=== PATIENT | female | born 1955 | race American Indian/Alaskan Native ===

== ENCOUNTER 2018-04-12 04:07 | Inpatient (IN) | payer MEDICAID ==
[2018-04-12] MEDS ORDERED: Sodium Chloride 0.9% 1,000 ML IV ONE ×2 (04:51→07:09)
[2018-04-12] MEDS ORDERED: Sodium Chloride 0.9% 1,000 ML ONE (04:52)
[2018-04-12 04:56] LABS: BASO # 0.1 K/uL (0.0-0.2); EOS % 0.3 % (0.0-4.0); NEUT # 7.1 K/uL (1.8-7.0)
[2018-04-12 05:05] LABS: BASO % 0.5 % (0.0-2.0); LYMPH # 2.7 K/uL (1.0-4.3); LYMPH % 24.9 % (20.0-40.0); MEAN CELL VOLUME 82.7 fL (81.0-99.0); MEAN CORPUSCULAR HEMOGLOBIN 28.3 pg (27.0-31.0); MEAN CORPUSCULAR HGB CONC 34.2 g/dL (33.0-37.0); MONO # 0.9 K/uL (0.0-0.8); MONO % 8.3 % (0.0-10.0); NRBC % 19.6 % (0.0-2.0); RBC 1.67 Mil/uL (3.80-5.20); RED CELL DISTRIBUTION WIDTH 35.3 % (11.5-14.5); WHITE BLOOD COUNT 10.7 K/uL (4.8-10.8)
[2018-04-12 05:14] LABS: HEMOGLOBIN 4.7 g/dL (11.0-16.0)
[2018-04-12 05:17] LABS: ALB/GLOB RATIO 1.4 (1.0-2.1); ALBUMIN 4.8 g/dL (3.5-5.0); CALCIUM 9.2 mg/dl (8.6-10.4)
--- NOTE | 2018-04-12 05:22 | C.PDOC ---
History Of Present Illness <Marissa Navarrete - Last Filed: 04/12/18 05:32> <Geneva Crook - Last Filed: 04/12/18 06:49> 62 y/o female bought in by family for evaluation of generalized weakness and hypotension. As per spouse, patient reportedly passed out in the store on Tuesday and was brought home by a neighbor. Patient refused any medical treatment at that time. States that since then patient has continued to remain weak, appears pale, with low blood pressure. Spouse states patient has been eating and drinking well. Patient herself denies any complaints, states she feels fine. As per spouse, pt fell today which prompted him to call 911. Deies melena, hematochezia, hematemesis, vomiting, fever, URI sx (Marissa Navarrete) History Per: Patient History/Exam Limitations: no limitations Onset/Duration Of Symptoms: Days Current Symptoms Are (Timing): Still Present <Marissa Navarrete - Last Filed: 04/12/18 05:32> <Geneva Crook - Last Filed: 04/12/18 06:49> Time Seen by Provider: 04/12/18 04:37 Chief Complaint (Nursing): Syncope Past Medical History Reviewed: Historical Data, Nursing Documentation, Vital Signs - Medical History PMH: COPD, HTN, Hypothyroidism Family History: States: No Known Family Hx - Social History Hx Alcohol Use: No Hx Substance Use: No - Immunization History Hx Tetanus Toxoid Vaccination: No Hx Influenza Vaccination: No Hx Pneumococcal Vaccination: No <Marissa Navarrete - Last Filed: 04/12/18 05:32> Vital Signs: Last Vital Signs Temp 98 F 04/12/18 05:36 Pulse 96 H 04/12/18 06:30 Resp 20 04/12/18 06:30 BP 93/54 L 04/12/18 06:30 Pulse Ox 100 04/12/18 06:30 - [facility] OPEN BIOPSY OF BREAST (11/29/02) Review Of Systems Constitutional: Positive for: Weakness (generalized), Malaise (Appears groggy and pale), Other (Hypotension). Negative for: Fever Eyes: Negative for: Vision Change Cardiovascular: Negative for: Chest Pain, Palpitations Respiratory: Negative for: Shortness of Breath Gastrointestinal: Negative for: Vomiting, Abdominal Pain, Diarrhea Neurological: Negative for: Weakness (focal), Numbness, Incoordination, Headache <Marissa aNvarrete - Last Filed: 04/12/18 05:32> Physical Exam - Physical Exam Appears: Non-toxic, No Acute Distress, Other (Appears groggy) Skin: Warm, Dry Head: Atraumatic, Normacephalic Eye(s): bilateral: PERRL, Conjunctiva Pale, Scleral Icterus Oral Mucosa: Moist Throat: Normal, No Erythema Neck: Supple Chest: Symmetrical Cardiovascular: Rhythm Regular, No Murmur Respiratory: Normal Breath Sounds, No Rales, No Rhonchi, No Wheezing Gastrointestinal/Abdominal: Normal Exam, Soft, No Mass, No Distention Rectal: Maroon Stool, No Melena, No Blood Streaked Stool Extremity: Normal ROM, No Pedal Edema Extremity: Bilateral: Atraumatic, Normal Color And Temperature, Normal ROM Neurological/Psych: Oriented x3, Normal Speech, Normal Cognition, Normal Motor, Normal Sensation Gait: Unable To Assess <Marissa Navarrete - Last Filed: 04/12/18 05:32> ED Course And Treatment - Laboratory Results Result Diagrams: 04/12/18 04:49 04/12/18 04:49 ECG: Interpreted By Me, Viewed By Me ECG Rhythm: Sinus Rhythm ECG Interpretation: No Acute Changes Interpretation Of ECG: No ST/T changes Rate From EC O2 Sat by Pulse Oximetry: 98 (RA) Pulse Ox Interpretation: Normal Progress Note: Labs ordered, including blood type/screen. Administered IV fluids. EKG obtained. Labs reviewed: Hb 4.7, platelets 12. Occult blood test ordered. Pt is type and cross for 2 u PRBCs <Marissa Navarrete - Last Filed: 04/12/18 05:32> - Laboratory Results Result Diagrams: 04/12/18 04:49 04/12/18 04:49 Pulse Ox Interpretation: Normal <Geneva Crook - Last Filed: 04/12/18 06:49> Disposition <Marissa Navarrete - Last Filed: 04/12/18 05:32> - Disposition Disposition Time: 06:47 <Geneva Crook - Last Filed: 04/12/18 06:49> - Disposition Referrals: Raymundo Keller MD [Primary Care Provider] - Condition: GUARDED Forms: [facility] (Kyrgyz) - Clinical Impression Clinical Impression: Severe anemia, Thrombocytopenia, Syncope - PA / HEALTHCARE ECONOMICS MANAGER / Resident Statement MD/DO has reviewed & agrees with the documentation as recorded. - Scribe Statement The provider has reviewed the documentation as recorded by the Scribe (Tran Olivier) <Marissa Navarrete - Last Filed: 04/12/18 05:32> <Geneva Crook - Last Filed: 04/12/18 06:49> - Scribe Statement All medical record entries made by the Scribe were at my direction and personally dictated by me. I have reviewed the chart and agree that the record accurately reflects my personal performance of the history, physical exam, medical decision making, and the department course for this patient. I have also personally directed, reviewed, and agree with the discharge instructions and disposition. (Marissa Navarrete) Physician Patient Turnover Patient Signed Over To: Berry Sheehan Handoff Comments: pending re-eval, ct scan results and admission <Geneva Crook - Last Filed: 04/12/18 06:49>
[2018-04-12 05:36] LABS: INR 1.1; PROTHROMBIN TIME 12.3 SECONDS (9.7-12.2)
[2018-04-12] MEDS ORDERED: Potassium Chloride 10 mEq ER Tab PO STA (05:42)
[2018-04-12] MEDS ORDERED: Potassium Chloride 20 mEq ER Tab PO ONE (05:47)
[2018-04-12] MEDS ORDERED: Iodixanol 320 mg/ml 150 ml Bottle IV ONE (06:22)
--- NOTE | 2018-04-12 07:15 | CT ---
Date of service: 04/12/2018 PROCEDURE: CT HEAD WITHOUT CONTRAST. HISTORY: syncope COMPARISON: None available. TECHNIQUE: Axial computed tomography images were obtained through the head/brain without intravenous contrast. Radiation dose: Total exam DLP = 795 mGy-cm. This CT exam was performed using one or more of the following dose reduction techniques: Automated exposure control, adjustment of the mA and/or kV according to patient size, and/or use of iterative reconstruction technique. FINDINGS: HEMORRHAGE: No intracranial hemorrhage. BRAIN: Scattered focal lucencies in the subcortical and periventricular white matter suggestive for chronic microvascular ischemic change. 7 millimeter focal hypodensity seen at the level of the right internal capsule suggestive for a lacunar infarct, likely chronic. VENTRICLES: Unremarkable. No hydrocephalus. CALVARIUM: Unremarkable. PARANASAL SINUSES: Unremarkable as visualized. No significant inflammatory changes. MASTOID AIR CELLS: Unremarkable as visualized. No inflammatory changes. OTHER FINDINGS: Scattered calcifications along the falx and tentorium. IMPRESSION: Chronic microvascular ischemic changes. 7 millimeter focal hypodensity seen at the level of the right internal capsule suggestive for a lacunar infarct, likely chronic. Scattered calcifications along the falx and tentorium. If there is concern for acute ischemic change, consider correlation with MRI. These findings were preliminarily reported at 6:36 a.m. on 04/12/[address] Santy Humphrey from [employer].
[2018-04-12] MEDS ORDERED: Sodium Chloride 0.9% 250 ML IV ONE (07:16)
[2018-04-12 07:44] LABS: SQUAMOUS EPITHIAL 12 /hpf (0-5); URINE BACTERIA RARE (<OCC); URINE BILIRUBIN NEGATIVE (NEGATIVE); URINE BLOOD 2+ (NEGATIVE); URINE CLARITY Hazy (Clear); URINE COLOR Yellow (YELLOW); URINE GLUCOSE (UA) NORMAL (Normal); URINE HYALINE CAST 0-2 /lpf (0-2); URINE LEUKOCYTE ESTERASE TRACE Leu/uL (Negative); URINE PROTEIN NEGATIVE (NEGATIVE)
--- NOTE | 2018-04-12 09:22 | CP.PCM.HP ---
History of Present Illness - History of Present Illness History of Present Illness: Ryan Nicholson PGY1 - History & Physical Exam Note for Dr. Fragoso This is a 62-year-old female with PMHx HTN, hypothyroidism, asthma, migraines, and per patient, "heart murmur since " presents today to ER complaining of dizziness. Patient states that at approximately 4 AM this morning she felt dizzy as she entered the bathroom. Patient reports that she lost balance and fell, states that she was able to catch her fall with her hands. Denies loss of consciousness or hitting her head. Patient states that her came and helped her up, then proceeded to call 911 for patient to go to the hospital. Patient states that she has felt dizzy for 4 days with associated symptoms of lightheadedness, vertigo, chills, and anorexia. She has never had these symptoms before this current episode. Her last meal was yogurt and cereal 4 days ago. Patient otherwise denies nausea, vomiting, fever, weakness, fatigue, myalgias, headache, changes to vision, blurring of vision, changes to hearing, nasal congestion, sore throat, cough, shortness of breath, chest pain, heart palpitations, abdominal pain, dysuria, hematuria, melena, hematochezia, constipation, diarrhea. Of note, patient denies history of anemia. 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 Has hearing aid in right ear which works. ED Vitals: Temp 98.2, BP 93/54, HR 96, RR 22, O2 100% on room air ED Course: Patient type and crossed, receiving first PRBC PMHx: HTN, hypothyrodism, asthma, migraines, "heart murmur" PSHx: "I had a surgery years ago but I can't remember what it was" Hospitalizations: "I was hospitalized 5-6 years ago but I can't remember what it was for" Allx: SUAD [facility] Pharmacy: [facility] Home Medications: lisinopril/HCTZ 10/12.5 mg BID, ASA 81 mg daily, levothyroxine 50 mcg, Albuterol prn, Montelukast 10 mg daily, OTC multivitamin PMD: Raymundo Keller MD Social History: - smokes 2-3 cigarettes daily since age 17 (45 years duration) - denies past or present alcohol use - denies past or present drug use - lives with her in "a decent apartment" - occupation lunch aid at school Family History: - Mother - lung cancer (smoker), DM, HTN, HLD, CVA, [place] - Father - lung cancer, HTN, DM, HLD, [place] - 2 healthy [place] Present on Admission - Present on Admission Any Indicators Present on Admission: No History of DVT/PE: No History of Uncontrolled Diabetes: No Urinary Catheter: No Decubitus Ulcer Present: No Review of Systems - Review of Systems All systems: reviewed and no additional remarkable complaints except - Constitutional Constitutional: As Per HPI - EENT Eyes: As Per HPI Ears: As Per HPI Nose/Mouth/Throat: As Per HPI - Breasts Breasts: As Per HPI - Cardiovascular Cardiovascular: As Per HPI - Respiratory Respiratory: As Per HPI - Gastrointestinal Gastrointestinal: As Per HPI - Genitourinary Genitourinary: As Per HPI - Reproductive: Female Reproductive:Female: As Per HPI - Menstruation Menstruation: As Per HPI - Musculoskeletal Musculoskeletal: As Per HPI - Integumentary Integumentary: As Per HPI - Neurological Neurological: As Per HPI - Psychiatric Psychiatric: As Per HPI - Endocrine Endocrine: As Per HPI - Hematologic/Lymphatic Hematologic: As Per HPI Past Patient History - Infectious Disease Hx of Infectious Diseases: None - Past Social History Smoking Status: Heavy Smoker > 10 Cigarettes Daily - CARDIAC Hx Hypertension: Yes - PULMONARY Hx Chronic Obstructive Pulmonary Disease (COPD): Yes - HEENT Other/Comment: WEARS EYEGLASSES - ENDOCRINE/METABOLIC Hx Hypothyroidism: Yes - PSYCHIATRIC Hx Substance Use: No - SURGICAL HISTORY Hx Surgeries: No - ANESTHESIA Hx Anesthesia: No Meds Allergies/Adverse Reactions: Allergies Allergy/AdvReac Type Severity Reaction Status Date / Time No Known Allergies Allergy Unverified 04/12/18 04:28 Physical Exam - Additional Findings Additional findings: - Constitutional Appears: Non-toxic, No Acute Distress - Eye Exam Eye Exam: EOMI, PERRL Additional comments: conjunctival pallor appreciated on inspection - ENT Exam ENT Exam: Mucous Membranes Dry, Normal Oropharynx - Neck Exam Neck exam: Positive for: Normal Inspection. Negative for: Tenderness Additional comments: no JVD - Respiratory Exam Respiratory Exam: Clear to Auscultation Bilateral. absent: Rales, Rhonchi, Wheezes - Cardiovascular Exam Cardiovascular Exam: RRR, +S1, +S2. Positive for: Holosystolic murmur. absent: Gallop, Rubs - GI/Abdominal Exam GI & Abdominal Exam: Normal Bowel Sounds, Soft. absent: Distended, Tenderness - Extremities Exam Extremities exam: Negative for: calf tenderness, pedal edema - Neurological Exam Neurological exam: Alert, CN II-XII Intact, Oriented x3 - Psychiatric Exam Psychiatric exam: Normal Affect, Normal Mood - Skin Skin Exam: scattered petechiae noted in lower extremities bilaterally, Dry, Intact, Warm Results - Vital Signs Recent Vital Signs: Last Vital Signs Temp 98.2 F 04/12/18 08:07 Pulse 92 H 04/12/18 08:07 Resp 22 04/12/18 08:07 BP 103/63 04/12/18 08:07 Pulse Ox 100 04/12/18 08:07 - Labs Result Diagrams: 04/12/18 04:49 04/12/18 16:13 Labs: Laboratory Results - last 24 hr 04/12/18 04/12/18 04/12/18 04:49 04:49 05:01 WBC 10.7 RBC 1.67 L Hgb 4.7 L* Hct 13.8 L MCV 82.7 MCH 28.3 MCHC 34.2 RDW 35.3 H Plt Count 12 L* MPV 9.0 Neut % (Auto) 66.0 Lymph % (Auto) 24.9 [place] % (Auto) 8.3 Eos % (Auto) 0.3 Baso % (Auto) 0.5 Neut # (Auto) 7.1 H Lymph # (Auto) 2.7 [place] # (Auto) 0.9 H Eos # (Auto) 0.0 Baso # (Auto) 0.1 PT INR APTT Sodium 138 Potassium 2.9 L Chloride 103 Carbon Dioxide 22 Anion Gap 16 BUN 38 H Creatinine 1.4 H Est GFR ( Amer) 46 Est GFR (Non-Af Amer) 38 Random Glucose 146 H Calcium 9.2 Magnesium 1.9 Total Bilirubin 3.8 H AST 77 H ALT 29 Alkaline Phosphatase 51 Total Creatine Kinase 116 Total Protein 8.3 Albumin 4.8 Globulin 3.5 Albumin/Globulin Ratio 1.4 Lipase 360 H TSH 3rd Generation 6.24 H Urine Color Urine Clarity Urine pH Ur Specific [place] Urine Protein Urine Glucose (UA) Urine Ketones Urine Blood Urine Nitrate Urine Bilirubin Urine Urobilinogen Ur Leukocyte Esterase Urine WBC (Auto) Urine RBC (Auto) Ur Squamous Epith Cells Urine Bacteria Hyaline Casts Stool Occult Blood Blood Type Blood Type Confirm Antibody Screen 04/12/18 04/12/18 04/12/18 05:25 05:25 05:28 WBC RBC Hgb Hct MCV MCH MCHC RDW Plt Count MPV Neut % (Auto) Lymph % (Auto) [place] % (Auto) Eos % (Auto) Baso % (Auto) Neut # (Auto) Lymph # (Auto) [place] # (Auto) Eos # (Auto) Baso # (Auto) PT 12.3 H INR 1.1 APTT 27 Sodium Potassium Chloride Carbon Dioxide Anion Gap BUN Creatinine Est GFR ( Amer) Est GFR (Non-Af Amer) Random Glucose Calcium Magnesium Total Bilirubin AST ALT Alkaline Phosphatase Total Creatine Kinase Total Protein Albumin Globulin Albumin/Globulin Ratio Lipase TSH 3rd Generation Urine Color Urine Clarity Urine pH Ur Specific [place] Urine Protein Urine Glucose (UA) Urine Ketones Urine Blood Urine Nitrate Urine Bilirubin Urine Urobilinogen Ur Leukocyte Esterase Urine WBC (Auto) Urine RBC (Auto) Ur Squamous Epith Cells Urine Bacteria Hyaline Casts Stool Occult Blood Negative Blood Type B POSITIVE Blood Type Confirm B POSITIVE Antibody Screen Negative 04/12/18 07:26 WBC RBC Hgb Hct MCV MCH MCHC RDW Plt Count MPV Neut % (Auto) Lymph % (Auto) [place] % (Auto) Eos % (Auto) Baso % (Auto) Neut # (Auto) Lymph # (Auto) [place] # (Auto) Eos # (Auto) Baso # (Auto) PT INR APTT Sodium Potassium Chloride Carbon Dioxide Anion Gap BUN Creatinine Est GFR ( Amer) Est GFR (Non-Af Amer) Random Glucose Calcium Magnesium Total Bilirubin AST ALT Alkaline Phosphatase Total Creatine Kinase Total Protein Albumin Globulin Albumin/Globulin Ratio Lipase TSH 3rd Generation Urine Color Yellow Urine Clarity Hazy Urine pH 5.0 Ur Specific [place] 1.028 Urine Protein Negative Urine Glucose (UA) Normal Urine Ketones Negative Urine Blood 2+ H Urine Nitrate Negative Urine Bilirubin Negative Urine Urobilinogen 2.0 H Ur Leukocyte Esterase Trace Urine WBC (Auto) 4 Urine RBC (Auto) 2 Ur Squamous Epith Cells 12 H Urine Bacteria Rare Hyaline Casts 0-2 Stool Occult Blood Blood Type Blood Type Confirm Antibody Screen Assessment & Plan - Assessment and Plan (Free Text) Assessment: Assessment: This is a 62-year-old Female with a PMH of HTN, hypothyroidism , asthma, and migraines who presented to ED with complaints of dizziness and weakness for multiple days that became worse this morning, found to have severe anemia and thrombocytopenia with peripheral smear findings suspicious for TTP. Patient was subsequently admitted to Tele then transferred to ICU for closer monitoring and for evaluation and treatment of thrombocytopenia and anemia. Plan: 1. Dizziness and pre-syncope likely secondary to Anemia & Thombocytopenia likely secondary to TTP - Heme-Onc: Dr. De La Cruz Consulted, recommendations appreciated - Critical care: Dr. Portillo consulted on board - Patient transferred to ICU for closer monitoring - BUN elevated, Cr elevated - CBC: WBC= 10.7, platelets=12, Hgb=4.7, Hct=13.8 - 1 unit PRBC transfused while in the ED, patient tolerated well - Peripheral smear: positive for schistocytes - direct/indirect bili ordered - Lucio test (direct/indirect) ordered - BOYER 13 lab ordered - Reticulocyte: 13.3 - CAB=[id number] - Lipase: 360 - Carcinoembryonic Ag=4.9 - CA 19-9 Antigen=6.7 - CA 125 Antigen=7 - Vitamin [id number] - Folate >20.0 - Plasmapharesis - Continued management per ICU - CT head: - Abdomen / Pelvis CT: - HIV 1&2 Abs: negative - Isolation: neutropenic precaution - VTE contraindication: No injections, No administering via IM route 2. Hypokalemia - K+=2.9 - K-dur 20mEq given in ED - Replete as needed - Monitor 3. Hypothyroidism - continue home medications - TSH=6.24, T11 Patient was seen and examined and case was discussed at length with attending physician Dr. Fouzia Nicholson PGY1
--- NOTE | 2018-04-12 12:25 | CT ---
Date of service: 04/12/2018 PROCEDURE: CT Abdomen and Pelvis with contrast HISTORY: gi bleed COMPARISON: None available TECHNIQUE: Contrast dose: 100 mL Visipaque IV Radiation dose: Total exam DLP = 355.90 mGy-cm. This CT exam was performed using one or more of the following dose reduction techniques: Automated exposure control, adjustment of the mA and/or kV according to patient size, and/or use of iterative reconstruction technique. FINDINGS: Motion artifact. LOWER THORAX: Unremarkable. LIVER: Unremarkable. GALLBLADDER AND BILE DUCTS: Unremarkable. PANCREAS: Unremarkable. SPLEEN: Wedge-shaped hypodense regions involving the spleen may reflect infarctions of indeterminate age. ADRENALS: Unremarkable. KIDNEYS AND URETERS: The kidneys enhance symmetrically. No hydronephrosis or obstructing calculus identified. Nonobstructing tiny left renal calculus. VASCULATURE: No aortic aneurysm. BOWEL: Stomach is nondistended. Lack of oral contrast limits evaluation for bowel pathology. Bowel loops appear within normal limits of caliber without evidence of obstruction. APPENDIX: No secondary signs of acute appendicitis. PERITONEUM: No significant free fluid. No definite free air. LYMPH NODES: No bulky adenopathy identified. BLADDER: Unremarkable. REPRODUCTIVE: Unremarkable. BONES: No acute osseous abnormality is detected. OTHER FINDINGS: Prominent pelvic vessels suggest pelvic congestion syndrome. IMPRESSION: Wedge-shaped hypodense regions involving the spleen may reflect infarctions of indeterminate age. Additional findings as above. Preliminary impression was provided by virtual radiologic.
[2018-04-12] MEDS ORDERED: Levothyroxine 50 MCG TAB PO SCH (13:15)
--- NOTE | 2018-04-12 14:25 | CP.PCM.CON ---
<Any Alvarez - Last Filed: 04/12/18 18:16> History of Present Illness - History of Present Illness History of Present Illness: ICU consult note CC "generalized weakness" HPI: Patient is a 62 year old female who presents for generalized weakness and hypotension. Patient reportedly recently had a syncopal episode on Tuesday but refused medical treatment at that time. She has reportedly continued to remain weak, appearing pale with low blood pressure. Patient has reportedly been dizzy for the past 4 days. Patient reportedly she felt dizzy and fell earlier today which is why patient was brought in for evaluation. She denies fever, nausea, vomiting, headache, nasal congestion, sore throat, cough, shortness of breath, chest pain, palpitations, dysuria, hematuria, melena, constipation, diarrhea. 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 She states her last meal was this morning. PMH: COPD, HTN, Hypothyroidism, asthma, migraines, "heart murmur", hearing aide in right ear PSH: unknown Allergies: NKDA Meds: Lisinopril/HCTZ, ASA, Levothyroxine, Albuterol, Montelukas, OTC vitamin Social hx: Smokes, no alcohol or drug use. lives with husbands. works as lunch aide at school Past Patient History - Infectious Disease Hx of Infectious Diseases: None - Past Social History Smoking Status: Heavy Smoker > 10 Cigarettes Daily - CARDIAC Hx Hypertension: Yes - PULMONARY Hx Chronic Obstructive Pulmonary Disease (COPD): Yes - HEENT Other/Comment: WEARS EYEGLASSES - ENDOCRINE/METABOLIC Hx Hypothyroidism: Yes - PSYCHIATRIC Hx Substance Use: No - SURGICAL HISTORY Hx Surgeries: No - ANESTHESIA Hx Anesthesia: No Meds Allergies/Adverse Reactions: Allergies Allergy/AdvReac Type Severity Reaction Status Date / Time No Known Allergies Allergy Unverified 04/12/18 04:28 - Medications Medications: Current Medications Levothyroxine Sodium (Synthroid) 50 mcg PO DAILY JOSE Montelukast Sodium (Singulair) 10 mg PO DAILY JOSE Physical Exam - Constitutional Appears: Other (Appears weak) - Head Exam Head Exam: ATRAUMATIC, NORMAL INSPECTION - Eye Exam Eye Exam: EOMI Additional comments: Pale conjunctiva - ENT Exam ENT Exam: Mucous Membranes Moist - Respiratory Exam Respiratory Exam: Clear to Auscultation Bilateral. absent: Decreased Breath Sounds, Rales, Rhonchi, Wheezes, Respiratory Distress, Stridor - Cardiovascular Exam Cardiovascular Exam: REGULAR RHYTHM, +S1, +S2 - GI/Abdominal Exam GI & Abdominal Exam: Normal Bowel Sounds, Soft. absent: Tenderness - Extremities Exam Extremities exam: Positive for: pedal pulses present. Negative for: calf tenderness Additional comments: Delayed capillary refill - Back Exam Back exam: absent: rash noted - Neurological Exam Neurological exam: Alert, Oriented x3 - Psychiatric Exam Psychiatric exam: Normal Affect, Normal Mood - Skin Skin Exam: Dry, Intact, Warm Results - Vital Signs Recent Vital Signs: Last Vital Signs Temp 99 F 04/12/18 12:48 Pulse 88 04/12/18 12:48 Resp 20 04/12/18 12:48 BP 113/74 04/12/18 12:48 Pulse Ox 100 04/12/18 12:48 - Labs Result Diagrams: 04/12/18 04:49 04/12/18 16:13 Labs: Laboratory Results - last 24 hr 04/12/18 04/12/18 04/12/18 04:49 04:49 05:01 WBC 10.7 RBC 1.67 L Hgb 4.7 L* Hct 13.8 L MCV 82.7 MCH 28.3 MCHC 34.2 RDW 35.3 H Plt Count 12 L* MPV 9.0 Neut % (Auto) 66.0 Lymph % (Auto) 24.9 [place] % (Auto) 8.3 Eos % (Auto) 0.3 Baso % (Auto) 0.5 Neut # (Auto) 7.1 H Lymph # (Auto) 2.7 [place] # (Auto) 0.9 H Eos # (Auto) 0.0 Baso # (Auto) 0.1 Differential Comment PT INR APTT Sodium 138 Potassium 2.9 L Chloride 103 Carbon Dioxide 22 Anion Gap 16 BUN 38 H Creatinine 1.4 H Est GFR ( Amer) 46 Est GFR (Non-Af Amer) 38 Random Glucose 146 H Calcium 9.2 Magnesium 1.9 Total Bilirubin 3.8 H AST 77 H ALT 29 Alkaline Phosphatase 51 Total Creatine Kinase 116 Total Protein 8.3 Albumin 4.8 Globulin 3.5 Albumin/Globulin Ratio 1.4 Lipase 360 H TSH 3rd Generation 6.24 H Urine Color Urine Clarity Urine pH Ur Specific [place] Urine Protein Urine Glucose (UA) Urine Ketones Urine Blood Urine Nitrate Urine Bilirubin Urine Urobilinogen Ur Leukocyte Esterase Urine WBC (Auto) Urine RBC (Auto) Ur Squamous Epith Cells Urine Bacteria Hyaline Casts Stool Occult Blood Blood Type Blood Type Confirm Antibody Screen 04/12/18 04/12/18 04/12/18 05:25 05:25 05:28 WBC RBC Hgb Hct MCV MCH MCHC RDW Plt Count MPV Neut % (Auto) Lymph % (Auto) [place] % (Auto) Eos % (Auto) Baso % (Auto) Neut # (Auto) Lymph # (Auto) [place] # (Auto) Eos # (Auto) Baso # (Auto) Differential Comment PT 12.3 H INR 1.1 APTT 27 Sodium Potassium Chloride Carbon Dioxide Anion Gap BUN Creatinine Est GFR ( Amer) Est GFR (Non-Af Amer) Random Glucose Calcium Magnesium Total Bilirubin AST ALT Alkaline Phosphatase Total Creatine Kinase Total Protein Albumin Globulin Albumin/Globulin Ratio Lipase TSH 3rd Generation Urine Color Urine Clarity Urine pH Ur Specific [place] Urine Protein Urine Glucose (UA) Urine Ketones Urine Blood Urine Nitrate Urine Bilirubin Urine Urobilinogen Ur Leukocyte Esterase Urine WBC (Auto) Urine RBC (Auto) Ur Squamous Epith Cells Urine Bacteria Hyaline Casts Stool Occult Blood Negative Blood Type B POSITIVE Blood Type Confirm B POSITIVE Antibody Screen Negative 04/12/18 07:26 WBC RBC Hgb Hct MCV MCH MCHC RDW Plt Count MPV Neut % (Auto) Lymph % (Auto) [place] % (Auto) Eos % (Auto) Baso % (Auto) Neut # (Auto) Lymph # (Auto) [place] # (Auto) Eos # (Auto) Baso # (Auto) Differential Comment PT INR APTT Sodium Potassium Chloride Carbon Dioxide Anion Gap BUN Creatinine Est GFR ( Amer) Est GFR (Non-Af Amer) Random Glucose Calcium Magnesium Total Bilirubin AST ALT Alkaline Phosphatase Total Creatine Kinase Total Protein Albumin Globulin Albumin/Globulin Ratio Lipase TSH 3rd Generation Urine Color Yellow Urine Clarity Hazy Urine pH 5.0 Ur Specific [place] 1.028 Urine Protein Negative Urine Glucose (UA) Normal Urine Ketones Negative Urine Blood 2+ H Urine Nitrate Negative Urine Bilirubin Negative Urine Urobilinogen 2.0 H Ur Leukocyte Esterase Trace Urine WBC (Auto) 4 Urine RBC (Auto) 2 Ur Squamous Epith Cells 12 H Urine Bacteria Rare Hyaline Casts 0-2 Stool Occult Blood Blood Type Blood Type Confirm Antibody Screen Assessment & Plan - Assessment and Plan (Free Text) Assessment: 62 year old female with history of HTN, hypothyrodism, asthma, migraines, heart murmurwho presents for generalized weakness and hypotension. Patient was found to have hemoglobin of 4.7, with platelet of 12, concern for TTP. Plan: Neuro: Alert and oriented Continue to monitor CT head without contrast Chronic microvascular ischemic changes.7 millimeter focal hypodensity seen at the level of the right internal capsule suggestive for a lacunar infarct, likely chronic.Scattered calcifications along the falx and tentorium.If there is concern for acute ischemic change, consider correlation with MRI. Cardiovascular Initially hypotensive, however currently normotensive at 130/88 Hold antihypertensives Pulmonary Saturating 98% on RA Singulair 10mg PO daily GI Stool occult negative CT Abdomen Wedge-shaped hypodense regions involving the spleen may reflect infarctions of indeterminate age. Renal Dr. Aguirre consulted, help appreciated Right femoral Dialysis catheter placed for possible plasmapheresis per Dr. Aguirre I & Os ID Afebrile White count 10.7 Continue to monitor Heme Concern for TTP Dr. De La Cruz consulted, help appreciated Peripheral blood smear reveals no increase in blasts. Mild neutrophilia and mild monocytosis. Thrombocytopenia with few large platelets. RBC studies show normocytic anemia. RBC morpholoy - nucleated RBCs Hb 4.7 / Hct 13.[address] 13[address]3 Haptoglobin <20.0 f/u LDH, Indirect and Direct Lucio, [id number] f/u folate, ferritin, CA 19-9, CEA, CA125, Direct bilirubin Endo Hx of hypothyroidism Synthroid 50mcg PO daily f/u TSH, T4 PPX SCDs Case discussed with Dr. Portillo <Marcell Portillo S - Last Filed: 04/12/18 18:51> Meds - Medications Medications: Current Medications Levothyroxine Sodium (Synthroid) 50 mcg PO DAILY [facility] Last Admin: 04/12/18 16:38 Dose: 50 mcg Montelukast Sodium (Singulair) 10 mg PO DAILY [facility] Last Admin: 04/12/18 16:38 Dose: 10 mg Results - Vital Signs Recent Vital Signs: Last Vital Signs Temp 98.2 F 04/12/18 17:53 Pulse 94 H 04/12/18 17:53 Resp 17 04/12/18 17:53 BP 130/88 04/12/18 17:53 Pulse Ox 98 04/12/18 18:02 - Labs Result Diagrams: 04/12/18 04:49 04/12/18 16:13 Labs: Laboratory Results - last 24 hr 04/12/18 04/12/18 04/12/18 04:49 04:49 05:01 WBC 10.7 RBC 1.67 L Hgb 4.7 L* Hct 13.8 L MCV 82.7 MCH 28.3 MCHC 34.2 RDW 35.3 H Plt Count 12 L* MPV 9.0 Neut % (Auto) 66.0 Lymph % (Auto) 24.9 [place] % (Auto) 8.3 Eos % (Auto) 0.3 Baso % (Auto) 0.5 Neut # (Auto) 7.1 H Lymph # (Auto) 2.7 [place] # (Auto) 0.9 H Eos # (Auto) 0.0 Baso # (Auto) 0.1 Differential Comment Retic Count Haptoglobin PT INR APTT Fibrinogen Sodium 138 Potassium 2.9 L Chloride 103 Carbon Dioxide 22 Anion Gap 16 BUN 38 H Creatinine 1.4 H Est GFR ( Amer) 46 Est GFR (Non-Af Amer) 38 Random Glucose 146 H Hemoglobin A1c Calcium 9.2 Magnesium 1.9 Total Bilirubin 3.8 H Direct Bilirubin AST 77 H ALT 29 Alkaline Phosphatase 51 Lactate Dehydrogenase Total Creatine Kinase 116 Total Protein 8.3 Albumin 4.8 Globulin 3.5 Albumin/Globulin Ratio 1.4 Lipase 360 H Alpha Fetoprotein Carcinoembryonic Ag CA 19-9 Antigen CA 125 Antigen Folate Thyroxine (T4) TSH 3rd Generation 6.24 H Urine Color Urine Clarity Urine pH Ur Specific [place] Urine Protein Urine Glucose (UA) Urine Ketones Urine Blood Urine Nitrate Urine Bilirubin Urine Urobilinogen Ur Leukocyte Esterase Urine WBC (Auto) Urine RBC (Auto) Ur Squamous Epith Cells Urine Bacteria Hyaline Casts Stool Occult Blood HIV 1&2 Antibody Screen Blood Type Blood Type Confirm Antibody Screen JOSEPH, Poly Interpret 04/12/18 04/12/18 04/12/18 05:25 05:25 05:28 WBC RBC Hgb Hct MCV MCH MCHC RDW Plt Count MPV Neut % (Auto) Lymph % (Auto) [place] % (Auto) Eos % (Auto) Baso % (Auto) Neut # (Auto) Lymph # (Auto) [place] # (Auto) Eos # (Auto) Baso # (Auto) Differential Comment Retic Count Haptoglobin PT 12.3 H INR 1.1 APTT 27 Fibrinogen Sodium Potassium Chloride Carbon Dioxide Anion Gap BUN Creatinine Est GFR ( Amer) Est GFR (Non-Af Amer) Random Glucose Hemoglobin A1c Calcium Magnesium Total Bilirubin Direct Bilirubin AST ALT Alkaline Phosphatase Lactate Dehydrogenase Total Creatine Kinase Total Protein Albumin Globulin Albumin/Globulin Ratio Lipase Alpha Fetoprotein Carcinoembryonic Ag CA 19-9 Antigen CA 125 Antigen Folate Thyroxine (T4) TSH 3rd Generation Urine Color Urine Clarity Urine pH Ur Specific [place] Urine Protein Urine Glucose (UA) Urine Ketones Urine Blood Urine Nitrate Urine Bilirubin Urine Urobilinogen Ur Leukocyte Esterase Urine WBC (Auto) Urine RBC (Auto) Ur Squamous Epith Cells Urine Bacteria Hyaline Casts Stool Occult Blood Negative HIV 1&2 Antibody Screen Blood Type B POSITIVE Blood Type Confirm B POSITIVE Antibody Screen Negative JOSEPH, Poly Interpret 04/12/18 04/12/18 04/12/18 07:26 10:33 15:45 WBC RBC Hgb Hct MCV MCH MCHC RDW Plt Count MPV Neut % (Auto) Lymph % (Auto) [place] % (Auto) Eos % (Auto) Baso % (Auto) Neut # (Auto) Lymph # (Auto) [place] # (Auto) Eos # (Auto) Baso # (Auto) Differential Comment Retic Count Haptoglobin PT INR APTT Fibrinogen Sodium Potassium Chloride Carbon Dioxide Anion Gap BUN Creatinine Est GFR ( Amer) Est GFR (Non-Af Amer) Random Glucose Hemoglobin A1c Calcium Magnesium Total Bilirubin Direct Bilirubin AST ALT Alkaline Phosphatase Lactate Dehydrogenase Total Creatine Kinase Total Protein Albumin Globulin Albumin/Globulin Ratio Lipase Alpha Fetoprotein Carcinoembryonic Ag CA 19-9 Antigen CA 125 Antigen Folate Thyroxine (T4) TSH 3rd Generation Urine Color Yellow Urine Clarity Hazy Urine pH 5.0 Ur Specific [place] 1.028 Urine Protein Negative Urine Glucose (UA) Normal Urine Ketones Negative Urine Blood 2+ H Urine Nitrate Negative Urine Bilirubin Negative Urine Urobilinogen 2.0 H Ur Leukocyte Esterase Trace Urine WBC (Auto) 4 Urine RBC (Auto) 2 Ur Squamous Epith Cells 12 H Urine Bacteria Rare Hyaline Casts 0-2 Stool Occult Blood HIV 1&2 Antibody Screen Blood Type Blood Type Confirm Antibody Screen JOSEPH, Poly Interpret Negative 04/12/18 04/12/18 04/12/18 15:57 15:57 15:57 WBC RBC Hgb Hct MCV MCH MCHC RDW Plt Count MPV Neut % (Auto) Lymph % (Auto) [place] % (Auto) Eos % (Auto) Baso % (Auto) Neut # (Auto) Lymph # (Auto) [place] # (Auto) Eos # (Auto) Baso # (Auto) Differential Comment Retic Count 13.3 H Haptoglobin < 20.0 L PT INR APTT Fibrinogen 126 L Sodium Potassium Chloride Carbon Dioxide Anion Gap BUN Creatinine Est GFR ( Amer) Est GFR (Non-Af Amer) Random Glucose Hemoglobin A1c Calcium Magnesium Total Bilirubin Direct Bilirubin AST ALT Alkaline Phosphatase Lactate Dehydrogenase Total Creatine Kinase Total Protein Albumin Globulin Albumin/Globulin Ratio Lipase Alpha Fetoprotein Carcinoembryonic Ag CA 19-9 Antigen CA 125 Antigen Folate Thyroxine (T4) TSH 3rd Generation Urine Color Urine Clarity Urine pH Ur Specific [place] Urine Protein Urine Glucose (UA) Urine Ketones Urine Blood Urine Nitrate Urine Bilirubin Urine Urobilinogen Ur Leukocyte Esterase Urine WBC (Auto) Urine RBC (Auto) Ur Squamous Epith Cells Urine Bacteria Hyaline Casts Stool Occult Blood HIV 1&2 Antibody Screen Blood Type Blood Type Confirm Antibody Screen JOSEPH, Poly Interpret 04/12/18 04/12/18 04/12/18 15:57 15:57 15:57 WBC RBC Hgb Hct MCV MCH MCHC RDW Plt Count MPV Neut % (Auto) Lymph % (Auto) [place] % (Auto) Eos % (Auto) Baso % (Auto) Neut # (Auto) Lymph # (Auto) [place] # (Auto) Eos # (Auto) Baso # (Auto) Differential Comment Retic Count Haptoglobin PT INR APTT Fibrinogen Sodium Potassium Chloride Carbon Dioxide Anion Gap BUN Creatinine Est GFR ( Amer) Est GFR (Non-Af Amer) Random Glucose Hemoglobin A1c 4.6 Calcium Magnesium Total Bilirubin Direct Bilirubin 0.9 H AST ALT Alkaline Phosphatase Lactate Dehydrogenase 4232 H Total Creatine Kinase Total Protein Albumin Globulin Albumin/Globulin Ratio Lipase Alpha Fetoprotein 2.5 Carcinoembryonic Ag 4.9 H CA 19-9 Antigen 6.7 CA 125 Antigen 7.0 Folate > 20.0 Thyroxine (T4) 11.0 TSH 3rd Generation 4.91 H Urine Color Urine Clarity Urine pH Ur Specific [place] Urine Protein Urine Glucose (UA) Urine Ketones Urine Blood Urine Nitrate Urine Bilirubin Urine Urobilinogen Ur Leukocyte Esterase Urine WBC (Auto) Urine RBC (Auto) Ur Squamous Epith Cells Urine Bacteria Hyaline Casts Stool Occult Blood HIV 1&2 Antibody Screen Blood Type Blood Type Confirm Antibody Screen JOSEPH, Poly Interpret 04/12/18 04/12/18 15:57 16:13 WBC RBC Hgb Hct MCV MCH MCHC RDW Plt Count MPV Neut % (Auto) Lymph % (Auto) [place] % (Auto) Eos % (Auto) Baso % (Auto) Neut # (Auto) Lymph # (Auto) [place] # (Auto) Eos # (Auto) Baso # (Auto) Differential Comment Retic Count Haptoglobin PT INR APTT Fibrinogen Sodium 138 Potassium 3.0 L Chloride 108 H Carbon Dioxide 20 L Anion Gap 14 BUN 24 H Creatinine 1.0 Est GFR ( Amer) > 60 Est GFR (Non-Af Amer) 57 Random Glucose 148 H Hemoglobin A1c Calcium 8.3 L Magnesium Total Bilirubin 3.5 H Direct Bilirubin AST 79 H ALT 33 Alkaline Phosphatase 43 Lactate Dehydrogenase Total Creatine Kinase Total Protein 7.0 Albumin 3.8 Globulin 3.2 Albumin/Globulin Ratio 1.2 Lipase Alpha Fetoprotein Carcinoembryonic Ag CA 19-9 Antigen CA 125 Antigen Folate Thyroxine (T4) TSH 3rd Generation Urine Color Urine Clarity Urine pH Ur Specific [place] Urine Protein Urine Glucose (UA) Urine Ketones Urine Blood Urine Nitrate Urine Bilirubin Urine Urobilinogen Ur Leukocyte Esterase Urine WBC (Auto) Urine RBC (Auto) Ur Squamous Epith Cells Urine Bacteria Hyaline Casts Stool Occult Blood HIV 1&2 Antibody Screen Negative Blood Type Blood Type Confirm Antibody Screen JOSEPH, Poly Interpret Attending/Attestation - Attestation I have personally seen and examined this patient.: Yes I have fully participated in the care of the patient.: Yes I have reviewed all pertinent clinical information: Yes Notes (Text): 04/12/18 18:49 patient seen and examined 62-year-old female 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
--- NOTE | 2018-04-12 14:38 | CP.PCM.CON ---
<Josue Ovalle - Last Filed: 04/12/18 14:32> History of Present Illness - History of Present Illness History of Present Illness: Josue Ovalle D.O. PGY-3, Internal Medicine Resident, Nephrology Consultation Note 62 year old AA female with a PMH of HTN, hypothyroidism, asthma, and migraines who presented to ER with complaints of dizziness and weakness for multiple days that became worse this morning. Nephrology consultation was requested for TRU. Patient was seen and examined at bedside. Patient relates the aforementioned story of multiple days of feeling unwell, dizziness, and weakness. Patient states that she almost fell and this prompted her coming to the ER. At this time patient is in the ICU. Denies any recent illness or sick contacts. Denies any other associated symptoms. She notes no decrease in urination or any urinary symptoms. PMH: as above PSH: states had one but doesn't recall SH: smokes a few cigarettes daily, denies alcohol or drug use FH: noncontributory Meds: reviewed Allergies: NKA Review of Systems - Constitutional Constitutional: Anorexia. absent: Fever - EENT Eyes: absent: Blind Spots, Blurred Vision Ears: Dizziness. absent: Decreased Hearing Nose/Mouth/Throat: absent: Epistaxis, Nose Pain - Cardiovascular Cardiovascular: absent: Chest Pain, Diaphoresis - Respiratory Respiratory: absent: Cough, Dyspnea - Gastrointestinal Gastrointestinal: absent: Abdominal Pain, Nausea - Genitourinary Genitourinary: absent: Dysuria, Hematuria - Musculoskeletal Musculoskeletal: absent: Muscle Weakness, Myalgias - Integumentary Integumentary: absent: Pruritus, Rash - Neurological Neurological: absent: Headaches, Tremor Past Patient History - Infectious Disease Hx of Infectious Diseases: None - Past Social History Smoking Status: Heavy Smoker > 10 Cigarettes Daily - CARDIAC Hx Hypertension: Yes - PULMONARY Hx Chronic Obstructive Pulmonary Disease (COPD): Yes - HEENT Other/Comment: WEARS EYEGLASSES - ENDOCRINE/METABOLIC Hx Hypothyroidism: Yes - PSYCHIATRIC Hx Substance Use: No - SURGICAL HISTORY Hx Surgeries: No - ANESTHESIA Hx Anesthesia: No Meds Allergies/Adverse Reactions: Allergies Allergy/AdvReac Type Severity Reaction Status Date / Time house dust mite Allergy COUGH Verified 04/13/18 01:02 Seafood Allergy RASH Uncoded 04/13/18 01:02 - Medications Medications: Current Medications Levothyroxine Sodium (Synthroid) 50 mcg PO DAILY JOSE Montelukast Sodium (Singulair) 10 mg PO DAILY JOSE Physical Exam - Constitutional Appears: Non-toxic, No Acute Distress - Eye Exam Eye Exam: EOMI, PERRL Additional comments: conjunctival pallor - ENT Exam ENT Exam: Mucous Membranes Dry, Normal Oropharynx - Neck Exam Neck exam: Positive for: Normal Inspection. Negative for: Tenderness Additional comments: no JVD - Respiratory Exam Respiratory Exam: Clear to Auscultation Bilateral. absent: Rales, Rhonchi, Wheezes - Cardiovascular Exam Cardiovascular Exam: RRR, +S1, +S2. absent: Gallop, Rubs - GI/Abdominal Exam GI & Abdominal Exam: Normal Bowel Sounds, Soft. absent: Distended, Tenderness - Extremities Exam Extremities exam: Negative for: calf tenderness, pedal edema - Neurological Exam Neurological exam: Alert, CN II-XII Intact, Oriented x3 - Psychiatric Exam Psychiatric exam: Normal Affect, Normal Mood - Skin Skin Exam: Dry, Intact, Warm Results - Vital Signs Recent Vital Signs: Last Vital Signs Temp 99 F 04/12/18 12:48 Pulse 88 04/12/18 12:48 Resp 20 04/12/18 12:48 BP 113/74 04/12/18 12:48 Pulse Ox 100 04/12/18 12:48 - Labs Result Diagrams: 04/12/18 04:49 04/12/18 04:49 Labs: Laboratory Results - last 24 hr 04/12/18 04/12/18 04/12/18 04:49 04:49 05:01 WBC 10.7 RBC 1.67 L Hgb 4.7 L* Hct 13.8 L MCV 82.7 MCH 28.3 MCHC 34.2 RDW 35.3 H Plt Count 12 L* MPV 9.0 Neut % (Auto) 66.0 Lymph % (Auto) 24.9 Morrison % (Auto) 8.3 Eos % (Auto) 0.3 Baso % (Auto) 0.5 Neut # (Auto) 7.1 H Lymph # (Auto) 2.7 Morrison # (Auto) 0.9 H Eos # (Auto) 0.0 Baso # (Auto) 0.1 Differential Comment PT INR APTT Sodium 138 Potassium 2.9 L Chloride 103 Carbon Dioxide 22 Anion Gap 16 BUN 38 H Creatinine 1.4 H Est GFR ( Amer) 46 Est GFR (Non-Af Amer) 38 Random Glucose 146 H Calcium 9.2 Magnesium 1.9 Total Bilirubin 3.8 H AST 77 H ALT 29 Alkaline Phosphatase 51 Total Creatine Kinase 116 Total Protein 8.3 Albumin 4.8 Globulin 3.5 Albumin/Globulin Ratio 1.4 Lipase 360 H TSH 3rd Generation 6.24 H Urine Color Urine Clarity Urine pH Ur Specific [place] Urine Protein Urine Glucose (UA) Urine Ketones Urine Blood Urine Nitrate Urine Bilirubin Urine Urobilinogen Ur Leukocyte Esterase Urine WBC (Auto) Urine RBC (Auto) Ur Squamous Epith Cells Urine Bacteria Hyaline Casts Stool Occult Blood Blood Type Blood Type Confirm Antibody Screen 04/12/18 04/12/18 04/12/18 05:25 05:25 05:28 WBC RBC Hgb Hct MCV MCH MCHC RDW Plt Count MPV Neut % (Auto) Lymph % (Auto) Morrison % (Auto) Eos % (Auto) Baso % (Auto) Neut # (Auto) Lymph # (Auto) Morrison # (Auto) Eos # (Auto) Baso # (Auto) Differential Comment PT 12.3 H INR 1.1 APTT 27 Sodium Potassium Chloride Carbon Dioxide Anion Gap BUN Creatinine Est GFR ( Amer) Est GFR (Non-Af Amer) Random Glucose Calcium Magnesium Total Bilirubin AST ALT Alkaline Phosphatase Total Creatine Kinase Total Protein Albumin Globulin Albumin/Globulin Ratio Lipase TSH 3rd Generation Urine Color Urine Clarity Urine pH Ur Specific [place] Urine Protein Urine Glucose (UA) Urine Ketones Urine Blood Urine Nitrate Urine Bilirubin Urine Urobilinogen Ur Leukocyte Esterase Urine WBC (Auto) Urine RBC (Auto) Ur Squamous Epith Cells Urine Bacteria Hyaline Casts Stool Occult Blood Negative Blood Type B POSITIVE Blood Type Confirm B POSITIVE Antibody Screen Negative 04/12/18 07:26 WBC RBC Hgb Hct MCV MCH MCHC RDW Plt Count MPV Neut % (Auto) Lymph % (Auto) Morrison % (Auto) Eos % (Auto) Baso % (Auto) Neut # (Auto) Lymph # (Auto) Morrison # (Auto) Eos # (Auto) Baso # (Auto) Differential Comment PT INR APTT Sodium Potassium Chloride Carbon Dioxide Anion Gap BUN Creatinine Est GFR ( Amer) Est GFR (Non-Af Amer) Random Glucose Calcium Magnesium Total Bilirubin AST ALT Alkaline Phosphatase Total Creatine Kinase Total Protein Albumin Globulin Albumin/Globulin Ratio Lipase TSH 3rd Generation Urine Color Yellow Urine Clarity Hazy Urine pH 5.0 Ur Specific [place] 1.028 Urine Protein Negative Urine Glucose (UA) Normal Urine Ketones Negative Urine Blood 2+ H Urine Nitrate Negative Urine Bilirubin Negative Urine Urobilinogen 2.0 H Ur Leukocyte Esterase Trace Urine WBC (Auto) 4 Urine RBC (Auto) 2 Ur Squamous Epith Cells 12 H Urine Bacteria Rare Hyaline Casts 0-2 Stool Occult Blood Blood Type Blood Type Confirm Antibody Screen Assessment & Plan - Assessment and Plan (Free Text) Assessment: 62 year old AA female with a PMH of HTN, hypothyroidism, asthma, and migraines who presented to ER with complaints of dizziness and weakness for multiple days that became worse this morning, found to have severe anemia and thrombocytopenia with peripheral smear findings suspicious for TTP. Nephrology consultation was requested for TRU. Plan: Dizziness and pre-syncope Anemia and thrombocytopenia suspicious for TTP Hypotension TRU Hypokalemia Hypothyroidism Agree with evaluation by hematology/oncology and possible plasma exchange if indicated If indeed TTP, elevated BUN and Cr likely renal manifestations of this multisystem disease Agree with obtaining [id number] levels Close follow up with repeat CMP recommended Maintain hydration/euvolemia Potassium supplementation noted of 20mEq, will give another 40mEq KCl PO x1 Avoid nephrotoxic agents Monitors IxOs closely Patient was seen and examined and case was discussed at length with attending physician Dr. Aguirre Thank you for the pleasure of participating in the care of this interesting patient - Date & Time Date: 04/12/18 Time: 14:40 <Jason Aguirre - Last Filed: 04/13/18 06:44> Meds - Medications Medications: Current Medications Levothyroxine Sodium (Synthroid) 50 mcg PO DAILY@0600 [facility] Last Admin: 04/13/18 06:05 Dose: 50 mcg Montelukast Sodium (Singulair) 10 mg PO DAILY [facility] Last Admin: 04/12/18 16:38 Dose: 10 mg Morphine Sulfate (Morphine) 2 mg IVP Q6 PRN PRN Reason: Pain, severe (8-10) Morphine Sulfate (Morphine) 1 mg IVP Q4 PRN PRN Reason: Pain, moderate (4-7) Last Admin: 04/12/18 21:40 Dose: 1 mg Nicotine (Nicoderm Cq) 1 patch TD DAILY [facility] Last Admin: 04/12/18 21:55 Dose: 1 patch Pantoprazole Sodium (Protonix Ec Tab) 40 mg PO DAILY [facility] Results - Vital Signs Recent Vital Signs: Last Vital Signs Temp 98.1 F 04/13/18 04:00 Pulse 76 04/13/18 06:00 Resp 11 L 04/13/18 06:00 BP 118/71 04/13/18 06:00 Pulse Ox 96 04/13/18 06:00 - Labs Result Diagrams: 04/12/18 22:36 04/12/18 22:36 Labs: Laboratory Results - last 24 hr 04/12/18 04/12/18 04/12/18 04:49 05:25 07:26 WBC 10.7 RBC 1.67 L Hgb 4.7 L* Hct 13.8 L MCV 82.7 MCH 28.3 MCHC 34.2 RDW 35.3 H Plt Count 12 L* MPV 9.0 Neut % (Auto) 66.0 Lymph % (Auto) 24.9 Morrison % (Auto) 8.3 Eos % (Auto) 0.3 Baso % (Auto) 0.5 Neut # (Auto) 7.1 H Lymph # (Auto) 2.7 Morrison # (Auto) 0.9 H Eos # (Auto) 0.0 Baso # (Auto) 0.1 Differential Comment Retic Count Haptoglobin Fibrinogen Sodium Potassium Chloride Carbon Dioxide Anion Gap BUN Creatinine Est GFR ( Amer) Est GFR (Non-Af Amer) Random Glucose Hemoglobin A1c Calcium Ferritin Total Bilirubin Direct Bilirubin AST ALT Alkaline Phosphatase Lactate Dehydrogenase Total Protein Albumin Globulin Albumin/Globulin Ratio Alpha Fetoprotein Carcinoembryonic Ag CA 19-9 Antigen CA 125 Antigen Vitamin B12 Folate Thyroxine (T4) TSH 3rd Generation Urine Color Yellow Urine Clarity Hazy Urine pH 5.0 Ur Specific [place] 1.028 Urine Protein Negative Urine Glucose (UA) Normal Urine Ketones Negative Urine Blood 2+ H Urine Nitrate Negative Urine Bilirubin Negative Urine Urobilinogen 2.0 H Ur Leukocyte Esterase Trace Urine WBC (Auto) 4 Urine RBC (Auto) 2 Ur Squamous Epith Cells 12 H Urine Bacteria Rare Hyaline Casts 0-2 HIV 1&2 Antibody Screen Blood Type B POSITIVE Blood Type Confirm B POSITIVE Antibody Screen Negative JOSEPH, Poly Interpret 04/12/18 04/12/18 04/12/18 10:33 15:45 15:57 WBC RBC Hgb Hct MCV MCH MCHC RDW Plt Count MPV Neut % (Auto) Lymph % (Auto) Morrison % (Auto) Eos % (Auto) Baso % (Auto) Neut # (Auto) Lymph # (Auto) [place] # (Auto) Eos # (Auto) Baso # (Auto) Differential Comment Retic Count 13.3 H Haptoglobin Fibrinogen Sodium Potassium Chloride Carbon Dioxide Anion Gap BUN Creatinine Est GFR ( Amer) Est GFR (Non-Af Amer) Random Glucose Hemoglobin A1c Calcium Ferritin Total Bilirubin Direct Bilirubin AST ALT Alkaline Phosphatase Lactate Dehydrogenase Total Protein Albumin Globulin Albumin/Globulin Ratio Alpha Fetoprotein Carcinoembryonic Ag CA 19-9 Antigen CA 125 Antigen Vitamin B12 Folate Thyroxine (T4) TSH 3rd Generation Urine Color Urine Clarity Urine pH Ur Specific [place] Urine Protein Urine Glucose (UA) Urine Ketones Urine Blood Urine Nitrate Urine Bilirubin Urine Urobilinogen Ur Leukocyte Esterase Urine WBC (Auto) Urine RBC (Auto) Ur Squamous Epith Cells Urine Bacteria Hyaline Casts HIV 1&2 Antibody Screen Blood Type Blood Type Confirm Antibody Screen JOSEPH, Poly Interpret Negative 04/12/18 04/12/18 04/12/18 15:57 15:57 15:57 WBC RBC Hgb Hct MCV MCH MCHC RDW Plt Count MPV Neut % (Auto) Lymph % (Auto) [place] % (Auto) Eos % (Auto) Baso % (Auto) Neut # (Auto) Lymph # (Auto) Morrison # (Auto) Eos # (Auto) Baso # (Auto) Differential Comment Retic Count Haptoglobin < 20.0 L Fibrinogen 126 L Sodium Potassium Chloride Carbon Dioxide Anion Gap BUN Creatinine Est GFR ( Amer) Est GFR (Non-Af Amer) Random Glucose Hemoglobin A1c Calcium Ferritin 1370.0 Total Bilirubin Direct Bilirubin 0.9 H AST ALT Alkaline Phosphatase Lactate Dehydrogenase 4232 H Total Protein Albumin Globulin Albumin/Globulin Ratio Alpha Fetoprotein Carcinoembryonic Ag 4.9 H CA 19-9 Antigen 6.7 CA 125 Antigen 7.0 Vitamin B12 685 Folate > 20.0 Thyroxine (T4) 11.0 TSH 3rd Generation 4.91 H Urine Color Urine Clarity Urine pH Ur Specific [place] Urine Protein Urine Glucose (UA) Urine Ketones Urine Blood Urine Nitrate Urine Bilirubin Urine Urobilinogen Ur Leukocyte Esterase Urine WBC (Auto) Urine RBC (Auto) Ur Squamous Epith Cells Urine Bacteria Hyaline Casts HIV 1&2 Antibody Screen Blood Type Blood Type Confirm Antibody Screen JOSEPH, Poly Interpret 04/12/18 04/12/18 04/12/18 15:57 15:57 15:57 WBC RBC Hgb Hct MCV MCH MCHC RDW Plt Count MPV Neut % (Auto) Lymph % (Auto) [place] % (Auto) Eos % (Auto) Baso % (Auto) Neut # (Auto) Lymph # (Auto) [place] # (Auto) Eos # (Auto) Baso # (Auto) Differential Comment Retic Count Haptoglobin Fibrinogen Sodium Potassium Chloride Carbon Dioxide Anion Gap BUN Creatinine Est GFR ( Amer) Est GFR (Non-Af Amer) Random Glucose Hemoglobin A1c 4.6 Calcium Ferritin Total Bilirubin Direct Bilirubin AST ALT Alkaline Phosphatase Lactate Dehydrogenase Total Protein Albumin Globulin Albumin/Globulin Ratio Alpha Fetoprotein 2.5 Carcinoembryonic Ag CA 19-9 Antigen CA 125 Antigen Vitamin B12 Folate Thyroxine (T4) TSH 3rd Generation Urine Color Urine Clarity Urine pH Ur Specific [place] Urine Protein Urine Glucose (UA) Urine Ketones Urine Blood Urine Nitrate Urine Bilirubin Urine Urobilinogen Ur Leukocyte Esterase Urine WBC (Auto) Urine RBC (Auto) Ur Squamous Epith Cells Urine Bacteria Hyaline Casts HIV 1&2 Antibody Screen Negative Blood Type Blood Type Confirm Antibody Screen JOSEPH, Poly Interpret 04/12/18 04/12/18 04/12/18 16:13 22:36 22:36 WBC 7.5 RBC 3.20 L Hgb 9.8 L D Hct 27.1 L MCV 84.6 MCH 30.6 MCHC 36.2 RDW 15.6 H Plt Count 11 L* MPV 9.0 Neut % (Auto) Lymph % (Auto) Morrison % (Auto) Eos % (Auto) Baso % (Auto) Neut # (Auto) Lymph # (Auto) Morrison # (Auto) Eos # (Auto) Baso # (Auto) Differential Comment Retic Count Haptoglobin Fibrinogen Sodium 138 136 Potassium 3.0 L 4.2 Chloride 108 H 107 Carbon Dioxide 20 L 18 L Anion Gap 14 16 BUN 24 H 20 H Creatinine 1.0 0.9 Est GFR ( Amer) > 60 > 60 Est GFR (Non-Af Amer) 57 > 60 Random Glucose 148 H 170 H Hemoglobin A1c Calcium 8.3 L 8.5 L Ferritin Total Bilirubin 3.5 H Direct Bilirubin AST 79 H ALT 33 Alkaline Phosphatase 43 Lactate Dehydrogenase Total Protein 7.0 Albumin 3.8 Globulin 3.2 Albumin/Globulin Ratio 1.2 Alpha Fetoprotein Carcinoembryonic Ag CA 19-9 Antigen CA 125 Antigen Vitamin B12 Folate Thyroxine (T4) TSH 3rd Generation Urine Color Urine Clarity Urine pH Ur Specific [place] Urine Protein Urine Glucose (UA) Urine Ketones Urine Blood Urine Nitrate Urine Bilirubin Urine Urobilinogen Ur Leukocyte Esterase Urine WBC (Auto) Urine RBC (Auto) Ur Squamous Epith Cells Urine Bacteria Hyaline Casts HIV 1&2 Antibody Screen Blood Type Blood Type Confirm Antibody Screen JOSEPH, Poly Interpret Attending/Attestation - Attestation I have personally seen and examined this patient.: Yes I have fully participated in the care of the patient.: Yes I have reviewed all pertinent clinical information: Yes Notes (Text): Patient seen and examined; I agree with the resident's note as above with the following additions/edits: 62 year old AA female with a PMH of HTN, hypothyroidism, asthma, and migraines who presented to ER with complaints of dizziness and weakness; found to be severely anemic and thrombocytopenic; hematology consulted and noted significant number of schistocytes on peripheral blood smear; working diagnosis of TTP and nephrology being consulted for initiation of plasma exchange; Patient with no overt symptoms/organ system involvement consistent with TTP; mild TRU in the setting of intravascular volume depletion but improving with prbc transfusion, BP also much improved; -Femoral HD catheter placed by CCM team; plasma exchange to be done urgently this evening once Hct > 20; exchanging complete plasma volume with FFP (2L); -Calcium gluconate 1 g q1h during exchange; -Solumderol 50 mg IV daily; -Continuing plasma exchange daily until significant improvement in platelet count; f/u with hematology for further recs (need for rituxan?); Critical care time spent > 1 hr;
[2018-04-12] MEDS ORDERED: Potassium Chloride 20 mEq/15 ml LIQ UD PO ONE (14:55)
[2018-04-12] MEDS ORDERED: MethylPREDNISolone 40 mg Vial IVP STA (16:34)
[2018-04-12 16:39] LABS: ALB/GLOB RATIO 1.2 (1.0-2.1); ALBUMIN 3.8 g/dL (3.5-5.0); ALT/SGPT 33 U/L (9-52); AST/SGOT 79 U/L (14-36); BLOOD UREA NITROGEN 24 mg/dL (7-17); CALCIUM 8.3 mg/dl (8.6-10.4); GFR NON-AFRICAN AMERICAN 57
[2018-04-12 18:19] LABS: BILIRUBIN,DIRECT 0.9 mg/dL (0.0-0.4)
[2018-04-12 18:29] LABS: FOLATE > 20.0 ng/mL
--- NOTE | 2018-04-12 18:52 | PCM.PROC ---
Procedures Attestation:: I certify that I have explained the specified Operation(s) or Procedure(s), risks, benefits and reasonable alternatives to the Patient and/or other person responsible. The opportunity was given to ask questions and all questions answered - Central Line Placement Right Femoral Hemodialysis Access Aseptic technique was employed throughout the procedure: Hand Hygiene done prior to procedure, Chloraprep Antiseptic: 2 minute prep for Femoral CVP Time Out Performed: Yes Pt. Placed on Pulse Ox Monitor: Yes Central Line Prep: Chlorhexidine-Alcohol Combination Local Anesthesia Used: Lidocaine 1% Amount of Anesthesia Used (mls): 6 Ultrasound Used for Placement: No Central Line Lumen Inserted: double Central Line Length: 16 cm Post Procedure: Sutured in Place, Good Blood Return, All Ports Aspirated, Flushed, Capped, Sterile Dressing Applied Secured by: Suture Post procedure dressing: Gauze Patient Tolerated Procedure: Well
[2018-04-12] MEDS ORDERED: DiphenhydrAMINE 12.5 mg/5 ml LIQ UD (5 ml) PO STA (21:08)
[2018-04-12 22:43] LABS: HEMOGLOBIN 9.8 g/dL (11.0-16.0); MEAN CELL VOLUME 84.6 fL (81.0-99.0); MEAN CORPUSCULAR HEMOGLOBIN 30.6 pg (27.0-31.0); MEAN CORPUSCULAR HGB CONC 36.2 g/dL (33.0-37.0); RBC 3.2 Mil/uL (3.80-5.20); RED CELL DISTRIBUTION WIDTH 15.6 % (11.5-14.5); WHITE BLOOD COUNT 7.5 K/uL (4.8-10.8)
[2018-04-12 22:57] LABS: BLOOD UREA NITROGEN 20 mg/dL (7-17); CALCIUM 8.5 mg/dl (8.6-10.4); GFR NON-AFRICAN AMERICAN > 60
--- NOTE | 2018-04-13 03:12 | CON ---
Copied To: Ashley De La Cruz MD Attending MD: Ashley De La Cruz MD DATE: 04/12/2018 REASON FOR CONSULTATION: Called in consult for evaluation of severe anemia and severe thrombocytopenia. HISTORY OF PRESENT ILLNESS: This is 62-year-old female with past medical history significant for hypertension, hypothyroidism, asthma, migraine. Brought to the emergency room because of feeling weakness, tiredness, dizziness, shortness of breath on exertion. On admission, the patient's platelet count was 12,000. Hemoglobin was 4.7. I am called on consult for further evaluation and suggestions. PAST MEDICAL HISTORY: Hypertension, hypothyroidism, asthma, migraine, heart murmur. MEDICATIONS: Reviewed. ALLERGY: DENIES ANY DRUG ALLERGIES. SOCIAL HISTORY: Two to three cigarettes everyday for 45 years. No alcohol abuse. No drug abuse. REVIEW OF SYSTEMS: Denies any headaches, dizziness, or blackout. No chest pain or palpitations. No fever or chills. No cough or sputum. Good appetite. No weight loss. Denies abdominal pain. No nausea, vomiting, melena, hemoptysis, or hematemesis. No dysuria or hematuria. PHYSICAL EXAMINATION: GENERAL: The patient is awake, alert, and oriented. Quiet, pleasant, and not in acute distress. VITAL SIGNS: Pulse 90, respirations 20, blood pressure 93/54, and temperature 98.2 degree Fahrenheit. HEENT: Head is normocephalic and atraumatic. Eyes, conjunctivae pale. Sclerae icteric. Pupils reacting to light. Ear, nose, and throat within normal limits. LUNGS: Bilaterally good air entry. Clear to auscultation and percussion. HEART: S1 and S2, regular. No gallop. No murmur. ABDOMEN: Soft, nondistended, nontender. No hepatosplenomegaly. [employer]ER: No gross motor or sensory deficits. LYMPH NODES: No cervical, axillary, or inguinal lymph nodes palpable. LABORATORY DATA: WBC 10,700, hemoglobin 4.7, and platelet count 12,000. BUN 38, creatinine 1.4, and total bilirubin 3.8. IMPRESSION: Thrombotic thrombocytopenic purpura. PLAN: Discussed with the resident. We will order LDH, bilirubin direct and indirect, Lucio test direct and indirect. 15. Haptoglobin. The patient already had a triple lumen placed in. We will start the patient on plasmapheresis. This was discussed at length with the patient. The patient understood that. Overall, prognosis is guarded. Discussed with Dr. Fragoso. Thank you for letting me participate in the care of this patient, and I will follow up the patient with you. Ashley De La Cruz MD
[2018-04-13] MEDS: Levothyroxine 50 MCG TAB PO SCH (06:05)
[2018-04-13 06:32] LABS: BASO % 0.1 % (0.0-2.0); EOS % 0.1 % (0.0-4.0); LYMPH # 0.9 K/uL (1.0-4.3); LYMPH % 11.5 % (20.0-40.0); MEAN CELL VOLUME 84.1 fL (81.0-99.0); MEAN CORPUSCULAR HEMOGLOBIN 30.6 pg (27.0-31.0); MEAN CORPUSCULAR HGB CONC 36.4 g/dL (33.0-37.0); MEAN PLATELET VOLUME 9.1 fL (7.2-11.7); MONO # 0.5 K/uL (0.0-0.8); MONO % 6.1 % (0.0-10.0); NEUT # 6.4 K/uL (1.8-7.0); NEUT % 82.2 % (50.0-75.0); NRBC % 17.9 % (0.0-2.0); RBC 2.95 Mil/uL (3.80-5.20); WHITE BLOOD COUNT 7.8 K/uL (4.8-10.8)
[2018-04-13 06:37] LABS: ALB/GLOB RATIO 1.4 (1.0-2.1); ALBUMIN 3.9 g/dL (3.5-5.0); ALT/SGPT 44 U/L (9-52); AST/SGOT 57 U/L (14-36); BILIRUBIN,DIRECT 0.6 mg/dL (0.0-0.4); BLOOD UREA NITROGEN 17 mg/dL (7-17); GFR NON-AFRICAN AMERICAN > 60
[2018-04-13] MEDS: Pantoprazole 40 mg EC Tab PO SCH (09:33)
--- NOTE | 2018-04-13 13:50 | CP.CCUPN ---
<Any Alvarez - Last Filed: 04/13/18 14:01> CCU Subjective - Physician Review Subjective (Free Text): 04/13/18 13:45 ICU progress note Patient seen and examined at bedside. He states she has no complaints currently. Appears weak but is eating breakfast. She states she has never been hospitalized before, unable to get prior labs. CCU Objective - Vital Signs / Intake & Output Vital Signs (Last 4 hours): Vital Signs Temp Pulse Resp BP Pulse Ox 04/13/18 12:01 95 H 16 103/68 99 04/13/18 12:00 98.2 F 04/13/18 11:00 86 18 119/76 98 04/13/18 10:00 81 22 110/63 99 Intake and Output (Last 8hrs): Intake & Output 04/12/18 04/13/18 04/13/18 22:59 06:59 14:59 Intake Total 2154 720 720 Output Total 5458 321 3835 Balance 554 -80 -280 Weight 108 lb Intake: Oral 1200 720 720 Blood Product 904 Apheresis Rbc Cp2d As3 Lr 279 2nd Unit [id number] Red Blood Cells Cpd As1 325 Lr Unit [id number] Other 50 Apheresis Rbc Cp2d As3 Lr 50 2nd Unit [id number] Output: Urine 4675 180 4617 Urine, Voided 6854 496 5473 Other: # Voids Urine, Voided 1 1 1 # Bowel Movements 1 - Physical Exam Head: Positive for: Atraumatic, Normocephalic Extroacular Muscles: Positive for: EOMI Conjunctiva: Positive for: Other (Pale conjunctiva ) Mouth: Positive for: Moist Mucous Membranes Respiratory/Chest: Positive for: Clear to Auscultation, Good Air Exchange. Negative for: Respiratory Distress, Accessory Muscle Use, Decreased Breath Sounds, Rales, Retracting, Rhonchi Cardiovascular: Positive for: Regular Rate and Rhythm, Normal S1, S2 Abdomen: Positive for: Normal Bowel Sounds. Negative for: Tenderness, Distention, Peritoneal Signs Upper Extremity: Positive for: NORMAL PULSES Lower Extremity: Positive for: NORMAL PULSES Neurological: Positive for: GCS=15 Skin: Positive for: Warm, Dry Psychiatric: Positive for: Alert, Oriented x 3 - Medications Active Medications: Active Medications Generic Name Dose Route Start Last Admin Trade Name Freq PRN Reason Stop Dose Admin Acetaminophen 975 mg 04/13/18 13:23 Tylenol 325mg Tab PO DAILY PRN BEFORE PLASMA EXCHANGE Diphenhydramine HCl 50 mg 04/13/18 13:23 Benadryl IVP DAILY PRN BEFORE PLASMA EXCHANGE Levothyroxine Sodium 50 mcg 04/13/18 06:00 04/13/18 06:05 Synthroid PO 50 mcg DAILY@0600 JOSE Administration Methylprednisolone 50 mg 04/13/18 13:45 Solu-Medrol IVP DAILY JOSE Montelukast Sodium 10 mg 04/12/18 13:15 04/13/18 09:33 Singulair PO 10 mg DAILY JOSE Administration Morphine Sulfate 2 mg 04/12/18 20:39 Morphine IVP Q6 PRN Pain, severe (8-10) Morphine Sulfate 1 mg 04/12/18 20:41 04/12/18 21:40 Morphine IVP 1 mg Q4 PRN Administration Pain, moderate (4-7) Nicotine 1 patch 04/12/18 21:30 04/13/18 09:33 Nicoderm Cq TD 1 patch DAILY JOSE Administration Pantoprazole Sodium 40 mg 04/13/18 10:00 04/13/18 09:33 Protonix Ec Tab PO 40 mg DAILY JOSE Administration - Patient Studies Lab Studies: Lab Studies 04/13/18 04/13/18 04/12/18 Range/Units 06:17 06:17 22:36 WBC 7.8 (4.8-10.8) K/uL RBC 2.95 L (3.80-5.20) Mil/uL Hgb 9.0 L (11.0-16.0) g/dL Hct 24.8 L (34.0-47.0) % MCV 84.1 (81.0-99.0) fL MCH 30.6 (27.0-31.0) pg MCHC 36.4 (33.0-37.0) g/dL RDW 16.0 H (11.5-14.5) % Plt Count 10 L* (130-400) K/uL MPV 9.1 (7.2-11.7) fL Neut % (Auto) 82.2 H (50.0-75.0) % Lymph % (Auto) 11.5 L (20.0-40.0) % Mcpherson % (Auto) 6.1 (0.0-10.0) % Eos % (Auto) 0.1 (0.0-4.0) % Baso % (Auto) 0.1 (0.0-2.0) % Neut # (Auto) 6.4 (1.8-7.0) K/uL Lymph # (Auto) 0.9 L (1.0-4.3) K/uL Mcpherson # (Auto) 0.5 (0.0-0.8) K/uL Eos # (Auto) 0.0 (0.0-0.7) K/uL Baso # (Auto) 0.0 (0.0-0.2) K/uL Differential Comment Retic Count 7.9 H D (0.5-1.5) % Haptoglobin (30.0-200.0) mg/dL Fibrinogen (200-400) mg/dL Sodium 138 136 (132-148) mmol/L Potassium 3.6 4.2 (3.6-5.2) mmol/L Chloride 105 107 (98-107) mmol/L Carbon Dioxide 24 18 L (22-30) mmol/L Anion Gap 13 16 (10-20) BUN 17 20 H (7-17) mg/dL Creatinine 0.8 0.9 (0.7-1.2) mg/dL Est GFR ( Amer) > 60 > 60 Est GFR (Non-Af Amer) > 60 > 60 Random Glucose 180 H 170 H (65-105) mg/dL Hemoglobin A1c (4.2-6.5) % Calcium 10.0 8.5 L (8.6-10.4) mg/dl Phosphorus 3.1 (2.5-4.5) mg/dL Magnesium 1.6 (1.6-2.3) mg/dL Ferritin ng/mL Total Bilirubin 3.2 H (0.2-1.3) mg/dL Direct Bilirubin 0.6 H (0.0-0.4) mg/dL AST 57 H D (14-36) U/L ALT 44 (9-52) U/L Alkaline Phosphatase 43 (38-126) U/L Lactate Dehydrogenase 2110 H (313-618) U/L Total Protein 6.6 (6.3-8.3) g/dL Albumin 3.9 (3.5-5.0) g/dL Globulin 2.7 (2.2-3.9) gm/dL Albumin/Globulin Ratio 1.4 (1.0-2.1) Alpha Fetoprotein (0.0-7.5) ng/mL Carcinoembryonic Ag (0-3.0) ng/mL CA 19-9 Antigen (0-37) U/mL CA 125 Antigen (0-35) U/mL Vitamin B12 (239-931) pg/mL Folate ng/mL Thyroxine (T4) (5.5-11.0) ug/dL TSH 3rd Generation (0.46-4.68) mIU/L HIV 1&2 Antibody Screen (NEGATIVE) Blood Type Blood Type Confirm Antibody Screen JOSEPH, Poly Interpret (NEGATIVE) 04/12/18 04/12/18 04/12/18 Range/Units 22:36 16:13 15:57 WBC 7.5 (4.8-10.8) K/uL RBC 3.20 L (3.80-5.20) Mil/uL Hgb 9.8 L D (11.0-16.0) g/dL Hct 27.1 L (34.0-47.0) % MCV 84.6 (81.0-99.0) fL MCH 30.6 (27.0-31.0) pg MCHC 36.2 (33.0-37.0) g/dL RDW 15.6 H (11.5-14.5) % Plt Count 11 L* (130-400) K/uL MPV 9.0 (7.2-11.7) fL Neut % (Auto) (50.0-75.0) % Lymph % (Auto) (20.0-40.0) % Mcpherson % (Auto) (0.0-10.0) % Eos % (Auto) (0.0-4.0) % Baso % (Auto) (0.0-2.0) % Neut # (Auto) (1.8-7.0) K/uL Lymph # (Auto) (1.0-4.3) K/uL Mcpherson # (Auto) (0.0-0.8) K/uL Eos # (Auto) (0.0-0.7) K/uL Baso # (Auto) (0.0-0.2) K/uL Differential Comment Retic Count (0.5-1.5) % Haptoglobin (30.0-200.0) mg/dL Fibrinogen (200-400) mg/dL Sodium 138 (132-148) mmol/L Potassium 3.0 L (3.6-5.2) mmol/L Chloride 108 H (98-107) mmol/L Carbon Dioxide 20 L (22-30) mmol/L Anion Gap 14 (10-20) BUN 24 H (7-17) mg/dL Creatinine 1.0 (0.7-1.2) mg/dL Est GFR ( Amer) > 60 Est GFR (Non-Af Amer) 57 Random Glucose 148 H (65-105) mg/dL Hemoglobin A1c (4.2-6.5) % Calcium 8.3 L (8.6-10.4) mg/dl Phosphorus (2.5-4.5) mg/dL Magnesium (1.6-2.3) mg/dL Ferritin ng/mL Total Bilirubin 3.5 H (0.2-1.3) mg/dL Direct Bilirubin (0.0-0.4) mg/dL AST 79 H (14-36) U/L ALT 33 (9-52) U/L Alkaline Phosphatase 43 (38-126) U/L Lactate Dehydrogenase (313-618) U/L Total Protein 7.0 (6.3-8.3) g/dL Albumin 3.8 (3.5-5.0) g/dL Globulin 3.2 (2.2-3.9) gm/dL Albumin/Globulin Ratio 1.2 (1.0-2.1) Alpha Fetoprotein (0.0-7.5) ng/mL Carcinoembryonic Ag (0-3.0) ng/mL CA 19-9 Antigen (0-37) U/mL CA 125 Antigen (0-35) U/mL Vitamin B12 (239-931) pg/mL Folate ng/mL Thyroxine (T4) (5.5-11.0) ug/dL TSH 3rd Generation (0.46-4.68) mIU/L HIV 1&2 Antibody Screen Negative (NEGATIVE) Blood Type Blood Type Confirm Antibody Screen JOSEPH, Poly Interpret (NEGATIVE) 04/12/18 04/12/18 04/12/18 Range/Units 15:57 15:57 15:57 WBC (4.8-10.8) K/uL RBC (3.80-5.20) Mil/uL Hgb (11.0-16.0) g/dL Hct (34.0-47.0) % MCV (81.0-99.0) fL MCH (27.0-31.0) pg MCHC (33.0-37.0) g/dL RDW (11.5-14.5) % Plt Count (130-400) K/uL MPV (7.2-11.7) fL Neut % (Auto) (50.0-75.0) % Lymph % (Auto) (20.0-40.0) % Mcpherson % (Auto) (0.0-10.0) % Eos % (Auto) (0.0-4.0) % Baso % (Auto) (0.0-2.0) % Neut # (Auto) (1.8-7.0) K/uL Lymph # (Auto) (1.0-4.3) K/uL Mcpherson # (Auto) (0.0-0.8) K/uL Eos # (Auto) (0.0-0.7) K/uL Baso # (Auto) (0.0-0.2) K/uL Differential Comment Retic Count (0.5-1.5) % Haptoglobin (30.0-200.0) mg/dL Fibrinogen (200-400) mg/dL Sodium (132-148) mmol/L Potassium (3.6-5.2) mmol/L Chloride (98-107) mmol/L Carbon Dioxide (22-30) mmol/L Anion Gap (10-20) BUN (7-17) mg/dL Creatinine (0.7-1.2) mg/dL Est GFR ( Amer) Est GFR (Non-Af Amer) Random Glucose (65-105) mg/dL Hemoglobin A1c 4.6 (4.2-6.5) % Calcium (8.6-10.4) mg/dl Phosphorus (2.5-4.5) mg/dL Magnesium (1.6-2.3) mg/dL Ferritin 1370.0 ng/mL Total Bilirubin (0.2-1.3) mg/dL Direct Bilirubin 0.9 H (0.0-0.4) mg/dL AST (14-36) U/L ALT (9-52) U/L Alkaline Phosphatase (38-126) U/L Lactate Dehydrogenase 4232 H (313-618) U/L Total Protein (6.3-8.3) g/dL Albumin (3.5-5.0) g/dL Globulin (2.2-3.9) gm/dL Albumin/Globulin Ratio (1.0-2.1) Alpha Fetoprotein 2.5 (0.0-7.5) ng/mL Carcinoembryonic Ag 4.9 H (0-3.0) ng/mL CA 19-9 Antigen 6.7 (0-37) U/mL CA 125 Antigen 7.0 (0-35) U/mL Vitamin B12 685 (239-931) pg/mL Folate > 20.0 ng/mL Thyroxine (T4) 11.0 (5.5-11.0) ug/dL TSH 3rd Generation 4.91 H (0.46-4.68) mIU/L HIV 1&2 Antibody Screen (NEGATIVE) Blood Type Blood Type Confirm Antibody Screen JOSEPH, Poly Interpret (NEGATIVE) 04/12/18 04/12/18 04/12/18 Range/Units 15:57 15:57 15:57 WBC (4.8-10.8) K/uL RBC (3.80-5.20) Mil/uL Hgb (11.0-16.0) g/dL Hct (34.0-47.0) % MCV (81.0-99.0) fL MCH (27.0-31.0) pg MCHC (33.0-37.0) g/dL RDW (11.5-14.5) % Plt Count (130-400) K/uL MPV (7.2-11.7) fL Neut % (Auto) (50.0-75.0) % Lymph % (Auto) (20.0-40.0) % Mcpherson % (Auto) (0.0-10.0) % Eos % (Auto) (0.0-4.0) % Baso % (Auto) (0.0-2.0) % Neut # (Auto) (1.8-7.0) K/uL Lymph # (Auto) (1.0-4.3) K/uL Mcpherson # (Auto) (0.0-0.8) K/uL Eos # (Auto) (0.0-0.7) K/uL Baso # (Auto) (0.0-0.2) K/uL Differential Comment Retic Count 13.3 H (0.5-1.5) % Haptoglobin < 20.0 L (30.0-200.0) mg/dL Fibrinogen 126 L (200-400) mg/dL Sodium (132-148) mmol/L Potassium (3.6-5.2) mmol/L Chloride (98-107) mmol/L Carbon Dioxide (22-30) mmol/L Anion Gap (10-20) BUN (7-17) mg/dL Creatinine (0.7-1.2) mg/dL Est GFR ( Amer) Est GFR (Non-Af Amer) Random Glucose (65-105) mg/dL Hemoglobin A1c (4.2-6.5) % Calcium (8.6-10.4) mg/dl Phosphorus (2.5-4.5) mg/dL Magnesium (1.6-2.3) mg/dL Ferritin ng/mL Total Bilirubin (0.2-1.3) mg/dL Direct Bilirubin (0.0-0.4) mg/dL AST (14-36) U/L ALT (9-52) U/L Alkaline Phosphatase (38-126) U/L Lactate Dehydrogenase (313-618) U/L Total Protein (6.3-8.3) g/dL Albumin (3.5-5.0) g/dL Globulin (2.2-3.9) gm/dL Albumin/Globulin Ratio (1.0-2.1) Alpha Fetoprotein (0.0-7.5) ng/mL Carcinoembryonic Ag (0-3.0) ng/mL CA 19-9 Antigen (0-37) U/mL CA 125 Antigen (0-35) U/mL Vitamin B12 (239-931) pg/mL Folate ng/mL Thyroxine (T4) (5.5-11.0) ug/dL TSH 3rd Generation (0.46-4.68) mIU/L HIV 1&2 Antibody Screen (NEGATIVE) Blood Type Blood Type Confirm Antibody Screen JOSEPH, Poly Interpret (NEGATIVE) 04/12/18 04/12/18 04/12/18 Range/Units 15:45 10:33 05:25 WBC (4.8-10.8) K/uL RBC (3.80-5.20) Mil/uL Hgb (11.0-16.0) g/dL Hct (34.0-47.0) % MCV (81.0-99.0) fL MCH (27.0-31.0) pg MCHC (33.0-37.0) g/dL RDW (11.5-14.5) % Plt Count (130-400) K/uL MPV (7.2-11.7) fL Neut % (Auto) (50.0-75.0) % Lymph % (Auto) (20.0-40.0) % Mcpherson % (Auto) (0.0-10.0) % Eos % (Auto) (0.0-4.0) % Baso % (Auto) (0.0-2.0) % Neut # (Auto) (1.8-7.0) K/uL Lymph # (Auto) (1.0-4.3) K/uL Mcpherson # (Auto) (0.0-0.8) K/uL Eos # (Auto) (0.0-0.7) K/uL Baso # (Auto) (0.0-0.2) K/uL Differential Comment Retic Count (0.5-1.5) % Haptoglobin (30.0-200.0) mg/dL Fibrinogen (200-400) mg/dL Sodium (132-148) mmol/L Potassium (3.6-5.2) mmol/L Chloride (98-107) mmol/L Carbon Dioxide (22-30) mmol/L Anion Gap (10-20) BUN (7-17) mg/dL Creatinine (0.7-1.2) mg/dL Est GFR ( Amer) Est GFR (Non-Af Amer) Random Glucose (65-105) mg/dL Hemoglobin A1c (4.2-6.5) % Calcium (8.6-10.4) mg/dl Phosphorus (2.5-4.5) mg/dL Magnesium (1.6-2.3) mg/dL Ferritin ng/mL Total Bilirubin (0.2-1.3) mg/dL Direct Bilirubin (0.0-0.4) mg/dL AST (14-36) U/L ALT (9-52) U/L Alkaline Phosphatase (38-126) U/L Lactate Dehydrogenase (313-618) U/L Total Protein (6.3-8.3) g/dL Albumin (3.5-5.0) g/dL Globulin (2.2-3.9) gm/dL Albumin/Globulin Ratio (1.0-2.1) Alpha Fetoprotein (0.0-7.5) ng/mL Carcinoembryonic Ag (0-3.0) ng/mL CA 19-9 Antigen (0-37) U/mL CA 125 Antigen (0-35) U/mL Vitamin B12 (239-931) pg/mL Folate ng/mL Thyroxine (T4) (5.5-11.0) ug/dL TSH 3rd Generation (0.46-4.68) mIU/L HIV 1&2 Antibody Screen (NEGATIVE) Blood Type B POSITIVE Blood Type Confirm B POSITIVE Antibody Screen Negative JOSEPH, Poly Interpret Negative (NEGATIVE) Laboratory Results - last 24 hr 04/12/18 04/12/18 04/12/18 05:25 10:33 15:45 WBC RBC Hgb Hct MCV MCH MCHC RDW Plt Count MPV Neut % (Auto) Lymph % (Auto) Mcpherson % (Auto) Eos % (Auto) Baso % (Auto) Neut # (Auto) Lymph # (Auto) Mcpherson # (Auto) Eos # (Auto) Baso # (Auto) Differential Comment Retic Count Haptoglobin Fibrinogen Sodium Potassium Chloride Carbon Dioxide Anion Gap BUN Creatinine Est GFR ( Amer) Est GFR (Non-Af Amer) Random Glucose Hemoglobin A1c Calcium Phosphorus Magnesium Ferritin Total Bilirubin Direct Bilirubin AST ALT Alkaline Phosphatase Lactate Dehydrogenase Total Protein Albumin Globulin Albumin/Globulin Ratio Alpha Fetoprotein Carcinoembryonic Ag CA 19-9 Antigen CA 125 Antigen Vitamin B12 Folate Thyroxine (T4) TSH 3rd Generation HIV 1&2 Antibody Screen Blood Type B POSITIVE Blood Type Confirm B POSITIVE Antibody Screen Negative JOSEPH, Poly Interpret Negative 04/12/18 04/12/18 04/12/18 15:57 15:57 15:57 WBC RBC Hgb Hct MCV MCH MCHC RDW Plt Count MPV Neut % (Auto) Lymph % (Auto) Mcpherson % (Auto) Eos % (Auto) Baso % (Auto) Neut # (Auto) Lymph # (Auto) Mcpherson # (Auto) Eos # (Auto) Baso # (Auto) Differential Comment Retic Count 13.3 H Haptoglobin < 20.0 L Fibrinogen 126 L Sodium Potassium Chloride Carbon Dioxide Anion Gap BUN Creatinine Est GFR ( Amer) Est GFR (Non-Af Amer) Random Glucose Hemoglobin A1c Calcium Phosphorus Magnesium Ferritin Total Bilirubin Direct Bilirubin AST ALT Alkaline Phosphatase Lactate Dehydrogenase Total Protein Albumin Globulin Albumin/Globulin Ratio Alpha Fetoprotein Carcinoembryonic Ag CA 19-9 Antigen CA 125 Antigen Vitamin B12 Folate Thyroxine (T4) TSH 3rd Generation HIV 1&2 Antibody Screen Blood Type Blood Type Confirm Antibody Screen JOSEPH, Poly Interpret 04/12/18 04/12/18 04/12/18 15:57 15:57 15:57 WBC RBC Hgb Hct MCV MCH MCHC RDW Plt Count MPV Neut % (Auto) Lymph % (Auto) Mcpherson % (Auto) Eos % (Auto) Baso % (Auto) Neut # (Auto) Lymph # (Auto) Mcpherson # (Auto) Eos # (Auto) Baso # (Auto) Differential Comment Retic Count Haptoglobin Fibrinogen Sodium Potassium Chloride Carbon Dioxide Anion Gap BUN Creatinine Est GFR ( Amer) Est GFR (Non-Af Amer) Random Glucose Hemoglobin A1c 4.6 Calcium Phosphorus Magnesium Ferritin 1370.0 Total Bilirubin Direct Bilirubin 0.9 H AST ALT Alkaline Phosphatase Lactate Dehydrogenase 4232 H Total Protein Albumin Globulin Albumin/Globulin Ratio Alpha Fetoprotein 2.5 Carcinoembryonic Ag 4.9 H CA 19-9 Antigen 6.7 CA 125 Antigen 7.0 Vitamin B12 685 Folate > 20.0 Thyroxine (T4) 11.0 TSH 3rd Generation 4.91 H HIV 1&2 Antibody Screen Blood Type Blood Type Confirm Antibody Screen JOSEPH, Poly Interpret 04/12/18 04/12/18 04/12/18 15:57 16:13 22:36 WBC 7.5 RBC 3.20 L Hgb 9.8 L D Hct 27.1 L MCV 84.6 MCH 30.6 MCHC 36.2 RDW 15.6 H Plt Count 11 L* MPV 9.0 Neut % (Auto) Lymph % (Auto) Mcpherson % (Auto) Eos % (Auto) Baso % (Auto) Neut # (Auto) Lymph # (Auto) Mcpherson # (Auto) Eos # (Auto) Baso # (Auto) Differential Comment Retic Count Haptoglobin Fibrinogen Sodium 138 Potassium 3.0 L Chloride 108 H Carbon Dioxide 20 L Anion Gap 14 BUN 24 H Creatinine 1.0 Est GFR ( Amer) > 60 Est GFR (Non-Af Amer) 57 Random Glucose 148 H Hemoglobin A1c Calcium 8.3 L Phosphorus Magnesium Ferritin Total Bilirubin 3.5 H Direct Bilirubin AST 79 H ALT 33 Alkaline Phosphatase 43 Lactate Dehydrogenase Total Protein 7.0 Albumin 3.8 Globulin 3.2 Albumin/Globulin Ratio 1.2 Alpha Fetoprotein Carcinoembryonic Ag CA 19-9 Antigen CA 125 Antigen Vitamin B12 Folate Thyroxine (T4) TSH 3rd Generation HIV 1&2 Antibody Screen Negative Blood Type Blood Type Confirm Antibody Screen JOSEPH, Poly Interpret 04/12/18 04/13/18 04/13/18 22:36 06:17 06:17 WBC 7.8 RBC 2.95 L Hgb 9.0 L Hct 24.8 L MCV 84.1 MCH 30.6 MCHC 36.4 RDW 16.0 H Plt Count 10 L* MPV 9.1 Neut % (Auto) 82.2 H Lymph % (Auto) 11.5 L Mcpherson % (Auto) 6.1 Eos % (Auto) 0.1 Baso % (Auto) 0.1 Neut # (Auto) 6.4 Lymph # (Auto) 0.9 L Mcpherson # (Auto) 0.5 Eos # (Auto) 0.0 Baso # (Auto) 0.0 Differential Comment Retic Count 7.9 H D Haptoglobin Fibrinogen Sodium 136 138 Potassium 4.2 3.6 Chloride 107 105 Carbon Dioxide 18 L 24 Anion Gap 16 13 BUN 20 H 17 Creatinine 0.9 0.8 Est GFR ( Amer) > 60 > 60 Est GFR (Non-Af Amer) > 60 > 60 Random Glucose 170 H 180 H Hemoglobin A1c Calcium 8.5 L 10.0 Phosphorus 3.1 Magnesium 1.6 Ferritin Total Bilirubin 3.2 H Direct Bilirubin 0.6 H AST 57 H D ALT 44 Alkaline Phosphatase 43 Lactate Dehydrogenase 2110 H Total Protein 6.6 Albumin 3.9 Globulin 2.7 Albumin/Globulin Ratio 1.4 Alpha Fetoprotein Carcinoembryonic Ag CA 19-9 Antigen CA 125 Antigen Vitamin B12 Folate Thyroxine (T4) TSH 3rd Generation HIV 1&2 Antibody Screen Blood Type Blood Type Confirm Antibody Screen JOSEPH, Poly Interpret Review of Systems - Constitutional Constitutional: absent: Fever, Chills - EENT Eyes: absent: Blurred Vision - Cardiovascular Cardiovascular: absent: Chest Pain, Dyspnea - Respiratory Respiratory: absent: Cough, Chest Congestion - Gastrointestinal Gastrointestinal: absent: Abdominal Pain, Diarrhea, Nausea, Vomiting - Genitourinary Genitourinary: absent: Difficulty Urinating, Dysuria - Neurological Neurological: absent: Numbness Critical Care Progress Note - Nutrition Nutrition: Nutrition Category Date Time Status Heart Healthy Diet [DIET] Diets 04/12/18 Lunch Active Assessment/Plan - Assessment and Plan (Free Text) Assessment: 62 year old female with history of HTN, hypothyrodism, asthma, migraines, heart murmurwho presents for generalized weakness and hypotension. Patient was found to have hemoglobin of 4.7, with platelet of 12, concern for TTP. Scheduled to have plasmapheresis with Dr. Aguirre today. Plan: Neuro: Alert and oriented Continue to monitor CT head without contrast Chronic microvascular ischemic changes.7 millimeter focal hypodensity seen at the level of the right internal capsule suggestive for a lacunar infarct, likely chronic.Scattered calcifications along the falx and tentorium.If there is concern for acute ischemic change, consider correlation with MRI. Cardiovascular Currently normotensive at 103/68 Hold antihypertensives Pulmonary Saturating 99% on RA Singulair 10mg PO daily GI Stool occult negative CT Abdomen Wedge-shaped hypodense regions involving the spleen may reflect infarctions of indeterminate age. Renal Dr. Aguirre consulted, help appreciated Right femoral Dialysis catheter placed for plasmapheresis per Dr. Aguirre I & Os Patient had plasmapheresis with Dr. Aguirre today As per Nephro note, patient to continue Solumedrol 50mg IV daily and recommends plasma exchange until improvement in platelets. ID Afebrile White count 7.8 Continue to monitor Heme Concern for TTP Dr. De La Cruz consulted, help appreciated Peripheral blood smear reveals no increase in blasts. Mild neutrophilia and mild monocytosis. Thrombocytopenia with few large platelets. RBC studies show normocytic anemia. RBC morpholoy - nucleated RBCs Hb 4.7 / Hct 13.8 initially, Hb/Hct 9.0/24.8 Platelets 12 --> [address] 13.3 --> 7.9 Haptoglobin <20.0 LDH 4232 --> 2110 f/u Indirect and Direct Lucio, [id number] T.bili 3.8 --> 3.5 -->3.2 D.bili 0.9 -->0.6 Ferritin 1370 CEA 4.9 CA19-9 6.7 CA125 7.0 B12 685 Folate >20.0 Endo Hx of hypothyroidism Synthroid 50mcg PO daily TSH 4.91 , T4 11.0 PPX SCDs Case discussed with Dr. Davis <Jim Davis - Last Filed: 04/13/18 17:59> CCU Objective - Vital Signs / Intake & Output Vital Signs (Last 4 hours): Vital Signs Temp Pulse Resp BP Pulse Ox 04/13/18 16:00 98 F 82 31 H 109/67 98 04/13/18 15:00 85 14 105/62 98 04/13/18 14:00 93 H 24 115/69 99 Intake and Output (Last 8hrs): Intake & Output 04/13/18 04/13/18 04/13/18 06:59 14:59 22:59 Intake Total 720 960 Output Total 800 1500 Balance -80 -540 Weight 108 lb Intake: Oral 720 960 Output: Urine 800 1500 Urine, Voided 800 1500 Other: # Voids Urine, Voided 1 1 - Medications Active Medications: Active Medications Generic Name Dose Route Start Last Admin Trade Name Freq PRN Reason Stop Dose Admin Acetaminophen 975 mg 04/13/18 13:23 04/13/18 16:57 Tylenol 325mg Tab PO 975 mg DAILY PRN Administration BEFORE PLASMA EXCHANGE Diphenhydramine HCl 50 mg 04/13/18 13:23 04/13/18 16:56 Benadryl IVP 50 mg DAILY PRN Administration BEFORE PLASMA EXCHANGE Calcium Gluconate 4.65 meq/ 110 mls @ 100 mls/hr 04/13/18 13:58 04/13/18 16: 58 Dextrose IV 100 mls/hr DAILY PRN Administration BEFORE PLASMA EXCHANGE Levothyroxine Sodium 50 mcg 04/13/18 06:00 04/13/18 06:05 Synthroid PO 50 mcg DAILY@0600 JOSE Administration Methylprednisolone 50 mg 04/13/18 13:45 04/13/18 16:57 Solu-Medrol IVP 50 mg DAILY JOSE Administration Montelukast Sodium 10 mg 04/12/18 13:15 04/13/18 09:33 Singulair PO 10 mg DAILY JOSE Administration Morphine Sulfate 2 mg 04/12/18 20:39 Morphine IVP Q6 PRN Pain, severe (8-10) Morphine Sulfate 1 mg 04/12/18 20:41 04/12/18 21:40 Morphine IVP 1 mg Q4 PRN Administration Pain, moderate (4-7) Nicotine 1 patch 04/12/18 21:30 04/13/18 09:33 Nicoderm Cq TD 1 patch DAILY JOSE Administration Pantoprazole Sodium 40 mg 04/13/18 10:00 04/13/18 09:33 Protonix Ec Tab PO 40 mg DAILY JOSE Administration - Patient Studies Lab Studies: Lab Studies 04/13/18 04/13/18 04/12/18 Range/Units 06:17 06:17 22:36 WBC 7.8 (4.8-10.8) K/uL RBC 2.95 L (3.80-5.20) Mil/uL Hgb 9.0 L (11.0-16.0) g/dL Hct 24.8 L (34.0-47.0) % MCV 84.1 (81.0-99.0) fL MCH 30.6 (27.0-31.0) pg MCHC 36.4 (33.0-37.0) g/dL RDW 16.0 H (11.5-14.5) % Plt Count 10 L* (130-400) K/uL MPV 9.1 (7.2-11.7) fL Neut % (Auto) 82.2 H (50.0-75.0) % Lymph % (Auto) 11.5 L (20.0-40.0) % Mcpherson % (Auto) 6.1 (0.0-10.0) % Eos % (Auto) 0.1 (0.0-4.0) % Baso % (Auto) 0.1 (0.0-2.0) % Neut # (Auto) 6.4 (1.8-7.0) K/uL Lymph # (Auto) 0.9 L (1.0-4.3) K/uL Mcpherson # (Auto) 0.5 (0.0-0.8) K/uL Eos # (Auto) 0.0 (0.0-0.7) K/uL Baso # (Auto) 0.0 (0.0-0.2) K/uL Retic Count 7.9 H D (0.5-1.5) % Sodium 138 136 (132-148) mmol/L Potassium 3.6 4.2 (3.6-5.2) mmol/L Chloride 105 107 (98-107) mmol/L Carbon Dioxide 24 18 L (22-30) mmol/L Anion Gap 13 16 (10-20) BUN 17 20 H (7-17) mg/dL Creatinine 0.8 0.9 (0.7-1.2) mg/dL Est GFR ( Amer) > 60 > 60 Est GFR (Non-Af Amer) > 60 > 60 Random Glucose 180 H 170 H (65-105) mg/dL Calcium 10.0 8.5 L (8.6-10.4) mg/dl Phosphorus 3.1 (2.5-4.5) mg/dL Magnesium 1.6 (1.6-2.3) mg/dL Ferritin ng/mL Total Bilirubin 3.2 H (0.2-1.3) mg/dL Direct Bilirubin 0.6 H (0.0-0.4) mg/dL AST 57 H D (14-36) U/L ALT 44 (9-52) U/L Alkaline Phosphatase 43 (38-126) U/L Lactate Dehydrogenase 2110 H (313-618) U/L Total Protein 6.6 (6.3-8.3) g/dL Albumin 3.9 (3.5-5.0) g/dL Globulin 2.7 (2.2-3.9) gm/dL Albumin/Globulin Ratio 1.4 (1.0-2.1) CA 19-9 Antigen (0-37) U/mL Vitamin B12 (239-931) pg/mL Folate ng/mL Blood Type Blood Type Confirm Antibody Screen 04/12/18 04/12/18 04/12/18 Range/Units 22:36 15:57 05:25 WBC 7.5 (4.8-10.8) K/uL RBC 3.20 L (3.80-5.20) Mil/uL Hgb 9.8 L D (11.0-16.0) g/dL Hct 27.1 L (34.0-47.0) % MCV 84.6 (81.0-99.0) fL MCH 30.6 (27.0-31.0) pg MCHC 36.2 (33.0-37.0) g/dL RDW 15.6 H (11.5-14.5) % Plt Count 11 L* (130-400) K/uL MPV 9.0 (7.2-11.7) fL Neut % (Auto) (50.0-75.0) % Lymph % (Auto) (20.0-40.0) % Mcpherson % (Auto) (0.0-10.0) % Eos % (Auto) (0.0-4.0) % Baso % (Auto) (0.0-2.0) % Neut # (Auto) (1.8-7.0) K/uL Lymph # (Auto) (1.0-4.3) K/uL Mcpherson # (Auto) (0.0-0.8) K/uL Eos # (Auto) (0.0-0.7) K/uL Baso # (Auto) (0.0-0.2) K/uL Retic Count (0.5-1.5) % Sodium (132-148) mmol/L Potassium (3.6-5.2) mmol/L Chloride (98-107) mmol/L Carbon Dioxide (22-30) mmol/L Anion Gap (10-20) BUN (7-17) mg/dL Creatinine (0.7-1.2) mg/dL Est GFR ( Amer) Est GFR (Non-Af Amer) Random Glucose (65-105) mg/dL Calcium (8.6-10.4) mg/dl Phosphorus (2.5-4.5) mg/dL Magnesium (1.6-2.3) mg/dL Ferritin 1370.0 ng/mL Total Bilirubin (0.2-1.3) mg/dL Direct Bilirubin 0.9 H (0.0-0.4) mg/dL AST (14-36) U/L ALT (9-52) U/L Alkaline Phosphatase (38-126) U/L Lactate Dehydrogenase 4232 H (313-618) U/L Total Protein (6.3-8.3) g/dL Albumin (3.5-5.0) g/dL Globulin (2.2-3.9) gm/dL Albumin/Globulin Ratio (1.0-2.1) CA 19-9 Antigen 6.7 (0-37) U/mL Vitamin B12 685 (239-931) pg/mL Folate > 20.0 ng/mL Blood Type B POSITIVE Blood Type Confirm B POSITIVE Antibody Screen Negative Laboratory Results - last 24 hr 04/12/18 04/12/18 04/12/18 05:25 15:57 22:36 WBC 7.5 RBC 3.20 L Hgb 9.8 L D Hct 27.1 L MCV 84.6 MCH 30.6 MCHC 36.2 RDW 15.6 H Plt Count 11 L* MPV 9.0 Neut % (Auto) Lymph % (Auto) Mcpherson % (Auto) Eos % (Auto) Baso % (Auto) Neut # (Auto) Lymph # (Auto) Mcpherson # (Auto) Eos # (Auto) Baso # (Auto) Retic Count Sodium Potassium Chloride Carbon Dioxide Anion Gap BUN Creatinine Est GFR ( Amer) Est GFR (Non-Af Amer) Random Glucose Calcium Phosphorus Magnesium Ferritin 1370.0 Total Bilirubin Direct Bilirubin 0.9 H AST ALT Alkaline Phosphatase Lactate Dehydrogenase 4232 H Total Protein Albumin Globulin Albumin/Globulin Ratio CA 19-9 Antigen 6.7 Vitamin B12 685 Folate > 20.0 Blood Type B POSITIVE Blood Type Confirm B POSITIVE Antibody Screen Negative 04/12/18 04/13/18 04/13/18 22:36 06:17 06:17 WBC 7.8 RBC 2.95 L Hgb 9.0 L Hct 24.8 L MCV 84.1 MCH 30.6 MCHC 36.4 RDW 16.0 H Plt Count 10 L* MPV 9.1 Neut % (Auto) 82.2 H Lymph % (Auto) 11.5 L Mcpherson % (Auto) 6.1 Eos % (Auto) 0.1 Baso % (Auto) 0.1 Neut # (Auto) 6.4 Lymph # (Auto) 0.9 L Mcpherson # (Auto) 0.5 Eos # (Auto) 0.0 Baso # (Auto) 0.0 Retic Count 7.9 H D Sodium 136 138 Potassium 4.2 3.6 Chloride 107 105 Carbon Dioxide 18 L 24 Anion Gap 16 13 BUN 20 H 17 Creatinine 0.9 0.8 Est GFR ( Amer) > 60 > 60 Est GFR (Non-Af Amer) > 60 > 60 Random Glucose 170 H 180 H Calcium 8.5 L 10.0 Phosphorus 3.1 Magnesium 1.6 Ferritin Total Bilirubin 3.2 H Direct Bilirubin 0.6 H AST 57 H D ALT 44 Alkaline Phosphatase 43 Lactate Dehydrogenase 2110 H Total Protein 6.6 Albumin 3.9 Globulin 2.7 Albumin/Globulin Ratio 1.4 CA 19-9 Antigen Vitamin B12 Folate Blood Type Blood Type Confirm Antibody Screen Critical Care Progress Note - Nutrition Nutrition: Nutrition Category Date Time Status Heart Healthy Diet [DIET] Diets 04/12/18 Lunch Active Attending/Attestation - Attestation I have personally seen and examined this patient.: Yes I have fully participated in the care of the patient.: Yes I have reviewed all pertinent clinical information: Yes Notes (Text): 04/13/18 17:58 Today: April The Patient was seen and examined at the bedside, Medical records reviewed, and management issues were discussed and formulated with the house staff. I have reviewed all the relevant clinical, laboratory, hemodynamic, radiographic data and medications Events reviewed Pain issues, skin care, head of the bed elevation, glycemic control were addressed. Agree with above resident's assessment and treatment plans of care as transcribed in Dr. Alvarez's note.
--- NOTE | 2018-04-13 13:54 | CP.PCM.PN ---
Subjective - Date & Time of Evaluation Date of Evaluation: 04/13/18 Time of Evaluation: 13:51 - Subjective Subjective: Josue Ovalle D.O. PGY-3, Internal Medicine Resident, Nephrology Progress Note 62 year old AA female with a PMH of HTN, hypothyroidism, asthma, and migraines who presented to ER with complaints of dizziness and weakness for multiple days that became worse this morning. Nephrology consultation was requested for plasma exchange for concern for TTP. Patient was seen and examined at bedside. Doing marginally better. Only acute complaints is that she has to be here. Got first plasma exchange early this AM. Objective - Vital Signs/Intake and Output Vital Signs (last 24 hours): Temp Pulse Resp BP Pulse Ox 98.2 F 95 H 16 103/68 99 04/13/18 12:00 04/13/18 12:01 04/13/18 12:01 04/13/18 12:01 04/13/18 12:01 Intake and Output: 04/13/18 04/13/18 06:59 18:59 Intake Total 1829 720 Output Total 1800 1000 Balance 29 -280 - Medications Medications: Current Medications Acetaminophen (Tylenol 325mg Tab) 975 mg PO DAILY PRN PRN Reason: BEFORE PLASMA EXCHANGE Diphenhydramine HCl (Benadryl) 50 mg IVP DAILY PRN PRN Reason: BEFORE PLASMA EXCHANGE Levothyroxine Sodium (Synthroid) 50 mcg PO DAILY@0600 [facility] Last Admin: 04/13/18 06:05 Dose: 50 mcg Methylprednisolone (Solu-Medrol) 50 mg IVP DAILY [facility] Montelukast Sodium (Singulair) 10 mg PO DAILY [facility] Last Admin: 04/13/18 09:33 Dose: 10 mg Morphine Sulfate (Morphine) 2 mg IVP Q6 PRN PRN Reason: Pain, severe (8-10) Morphine Sulfate (Morphine) 1 mg IVP Q4 PRN PRN Reason: Pain, moderate (4-7) Last Admin: 04/12/18 21:40 Dose: 1 mg Nicotine (Nicoderm Cq) 1 patch TD DAILY [facility] Last Admin: 04/13/18 09:33 Dose: 1 patch Pantoprazole Sodium (Protonix Ec Tab) 40 mg PO DAILY [facility] Last Admin: 04/13/18 09:33 Dose: 40 mg - Labs Labs: 04/13/18 06:17 04/13/18 06:17 PT 12.3 SECONDS (9.7-12.2) H 04/12/18 05:25 INR 1.1 04/12/18 05:25 APTT 27 SECONDS (21-34) 04/12/18 05:25 - Constitutional Appears: Non-toxic, No Acute Distress - Eye Exam Eye Exam: EOMI, PERRL Additional comments: conjunctival pallor improved - ENT Exam ENT Exam: Mucous Membranes Moist, Normal Oropharynx, noted some petechia on palate - Neck Exam Neck exam: Positive for: Normal Inspection. Negative for: Tenderness Additional comments: no JVD - Respiratory Exam Respiratory Exam: Clear to Auscultation Bilateral. absent: Rales, Rhonchi, Wheezes - Cardiovascular Exam Cardiovascular Exam: RRR, +S1, +S2. absent: Gallop, Rubs - GI/Abdominal Exam GI & Abdominal Exam: Normal Bowel Sounds, Soft. absent: Distended, Tenderness - Extremities Exam Extremities exam: Negative for: calf tenderness, pedal edema - Neurological Exam Neurological exam: Alert, CN II-XII Intact, Oriented x3 - Psychiatric Exam Psychiatric exam: Normal Affect, Normal Mood - Skin Skin Exam: Dry, Intact, Warm Assessment and Plan - Assessment and Plan (Free Text) Assessment: 62 year old AA female with a PMH of HTN, hypothyroidism, asthma, and migraines who presented to ER with complaints of dizziness and weakness for multiple days that became worse this morning, found to have severe anemia and thrombocytopenia with peripheral smear findings suspicious for TTP. Nephrology consultation was requested for plasma exchange. Plan: Anemia and thrombocytopenia suspicious for TTP Hypotension - resolved TRU - resolved Hypokalemia - resolved Hypothyroidism S/p plasma exchange once had PRBCs, platelets still low Hematology evaluation pending, possible role for rituxan in this type of patient Clinically does not have expected picture of TTP yet does have suspicion Continue plasma exchange daily until there is a marked improvement in platelets Mild TRU from intravascular volume depletion resolved Benadryl, calcium gluconate, and acetaminophen PRN before plasma exchange ordered Continue solumedrol 50mg IVP qd Pending [id number] level and ab Patient was seen and examined and case was discussed at length with attending physician Dr. Aguirre Thank you for the pleasure of participating in the care of this interesting patient
--- NOTE | 2018-04-13 14:30 | CARD ---
APPROVED REPORT Date of service: 04/12/2018 EKG Measurement Heart [id number] <Conclusion> Normal sinus rhythm Nonspecific T wave abnormality Abnormal ECG
[2018-04-13] MEDS: DiphenhydrAMINE 50 mg/ml Inj IVP PRN (16:56)
[2018-04-13] MEDS: MethylPREDNISolone 40 mg Vial IVP SCH (16:57)
[2018-04-13] MEDS: Calcium Gluconate 4.65 MEQ in Dextrose 5% In Water 100 ML IV PRN (16:58)
--- NOTE | 2018-04-14 05:53 | CP.PCM.PN ---
Subjective - Date & Time of Evaluation Date of Evaluation: 04/14/18 Time of Evaluation: 05:16 - Subjective Subjective: Mark Cesar D.O. PGY-1, Internal Medicine Resident, Nephrology Progress Note for Dr Aguirre Patient seen and examined at bedside. No acute events overnight. She had a good night sleep. Patient denies CP, SOB, palpitations, bleeding, DEXTER, dizziness or otherwise. Objective - Vital Signs/Intake and Output Vital Signs (last 24 hours): Temp Pulse Resp BP Pulse Ox 97.4 F L 70 24 141/65 100 04/14/18 04:00 04/14/18 05:00 04/14/18 05:00 04/14/18 04:25 04/14/18 05:00 Intake and Output: 04/13/18 04/14/18 18:59 06:59 Intake Total 1440 120 Output Total 1700 350 Balance -260 -230 - Medications Medications: Current Medications Acetaminophen (Tylenol 325mg Tab) 975 mg PO DAILY PRN PRN Reason: BEFORE PLASMA EXCHANGE Last Admin: 04/13/18 16:57 Dose: 975 mg Diphenhydramine HCl (Benadryl) 50 mg IVP DAILY PRN PRN Reason: BEFORE PLASMA EXCHANGE Last Admin: 04/13/18 16:56 Dose: 50 mg Calcium Gluconate 4.65 meq/ (Dextrose) 110 mls @ 100 mls/hr IV DAILY PRN PRN Reason: BEFORE PLASMA EXCHANGE Last Admin: 04/13/18 16:58 Dose: 100 mls/hr Levothyroxine Sodium (Synthroid) 50 mcg PO DAILY@0600 [facility] Last Admin: 04/13/18 06:05 Dose: 50 mcg Methylprednisolone (Solu-Medrol) 50 mg IVP DAILY [facility] Last Admin: 04/13/18 16:57 Dose: 50 mg Montelukast Sodium (Singulair) 10 mg PO DAILY [facility] Last Admin: 04/13/18 09:33 Dose: 10 mg Morphine Sulfate (Morphine) 2 mg IVP Q6 PRN PRN Reason: Pain, severe (8-10) Morphine Sulfate (Morphine) 1 mg IVP Q4 PRN PRN Reason: Pain, moderate (4-7) Last Admin: 04/12/18 21:40 Dose: 1 mg Nicotine (Nicoderm Cq) 1 patch TD DAILY [facility] Last Admin: 04/13/18 09:33 Dose: 1 patch Pantoprazole Sodium (Protonix Ec Tab) 40 mg PO DAILY [facility] Last Admin: 04/13/18 09:33 Dose: 40 mg - Labs Labs: 04/13/18 06:17 04/13/18 06:17 PT 12.3 SECONDS (9.7-12.2) H 04/12/18 05:25 INR 1.1 04/12/18 05:25 APTT 27 SECONDS (21-34) 04/12/18 05:25 - Constitutional Appears: Well, No Acute Distress - Head Exam Head Exam: ATRAUMATIC, NORMOCEPHALIC - Eye Exam Eye Exam: EOMI, PERRL Pupil Exam: NORMAL ACCOMODATION - ENT Exam ENT Exam: Mucous Membranes Dry Additional comments: petechiae in hard palate. blue discoloration in buccal mucous membrane - Neck Exam Neck Exam: Full ROM. absent: Lymphadenopathy - Respiratory Exam Respiratory Exam: Clear to Ausculation Bilateral. absent: Rhonchi - Cardiovascular Exam Cardiovascular Exam: +S1, +S2, Murmur. absent: Gallop, Rubs - GI/Abdominal Exam GI & Abdominal Exam: Soft, Normal Bowel Sounds. absent: Tenderness - Extremities Exam Extremities Exam: Full ROM, Normal Capillary Refill, Normal Inspection. absent : Joint Swelling, Pedal Edema - Back Exam Back Exam: NORMAL INSPECTION - Neurological Exam Neurological Exam: Alert, Awake, CN II-XII Intact, Normal Gait, Oriented x3 - Psychiatric Exam Psychiatric exam: Normal Affect, Normal Mood - Skin Skin Exam: Dry, Intact, Normal Color, Warm Assessment and Plan - Assessment and Plan (Free Text) Assessment: 62 y/o female with a PMH of HTN, hypothyroidism, asthma, and migraines who presented to ER with complaints of dizziness and worsening weakness, found to have severe anemia and thrombocytopenia with peripheral smear findings suspicious for TTP. Nephrology consultation was requested for plasma exchange. Plan: Anemia and thrombocytopenia suspicious for TTP Hypotension - resolved TRU - resolved Hypokalemia - resolved Hypothyroidism TRU in the setting of hypovolemia Clinically stable. No bleeding Peripheral blood smear showed thrombocytopenia with few large platelets, normocytic anemia, nucleated RBC, no blasts Continue daily plasma exchange Continue Benadryl, calcium gluconate, and acetaminophen PRN before plasma exchange Continue solumedrol 50mg IVP qd Heme following Platelet count improving Pending [id number] level and ab Patient was seen and examined and case was discussed with attending physician Dr. Aguirre
[2018-04-14 06:35] LABS: BASO % 0.3 % (0.0-2.0); HEMOGLOBIN 9.2 g/dL (11.0-16.0); LYMPH # 2.1 K/uL (1.0-4.3); LYMPH % 20.7 % (20.0-40.0); MEAN CELL VOLUME 87.2 fL (81.0-99.0); MEAN CORPUSCULAR HEMOGLOBIN 30.8 pg (27.0-31.0); MEAN CORPUSCULAR HGB CONC 35.3 g/dL (33.0-37.0); MEAN PLATELET VOLUME 11.2 fL (7.2-11.7); MONO # 0.5 K/uL (0.0-0.8); MONO % 4.8 % (0.0-10.0); NEUT # 7.4 K/uL (1.8-7.0); NEUT % 74.2 % (50.0-75.0); RBC 2.98 Mil/uL (3.80-5.20); RED CELL DISTRIBUTION WIDTH 16.1 % (11.5-14.5); WHITE BLOOD COUNT 9.9 K/uL (4.8-10.8)
[2018-04-14] MEDS: Levothyroxine 50 MCG TAB PO SCH (06:42)
[2018-04-14 07:11] LABS: ALB/GLOB RATIO 1.4 (1.0-2.1); ALBUMIN 3.8 g/dL (3.5-5.0); ALT/SGPT 59 U/L (9-52); AST/SGOT 59 U/L (14-36); BILIRUBIN,DIRECT 0.3 mg/dL (0.0-0.4); BLOOD UREA NITROGEN 19 mg/dL (7-17); GFR NON-AFRICAN AMERICAN > 60
[2018-04-14] MEDS: MethylPREDNISolone 40 mg Vial IVP SCH (10:20)
[2018-04-14] MEDS: Pantoprazole 40 mg EC Tab PO SCH (10:20)
--- NOTE | 2018-04-14 13:01 | CP.CCUPN ---
<Any Alvarez - Last Filed: 04/14/18 14:10> CCU Subjective - Physician Review Subjective (Free Text): ICU progress note Patient seen and examined at bedside. He states she has no complaints currently. She is eating breakfast. She states she has never been hospitalized before, unable to get prior labs. She has no complaints currently. She denies fevers, chills, headaches, dizziness, chest pain, shortness of breath, abdominal pain, vomiting, diarhea, leg pain. CCU Objective - Vital Signs / Intake & Output Vital Signs (Last 4 hours): Vital Signs Temp Pulse Resp BP Pulse Ox 04/14/18 12:00 98.1 F 79 29 H 100 04/14/18 10:24 81 19 127/77 98 04/14/18 10:00 77 12 100 04/14/18 09:24 142/78 Intake and Output (Last 8hrs): Intake & Output 04/13/18 04/14/18 04/14/18 22:59 06:59 14:59 Intake Total 600 0 480 Output Total 550 0 250 Balance 50 0 230 Weight 108 lb 14.4 oz Intake: Intake, IV Amount 0 0 0 Right Antecubital 0 0 Right Hand 0 0 0 Oral 600 480 Output: Urine 550 0 250 Urine, Voided 550 0 250 Other: # Voids Urine, Voided 1 - Physical Exam Head: Positive for: Atraumatic, Normocephalic Extroacular Muscles: Positive for: EOMI Conjunctiva: Positive for: Other (Pale conjunctiva ) Mouth: Positive for: Moist Mucous Membranes Respiratory/Chest: Positive for: Clear to Auscultation, Good Air Exchange. Negative for: Respiratory Distress, Accessory Muscle Use, Decreased Breath Sounds, Rales, Retracting, Rhonchi Cardiovascular: Positive for: Regular Rate and Rhythm, Normal S1, S2 Abdomen: Positive for: Normal Bowel Sounds. Negative for: Tenderness, Distention, Peritoneal Signs Upper Extremity: Positive for: NORMAL PULSES, Capillary Refill < 2s Lower Extremity: Positive for: NORMAL PULSES Neurological: Positive for: GCS=15 Skin: Positive for: Warm, Dry Psychiatric: Positive for: Alert, Oriented x 3 - Medications Active Medications: Active Medications Generic Name Dose Route Start Last Admin Trade Name Freq PRN Reason Stop Dose Admin Acetaminophen 975 mg 04/13/18 13:23 04/13/18 16:57 Tylenol 325mg Tab PO 975 mg DAILY PRN Administration BEFORE PLASMA EXCHANGE Diphenhydramine HCl 50 mg 04/13/18 13:23 04/13/18 16:56 Benadryl IVP 50 mg DAILY PRN Administration BEFORE PLASMA EXCHANGE Calcium Gluconate 4.65 meq/ 110 mls @ 100 mls/hr 04/13/18 13:58 04/13/18 16: 58 Dextrose IV 100 mls/hr DAILY PRN Administration BEFORE PLASMA EXCHANGE Levothyroxine Sodium 50 mcg 04/13/18 06:00 04/14/18 06:42 Synthroid PO 50 mcg DAILY@0600 JOSE Administration Methylprednisolone 50 mg 04/13/18 13:45 04/14/18 10:20 Solu-Medrol IVP 50 mg DAILY JOSE Administration Montelukast Sodium 10 mg 04/12/18 13:15 04/14/18 10:20 Singulair PO 10 mg DAILY JOSE Administration Morphine Sulfate 2 mg 04/12/18 20:39 Morphine IVP Q6 PRN Pain, severe (8-10) Morphine Sulfate 1 mg 04/12/18 20:41 04/12/18 21:40 Morphine IVP 1 mg Q4 PRN Administration Pain, moderate (4-7) Nicotine 1 patch 04/12/18 21:30 04/14/18 10:19 Nicoderm Cq TD 1 patch DAILY JOSE Administration Pantoprazole Sodium 40 mg 04/13/18 10:00 04/14/18 10:20 Protonix Ec Tab PO 40 mg DAILY JOSE Administration - Patient Studies Lab Studies: Microbiology Studies 04/12/18 15:13 MRSA Culture - Final Nose MRSA NOT DETECTED Lab Studies 04/14/18 04/14/18 Range/Units 06:23 06:23 WBC 9.9 (4.8-10.8) K/uL RBC 2.98 L (3.80-5.20) Mil/uL Hgb 9.2 L (11.0-16.0) g/dL Hct 26.0 L (34.0-47.0) % MCV 87.2 D (81.0-99.0) fL MCH 30.8 (27.0-31.0) pg MCHC 35.3 (33.0-37.0) g/dL RDW 16.1 H (11.5-14.5) % Plt Count 29 L* D (130-400) K/uL MPV 11.2 (7.2-11.7) fL Neut % (Auto) 74.2 (50.0-75.0) % Lymph % (Auto) 20.7 (20.0-40.0) % Trinity % (Auto) 4.8 (0.0-10.0) % Eos % (Auto) 0.0 (0.0-4.0) % Baso % (Auto) 0.3 (0.0-2.0) % Neut # (Auto) 7.4 H (1.8-7.0) K/uL Lymph # (Auto) 2.1 (1.0-4.3) K/uL Trinity # (Auto) 0.5 (0.0-0.8) K/uL Eos # (Auto) 0.0 (0.0-0.7) K/uL Baso # (Auto) 0.0 (0.0-0.2) K/uL Retic Count 11.6 H (0.5-1.5) % Sodium 140 (132-148) mmol/L Potassium 3.8 (3.6-5.2) mmol/L Chloride 101 (98-107) mmol/L Carbon Dioxide 30 (22-30) mmol/L Anion Gap 13 (10-20) BUN 19 H (7-17) mg/dL Creatinine 0.8 (0.7-1.2) mg/dL Est GFR ( Amer) > 60 Est GFR (Non-Af Amer) > 60 Random Glucose 122 H (65-105) mg/dL Calcium 9.0 (8.6-10.4) mg/dl Phosphorus 4.0 (2.5-4.5) mg/dL Magnesium 1.5 L (1.6-2.3) mg/dL Total Bilirubin 1.3 (0.2-1.3) mg/dL Direct Bilirubin 0.3 (0.0-0.4) mg/dL AST 59 H (14-36) U/L ALT 59 H D (9-52) U/L Alkaline Phosphatase 51 (38-126) U/L Lactate Dehydrogenase 1358 H (313-618) U/L Total Protein 6.4 (6.3-8.3) g/dL Albumin 3.8 (3.5-5.0) g/dL Globulin 2.6 (2.2-3.9) gm/dL Albumin/Globulin Ratio 1.4 (1.0-2.1) Laboratory Results - last 24 hr 04/14/18 04/14/18 06:23 06:23 WBC 9.9 RBC 2.98 L Hgb 9.2 L Hct 26.0 L MCV 87.2 D MCH 30.8 MCHC 35.3 RDW 16.1 H Plt Count 29 L* D MPV 11.2 Neut % (Auto) 74.2 Lymph % (Auto) 20.7 Trinity % (Auto) 4.8 Eos % (Auto) 0.0 Baso % (Auto) 0.3 Neut # (Auto) 7.4 H Lymph # (Auto) 2.1 Trinity # (Auto) 0.5 Eos # (Auto) 0.0 Baso # (Auto) 0.0 Retic Count 11.6 H Sodium 140 Potassium 3.8 Chloride 101 Carbon Dioxide 30 Anion Gap 13 BUN 19 H Creatinine 0.8 Est GFR ( Amer) > 60 Est GFR (Non-Af Amer) > 60 Random Glucose 122 H Calcium 9.0 Phosphorus 4.0 Magnesium 1.5 L Total Bilirubin 1.3 Direct Bilirubin 0.3 AST 59 H ALT 59 H D Alkaline Phosphatase 51 Lactate Dehydrogenase 1358 H Total Protein 6.4 Albumin 3.8 Globulin 2.6 Albumin/Globulin Ratio 1.4 Review of Systems - Constitutional Constitutional: absent: Fever - EENT Eyes: absent: Change in Vision Nose/Mouth/Throat: absent: Nasal Congestion - Cardiovascular Cardiovascular: absent: Chest Pain, Dyspnea - Respiratory Respiratory: absent: Cough, Dyspnea - Gastrointestinal Gastrointestinal: absent: Abdominal Pain, Nausea, Vomiting - Genitourinary Genitourinary: absent: Difficulty Urinating, Dysuria - Neurological Neurological: absent: Dizziness, Headaches - Psychiatric Psychiatric: absent: Anxiety, Confusion, Depression Critical Care Progress Note - Nutrition Nutrition: Nutrition Category Date Time Status Heart Healthy Diet [DIET] Diets 04/12/18 Lunch Active Assessment/Plan - Assessment and Plan (Free Text) Assessment: 62 year old female with history of HTN, hypothyrodism, asthma, migraines who presents for generalized weakness and hypotension. Patient was found to have hemoglobin of 4.7, with platelet of 12, concern for TTP. Scheduled to have plasmapheresis with Dr. Aguirre Plan: Neuro: Alert and oriented Continue to monitor CT head without contrast Chronic microvascular ischemic changes.7 millimeter focal hypodensity seen at the level of the right internal capsule suggestive for a lacunar infarct, likely chronic.Scattered calcifications along the falx and tentorium.If there is concern for acute ischemic change, consider correlation with MRI. Cardiovascular Currently normotensive Hold antihypertensives Pulmonary Saturating 99% on RA Singulair 10mg PO daily GI Stool occult negative CT Abdomen Wedge-shaped hypodense regions involving the spleen may reflect infarctions of indeterminate age. Renal Dr. Aguirre consulted, help appreciated Right femoral Dialysis catheter placed for plasmapheresis per Dr. Aguirre I & Os Plasmapheresis with Dr. Aguirre As per Nephro note, patient to continue Solumedrol 50mg IV daily and recommends plasma exchange until improvement in platelets. Patient receiving Calcium gluconate and Benadryl PRN before plasmapheresis ID Afebrile White count 9.9 Continue to monitor Heme Concern for TTP Dr. De La Cruz consulted, help appreciated Peripheral blood smear reveals no increase in blasts. Mild neutrophilia and mild monocytosis. Thrombocytopenia with few large platelets. RBC studies show normocytic anemia. RBC morpholoy - nucleated RBCs Hb 4.7 / Hct 13.8 initially, Hb/Hct 9.2/26.[address] 11[address]6 Haptoglobin <20.0 LDH 1358 f/u Indirect and Direct Lucio, [id number] T.bili 1.3 D.bili 0.3 Ferritin 1370 CEA 4.9 CA19-9 6.7 CA125 7.0 B12 685 Folate >20.0 Endo Hx of hypothyroidism Synthroid 50mcg PO daily TSH 4.91 , T4 11.0 PPX SCDs Dispo: Transferred to Telemetry. Continue plasmapheresis as per Dr. Aguirre. <Mike Cartagena - Last Filed: 04/14/18 18:12> CCU Objective - Vital Signs / Intake & Output Vital Signs (Last 4 hours): Vital Signs Temp Pulse Resp BP Pulse Ox 04/14/18 16:01 88 15 93 L 04/14/18 16:00 98 F 86 18 140/78 100 04/14/18 15:26 140/96 H 04/14/18 14:25 85 14 140/78 Intake and Output (Last 8hrs): Intake & Output 04/14/18 04/14/18 04/14/18 06:59 14:59 22:59 Intake Total 0 1210 0 Output Total 0 250 Balance 0 960 0 Weight 108 lb 14.4 oz Intake: Intake, IV Amount 0 0 0 Right Antecubital 0 Right Hand 0 0 0 Oral 1210 Output: Urine 0 250 Urine, Voided 0 250 - Medications Active Medications: Active Medications Generic Name Dose Route Start Last Admin Trade Name Freq PRN Reason Stop Dose Admin Acetaminophen 975 mg 04/13/18 13:23 04/14/18 17:05 Tylenol 325mg Tab PO 975 mg DAILY PRN Administration BEFORE PLASMA EXCHANGE Diphenhydramine HCl 50 mg 04/13/18 13:23 04/14/18 17:05 Benadryl IVP 50 mg DAILY PRN Administration BEFORE PLASMA EXCHANGE Calcium Gluconate 4.65 meq/ 110 mls @ 100 mls/hr 04/13/18 13:58 04/14/18 17: 06 Dextrose IV 100 mls/hr DAILY PRN Administration BEFORE PLASMA EXCHANGE Levothyroxine Sodium 50 mcg 04/13/18 06:00 04/14/18 06:42 Synthroid PO 50 mcg DAILY@0600 JOSE Administration Methylprednisolone 50 mg 04/13/18 13:45 04/14/18 10:20 Solu-Medrol IVP 50 mg DAILY JOSE Administration Montelukast Sodium 10 mg 04/12/18 13:15 04/14/18 10:20 Singulair PO 10 mg DAILY JOSE Administration Morphine Sulfate 2 mg 04/12/18 20:39 Morphine IVP Q6 PRN Pain, severe (8-10) Morphine Sulfate 1 mg 04/12/18 20:41 04/12/18 21:40 Morphine IVP 1 mg Q4 PRN Administration Pain, moderate (4-7) Nicotine 1 patch 04/12/18 21:30 04/14/18 10:19 Nicoderm Cq TD 1 patch DAILY JOSE Administration Pantoprazole Sodium 40 mg 04/13/18 10:00 04/14/18 10:20 Protonix Ec Tab PO 40 mg DAILY JOSE Administration - Patient Studies Lab Studies: Microbiology Studies 04/12/18 15:13 MRSA Culture - Final Nose MRSA NOT DETECTED Lab Studies 04/14/18 04/14/18 Range/Units 06:23 06:23 WBC 9.9 (4.8-10.8) K/uL RBC 2.98 L (3.80-5.20) Mil/uL Hgb 9.2 L (11.0-16.0) g/dL Hct 26.0 L (34.0-47.0) % MCV 87.2 D (81.0-99.0) fL MCH 30.8 (27.0-31.0) pg MCHC 35.3 (33.0-37.0) g/dL RDW 16.1 H (11.5-14.5) % Plt Count 29 L* D (130-400) K/uL MPV 11.2 (7.2-11.7) fL Neut % (Auto) 74.2 (50.0-75.0) % Lymph % (Auto) 20.7 (20.0-40.0) % Trinity % (Auto) 4.8 (0.0-10.0) % Eos % (Auto) 0.0 (0.0-4.0) % Baso % (Auto) 0.3 (0.0-2.0) % Neut # (Auto) 7.4 H (1.8-7.0) K/uL Lymph # (Auto) 2.1 (1.0-4.3) K/uL Trinity # (Auto) 0.5 (0.0-0.8) K/uL Eos # (Auto) 0.0 (0.0-0.7) K/uL Baso # (Auto) 0.0 (0.0-0.2) K/uL Retic Count 11.6 H (0.5-1.5) % Sodium 140 (132-148) mmol/L Potassium 3.8 (3.6-5.2) mmol/L Chloride 101 (98-107) mmol/L Carbon Dioxide 30 (22-30) mmol/L Anion Gap 13 (10-20) BUN 19 H (7-17) mg/dL Creatinine 0.8 (0.7-1.2) mg/dL Est GFR ( Amer) > 60 Est GFR (Non-Af Amer) > 60 Random Glucose 122 H (65-105) mg/dL Calcium 9.0 (8.6-10.4) mg/dl Phosphorus 4.0 (2.5-4.5) mg/dL Magnesium 1.5 L (1.6-2.3) mg/dL Total Bilirubin 1.3 (0.2-1.3) mg/dL Direct Bilirubin 0.3 (0.0-0.4) mg/dL AST 59 H (14-36) U/L ALT 59 H D (9-52) U/L Alkaline Phosphatase 51 (38-126) U/L Lactate Dehydrogenase 1358 H (313-618) U/L Total Protein 6.4 (6.3-8.3) g/dL Albumin 3.8 (3.5-5.0) g/dL Globulin 2.6 (2.2-3.9) gm/dL Albumin/Globulin Ratio 1.4 (1.0-2.1) Laboratory Results - last 24 hr 04/14/18 04/14/18 06:23 06:23 WBC 9.9 RBC 2.98 L Hgb 9.2 L Hct 26.0 L MCV 87.2 D MCH 30.8 MCHC 35.3 RDW 16.1 H Plt Count 29 L* D MPV 11.2 Neut % (Auto) 74.2 Lymph % (Auto) 20.7 Trinity % (Auto) 4.8 Eos % (Auto) 0.0 Baso % (Auto) 0.3 Neut # (Auto) 7.4 H Lymph # (Auto) 2.1 Trinity # (Auto) 0.5 Eos # (Auto) 0.0 Baso # (Auto) 0.0 Retic Count 11.6 H Sodium 140 Potassium 3.8 Chloride 101 Carbon Dioxide 30 Anion Gap 13 BUN 19 H Creatinine 0.8 Est GFR ( Amer) > 60 Est GFR (Non-Af Amer) > 60 Random Glucose 122 H Calcium 9.0 Phosphorus 4.0 Magnesium 1.5 L Total Bilirubin 1.3 Direct Bilirubin 0.3 AST 59 H ALT 59 H D Alkaline Phosphatase 51 Lactate Dehydrogenase 1358 H Total Protein 6.4 Albumin 3.8 Globulin 2.6 Albumin/Globulin Ratio 1.4 Critical Care Progress Note - Nutrition Nutrition: Nutrition Category Date Time Status Heart Healthy Diet [DIET] Diets 04/12/18 Lunch Active Assessment/Plan - Assessment and Plan (Free Text) Plan: Patient has TTP and remains hemdynamically stable. -Above resident note documents my clinical management and evalaution -mointor for PLT -Patient was inforemd to remove eht femroal HD line and possible place in IJ. Patient refused. Risks, benefits and alertnatives expalined. Patient verbalized understanding - Date & Time Date: 04/14/18 Time: 18:11
[2018-04-14] MEDS: DiphenhydrAMINE 50 mg/ml Inj IVP PRN (17:05)
[2018-04-14] MEDS: Calcium Gluconate 4.65 MEQ in Dextrose 5% In Water 100 ML IV PRN (17:06)
--- NOTE | 2018-04-15 01:24 | PN ---
DATE: 04/14/2018 REASON FOR CONSULTATION: The patient has a thrombotic thrombocytopenic purpura. SUBJECTIVE: This is a 62-year-old female, diagnosed to have thrombotic thrombocytopenic purpura and treated with plasmapheresis on 04/12/2018 and 04/13/2018. The patient is scheduled to have plasmapheresis done today. Clinically, she has improved. Platelet count has improved. Reticulocyte counts are still high to 11.6%, but LDH decreased from 2110 to 1358. The LDH was 4232 on the day of admission. Bilirubin has become normal to 1.3. REVIEW OF SYSTEMS: Denies any headaches, dizziness, or blackouts. No chest pain or palpitations. No fever or chills. No cough or sputum. Good appetite. No weight loss. Denies any abdominal pain. No nausea, vomiting, melena, hemoptysis, or hematemesis. No dysuria or hematuria. No change in the bowel habit. No change in the color of the stool. No tingling or numbness. No localized weakness. No bone pain. PHYSICAL EXAMINATION: GENERAL: Awake, alert, oriented, quiet, pleasant, not in acute distress. VITAL SIGNS: Pulse 81, blood pressure 127/77, respirations 19, and temperature 98.1 degrees Fahrenheit. HEENT: Head normocephalic and atraumatic. Eyes, conjunctivae are pink. Sclerae are white. Pupils reacting to light. Ears, nose, and throat within normal limits. LUNGS: Bilaterally good air entry. Clear to auscultation and percussion. HEART: S1 and S2 regular. No gallop. No murmur. ABDOMEN: Soft, nondistended, nontender. No hepatosplenomegaly. CENTRAL NERVOUS SYSTEM: No gross motor or sensory deficits. LYMPH NODES: No cervical, axillary, or inguinal lymph nodes palpable. EXTREMITIES: No edema, no cyanosis, no clubbing, and no varicose vein. LABORATORY DATA: WBC 9900, hemoglobin 9.2, and platelet counts are 29,000. Reticulocyte count 11.6%. Bilirubin is 1.3, indirect bilirubin is 1, LDH is 1358. IMPRESSION: Thrombotic thrombocytopenic purpura. PLAN: Continue plasmapheresis daily. We will taper off the plasmapheresis once the CBC is normal and the LDH is normal also. The patient has understood and agreed with it. Discussed with the nurse also. Thank you for letting me participate in the care of this patient and I will follow up the patient with you. Ashley De La Cruz MD
[2018-04-15] MEDS: Levothyroxine 50 MCG TAB PO SCH (05:59)
--- NOTE | 2018-04-15 09:30 | CP.PCM.PN ---
Subjective - Date & Time of Evaluation Date of Evaluation: 04/15/18 Time of Evaluation: 07:15 - Subjective Subjective: Medicine Progress Note for Dr. Fragoso Patient seen and examined at bedside. No acute distress. Patient is scheduled to have her 4th round of plasmapheresis today. She has tolerated plasmapheresis with moderate feeling of agitation during procedure. She reports constipation x2 days. Denies fevers, chills, headaches, dizziness, chest pain, shortness of breath, abdominal pain, vomiting, diarhea, or any additional acute complaints. Objective - Vital Signs/Intake and Output Vital Signs (last 24 hours): Temp Pulse Resp BP Pulse Ox 97.5 F L 66 16 168/90 H 98 04/15/18 04:00 04/15/18 06:00 04/15/18 06:00 04/15/18 04:48 04/15/18 04:00 - Medications Medications: Current Medications Acetaminophen (Tylenol 325mg Tab) 650 mg PO DAILY PRN PRN Reason: pre-med before plasmapheresis Diphenhydramine HCl (Benadryl) 50 mg IVP DAILY PRN PRN Reason: BEFORE PLASMA EXCHANGE Last Admin: 04/14/18 17:05 Dose: 50 mg Calcium Gluconate 4.65 meq/ (Sodium Chloride) 260 mls @ 260 mls/hr IV DAILY PRN PRN Reason: BEFORE PLASMA EXCHANGE Levothyroxine Sodium (Synthroid) 50 mcg PO DAILY@0600 [facility] Last Admin: 04/15/18 05:59 Dose: 50 mcg Methylprednisolone (Solu-Medrol) 50 mg IVP DAILY [facility] Last Admin: 04/14/18 10:20 Dose: 50 mg Montelukast Sodium (Singulair) 10 mg PO DAILY [facility] Last Admin: 04/14/18 10:20 Dose: 10 mg Morphine Sulfate (Morphine) 2 mg IVP Q6 PRN PRN Reason: Pain, severe (8-10) Morphine Sulfate (Morphine) 1 mg IVP Q4 PRN PRN Reason: Pain, moderate (4-7) Last Admin: 04/12/18 21:40 Dose: 1 mg Nicotine (Nicoderm Cq) 1 patch TD DAILY [facility] Last Admin: 04/14/18 10:19 Dose: 1 patch Pantoprazole Sodium (Protonix Ec Tab) 40 mg PO DAILY [facility] Last Admin: 09/07/18 10:20 Dose: 40 mg - Labs Labs: 04/14/18 06:23 04/14/18 06:23 PT 12.3 SECONDS (9.7-12.2) H 04/12/18 05:25 INR 1.1 04/12/18 05:25 APTT 27 SECONDS (21-34) 04/12/18 05:25 - Additional Findings Additional findings: - Constitutional Appears: Non-toxic, No Acute Distress - Head Exam Head Exam: ATRAUMATIC, NORMAL INSPECTION - Eye Exam Eye Exam: EOMI, Normal appearance (Pale conjunctiva ) - Respiratory Exam Respiratory Exam: NORMAL BREATHING PATTERN. absent: Rales, Wheezes - Cardiovascular Exam Cardiovascular Exam: Regular Rate, +S1, +S2 - GI/Abdominal Exam GI & Abdominal Exam: Soft, Normal Bowel Sounds. absent: Tenderness - Extremities Exam Extremities Exam: Full ROM, Normal Inspection. absent: Pedal Edema, Tenderness - Back Exam Back Exam: NORMAL INSPECTION. absent: CVA tenderness (L), CVA tenderness (R) - Neurological Exam Neurological Exam: Alert, Awake, Oriented x3 - Psychiatric Exam Psychiatric exam: Normal Affect, Normal Mood - Skin Skin Exam: Dry, Intact, Normal Color, Warm Assessment and Plan - Assessment and Plan (Free Text) Assessment: 62 year old female with history of HTN, hypothyrodism, asthma, migraines who presents for generalized weakness and hypotension. Patient was found to have hemoglobin of 4.7, with platelet of 12, concern for TTP. Scheduled to have plasmapheresis with Dr. Aguirre TTP 04/15: 4th round of Plasmapheresis with Dr. Aguirre today. She is tolerating the procedure with mild-moderate agitation. Dr. Aguirre consulted, help appreciated Right femoral Dialysis catheter placed for plasmapheresis per Dr. Aguirre I & Os As per Nephro note, patient to continue Solumedrol 50mg IV daily and recommends plasma exchange until improvement in platelets. Patient receiving Calcium gluconate and Benadryl PRN before plasmapheresis Dr. De La Cruz consulted, help appreciated Peripheral blood smear reveals no increase in blasts. Mild neutrophilia and mild monocytosis. Thrombocytopenia with few large platelets. RBC studies show normocytic anemia. RBC morpholoy - nucleated RBCs Hb 4.7 / Hct 13.8 initially, Hb/Hct 9.2/26.[address] 11[address]6 Haptoglobin <20.0 LDH 1358 f/u Indirect and Direct Lucio, [id number] T.bili 1.3 D.bili 0.3 Ferritin 1370 CEA 4.9 CA19-9 6.7 CA125 7.0 B12 685 Folate >20.0 Lacunar Infarct (chronic) Alert and oriented Continue to monitor CT head without contrast Chronic microvascular ischemic changes.7 millimeter focal hypodensity seen at the level of the right internal capsule suggestive for a lacunar infarct, likely chronic.Scattered calcifications along the falx and tentorium.If there is concern for acute ischemic change, consider correlation with MRI. Hypotension Currently normotensive Hold antihypertensives Asthma Saturating 99% on RA Singulair 10mg PO daily Spleen Infarct (chronic) Stool occult negative CT Abdomen Wedge-shaped hypodense regions involving the spleen may reflect infarctions of indeterminate age. Hypothyroidism Synthroid 50mcg PO daily TSH 4.91 , T4 11.0 PPX SCDs Heparin 5000u SC Q12H
[2018-04-15 09:38] LABS: BASO % 0.3 % (0.0-2.0); EOS % 0.4 % (0.0-4.0); HEMOGLOBIN 10.1 g/dL (11.0-16.0); LYMPH # 2.9 K/uL (1.0-4.3); LYMPH % 27.4 % (20.0-40.0); MEAN CORPUSCULAR HEMOGLOBIN 31.1 pg (27.0-31.0); MEAN CORPUSCULAR HGB CONC 34.8 g/dL (33.0-37.0); MEAN PLATELET VOLUME 9.3 fL (7.2-11.7); MONO # 0.4 K/uL (0.0-0.8); MONO % 3.5 % (0.0-10.0); NEUT # 7.3 K/uL (1.8-7.0); NEUT % 68.4 % (50.0-75.0); NRBC % 0.4 % (0.0-2.0); RBC 3.26 Mil/uL (3.80-5.20); RED CELL DISTRIBUTION WIDTH 16.8 % (11.5-14.5); WHITE BLOOD COUNT 10.6 K/uL (4.8-10.8)
[2018-04-15 09:40] LABS: MEAN CELL VOLUME 89.3 fL (81.0-99.0)
[2018-04-15 10:08] LABS: ALB/GLOB RATIO 1.4 (1.0-2.1); ALBUMIN 3.6 g/dL (3.5-5.0); ALT/SGPT 35 U/L (9-52); AST/SGOT 35 U/L (14-36); BILIRUBIN,DIRECT 0.3 mg/dL (0.0-0.4); BLOOD UREA NITROGEN 18 mg/dL (7-17); CALCIUM 8.5 mg/dl (8.6-10.4); GFR NON-AFRICAN AMERICAN > 60
[2018-04-15] MEDS: Pantoprazole 40 mg EC Tab PO SCH (11:58)
[2018-04-15] MEDS: MethylPREDNISolone 40 mg Vial IVP SCH (11:58)
[2018-04-15] MEDS ORDERED: Potassium Chloride 20 mEq ER Tab PO ONE (12:30)
[2018-04-15] MEDS: Magnesium Sulfate 1 gm in D5W 1 GM/100 ML BAG IVPB SCH ×2 (13:56→16:51)
--- NOTE | 2018-04-15 23:21 | CP.PCM.PN ---
Subjective - Date & Time of Evaluation Date of Evaluation: 04/15/18 Time of Evaluation: 12:30 - Subjective Subjective: Reports feeling well; tolerating diet; nursing staff having difficulty establishing peripheral IV line; Objective - Vital Signs/Intake and Output Vital Signs (last 24 hours): Temp Pulse Resp BP Pulse Ox 98.4 F 82 20 160/92 H 100 04/15/18 20:00 04/15/18 21:00 04/15/18 19:00 04/15/18 17:35 04/15/18 21:00 Intake and Output: 04/15/18 04/16/18 18:59 06:59 Intake Total 1510 730 Output Total 550 100 Balance 960 630 - Medications Medications: Current Medications Acetaminophen (Tylenol 325mg Tab) 650 mg PO DAILY PRN PRN Reason: pre-med before plasmapheresis Diphenhydramine HCl (Benadryl) 50 mg IVP DAILY PRN PRN Reason: BEFORE PLASMA EXCHANGE Last Admin: 04/14/18 17:05 Dose: 50 mg Docusate Sodium (Colace) 100 mg PO BID [facility] Last Admin: 04/15/18 19:38 Dose: 100 mg Hydrochlorothiazide (Microzide) 25 mg PO DAILY [facility] Calcium Gluconate 4.65 meq/ (Sodium Chloride) 260 mls @ 260 mls/hr IV DAILY PRN PRN Reason: BEFORE PLASMA EXCHANGE Levothyroxine Sodium (Synthroid) 50 mcg PO DAILY@0600 [facility] Last Admin: 04/15/18 05:59 Dose: 50 mcg Losartan Potassium (Cozaar) 50 mg PO DAILY [facility] Methylprednisolone (Solu-Medrol) 50 mg IVP DAILY [facility] Last Admin: 04/15/18 11:58 Dose: 50 mg Montelukast Sodium (Singulair) 10 mg PO DAILY [facility] Last Admin: 04/15/18 11:58 Dose: 10 mg Morphine Sulfate (Morphine) 2 mg IVP Q6 PRN PRN Reason: Pain, severe (8-10) Morphine Sulfate (Morphine) 1 mg IVP Q4 PRN PRN Reason: Pain, moderate (4-7) Last Admin: 04/12/18 21:40 Dose: 1 mg Nicotine (Nicoderm Cq) 1 patch TD DAILY [facility] Last Admin: 04/15/18 11:57 Dose: 1 patch Pantoprazole Sodium (Protonix Ec Tab) 40 mg PO DAILY [facility] Last Admin: 04/15/18 11:58 Dose: 40 mg - Labs Labs: 04/15/18 09:33 04/15/18 09:33 PT 12.3 SECONDS (9.7-12.2) H 04/12/18 05:25 INR 1.1 04/12/18 05:25 APTT 27 SECONDS (21-34) 04/12/18 05:25 - Constitutional Appears: Non-toxic, No Acute Distress - Eye Exam Eye Exam: Normal appearance - Respiratory Exam Respiratory Exam: Clear to Ausculation Bilateral. absent: Respiratory Distress - Cardiovascular Exam Cardiovascular Exam: RRR, +S1, +S2 - GI/Abdominal Exam GI & Abdominal Exam: Soft. absent: Distended, Tenderness - Extremities Exam Additional comments: no leg edema; - Neurological Exam Neurological Exam: Alert, Awake - Psychiatric Exam Psychiatric exam: Normal Mood. absent: Agitated - Skin Skin Exam: Warm. absent: Cyanosis Assessment and Plan (1) Thrombocytopenia Assessment & Plan: Working diagnosis of TTP based on evidence of hemolytic anemia and severe thrombocytopenia; responding well to plasma exchange with platelet count progressively increasing, received 4th session today; -will continue with plasma exchange until platelet count > 150,000, LDH normalizes; f/u with hematology; -continue solumedrol 50 mg daily; Status: Acute (2) HTN (hypertension) Assessment & Plan: BP uncontrolled, likely worsened by being on steroids; restarted home meds of lisinopril 10 mg and hctz 12.5 mg today; will change lisinopril to losartan due to reports of anaphylaxis associated with being on CHRISTINE inhibitor and plasmapheresis concomitantly; Status: Acute (3) Electrolyte imbalance Assessment & Plan: Hypokalemia and hypomagnesemia; supplementing via IV and PO routes; monitor; Status: Acute (4) Severe anemia Assessment & Plan: Hgb much improved and stable; monitor; Status: Acute (5) Acute kidney injury Assessment & Plan: Resolved; likely pre-renal etiology rather than related to TTP; monitor; Status: Resolved
[2018-04-16] MEDS: Levothyroxine 50 MCG TAB PO SCH (06:21)
[2018-04-16 07:02] LABS: BASO % 0.7 % (0.0-2.0); MEAN CORPUSCULAR HGB CONC 34.5 g/dL (33.0-37.0); NEUT # 6.1 K/uL (1.8-7.0); RBC 3.33 Mil/uL (3.80-5.20)
[2018-04-16 07:03] LABS: BASO # 0.1 K/uL (0.0-0.2); MONO # 0.5 K/uL (0.0-0.8)
[2018-04-16 07:05] LABS: EOS % 0.3 % (0.0-4.0); HEMOGLOBIN 10.4 g/dL (11.0-16.0); LYMPH # 2.3 K/uL (1.0-4.3); MEAN CELL VOLUME 90.6 fL (81.0-99.0); MEAN CORPUSCULAR HEMOGLOBIN 31.3 pg (27.0-31.0); MONO % 5.2 % (0.0-10.0); NEUT % 67.8 % (50.0-75.0); NRBC % 0.5 % (0.0-2.0); RED CELL DISTRIBUTION WIDTH 24.2 % (11.5-14.5)
[2018-04-16 07:40] LABS: ALB/GLOB RATIO 1.2 (1.0-2.1); ALBUMIN 3.4 g/dL (3.5-5.0); ALT/SGPT 38 U/L (9-52); AST/SGOT 60 U/L (14-36); BILIRUBIN,DIRECT 0.6 mg/dL (0.0-0.4); BLOOD UREA NITROGEN 15 mg/dL (7-17); CALCIUM 8.1 mg/dl (8.6-10.4); GFR NON-AFRICAN AMERICAN > 60
[2018-04-16] MEDS: Pantoprazole 40 mg EC Tab PO SCH (09:46)
[2018-04-16] MEDS: MethylPREDNISolone 40 mg Vial IVP SCH (09:47)
--- NOTE | 2018-04-16 11:17 | CP.PCM.PN ---
Subjective - Date & Time of Evaluation Date of Evaluation: 04/16/18 Time of Evaluation: 11:11 - Subjective Subjective: PGY-1 Medicine Progress Note for Dr. Fragoso Patient was seen and examined at bedside this AM, resting comfortably and in no acute distress. No acute events reported overnight. Patient is scheduled for 5th plasma exchange session today, continues to improve and feel better with each treatment. Tolerating her diet well. Denies fevers/chills, headaches, dizziness, chest pain, shortness of breath, abdominal pain, nausea/vomiting/ diarrhea, or any other acute complaints. Objective - Vital Signs/Intake and Output Vital Signs (last 24 hours): Temp Pulse Resp BP Pulse Ox 97.7 F 83 21 158/86 H 100 04/16/18 08:00 04/16/18 10:00 04/16/18 10:00 04/16/18 09:55 04/16/18 08:00 Intake and Output: 04/16/18 04/16/18 06:59 18:59 Intake Total 930 240 Output Total 700 0 Balance 230 240 - Medications Medications: Current Medications Acetaminophen (Tylenol 325mg Tab) 650 mg PO DAILY PRN PRN Reason: pre-med before plasmapheresis Diphenhydramine HCl (Benadryl) 50 mg IVP DAILY PRN PRN Reason: BEFORE PLASMA EXCHANGE Last Admin: 04/14/18 17:05 Dose: 50 mg Docusate Sodium (Colace) 100 mg PO BID [facility] Last Admin: 04/16/18 09:51 Dose: Not Given Hydrochlorothiazide (Hydrodiuril) 25 mg PO DAILY [facility] Last Admin: 04/16/18 09:45 Dose: 25 mg Calcium Gluconate 4.65 meq/ (Sodium Chloride) 260 mls @ 260 mls/hr IV DAILY PRN PRN Reason: BEFORE PLASMA EXCHANGE Levothyroxine Sodium (Synthroid) 50 mcg PO DAILY@0600 [facility] Last Admin: 04/16/18 06:21 Dose: 50 mcg Losartan Potassium (Cozaar) 50 mg PO DAILY [facility] Last Admin: 04/16/18 09:46 Dose: 50 mg Methylprednisolone (Solu-Medrol) 50 mg IVP DAILY [facility] Last Admin: 04/16/18 09:47 Dose: 50 mg Montelukast Sodium (Singulair) 10 mg PO DAILY [facility] Last Admin: 04/16/18 09:46 Dose: 10 mg Morphine Sulfate (Morphine) 2 mg IVP Q6 PRN PRN Reason: Pain, severe (8-10) Morphine Sulfate (Morphine) 1 mg IVP Q4 PRN PRN Reason: Pain, moderate (4-7) Last Admin: 04/12/18 21:40 Dose: 1 mg Nicotine (Nicoderm Cq) 1 patch TD DAILY [facility] Last Admin: 04/16/18 09:47 Dose: 1 patch Pantoprazole Sodium (Protonix Ec Tab) 40 mg PO DAILY [facility] Last Admin: 04/16/18 09:46 Dose: 40 mg - Labs Labs: 04/16/18 06:53 04/16/18 06:53 PT 12.3 SECONDS (9.7-12.2) H 04/12/18 05:25 INR 1.1 04/12/18 05:25 APTT 27 SECONDS (21-34) 04/12/18 05:25 - Constitutional Appears: Non-toxic, No Acute Distress - Head Exam Head Exam: ATRAUMATIC, NORMAL INSPECTION, NORMOCEPHALIC - Eye Exam Eye Exam: EOMI, Normal appearance Pupil Exam: NORMAL ACCOMODATION - ENT Exam ENT Exam: Mucous Membranes Moist, Normal Exam - Neck Exam Neck Exam: Normal Inspection - Respiratory Exam Respiratory Exam: Clear to Ausculation Bilateral, NORMAL BREATHING PATTERN. absent: Rales, Rhonchi, Wheezes - Cardiovascular Exam Cardiovascular Exam: REGULAR RHYTHM, +S1, +S2 - GI/Abdominal Exam GI & Abdominal Exam: Soft, Normal Bowel Sounds. absent: Distended, Firm, Guarding, Rigid, Tenderness, Rebound - Extremities Exam Extremities Exam: Normal Capillary Refill, Normal Inspection. absent: Pedal Edema, Tenderness - Back Exam Back Exam: NORMAL INSPECTION - Neurological Exam Neurological Exam: Alert, Awake, Oriented x3 - Psychiatric Exam Psychiatric exam: Normal Affect, Normal Mood - Skin Skin Exam: Dry, Intact, Normal Color, Warm Assessment and Plan - Assessment and Plan (Free Text) Assessment: 62 yo F with PMHx of HTN, hypothyroidism, asthma, and migraines who presents with generalized weakness and hypotension. Patient was found to have hemoglobin of 4.7 and PLT count of 12 on admission, with concerns for TTP. She is scheduled to have plasmapheresis with Dr. Aguirre. Plan: 1. Thrombocytopenia--concerns for TTP - Nephrology recs (Dr. Jacob) appreciated -working dx of TTP, given evidence of hemolytic anemia and severe thrombocytopenia -pt responding well to plasmapheresis sessions -will continue plasma exchange until PLT> 150K, LDH normalizes - f/u Heme/onc recs (Dr. De La Cruz) - Hb/Hct: 4.7/13.8 on admission--> 10.4/30.1 (04/16) - PLT: 12 on admission--> 121 (04/16) - Reticulocyte count: 13.3 on admission-->17.1 (04/16) - Haptoglobin < 20.0 - LDH: 4232 on admission-->1226 (04/16) - T. bilirubin: 3.2 on admission-->1.0 (04/16) - CEA: 4.9 - CA19-9: 6.7 - CA125: 7.0 - Peripheral blood smear (04/12): -no increase in blasts -mild neutrophilia and mild monocytosis -thrombocytopenia with few large PLTs -RBC study shows normocytic anemia; RBC morphology--nucleated RBCs - f/u indirect and direct Lucio test - f/u [id number] - strict I/Os Medications -continue with solumedrol 50 mg IV daily, per Nephrology -Calcium gluconate 4.65 mEq in 0.9 NS before plasma exchange -Benadryl 50 mg IVP daily PRN before plasma exchange 2. HTN -BP uncontrolled, likely worsened by being on steroids per Nephrology - Nephrology recs (Dr. Jacob) recs appreciated - HCTZ 12.5 mg started yesterdat - home med lisinopril 10 mg PO daily changed to losartan 50 mg PO daily due to reports of anaphylaxis associated with being on CHRISTINE inhibitor and plasmapheresis concomitantly 3. Electrolyte imbalance - hypokalemia, hypomagnesemia being supplemented via IV and PO routes - continue to monitor 4. Severe anemia - Hb/Hct: 4.7/13.8 on admission--> 10.4/30.1 (04/16) - continue to monitor 5. Lacunar Infarct (chronic) Alert and oriented Continue to monitor CT head without contrast Chronic microvascular ischemic changes.7 millimeter focal hypodensity seen at the level of the right internal capsule suggestive for a lacunar infarct, likely chronic.Scattered calcifications along the falx and tentorium.If there is concern for acute ischemic change, consider correlation with MRI. 6. Spleen Infarct (chronic) -Stool occult: negative -CT abdomen/pelvis: wedge-shaped hypodense regions involving the spleen may reflect infarctions of indeterminate age. 7. Hx of Asthma -Saturating 99% on RA -continue with Singulair 10mg PO daily 8. Hx of Hypothyroidism - TSH: 6.24--> 4.91 (04/12) - T4: 11.0 - continue with synthroid 50mcg PO daily 9. Ppx, Diet, Disposition -DVT ppx: Heparin 5000u SC Q12H, SCDs -GI ppx: protonix 40 mg PO daily -heart healthy diet -5th and final plasma exchange session today; likely d/c tomorrow (04/17), if pt remains stable Case discussed with Dr. Fouzia Barahona PGY-1
[2018-04-16] MEDS ORDERED: DiphenhydrAMINE 50 mg/ml Inj IVP ONE (12:00)
[2018-04-16] MEDS ORDERED: CALCIUM GLUCONATE IV ONE (12:00)
[2018-04-16] MEDS ORDERED: SODIUM CHLORIDE 0.9% IV ONE (12:00)
--- NOTE | 2018-04-16 21:39 | CP.PCM.PCO ---
Physician Communication Note - Physician Communication Note Physician Communication Note: NPO for dialysis catheter insertion tomorrow w/ Dr Rodriguez
--- NOTE | 2018-04-16 22:42 | CP.PCM.PN ---
Subjective - Date & Time of Evaluation Date of Evaluation: 04/16/18 Time of Evaluation: 22:35 - Subjective Subjective: 5th plasma exchange attempted today but had to be aborted due to femoral catheter malfunction; patient otherwise with no complaints; Objective - Vital Signs/Intake and Output Vital Signs (last 24 hours): Temp Pulse Resp BP Pulse Ox 97.6 F 93 H 20 145/89 100 04/16/18 20:00 04/16/18 20:00 04/16/18 20:00 04/16/18 17:16 04/16/18 16:00 Intake and Output: 04/16/18 04/17/18 18:59 06:59 Intake Total 510 Output Total 500 Balance 10 - Medications Medications: Current Medications Acetaminophen (Tylenol 325mg Tab) 650 mg PO DAILY PRN PRN Reason: pre-med before plasmapheresis Diphenhydramine HCl (Benadryl) 50 mg IVP DAILY PRN PRN Reason: BEFORE PLASMA EXCHANGE Last Admin: 04/14/18 17:05 Dose: 50 mg Docusate Sodium (Colace) 100 mg PO BID [facility] Last Admin: 04/16/18 17:55 Dose: Not Given Hydrochlorothiazide (Hydrodiuril) 25 mg PO DAILY [facility] Last Admin: 04/16/18 09:45 Dose: 25 mg Calcium Gluconate 4.65 meq/ (Sodium Chloride) 260 mls @ 260 mls/hr IV DAILY PRN PRN Reason: BEFORE PLASMA EXCHANGE Levothyroxine Sodium (Synthroid) 50 mcg PO DAILY@0600 [facility] Last Admin: 04/16/18 06:21 Dose: 50 mcg Losartan Potassium (Cozaar) 50 mg PO DAILY [facility] Last Admin: 04/16/18 09:46 Dose: 50 mg Methylprednisolone (Solu-Medrol) 50 mg IVP DAILY [facility] Last Admin: 04/16/18 09:47 Dose: 50 mg Montelukast Sodium (Singulair) 10 mg PO DAILY [facility] Last Admin: 04/16/18 09:46 Dose: 10 mg Nicotine (Nicoderm Cq) 1 patch TD DAILY [facility] Last Admin: 04/16/18 09:47 Dose: 1 patch Pantoprazole Sodium (Protonix Ec Tab) 40 mg PO DAILY [facility] Last Admin: 04/16/18 09:46 Dose: 40 mg - Labs Labs: 04/16/18 06:53 04/16/18 06:53 PT 12.3 SECONDS (9.7-12.2) H 04/12/18 05:25 INR 1.1 04/12/18 05:25 APTT 27 SECONDS (21-34) 04/12/18 05:25 - Constitutional Appears: Non-toxic, No Acute Distress - Eye Exam Eye Exam: Normal appearance - Respiratory Exam Respiratory Exam: Clear to Ausculation Bilateral. absent: Respiratory Distress - Cardiovascular Exam Cardiovascular Exam: RRR, +S1, +S2 - GI/Abdominal Exam GI & Abdominal Exam: Soft. absent: Distended, Tenderness - Extremities Exam Additional comments: no leg edema; - Neurological Exam Neurological Exam: Alert, Awake - Psychiatric Exam Psychiatric exam: Normal Affect, Normal Mood. absent: Agitated - Skin Skin Exam: Warm. absent: Cyanosis Assessment and Plan (1) Thrombocytopenia Assessment & Plan: Clinical diagnosis of TTP, responding well to plasma exchange treatment with plt count up to 121,000 though LDH did rise today; 5th treatment was today but had to be aborted due to catheter malfunction; -f/u labs in am; will subsequently discuss with hematology tomorrow regarding continuing further plasma exchange sessions; should hold off on placing new catheter until confirmed that further treatments needed; -continue solumedrol 50 mg daily; Status: Acute (2) HTN (hypertension) Assessment & Plan: BP elevated, on losartan 50 mg and hctz 25 mg daily; may need to further increase losartan dose; Status: Acute (3) Electrolyte imbalance Assessment & Plan: Resolved; monitor; Status: Acute (4) Severe anemia Assessment & Plan: Hgb much improved, monitor; Status: Acute (5) Acute kidney injury Status: Resolved
[2018-04-17] MEDS: Levothyroxine 50 MCG TAB PO SCH (05:14)
[2018-04-17 06:34] LABS: BASO # 0.1 K/uL (0.0-0.2); BASO % 0.9 % (0.0-2.0); EOS # 0.1 K/uL (0.0-0.7); EOS % 0.6 % (0.0-4.0); HEMOGLOBIN 9.8 g/dL (11.0-16.0); LYMPH # 3.2 K/uL (1.0-4.3); LYMPH % 30.6 % (20.0-40.0); MEAN CORPUSCULAR HEMOGLOBIN 31.5 pg (27.0-31.0); MEAN CORPUSCULAR HGB CONC 34.5 g/dL (33.0-37.0); MEAN PLATELET VOLUME 8.1 fL (7.2-11.7); MONO # 0.6 K/uL (0.0-0.8); NEUT # 6.5 K/uL (1.8-7.0); NEUT % 61.9 % (50.0-75.0); NRBC % 0.2 % (0.0-2.0); RBC 3.1 Mil/uL (3.80-5.20); RED CELL DISTRIBUTION WIDTH 24.3 % (11.5-14.5); WHITE BLOOD COUNT 10.5 K/uL (4.8-10.8)
[2018-04-17 06:35] LABS: PROTHROMBIN TIME 10.4 SECONDS (9.7-12.2)
[2018-04-17 06:52] LABS: ALB/GLOB RATIO 1.2 (1.0-2.1); ALBUMIN 3.4 g/dL (3.5-5.0); ALT/SGPT 70 U/L (9-52); AST/SGOT 51 U/L (14-36); BILIRUBIN,DIRECT 0.4 mg/dL (0.0-0.4); BLOOD UREA NITROGEN 18 mg/dL (7-17); CALCIUM 8.8 mg/dl (8.6-10.4); GFR NON-AFRICAN AMERICAN 57
--- NOTE | 2018-04-17 07:14 | CP.PCM.PN ---
Subjective - Date & Time of Evaluation Date of Evaluation: 04/17/18 Time of Evaluation: 07:50 - Subjective Subjective: PGY-1 Medicine Progress Note for Dr. Fragoso Patient seen and examined at bedside. No overnight events reported. Patient lying in bed comfortable, in no acute distress. Patient denies chest pain, shortness of breath, abdominal pain, nausea, vomiting, diarrhea. Patient scheduled for catheter due to current femoral catheter failure for 5th plasma exchange yesterday 04/16/18. Objective - Vital Signs/Intake and Output Vital Signs (last 24 hours): Temp Pulse Resp BP Pulse Ox 98 F 79 24 152/92 H 100 04/17/18 04:00 04/17/18 04:00 04/17/18 04:00 04/17/18 03:46 04/17/18 04:00 Intake and Output: 04/17/18 04/17/18 06:59 18:59 Intake Total 240 Output Total 1500 Balance -1260 - Medications Medications: Current Medications Acetaminophen (Tylenol 325mg Tab) 650 mg PO DAILY PRN PRN Reason: pre-med before plasmapheresis Diphenhydramine HCl (Benadryl) 50 mg IVP DAILY PRN PRN Reason: BEFORE PLASMA EXCHANGE Last Admin: 04/14/18 17:05 Dose: 50 mg Docusate Sodium (Colace) 100 mg PO BID [facility] Last Admin: 04/16/18 17:55 Dose: Not Given Hydrochlorothiazide (Hydrodiuril) 25 mg PO DAILY [facility] Last Admin: 04/16/18 09:45 Dose: 25 mg Calcium Gluconate 4.65 meq/ (Sodium Chloride) 260 mls @ 260 mls/hr IV DAILY PRN PRN Reason: BEFORE PLASMA EXCHANGE Levothyroxine Sodium (Synthroid) 50 mcg PO DAILY@0600 [facility] Last Admin: 04/17/18 05:14 Dose: 50 mcg Losartan Potassium (Cozaar) 50 mg PO DAILY [facility] Last Admin: 04/16/18 09:46 Dose: 50 mg Methylprednisolone (Solu-Medrol) 50 mg IVP DAILY [facility] Last Admin: 04/16/18 09:47 Dose: 50 mg Montelukast Sodium (Singulair) 10 mg PO DAILY [facility] Last Admin: 04/16/18 09:46 Dose: 10 mg Nicotine (Nicoderm Cq) 1 patch TD DAILY [facility] Last Admin: 04/16/18 09:47 Dose: 1 patch Pantoprazole Sodium (Protonix Ec Tab) 40 mg PO DAILY [facility] Last Admin: 04/16/18 09:46 Dose: 40 mg - Labs Labs: 04/17/18 06:19 04/17/18 06:16 PT 10.4 SECONDS (9.7-12.2) 04/17/18 06:19 INR 1.0 04/17/18 06:19 APTT 25 SECONDS (21-34) 04/17/18 06:19 - Constitutional Appears: Well, Non-toxic, No Acute Distress - Head Exam Head Exam: ATRAUMATIC, NORMAL INSPECTION, NORMOCEPHALIC - Eye Exam Eye Exam: EOMI, Normal appearance Pupil Exam: NORMAL ACCOMODATION - Respiratory Exam Respiratory Exam: Clear to Ausculation Bilateral, NORMAL BREATHING PATTERN. absent: Rales, Rhonchi, Wheezes - GI/Abdominal Exam GI & Abdominal Exam: Soft, Normal Bowel Sounds. absent: Firm, Guarding, Rigid - Extremities Exam Extremities Exam: Full ROM, Normal Inspection. absent: Calf Tenderness, Pedal Edema Additional comments: femoral cath in right leg, slightly ecchymotic around insertion site, no erythema, slight tenderness on palpation - Neurological Exam Neurological Exam: Alert, Awake, Oriented x3. absent: Normal Gait - Psychiatric Exam Psychiatric exam: Normal Affect, Normal Mood - Skin Skin Exam: Dry, Intact, Normal Color, Warm Assessment and Plan - Assessment and Plan (Free Text) Assessment: 62 yo F with PMHx of HTN, hypothyroidism, asthma, and migraines who presents with generalized weakness and hypotension. Patient was found to have hemoglobin of 4.7 and PLT count of 12 on admission, with concerns for TTP. She is scheduled to have plasmapheresis with Dr. Aguirre. Plan: 1. Thrombocytopenia--concerns for TTP - Nephrology recs (Dr. Jacob) appreciated -working dx of TTP, given evidence of hemolytic anemia and severe thrombocytopenia -pt responding well to plasmapheresis sessions - Heme/onc recs (Dr. De La Cruz) -would like 1 additional week of plasmapheresis, will follow up if procedure can be done outpatient infusion vs inpatient Labs: - Hb/Hct: 4.7/13.8 on admission--> 9.8/28.1 (04/17) - PLT: 12 on admission--> 198 (04/17) - Reticulocyte count: 13.3 on admission--> 19.9 (04/17) - Haptoglobin < 20.0 - LDH: 4232 on admission-->930 (04/17) - T. bilirubin: 3.2 on admission-->0.5 (04/17) - CEA: 4.9 - CA19-9: 6.7 - CA125: 7.0 - Peripheral blood smear (04/12): -no increase in blasts -mild neutrophilia and mild monocytosis -thrombocytopenia with few large PLTs -RBC study shows normocytic anemia; RBC morphology--nucleated RBCs - f/u indirect and direct Lucio test - f/u [id number] - strict I/Os Medications -continue with solumedrol 50 mg IV daily, per Nephrology -Calcium gluconate 4.65 mEq in 0.9 NS before plasma exchange -Benadryl 50 mg IVP daily PRN before plasma exchange 2. HTN -BP uncontrolled, likely worsened by being on steroids per Nephrology - Nephrology recs (Dr. Jacob) recs appreciated - HCTZ 12.5 mg started 04/15, Increased to 25 mg for optimal HTN control on 04/16 - home med lisinopril 10 mg PO daily changed to losartan 50 mg PO daily due to reports of anaphylaxis associated with being on CHRISTINE inhibitor and plasmapheresis concomitantly 3. Electrolyte imbalance - Resolved - hypokalemia, hypomagnesemia being supplemented via IV and PO routes - continue to monitor 4. Severe anemia - Hb/Hct: 4.7/13.8 on admission--> 10.4/30.1 (04/16) - continue to monitor 5. Lacunar Infarct (chronic) Alert and oriented Continue to monitor CT head without contrast Chronic microvascular ischemic changes.7 millimeter focal hypodensity seen at the level of the right internal capsule suggestive for a lacunar infarct, likely chronic.Scattered calcifications along the falx and tentorium.If there is concern for acute ischemic change, consider correlation with MRI. 6. Spleen Infarct (chronic) -Stool occult: negative -CT abdomen/pelvis: wedge-shaped hypodense regions involving the spleen may reflect infarctions of indeterminate age. 7. Hx of Asthma -Saturating 99% on RA -continue with Singulair 10mg PO daily 8. Hx of Hypothyroidism - TSH: 6.24--> 4.91 (04/12) - T4: 11.0 - continue with synthroid 50mcg PO daily 9. Ppx, Diet, Disposition -DVT ppx: Heparin 5000u SC Q12H - held 2/2 procedure, SCDs -GI ppx: protonix 40 mg PO daily -heart healthy diet -Unable for 5th plasma exchanged yesterday 04/16 2/2 femoral catheter failure. Pt had breakfast, will be NPO for catheter placement later today (approximately 3pm ). Hematology would like additional week of plasmapheresis. Will find out if plasmapheresis can be done via outpatient infusion center vs inpatient. Case discussed with Dr. Fouzia Lilly PGY 1
--- NOTE | 2018-04-17 08:20 | CP.PCM.PN ---
<Josue Ovalle - Last Filed: 04/17/18 13:08> Subjective - Date & Time of Evaluation Date of Evaluation: 04/17/18 Time of Evaluation: 08:00 - Subjective Subjective: Josue Ovalle D.O. PGY-3, Internal Medicine Resident, Nephrology Progress Note 62 year old AA female with a PMH of HTN, hypothyroidism, asthma, and migraines who presented to ER with complaints of dizziness and weakness for multiple days that became worse this morning. Nephrology consultation was requested for plasma exchange for concern for TTP. Patient was seen and examined while ambulating around her room. Patient understands that she will need this permacath insertion today for continued plasma exchange. No acute complaints, only wants to get better. Objective - Vital Signs/Intake and Output Vital Signs (last 24 hours): Temp Pulse Resp BP Pulse Ox 98 F 79 24 152/92 H 100 04/17/18 04:00 04/17/18 04:00 04/17/18 04:00 04/17/18 03:46 04/17/18 04:00 Intake and Output: 04/17/18 04/17/18 06:59 18:59 Intake Total 240 Output Total 1500 Balance -1260 - Medications Medications: Current Medications Acetaminophen (Tylenol 325mg Tab) 650 mg PO DAILY PRN PRN Reason: pre-med before plasmapheresis Diphenhydramine HCl (Benadryl) 50 mg IVP DAILY PRN PRN Reason: BEFORE PLASMA EXCHANGE Last Admin: 04/14/18 17:05 Dose: 50 mg Docusate Sodium (Colace) 100 mg PO BID [facility] Last Admin: 04/16/18 17:55 Dose: Not Given Hydrochlorothiazide (Hydrodiuril) 25 mg PO DAILY [facility] Last Admin: 04/16/18 09:45 Dose: 25 mg Calcium Gluconate 4.65 meq/ (Sodium Chloride) 260 mls @ 260 mls/hr IV DAILY PRN PRN Reason: BEFORE PLASMA EXCHANGE Levothyroxine Sodium (Synthroid) 50 mcg PO DAILY@0600 [facility] Last Admin: 04/17/18 05:14 Dose: 50 mcg Losartan Potassium (Cozaar) 50 mg PO DAILY [facility] Last Admin: 04/16/18 09:46 Dose: 50 mg Methylprednisolone (Solu-Medrol) 50 mg IVP DAILY [facility] Last Admin: 04/16/18 09:47 Dose: 50 mg Montelukast Sodium (Singulair) 10 mg PO DAILY [facility] Last Admin: 04/16/18 09:46 Dose: 10 mg Nicotine (Nicoderm Cq) 1 patch TD DAILY [facility] Last Admin: 04/16/18 09:47 Dose: 1 patch Pantoprazole Sodium (Protonix Ec Tab) 40 mg PO DAILY [facility] Last Admin: 04/16/18 09:46 Dose: 40 mg - Labs Labs: 04/17/18 06:19 04/17/18 06:16 PT 10.4 SECONDS (9.7-12.2) 04/17/18 06:19 INR 1.0 04/17/18 06:19 APTT 25 SECONDS (21-34) 04/17/18 06:19 - Constitutional Appears: Well developed, Non-toxic, No Acute Distress - Eye Exam Eye Exam: EOMI, PERRL Additional comments: conjunctival pallor improving - ENT Exam ENT Exam: Mucous Membranes Moist, Normal Oropharynx, noted some petechia on palate - Neck Exam Neck exam: Positive for: Normal Inspection. Negative for: Tenderness Additional comments: no JVD - Respiratory Exam Respiratory Exam: Clear to Auscultation Bilateral. absent: Rales, Rhonchi, Wheezes - Cardiovascular Exam Cardiovascular Exam: RRR, +S1, +S2. absent: Gallop, Rubs - GI/Abdominal Exam GI & Abdominal Exam: Normal Bowel Sounds, Soft. absent: Distended, Tenderness - Extremities Exam Extremities exam: Negative for: calf tenderness, pedal edema - Neurological Exam Neurological exam: Alert, CN II-XII Intact, Oriented x3 - Psychiatric Exam Psychiatric exam: Normal Affect, Normal Mood - Skin Skin Exam: Dry, Intact, Warm Assessment and Plan (1) Thrombocytopenia Status: Acute (2) Electrolyte imbalance Status: Acute (3) HTN (hypertension) Status: Acute (4) Severe anemia Status: Acute (5) Acute kidney injury Status: Resolved - Assessment and Plan (Free Text) Assessment: 62 year old AA female with a PMH of HTN, hypothyroidism, asthma, and migraines who presented to ER with complaints of dizziness and weakness for multiple days that became worse this morning, found to have severe anemia and thrombocytopenia with peripheral smear findings suspicious for TTP. Nephrology consultation was requested for plasma exchange. Plan: Clinically appears to have TTP, [id number] ab and levels pending Platelets significantly improved since starting plasma exchange Did have issue with treatment yesterday with catheter, plan today to insert permacath by surgery We discussed with Dr. De La Cruz hematology who does want to continue more treatments, particularly given the potential for recurrence Discussed with primary team and surgery as well Once has catheter will plasma exchange again Continue to encourage ambulation Patient was seen and examined and case was discussed at length with attending physician Dr. Aguirre Thank you for the pleasure of participating in the care of this interesting patient <Jason Aguirre - Last Filed: 04/18/18 06:32> Objective - Vital Signs/Intake and Output Vital Signs (last 24 hours): Temp Pulse Resp BP Pulse Ox 97.5 F L 73 13 167/94 H 100 04/18/18 04:00 04/18/18 04:00 04/18/18 04:00 04/18/18 04:00 04/18/18 04:00 Intake and Output: 04/17/18 04/18/18 18:59 06:59 Intake Total 50 Balance 50 - Medications Medications: Current Medications Acetaminophen (Tylenol 325mg Tab) 650 mg PO DAILY PRN PRN Reason: pre-med before plasmapheresis Last Admin: 04/17/18 17:30 Dose: 650 mg Diphenhydramine HCl (Benadryl) 50 mg IVP DAILY PRN PRN Reason: BEFORE PLASMA EXCHANGE Last Admin: 04/17/18 17:30 Dose: 50 mg Docusate Sodium (Colace) 100 mg PO BID [facility] Last Admin: 04/17/18 17:20 Dose: 100 mg Hydrochlorothiazide (Hydrodiuril) 25 mg PO DAILY [facility] Last Admin: 04/17/18 10:02 Dose: 25 mg Calcium Gluconate 4.65 meq/ (Sodium Chloride) 260 mls @ 260 mls/hr IV DAILY PRN PRN Reason: BEFORE PLASMA EXCHANGE Last Admin: 04/17/18 21:15 Dose: 260 mls/hr Levothyroxine Sodium (Synthroid) 50 mcg PO DAILY@0600 [facility] Last Admin: 04/18/18 05:41 Dose: 50 mcg Losartan Potassium (Cozaar) 100 mg PO DAILY [facility] Methylprednisolone (Solu-Medrol) 50 mg IVP DAILY [facility] Last Admin: 04/17/18 10:02 Dose: 50 mg Montelukast Sodium (Singulair) 10 mg PO DAILY [facility] Last Admin: 04/17/18 10:02 Dose: 10 mg Nicotine (Nicoderm Cq) 1 patch TD DAILY [facility] Last Admin: 04/17/18 10:02 Dose: 1 patch Oxycodone/Acetaminophen (Percocet 5/325 Mg Tab) 1 tab PO Q6H PRN PRN Reason: Pain, moderate (4-7) Stop: 04/20/18 14:55 Last Admin: 04/17/18 21:13 Dose: 1 tab Pantoprazole Sodium (Protonix Ec Tab) 40 mg PO DAILY [facility] Last Admin: 04/17/18 10:02 Dose: 40 mg - Labs Labs: 04/17/18 06:19 04/17/18 06:16 PT 10.4 SECONDS (9.7-12.2) 04/17/18 06:19 INR 1.0 04/17/18 06:19 APTT 25 SECONDS (21-34) 04/17/18 06:19 Assessment and Plan (1) Thrombocytopenia Status: Acute (2) HTN (hypertension) Status: Acute (3) Electrolyte imbalance Status: Acute (4) Severe anemia Status: Acute (5) Acute kidney injury Status: Resolved Attending/Attestation - Attestation I have personally seen and examined this patient.: Yes I have fully participated in the care of the patient.: Yes I have reviewed all pertinent clinical information, including history, physical exam and plan: Yes Notes (Text): I agree with the resident's note as above with the following additions/edits: Patient admitted with TTP in the setting of severe anemia and thrombocytopenia; responding well to plasma exchange sessions with platelet count rising progressively; case discussed with needle loom setter; there remains concern for rebound of patient's condition on ceasing plasma exchange (also, LDH remains elevated and increased yesterday), so we will continue daily treatments for next few days before decreasing to every other day; -continue daily TPE -IV solumedrol 50 mg daily -Increasing losartan to 100 mg daily as BP remains high; continue hctz 25 mg daily
[2018-04-17] MEDS: MethylPREDNISolone 40 mg Vial IVP SCH (10:02)
[2018-04-17] MEDS: Pantoprazole 40 mg EC Tab PO SCH (10:02)
[2018-04-17] MEDS ORDERED: HEPARIN-NS 5,000 UNITS/500 ML 5,000 UNIT/500 ML BAG IV ONE (12:03)
[2018-04-17] MEDS ORDERED: ceFAZolin 1 gm in NS 1 GM/100 ML BAG IVPB ONE (12:04)
[2018-04-17] MEDS ORDERED: Iohexol 240 (50 ml) ONE (12:05)
[2018-04-17] MEDS ORDERED: Lidocaine 2% MPF (5 ml) Inj ONE (13:03)
[2018-04-17] MEDS ORDERED: Midazolam 2 MG/2 ML VIAL ONE ×2 (14:06→14:12)
[2018-04-17] MEDS ORDERED: Propofol 10 mg/ml Inj (20 ML) ONE (14:09)
[2018-04-17] MEDS: Oxycodone/Acetaminophen 5/325 mg Tab PO PRN ×2 (15:19→21:13)
[2018-04-17] MEDS ORDERED: Labetalol 25mg/5ml Syringe IVP STA (16:25)
--- NOTE | 2018-04-17 16:33 | RAD ---
Date of service: 04/17/2018 HISTORY: s/p permacath insertion COMPARISON: No prior. FINDINGS: The right-sided dialysis catheter terminates in the right atrium. LUNGS: The lungs are well inflated there is mild pulmonary venous congestion. PLEURA: No significant pleural effusion identified, no pneumothorax apparent. CARDIOVASCULAR: There is moderate cardiomegaly. OSSEOUS STRUCTURES: Within normal limits for the patient's age. There are lobular periarticular calcifications at the right glenohumeral joint and likely calcification in the coracoclavicular ligament. VISUALIZED UPPER ABDOMEN: Normal. OTHER FINDINGS: None. IMPRESSION: Right-sided PermCath terminates in the right atrium. No acute findings.
[2018-04-17] MEDS: DiphenhydrAMINE 50 mg/ml Inj IVP PRN (17:30)
[2018-04-17] MEDS: CALCIUM GLUCONATE IV PRN (21:15)
[2018-04-17] MEDS: SODIUM CHLORIDE 0.9% IV PRN (21:15)
[2018-04-18] MEDS: Levothyroxine 50 MCG TAB PO SCH (05:41)
--- NOTE | 2018-04-18 06:24 | CP.PCM.PN ---
Subjective - Date & Time of Evaluation Date of Evaluation: 04/18/18 Time of Evaluation: 07:20 - Subjective Subjective: PGY-1 Medicine Progress Note for Dr. Fragoso Patient seen and examined at bedside. Yesterday evening. patient had 1 episode of vomiting s/p new catheter placement. Additionally patient BP was elevated. Symptoms were controlled w/ percocet, 1X labetalol 5mg, 1X zofran 4mg. Additionally, patient received plasmapheresis w/ no catheter w/ no issues. Patient felt comfortable through the night. This morning patient states she feels slightly sore at the surgical sight. Patient denies chest pain, SOB, nausea, vomiting, constipation, diarrhea. Objective - Vital Signs/Intake and Output Vital Signs (last 24 hours): Temp Pulse Resp BP Pulse Ox 97.5 F L 73 13 167/94 H 100 04/18/18 04:00 04/18/18 04:00 04/18/18 04:00 04/18/18 04:00 04/18/18 04:00 Intake and Output: 04/17/18 04/18/18 18:59 06:59 Intake Total 50 Balance 50 - Medications Medications: Current Medications Acetaminophen (Tylenol 325mg Tab) 650 mg PO DAILY PRN PRN Reason: pre-med before plasmapheresis Last Admin: 04/17/18 17:30 Dose: 650 mg Diphenhydramine HCl (Benadryl) 50 mg IVP DAILY PRN PRN Reason: BEFORE PLASMA EXCHANGE Last Admin: 04/17/18 17:30 Dose: 50 mg Docusate Sodium (Colace) 100 mg PO BID [facility] Last Admin: 04/17/18 17:20 Dose: 100 mg Hydrochlorothiazide (Hydrodiuril) 25 mg PO DAILY [facility] Last Admin: 04/17/18 10:02 Dose: 25 mg Calcium Gluconate 4.65 meq/ (Sodium Chloride) 260 mls @ 260 mls/hr IV DAILY PRN PRN Reason: BEFORE PLASMA EXCHANGE Last Admin: 04/17/18 21:15 Dose: 260 mls/hr Levothyroxine Sodium (Synthroid) 50 mcg PO DAILY@0600 [facility] Last Admin: 04/18/18 05:41 Dose: 50 mcg Losartan Potassium (Cozaar) 50 mg PO DAILY [facility] Last Admin: 04/17/18 10:02 Dose: 50 mg Methylprednisolone (Solu-Medrol) 50 mg IVP DAILY [facility] Last Admin: 04/17/18 10:02 Dose: 50 mg Montelukast Sodium (Singulair) 10 mg PO DAILY [facility] Last Admin: 04/17/18 10:02 Dose: 10 mg Nicotine (Nicoderm Cq) 1 patch TD DAILY [facility] Last Admin: 04/17/18 10:02 Dose: 1 patch Oxycodone/Acetaminophen (Percocet 5/325 Mg Tab) 1 tab PO Q6H PRN PRN Reason: Pain, moderate (4-7) Stop: 04/20/18 14:55 Last Admin: 04/17/18 21:13 Dose: 1 tab Pantoprazole Sodium (Protonix Ec Tab) 40 mg PO DAILY [facility] Last Admin: 04/17/18 10:02 Dose: 40 mg - Labs Labs: 04/17/18 06:19 04/17/18 06:16 PT 10.4 SECONDS (9.7-12.2) 04/17/18 06:19 INR 1.0 04/17/18 06:19 APTT 25 SECONDS (21-34) 04/17/18 06:19 - Constitutional Appears: Well, Non-toxic, No Acute Distress - Head Exam Head Exam: ATRAUMATIC, NORMAL INSPECTION, NORMOCEPHALIC - Eye Exam Eye Exam: EOMI, Normal appearance Pupil Exam: NORMAL ACCOMODATION - ENT Exam ENT Exam: Mucous Membranes Moist - Neck Exam Additional comments: RIJ Permacath in place, dressing clean, dry, intact - Respiratory Exam Respiratory Exam: Clear to Ausculation Bilateral, NORMAL BREATHING PATTERN. absent: Rales, Rhonchi, Wheezes - Cardiovascular Exam Cardiovascular Exam: +S1, +S2. absent: Irregular Rhythm - GI/Abdominal Exam GI & Abdominal Exam: Soft, Normal Bowel Sounds. absent: Firm, Guarding, Rigid - Extremities Exam Extremities Exam: Full ROM, Normal Inspection - Neurological Exam Neurological Exam: Alert, Awake, Oriented x3 - Psychiatric Exam Psychiatric exam: Normal Affect, Normal Mood - Skin Skin Exam: Dry, Intact, Normal Color, Warm Assessment and Plan - Assessment and Plan (Free Text) Assessment: 62 yo F with PMHx of HTN, hypothyroidism, asthma, and migraines who presents with generalized weakness and hypotension. Patient was found to have hemoglobin of 4.7 and PLT count of 12 on admission, with concerns for TTP. She is scheduled to have plasmapheresis with Dr. Aguirre. Plan: 1. Thrombocytopenia--concerns for TTP - Nephrology recs (Dr. Jacob) appreciated -working dx of TTP, given evidence of hemolytic anemia and severe thrombocytopenia -pt responding well to plasmapheresis sessions - Heme/onc recs (Dr. De La Cruz) -would like 1 additional week of plasmapheresis, will follow up if procedure can be done outpatient infusion vs inpatient Labs: - Hb/Hct: 4.7/13.8 on admission--> 11.5/31.1 (04/18) - PLT: 12 on admission--> 161 (04/18) - Reticulocyte count: 13.3 on admission--> 19.9 (04/17) - Haptoglobin < 20.0 - LDH: 4232 on admission-->927 (04/18) - T. bilirubin: 3.2 on admission-->0.7 (04/18) - CEA: 4.9 - CA19-9: 6.7 - CA125: 7.0 - Peripheral blood smear (04/12): -no increase in blasts -mild neutrophilia and mild monocytosis -thrombocytopenia with few large PLTs -RBC study shows normocytic anemia; RBC morphology--nucleated RBCs - f/u indirect and direct Lucio test - f/u [id number] - strict I/Os Medications -continue with solumedrol 50 mg IV daily, per Nephrology -Calcium gluconate 4.65 mEq in 0.9 NS before plasma exchange -Benadryl 50 mg IVP daily PRN before plasma exchange 2. HTN -BP uncontrolled, likely worsened by being on steroids per Nephrology - Nephrology recs (Dr. Jacob) recs appreciated - HCTZ 12.5 mg started 04/15, Increased to 25 mg for optimal HTN control on 04/16 - home med lisinopril 10 mg PO daily changed to losartan 50 mg PO daily due to reports of anaphylaxis associated with being on CHRISTINE inhibitor and plasmapheresis concomitantly; currently losartan 100mg PO for HTN coverage - BP running in 180s likely due to pain. Pain control optimized & also given 1 X labetalol 5mg 3. Electrolyte imbalance - Resolved - hypokalemia, hypomagnesemia being supplemented via IV and PO routes - continue to monitor 4. Severe anemia - Hb/Hct: 4.7/13.8 on admission--> 11.5/31.1 (04/18) - continue to monitor 5. Lacunar Infarct (chronic) Alert and oriented Continue to monitor CT head without contrast Chronic microvascular ischemic changes.7 millimeter focal hypodensity seen at the level of the right internal capsule suggestive for a lacunar infarct, likely chronic.Scattered calcifications along the falx and tentorium.If there is concern for acute ischemic change, consider correlation with MRI. 6. Spleen Infarct (chronic) -Stool occult: negative -CT abdomen/pelvis: wedge-shaped hypodense regions involving the spleen may reflect infarctions of indeterminate age. 7. Hx of Asthma -Saturating 99% on RA -continue with Singulair 10mg PO daily 8. Hx of Hypothyroidism - TSH: 6.24--> 4.91 (04/12) - T4: 11.0 - continue with synthroid 50mcg PO daily 9. Ppx, Diet, Disposition -DVT ppx: Contraindicated at this point 2/2 to possibly TTP -GI ppx: protonix 40 mg PO daily -heart healthy diet -Unable for 5th plasma exchanged yesterday 04/16 2/2 femoral catheter failure. Pt had breakfast, will be NPO for catheter placement later today (approximately 3pm ). Hematology would like additional week of plasmapheresis. Will find out if plasmapheresis can be done via outpatient infusion center vs inpatient. Case discussed with Dr. Fouzia Lilly PGY 1
--- NOTE | 2018-04-18 07:56 | CP.PCM.PN ---
Subjective - Date & Time of Evaluation Date of Evaluation: 04/18/18 Time of Evaluation: 07:54 - Subjective Subjective: [facility] for Dr Rodriguez Patient is seen and examined at bedside. Patient reports no acute events overnight. Patient states the area where permacath was inserted feels stiff, but reports no pain, redness or drainage. Patient denies fevers or chills. Objective - Vital Signs/Intake and Output Vital Signs (last 24 hours): Temp Pulse Resp BP Pulse Ox 97.5 F L 73 13 167/94 H 100 04/18/18 04:00 04/18/18 04:00 04/18/18 04:00 04/18/18 04:00 04/18/18 04:00 Intake and Output: 04/18/18 04/18/18 06:59 18:59 Intake Total 400 Output Total 1500 Balance -1100 - Medications Medications: Current Medications Acetaminophen (Tylenol 325mg Tab) 650 mg PO DAILY PRN PRN Reason: pre-med before plasmapheresis Last Admin: 04/17/18 17:30 Dose: 650 mg Diphenhydramine HCl (Benadryl) 50 mg IVP DAILY PRN PRN Reason: BEFORE PLASMA EXCHANGE Last Admin: 04/17/18 17:30 Dose: 50 mg Docusate Sodium (Colace) 100 mg PO BID [facility] Last Admin: 04/17/18 17:20 Dose: 100 mg Hydrochlorothiazide (Hydrodiuril) 25 mg PO DAILY [facility] Last Admin: 04/17/18 10:02 Dose: 25 mg Calcium Gluconate 4.65 meq/ (Sodium Chloride) 260 mls @ 260 mls/hr IV DAILY PRN PRN Reason: BEFORE PLASMA EXCHANGE Last Admin: 04/17/18 21:15 Dose: 260 mls/hr Levothyroxine Sodium (Synthroid) 50 mcg PO DAILY@0600 [facility] Last Admin: 04/18/18 05:41 Dose: 50 mcg Losartan Potassium (Cozaar) 100 mg PO DAILY [facility] Methylprednisolone (Solu-Medrol) 50 mg IVP DAILY [facility] Last Admin: 04/17/18 10:02 Dose: 50 mg Montelukast Sodium (Singulair) 10 mg PO DAILY [facility] Last Admin: 04/17/18 10:02 Dose: 10 mg Nicotine (Nicoderm Cq) 1 patch TD DAILY [facility] Last Admin: 04/17/18 10:02 Dose: 1 patch Oxycodone/Acetaminophen (Percocet 5/325 Mg Tab) 1 tab PO Q6H PRN PRN Reason: Pain, moderate (4-7) Stop: 04/20/18 14:55 Last Admin: 04/17/18 21:13 Dose: 1 tab Pantoprazole Sodium (Protonix Ec Tab) 40 mg PO DAILY [facility] Last Admin: 04/17/18 10:02 Dose: 40 mg - Labs Labs: 04/17/18 06:19 04/17/18 06:16 PT 10.4 SECONDS (9.7-12.2) 04/17/18 06:19 INR 1.0 04/17/18 06:19 APTT 25 SECONDS (21-34) 04/17/18 06:19 - Constitutional Appears: Well, No Acute Distress - Head Exam Head Exam: ATRAUMATIC, NORMAL INSPECTION, NORMOCEPHALIC - Eye Exam Eye Exam: EOMI, Normal appearance - ENT Exam ENT Exam: Mucous Membranes Moist, Normal Exam - Neck Exam Additional comments: right upper side chest permacath clean, dry and intact, no redness, tenderness upon palpation - Respiratory Exam Respiratory Exam: NORMAL BREATHING PATTERN. absent: Accessory Muscle Use, Respiratory Distress - GI/Abdominal Exam GI & Abdominal Exam: Soft - Extremities Exam Extremities Exam: Full ROM - Back Exam Back Exam: NORMAL INSPECTION - Neurological Exam Neurological Exam: Alert, Awake, Oriented x3 - Psychiatric Exam Psychiatric exam: Normal Affect, Normal Mood - Skin Skin Exam: Normal Color, Warm Assessment and Plan - Assessment and Plan (Free Text) Assessment: 62 yo F with TTP s/p permacath placement pod #1 Plan: - permacath is clean, dry and intact - no plan for surgical intervention at this time - reconsult if needed Plan discussed with Dr Jennifer Farr, PGY-1
[2018-04-18 08:55] LABS: BASO # 0.1 K/uL (0.0-0.2); BASO % 0.5 % (0.0-2.0); EOS # 0.1 K/uL (0.0-0.7); EOS % 0.6 % (0.0-4.0); HEMOGLOBIN 11.5 g/dL (11.0-16.0); LYMPH % 19.6 % (20.0-40.0); MEAN CELL VOLUME 92.1 fL (81.0-99.0); MEAN CORPUSCULAR HEMOGLOBIN 31.1 pg (27.0-31.0); MEAN CORPUSCULAR HGB CONC 33.7 g/dL (33.0-37.0); MEAN PLATELET VOLUME 8.5 fL (7.2-11.7); MONO # 0.6 K/uL (0.0-0.8); MONO % 5.9 % (0.0-10.0); NEUT # 7.6 K/uL (1.8-7.0); NEUT % 73.4 % (50.0-75.0); NRBC % 1.4 % (0.0-2.0); RBC 3.72 Mil/uL (3.80-5.20); RED CELL DISTRIBUTION WIDTH 22.9 % (11.5-14.5); WHITE BLOOD COUNT 10.4 K/uL (4.8-10.8)
[2018-04-18 09:07] LABS: ALB/GLOB RATIO 1.5 (1.0-2.1); ALBUMIN 4.2 g/dL (3.5-5.0); ALT/SGPT 75 U/L (9-52); AST/SGOT 58 U/L (14-36); BLOOD UREA NITROGEN 13 mg/dL (7-17); GFR NON-AFRICAN AMERICAN > 60
[2018-04-18] MEDS: MethylPREDNISolone 40 mg Vial IVP SCH (09:13)
[2018-04-18] MEDS: Pantoprazole 40 mg EC Tab PO SCH (09:13)
[2018-04-18] MEDS ORDERED: Etomidate 20 mg/10ml Inj IV ONE (09:17)
--- NOTE | 2018-04-18 10:02 | CP.PCM.PN ---
Subjective - Date & Time of Evaluation Date of Evaluation: 04/18/18 Time of Evaluation: 08:30 - Subjective Subjective: Rogelio Delong PGY 2 - Nephrology Progress Note for Dr. Aguirre Patient seen and examined this AM. No acute events reported overnight. Tolerating diet, ambulating about room. No complaints at this time. Continues with plasma exchange with improvement in platelet count. Objective - Vital Signs/Intake and Output Vital Signs (last 24 hours): Temp Pulse Resp BP Pulse Ox 97.5 F L 73 13 167/94 H 100 04/18/18 04:00 04/18/18 04:00 04/18/18 04:00 04/18/18 04:00 04/18/18 04:00 Intake and Output: 04/18/18 04/18/18 06:59 18:59 Intake Total 400 Output Total 1500 Balance -1100 - Medications Medications: Current Medications Acetaminophen (Tylenol 325mg Tab) 650 mg PO DAILY PRN PRN Reason: pre-med before plasmapheresis Last Admin: 04/17/18 17:30 Dose: 650 mg Diphenhydramine HCl (Benadryl) 50 mg IVP DAILY PRN PRN Reason: BEFORE PLASMA EXCHANGE Last Admin: 04/17/18 17:30 Dose: 50 mg Docusate Sodium (Colace) 100 mg PO BID [facility] Last Admin: 04/18/18 09:13 Dose: 100 mg Hydrochlorothiazide (Hydrodiuril) 25 mg PO DAILY [facility] Last Admin: 04/18/18 09:14 Dose: 25 mg Calcium Gluconate 4.65 meq/ (Sodium Chloride) 260 mls @ 260 mls/hr IV DAILY PRN PRN Reason: BEFORE PLASMA EXCHANGE Last Admin: 04/17/18 21:15 Dose: 260 mls/hr Levothyroxine Sodium (Synthroid) 50 mcg PO DAILY@0600 [facility] Last Admin: 04/18/18 05:41 Dose: 50 mcg Losartan Potassium (Cozaar) 100 mg PO DAILY [facility] Last Admin: 04/18/18 09:14 Dose: 100 mg Methylprednisolone (Solu-Medrol) 50 mg IVP DAILY [facility] Last Admin: 04/18/18 09:13 Dose: 50 mg Montelukast Sodium (Singulair) 10 mg PO DAILY [facility] Last Admin: 04/18/18 09:14 Dose: 10 mg Nicotine (Nicoderm Cq) 1 patch TD DAILY [facility] Last Admin: 04/18/18 09:28 Dose: 1 patch Oxycodone/Acetaminophen (Percocet 5/325 Mg Tab) 1 tab PO Q6H PRN PRN Reason: Pain, moderate (4-7) Stop: 04/20/18 14:55 Last Admin: 04/17/18 21:13 Dose: 1 tab Pantoprazole Sodium (Protonix Ec Tab) 40 mg PO DAILY [facility] Last Admin: 04/18/18 09:13 Dose: 40 mg - Labs Labs: 04/18/18 08:45 04/18/18 08:45 PT 10.4 SECONDS (9.7-12.2) 04/17/18 06:19 INR 1.0 04/17/18 06:19 APTT 25 SECONDS (21-34) 04/17/18 06:19 - Constitutional Appears: No Acute Distress - Head Exam Head Exam: ATRAUMATIC, NORMAL INSPECTION, NORMOCEPHALIC - Eye Exam Eye Exam: EOMI, PERRL - ENT Exam ENT Exam: Mucous Membranes Moist - Respiratory Exam Respiratory Exam: Clear to Ausculation Bilateral, NORMAL BREATHING PATTERN - Cardiovascular Exam Cardiovascular Exam: REGULAR RHYTHM, +S1, +S2 - GI/Abdominal Exam GI & Abdominal Exam: Soft - Extremities Exam Extremities Exam: absent: Calf Tenderness, Pedal Edema, Tenderness - Neurological Exam Neurological Exam: Alert, Awake, Normal Gait, Oriented x3 Neuro motor strength exam: Left Upper Extremity: 5, Right Upper Extremity: 5, Left Lower Extremity: 5, Right Lower Extremity: 5 - Psychiatric Exam Psychiatric exam: Normal Affect, Normal Mood - Skin Skin Exam: Dry, Intact Assessment and Plan - Assessment and Plan (Free Text) Assessment: 62 year old AA female with a PMH of HTN, hypothyroidism, asthma, and migraines who presented to ER with complaints of dizziness and weakness for multiple days that became worse this morning, found to have severe anemia and thrombocytopenia with peripheral smear findings suspicious for TTP. Nephrology consultation was requested for plasma exchange. Plan: Hemolytic anemia and Severe thrombocytopenia Concern for TTP with [id number] level pending Continue with plasma exchange, platelets improving IV Solumedrol 50mg daily Hematology on board, continue plasma exchange Primary team working on outpatient potential Femoral cath in right leg removed, bandage c/d/i Patient with elevated BP, losartan 100mg, HCTZ 25mg Renal continues to be stable
[2018-04-18] MEDS ORDERED: Potassium Chloride 20 mEq ER Tab PO SCH (11:15)
[2018-04-18] MEDS ORDERED: Potassium Chloride 20 mEq ER Tab PO ONE (11:45)
[2018-04-18] MEDS: DiphenhydrAMINE 50 mg/ml Inj IVP PRN (15:19)
[2018-04-18] MEDS: SODIUM CHLORIDE 0.9% IV PRN (16:10)
[2018-04-18] MEDS: CALCIUM GLUCONATE IV PRN (16:10)
[2018-04-19] MEDS: Levothyroxine 50 MCG TAB PO SCH (05:34)
[2018-04-19 06:23] LABS: BASO % 0.3 % (0.0-2.0); EOS # 0.1 K/uL (0.0-0.7); HEMOGLOBIN 9.5 g/dL (11.0-16.0); LYMPH # 2.5 K/uL (1.0-4.3); LYMPH % 31.1 % (20.0-40.0); MEAN CELL VOLUME 92.5 fL (81.0-99.0); MEAN CORPUSCULAR HEMOGLOBIN 30.9 pg (27.0-31.0); MEAN CORPUSCULAR HGB CONC 33.4 g/dL (33.0-37.0); MEAN PLATELET VOLUME 7.7 fL (7.2-11.7); MONO # 0.6 K/uL (0.0-0.8); MONO % 7.3 % (0.0-10.0); NEUT # 4.8 K/uL (1.8-7.0); NEUT % 60.3 % (50.0-75.0); NRBC % 0.2 % (0.0-2.0); RBC 3.08 Mil/uL (3.80-5.20); WHITE BLOOD COUNT 7.9 K/uL (4.8-10.8)
[2018-04-19 06:45] LABS: ALB/GLOB RATIO 1.5 (1.0-2.1); ALBUMIN 3.5 g/dL (3.5-5.0); ALT/SGPT 83 U/L (9-52); AST/SGOT 57 U/L (14-36); BLOOD UREA NITROGEN 17 mg/dL (7-17); CALCIUM 8.9 mg/dl (8.6-10.4); GFR NON-AFRICAN AMERICAN > 60
[2018-04-19] MEDS: DiphenhydrAMINE 50 mg/ml Inj IVP PRN (08:22)
--- NOTE | 2018-04-19 09:58 | RAD ---
Date of service: 04/17/2018 PROCEDURE: Intraoperative Fluoroscopy. HISTORY: PERMACATH INSERTION FINDINGS: Fluoroscopic assistance was provided. Fluoroscopy time = 13.8 seconds. Radiation dose = 1.15 mGy Please refer to the operative report from MANISH Irby.
[2018-04-19] MEDS: Pantoprazole 40 mg EC Tab PO SCH (11:22)
--- NOTE | 2018-04-19 16:07 | CP.PCM.PN ---
Subjective - Date & Time of Evaluation Date of Evaluation: 04/19/18 Time of Evaluation: 15:00 - Subjective Subjective: PGY-1 Medicine Progress Note for Dr. Fragoso Patient was seen and examined before and after her transfusion today in no acute distress. Nurse reports no overnight events. Patient has no new complaints. Voices that she wants to go home, but understands she must stay for the additional two weeks as per guidelines recommended by Dr. De La Cruz and Dr. Dumont covering. Denies chest pain, SOB, nausea, vomiting, constipation, diarrhea. Has still not been able to have a BM since last week, but is voiding without issue on her own. Objective - Vital Signs/Intake and Output Vital Signs (last 24 hours): Temp Pulse Resp BP Pulse Ox 98.0 F 81 16 138/73 99 04/19/18 12:00 04/19/18 12:00 04/19/18 12:00 04/19/18 12:00 04/19/18 12:00 Intake and Output: 04/19/18 04/19/18 06:59 18:59 Output Total 1200 Balance -1200 - Medications Medications: Current Medications Acetaminophen (Tylenol 325mg Tab) 650 mg PO DAILY PRN PRN Reason: pre-med before plasmapheresis Last Admin: 04/19/18 08:20 Dose: 650 mg Diphenhydramine HCl (Benadryl) 50 mg IVP DAILY PRN PRN Reason: BEFORE PLASMA EXCHANGE Last Admin: 04/19/18 08:22 Dose: 50 mg Docusate Sodium (Colace) 100 mg PO BID [facility] Last Admin: 04/19/18 11:19 Dose: 100 mg Hydrochlorothiazide (Hydrodiuril) 25 mg PO DAILY [facility] Last Admin: 04/19/18 11:20 Dose: 25 mg Calcium Chloride 1,000 mg/ (Sodium Chloride) 260 mls @ 125 mls/hr IV .Q2H5M PRN PRN Reason: DURING PLASMA EXCHANGE Last Admin: 04/19/18 09:05 Dose: 125 mls/hr Levothyroxine Sodium (Synthroid) 50 mcg PO DAILY@0600 [facility] Last Admin: 04/19/18 05:34 Dose: 50 mcg Losartan Potassium (Cozaar) 100 mg PO DAILY [facility] Last Admin: 04/19/18 11:21 Dose: 100 mg Methylprednisolone (Solu-Medrol) 50 mg IVP DAILY PRN PRN Reason: Other Last Admin: 04/19/18 08:39 Dose: 50 mg Montelukast Sodium (Singulair) 10 mg PO DAILY [facility] Last Admin: 04/19/18 11:20 Dose: 10 mg Nicotine (Nicoderm Cq) 1 patch TD DAILY [facility] Last Admin: 04/19/18 11:23 Dose: 1 patch Oxycodone/Acetaminophen (Percocet 5/325 Mg Tab) 1 tab PO Q6H PRN PRN Reason: Pain, moderate (4-7) Stop: 04/20/18 14:55 Last Admin: 04/17/18 21:13 Dose: 1 tab Pantoprazole Sodium (Protonix Ec Tab) 40 mg PO DAILY [facility] Last Admin: 04/19/18 11:22 Dose: 40 mg - Labs Labs: 04/19/18 06:18 04/19/18 06:16 PT 10.4 SECONDS (9.7-12.2) 04/17/18 06:19 INR 1.0 04/17/18 06:19 APTT 25 SECONDS (21-34) 04/17/18 06:19 - Constitutional Appears: Non-toxic, No Acute Distress - Head Exam Head Exam: ATRAUMATIC, NORMOCEPHALIC - Eye Exam Eye Exam: EOMI, Normal appearance Additional comments: glasses - ENT Exam ENT Exam: Mucous Membranes Moist - Neck Exam Additional comments: R IJ Permacath in place, dressings c/d/i - Respiratory Exam Respiratory Exam: Clear to Ausculation Bilateral, NORMAL BREATHING PATTERN. absent: Rales, Rhonchi, Wheezes - Cardiovascular Exam Cardiovascular Exam: REGULAR RHYTHM, +S1, +S2. absent: Gallop, Rubs, Murmur - GI/Abdominal Exam GI & Abdominal Exam: Soft, Normal Bowel Sounds. absent: Firm, Guarding, Tenderness - Extremities Exam Extremities Exam: Full ROM, Normal Capillary Refill, Normal Inspection. absent : Tenderness Additional comments: femoral catheter removed, wound healing well - Neurological Exam Neurological Exam: Alert, Awake, Normal Gait, Oriented x3 - Psychiatric Exam Psychiatric exam: Normal Affect, Normal Mood - Skin Skin Exam: Dry, Intact, Normal Color Assessment and Plan - Assessment and Plan (Free Text) Assessment: 62 yo F with PMHx of HTN, hypothyroidism, asthma, and migraines who presents with generalized weakness and hypotension. Patient was found to have hemoglobin of 4.7 and PLT count of 12 on admission, with concerns for TTP. Plan: 1. Thrombocytopenia--confirmed TTP - Nephrology recs (Dr. Jacob) appreciated -pt responding well to plasmapheresis sessions - Heme/onc recs (Dr. De La Cruz) -would like 2 additional weeks of plasmapheresis, will follow up if procedure can be done outpatient infusion vs inpatient, however heavily prefer inpatient treatment Labs: - Hb/Hct: 4.7/13.8 on admission--> 9.5/28.5 (04/19) - PLT: 12 on admission--> 227 (04/19) - Reticulocyte count: 13.3 on admission--> 19.6 (04/17) - Haptoglobin < 20.0 - LDH: 4232 on admission--> 674 (04/19) - T. bilirubin: 3.2 on admission--> 0.4 (04/19) - CEA: 4.9 - CA19-9: 6.7 - CA125: 7.0 - Peripheral blood smear (04/12): -no increase in blasts -mild neutrophilia and mild monocytosis -thrombocytopenia with few large PLTs -RBC study shows normocytic anemia; RBC morphology--nucleated RBCs - f/u indirect and direct Lucio test - [id number] (04/12) <3, pending reflex titer - strict I/Os Medications -continue with solumedrol 50 mg IV daily prn before plasmsa exchange, per Nephrology -Calcium gluconate 4.65 mEq in 0.9 NS before plasma exchange -Benadryl 50 mg IVP daily PRN before plasma exchange 2. HTN -BP uncontrolled, likely worsened by being on steroids per Nephrology - Nephrology recs (Dr. Jacob) recs appreciated - HCTZ 12.5 mg started 04/15, Increased to 25 mg for optimal HTN control on 04/16 - home med lisinopril 10 mg PO daily changed to losartan 50 mg PO daily due to reports of anaphylaxis associated with being on CHRISTINE inhibitor and plasmapheresis concomitantly; currently losartan 100mg PO for HTN coverage - BP running in 180s likely due to pain. Pain control optimized & also given 1 X labetalol 5mg 3. Electrolyte imbalance - Resolved - hypokalemia, hypomagnesemia being supplemented via IV and PO routes - continue to monitor 4. Severe anemia - Hb/Hct: 4.7/13.8 on admission--> 9.5/28.5 (04/19) - continue to monitor 5. Lacunar Infarct (chronic) Alert and oriented Continue to monitor CT head without contrast Chronic microvascular ischemic changes.7 millimeter focal hypodensity seen at the level of the right internal capsule suggestive for a lacunar infarct, likely chronic.Scattered calcifications along the falx and tentorium.If there is concern for acute ischemic change, consider correlation with MRI. 6. Spleen Infarct (chronic) -Stool occult: negative -CT abdomen/pelvis: wedge-shaped hypodense regions involving the spleen may reflect infarctions of indeterminate age. 7. Hx of Asthma -Saturating 99% on RA -continue with Singulair 10mg PO daily 8. Hx of Hypothyroidism - TSH: 6.24--> 4.91 (04/12) - T4: 11.0 - continue with synthroid 50mcg PO daily 9. Ppx, Diet, Disposition -DVT ppx: Contraindicated at this point 2/2 to possibly TTP -GI ppx: protonix 40 mg PO daily -heart healthy diet -R IJ Permacath usuable for plasma exchange; no issues today. Hematology would like additional 2 weeks of plasmapheresis. Will find out if plasmapheresis can be done via outpatient infusion center vs inpatient. d/w Dr. Fragoso. Further recs per Dr. Fouzia Henson PGY-1
--- NOTE | 2018-04-19 17:37 | PN ---
DATE: 04/19/2018 CHIEF COMPLAINT: The patient is feeling much better since the admission. HISTORY OF PRESENT ILLNESS: A 62-year-old female with a history of thrombotic thrombocytopenic purpura, getting plasmapheresis, responded well. Platelet has improved. Hemoglobin has improved. Unfortunately, because of the the patient did not get plasmapheresis and LDH increased significantly suggesting that the patient needs plasmapheresis every day. ADAMTS 13 was last done on admission. The patient has clinically improved, ambulatory, not in acute symptoms. REVIEW OF SYSTEMS: Denies any headache, dizziness, or blackout. No chest pain or palpitation. No fever or chills. No cough or sputum. Good appetite. No dysuria or hematuria. No change in the mental status. PHYSICAL EXAMINATION: GENERAL: The patient is awake, alert, oriented, quiet, pleasant, not in acute distress. VITAL SIGNS: Pulse 80, respiration 16, blood pressure 110/70, afebrile. HEENT: Head normocephalic, atraumatic. Eyes, conjunctivae pink, sclerae white, pupils reacting to light. Ear, nose, and throat within normal limits. LUNGS: Bilaterally good air entry. Clear to auscultation and percussion. HEART: S1 and S2 regular. No gallop. No murmur. ABDOMEN: Soft, not distended, not tender. No hepatosplenomegaly. COLOR ADVISER: No gross motor or sensory deficit. LYMPH NODES: No cervical, axillary, or inguinal lymph nodes palpable. EXTREMITIES: No edema, no cyanosis, no clubbing, no varicose vein. LABORATORY DATA: WBC 7900, hemoglobin 9.5, platelet count 227,000. Reticulocyte count was not done. LDH is increased to 674. Bilirubin is normal. IMPRESSION: Thrombotic thrombocytopenic purpura. PLAN: Clinical status discussed with the patient. Lab results discussed with the patient. Advised the patient to have regular plasmapheresis under close supervision. The patient understood and agreed with the treatment plan. Dr. Dumont will be covering me while I am gone. Discussed with Dr. Fragoso. Thank you for letting me participate in the care of this patient and I will follow up the patient with you. Ashley De La Cruz MD cc: Shalom Fragoso MD [facility] # [id number]
--- NOTE | 2018-04-19 21:06 | CP.PCM.PN ---
Subjective - Date & Time of Evaluation Date of Evaluation: 04/19/18 Time of Evaluation: 20:00 - Subjective Subjective: Patient reports feeling well; no sob; tolerating diet; ambulating well; anxious to go back to work; Objective - Vital Signs/Intake and Output Vital Signs (last 24 hours): Temp Pulse Resp BP Pulse Ox 98.3 F 88 18 112/69 100 04/19/18 17:38 04/19/18 18:50 04/19/18 17:38 04/19/18 17:38 04/19/18 17:38 - Medications Medications: Current Medications Acetaminophen (Tylenol 325mg Tab) 650 mg PO DAILY PRN PRN Reason: pre-med before plasmapheresis Last Admin: 04/19/18 08:20 Dose: 650 mg Diphenhydramine HCl (Benadryl) 50 mg IVP DAILY PRN PRN Reason: BEFORE PLASMA EXCHANGE Last Admin: 04/19/18 08:22 Dose: 50 mg Docusate Sodium (Colace) 100 mg PO BID [facility] Last Admin: 04/19/18 19:00 Dose: 100 mg Hydrochlorothiazide (Hydrodiuril) 25 mg PO DAILY [facility] Last Admin: 04/19/18 11:20 Dose: 25 mg Calcium Chloride 1,000 mg/ (Sodium Chloride) 260 mls @ 125 mls/hr IV .Q2H5M PRN PRN Reason: DURING PLASMA EXCHANGE Last Admin: 04/19/18 09:05 Dose: 125 mls/hr Levothyroxine Sodium (Synthroid) 50 mcg PO DAILY@0600 [facility] Last Admin: 04/19/18 05:34 Dose: 50 mcg Losartan Potassium (Cozaar) 100 mg PO DAILY [facility] Last Admin: 04/19/18 11:21 Dose: 100 mg Methylprednisolone (Solu-Medrol) 50 mg IVP DAILY PRN PRN Reason: Other Last Admin: 04/19/18 08:39 Dose: 50 mg Montelukast Sodium (Singulair) 10 mg PO DAILY [facility] Last Admin: 04/19/18 11:20 Dose: 10 mg Nicotine (Nicoderm Cq) 1 patch TD DAILY [facility] Last Admin: 04/19/18 11:23 Dose: 1 patch Oxycodone/Acetaminophen (Percocet 5/325 Mg Tab) 1 tab PO Q6H PRN PRN Reason: Pain, moderate (4-7) Stop: 04/20/18 14:55 Last Admin: 04/17/18 21:13 Dose: 1 tab Pantoprazole Sodium (Protonix Ec Tab) 40 mg PO DAILY [facility] Last Admin: 04/19/18 11:22 Dose: 40 mg - Labs Labs: 04/19/18 06:18 04/19/18 06:16 PT 10.4 SECONDS (9.7-12.2) 04/17/18 06:19 INR 1.0 04/17/18 06:19 APTT 25 SECONDS (21-34) 04/17/18 06:19 - Constitutional Appears: Non-toxic, No Acute Distress - Eye Exam Eye Exam: Normal appearance - ENT Exam ENT Exam: Mucous Membranes Moist - Respiratory Exam Respiratory Exam: Clear to Ausculation Bilateral. absent: Respiratory Distress - Cardiovascular Exam Cardiovascular Exam: RRR, +S1, +S2. absent: Gallop - GI/Abdominal Exam GI & Abdominal Exam: Soft. absent: Distended, Tenderness - Extremities Exam Additional comments: no leg edema; - Neurological Exam Neurological Exam: Alert, Awake - Psychiatric Exam Psychiatric exam: Normal Mood. absent: Agitated - Skin Skin Exam: Warm. absent: Cyanosis Assessment and Plan (1) Thrombocytopenia Assessment & Plan: TTP, on daily plasma exchange; tolerating well with stable electrolytes; platelet count normalized and LDH improving; -continuing plasma exchange daily (dosing 2L, 100% plasma volume, FFP replacement) for next few days per heme, will continue to f/u with them (as per timeline to change to every other day treatments); -continue IV solumedrol 50 mg daily; -continue to monitor lytes and replenish prn; Status: Acute (2) HTN (hypertension) Assessment & Plan: BP controlled on current regiment of losartan 100 mg daily and hctz 25 mg daily ; continue same; Status: Acute (3) Electrolyte imbalance Status: Acute (4) Severe anemia Status: Acute (5) Acute kidney injury Status: Resolved
[2018-04-20] MEDS: Levothyroxine 50 MCG TAB PO SCH (05:19)
--- NOTE | 2018-04-20 06:23 | CP.PCM.PN ---
Subjective - Date & Time of Evaluation Date of Evaluation: 04/20/18 Time of Evaluation: 07:25 - Subjective Subjective: PGY-1 Medicine Progress Note for Dr. Fragoso Patient was seen and examined before and after her transfusion today in no acute distress. Nurse reports no overnight events. Patient has no new complaints. Voices that she wants to go home, but understands she must stay for the additional two weeks as per guidelines recommended by Dr. De La Cruz and Dr. Dumont covering. Denies chest pain, SOB, nausea, vomiting, constipation, diarrhea. Has still not been able to have a BM since last week, but is voiding without issue on her own. Objective - Vital Signs/Intake and Output Vital Signs (last 24 hours): Temp Pulse Resp BP Pulse Ox 97.9 F 90 20 128/81 100 04/19/18 23:20 04/19/18 23:20 04/19/18 23:20 04/19/18 23:20 04/19/18 23:20 Intake and Output: 04/19/18 04/20/18 18:59 06:59 Intake Total 150 Balance 150 - Medications Medications: Current Medications Acetaminophen (Tylenol 325mg Tab) 650 mg PO DAILY PRN PRN Reason: pre-med before plasmapheresis Last Admin: 04/19/18 08:20 Dose: 650 mg Diphenhydramine HCl (Benadryl) 50 mg IVP DAILY PRN PRN Reason: BEFORE PLASMA EXCHANGE Last Admin: 04/19/18 08:22 Dose: 50 mg Docusate Sodium (Colace) 100 mg PO BID [facility] Last Admin: 04/19/18 19:00 Dose: 100 mg Hydrochlorothiazide (Hydrodiuril) 25 mg PO DAILY [facility] Last Admin: 04/19/18 11:20 Dose: 25 mg Calcium Chloride 1,000 mg/ (Sodium Chloride) 260 mls @ 125 mls/hr IV .Q2H5M PRN PRN Reason: DURING PLASMA EXCHANGE Last Admin: 04/19/18 09:05 Dose: 125 mls/hr Levothyroxine Sodium (Synthroid) 50 mcg PO DAILY@0600 [facility] Last Admin: 04/20/18 05:19 Dose: 50 mcg Losartan Potassium (Cozaar) 100 mg PO DAILY [facility] Last Admin: 04/19/18 11:21 Dose: 100 mg Methylprednisolone (Solu-Medrol) 50 mg IVP DAILY PRN PRN Reason: Other Last Admin: 04/19/18 08:39 Dose: 50 mg Montelukast Sodium (Singulair) 10 mg PO DAILY [facility] Last Admin: 04/19/18 11:20 Dose: 10 mg Nicotine (Nicoderm Cq) 1 patch TD DAILY [facility] Last Admin: 04/19/18 11:23 Dose: 1 patch Oxycodone/Acetaminophen (Percocet 5/325 Mg Tab) 1 tab PO Q6H PRN PRN Reason: Pain, moderate (4-7) Stop: 04/20/18 14:55 Last Admin: 04/17/18 21:13 Dose: 1 tab Pantoprazole Sodium (Protonix Ec Tab) 40 mg PO DAILY [facility] Last Admin: 04/19/18 11:22 Dose: 40 mg - Labs Labs: 04/19/18 06:18 04/19/18 06:16 PT 10.4 SECONDS (9.7-12.2) 04/17/18 06:19 INR 1.0 04/17/18 06:19 APTT 25 SECONDS (21-34) 04/17/18 06:19 - Constitutional Appears: Non-toxic, No Acute Distress - Head Exam Head Exam: ATRAUMATIC, NORMAL INSPECTION, NORMOCEPHALIC - Eye Exam Eye Exam: EOMI, Normal appearance - ENT Exam ENT Exam: Mucous Membranes Moist - Respiratory Exam Respiratory Exam: NORMAL BREATHING PATTERN. absent: Rales, Rhonchi, Wheezes - Cardiovascular Exam Cardiovascular Exam: +S1, +S2 - GI/Abdominal Exam GI & Abdominal Exam: Soft, Normal Bowel Sounds. absent: Rigid, Tenderness - Extremities Exam Extremities Exam: absent: Pedal Edema, Tenderness - Back Exam Back Exam: absent: CVA tenderness (L), CVA tenderness (R) - Neurological Exam Neurological Exam: Alert, Awake, Oriented x3 - Psychiatric Exam Psychiatric exam: Normal Affect, Normal Mood - Skin Skin Exam: Dry, Intact, Normal Color, Warm Additional comments: R IJ permacath in place, no erythema Assessment and Plan - Assessment and Plan (Free Text) Assessment: 62 yo F with PMHx of HTN, hypothyroidism, asthma, and migraines who presents with generalized weakness and hypotension. Patient was found to have hemoglobin of 4.7 and PLT count of 12 on admission, with concerns for TTP. Plan: 1. Thrombocytopenia--confirmed TTP - Nephrology recs (Dr. Jacob) appreciated -pt responding well to plasmapheresis sessions - Heme/onc recs (Dr. De La Cruz) -would like 2 additional weeks of plasmapheresis, will follow up if procedure can be done outpatient infusion vs inpatient, however heavily prefer inpatient treatment - s/p 7th plasmapheresis Labs: - Hb/Hct: 4.7/13.8 on admission--> 10.0/30.4 (04/20) - PLT: 12 on admission--> 229 (04/20) - Reticulocyte count: 13.3 on admission--> 19.6 (04/17) - Haptoglobin < 20.0 - LDH: 4232 on admission--> 674 (04/19) -> 797 (04/20) - T. bilirubin: 3.2 on admission--> 0.4 (04/20) - CEA: 4.9 - CA19-9: 6.7 - CA125: 7.0 - Peripheral blood smear (04/12): -no increase in blasts -mild neutrophilia and mild monocytosis -thrombocytopenia with few large PLTs -RBC study shows normocytic anemia; RBC morphology--nucleated RBCs - f/u indirect and direct Lucio test - [id number] (04/12) <3, pending reflex titer - Parovirus B19 IgG Ab elevated at 5.0, IgM normal at 0.2 - strict I/Os Medications -continue with solumedrol 50 mg IV daily prn before plasmsa exchange, per Nephrology -Calcium gluconate 4.65 mEq in 0.9 NS before plasma exchange -Benadryl 50 mg IVP daily PRN before plasma exchange 2. HTN -BP uncontrolled, likely worsened by being on steroids per Nephrology - Nephrology recs (Dr. Jacob) recs appreciated - HCTZ 12.5 mg started 04/15, Increased to 25 mg for optimal HTN control on 04/16 - home med lisinopril 10 mg PO daily changed to losartan 50 mg PO daily due to reports of anaphylaxis associated with being on CHRISTINE inhibitor and plasmapheresis concomitantly; currently losartan 100mg PO for HTN coverage - SBP 100s - 130s 3. Electrolyte imbalance - Resolved - hypokalemia, hypomagnesemia being supplemented via IV and PO routes - continue to monitor 4. Severe anemia - Hb/Hct: 4.7/13.8 on admission--> 10.0/30.4 (04/20) - continue to monitor 5. Lacunar Infarct (chronic) Alert and oriented Continue to monitor CT head without contrast Chronic microvascular ischemic changes.7 millimeter focal hypodensity seen at the level of the right internal capsule suggestive for a lacunar infarct, likely chronic.Scattered calcifications along the falx and tentorium.If there is concern for acute ischemic change, consider correlation with MRI. 6. Spleen Infarct (chronic) -Stool occult: negative -CT abdomen/pelvis: wedge-shaped hypodense regions involving the spleen may reflect infarctions of indeterminate age. 7. Hx of Asthma -Saturating 99% on RA -continue with Singulair 10mg PO daily 8. Hx of Hypothyroidism - TSH: 6.24--> 4.91 (04/12) - T4: 11.0 - continue with synthroid 50mcg PO daily 9. Ppx, Diet, Disposition -DVT ppx: Contraindicated at this point 2/2 to possibly TTP -GI ppx: protonix 40 mg PO daily -heart healthy diet -R IJ Permacath usuable for plasma exchange; no issues today. Hematology would like additional 2 weeks of plasmapheresis. Will find out if plasmapheresis can be done via outpatient infusion center vs inpatient. will d/w Dr. Fragoso. Further recs per Dr. Fouzia Lilly PGY1
[2018-04-20] MEDS: Pantoprazole 40 mg EC Tab PO SCH (09:47)
--- NOTE | 2018-04-20 09:47 | CP.PCM.PN ---
<Josue Ovalle - Last Filed: 04/20/18 13:52> Subjective - Date & Time of Evaluation Date of Evaluation: 04/20/18 Time of Evaluation: 09:25 - Subjective Subjective: Josue Ovalle D.O. PGY-3, Internal Medicine Resident, Nephrology Progress Note 62 year old AA female with a PMH of HTN, hypothyroidism, asthma, and migraines who presented to ER with complaints of dizziness and weakness for multiple days that became worse this morning. Nephrology consultation was requested for plasma exchange for concern for TTP. Patient was seen and examined at bedside. Patient states that she wants to leave as soon as possible to get back to work. Overall no other complaints. Feeling better. Objective - Vital Signs/Intake and Output Vital Signs (last 24 hours): Temp Pulse Resp BP Pulse Ox 98.5 F 98 H 20 122/78 100 04/20/18 07:50 04/20/18 08:00 04/20/18 07:50 04/20/18 07:50 04/20/18 07:50 Intake and Output: 04/20/18 04/20/18 06:59 18:59 Intake Total 150 Balance 150 - Medications Medications: Current Medications Acetaminophen (Tylenol 325mg Tab) 650 mg PO DAILY PRN PRN Reason: pre-med before plasmapheresis Last Admin: 04/19/18 08:20 Dose: 650 mg Diphenhydramine HCl (Benadryl) 50 mg IVP DAILY PRN PRN Reason: BEFORE PLASMA EXCHANGE Last Admin: 04/19/18 08:22 Dose: 50 mg Docusate Sodium (Colace) 100 mg PO BID [facility] Last Admin: 04/19/18 19:00 Dose: 100 mg Hydrochlorothiazide (Hydrodiuril) 25 mg PO DAILY [facility] Last Admin: 04/19/18 11:20 Dose: 25 mg Calcium Chloride 1,000 mg/ (Sodium Chloride) 260 mls @ 125 mls/hr IV .Q2H5M PRN PRN Reason: DURING PLASMA EXCHANGE Last Admin: 04/19/18 09:05 Dose: 125 mls/hr Levothyroxine Sodium (Synthroid) 50 mcg PO DAILY@0600 [facility] Last Admin: 04/20/18 05:19 Dose: 50 mcg Losartan Potassium (Cozaar) 100 mg PO DAILY [facility] Last Admin: 04/19/18 11:21 Dose: 100 mg Methylprednisolone (Solu-Medrol) 50 mg IVP DAILY PRN PRN Reason: Other Last Admin: 04/19/18 08:39 Dose: 50 mg Montelukast Sodium (Singulair) 10 mg PO DAILY [facility] Last Admin: 04/19/18 11:20 Dose: 10 mg Nicotine (Nicoderm Cq) 1 patch TD DAILY [facility] Last Admin: 04/19/18 11:23 Dose: 1 patch Oxycodone/Acetaminophen (Percocet 5/325 Mg Tab) 1 tab PO Q6H PRN PRN Reason: Pain, moderate (4-7) Stop: 04/20/18 14:55 Last Admin: 04/17/18 21:13 Dose: 1 tab Pantoprazole Sodium (Protonix Ec Tab) 40 mg PO DAILY [facility] Last Admin: 04/19/18 11:22 Dose: 40 mg - Labs Labs: 04/19/18 06:18 04/19/18 06:16 PT 10.4 SECONDS (9.7-12.2) 04/17/18 06:19 INR 1.0 04/17/18 06:19 APTT 25 SECONDS (21-34) 04/17/18 06:19 - Constitutional Appears: Well Developed, Well Nourished, Non-toxic, No Acute Distress - Eye Exam Eye Exam: EOMI, PERRL - ENT Exam ENT Exam: Mucous Membranes Moist, Normal Oropharynx, noted some petechia on palate - Neck Exam Neck exam: Positive for: Normal Inspection. Negative for: Tenderness, JVD - Respiratory Exam Respiratory Exam: Clear to Auscultation Bilateral. absent: Rales, Rhonchi, Wheezes - Cardiovascular Exam Cardiovascular Exam: RRR, +S1, +S2. absent: Gallop, Rubs - GI/Abdominal Exam GI & Abdominal Exam: Normal Bowel Sounds, Soft. 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 Nephrology consultation was requested for plasma exchange. Plan: [id number] levels critically low consistent with diagnosis of TTP Continue with plasma exchange, now treatment #7 Will discuss with hematology to determine how many more treatments she will require Continue Benadryl, calcium gluconate, and acetaminophen PRN before plasma exchange Continue solumedrol 50mg IVP qd Continue BP control w/ losartan and HCTZ Patient was seen and examined and case was discussed at length with attending physician Dr. Aguirre Thank you for the pleasure of participating in the care of this interesting patient <Jason Aguirre - Last Filed: 04/21/18 06:11> Objective - Vital Signs/Intake and Output Vital Signs (last 24 hours): Temp Pulse Resp BP Pulse Ox 98.0 F 88 20 122/82 99 04/20/18 23:00 04/21/18 01:00 04/20/18 23:00 04/20/18 23:00 04/20/18 23:00 - Medications Medications: Current Medications Acetaminophen (Tylenol 325mg Tab) 650 mg PO DAILY PRN PRN Reason: pre-med before plasmapheresis Last Admin: 04/20/18 17:27 Dose: 650 mg Diphenhydramine HCl (Benadryl) 50 mg IVP DAILY PRN PRN Reason: BEFORE PLASMA EXCHANGE Last Admin: 04/20/18 17:34 Dose: 50 mg Docusate Sodium (Colace) 100 mg PO BID [facility] Last Admin: 04/20/18 17:26 Dose: 100 mg Hydrochlorothiazide (Hydrodiuril) 25 mg PO DAILY [facility] Last Admin: 04/20/18 09:47 Dose: 25 mg Calcium Chloride 1,000 mg/ (Sodium Chloride) 260 mls @ 125 mls/hr IV .Q2H5M PRN PRN Reason: DURING PLASMA EXCHANGE Last Admin: 04/20/18 17:26 Dose: 125 mls/hr Levothyroxine Sodium (Synthroid) 50 mcg PO DAILY@0600 [facility] Last Admin: 04/21/18 05:11 Dose: 50 mcg Losartan Potassium (Cozaar) 100 mg PO DAILY [facility] Last Admin: 04/20/18 09:47 Dose: 100 mg Methylprednisolone (Solu-Medrol) 50 mg IVP DAILY [facility] Montelukast Sodium (Singulair) 10 mg PO DAILY [facility] Last Admin: 04/20/18 09:47 Dose: 10 mg Nicotine (Nicoderm Cq) 1 patch TD DAILY [facility] Last Admin: 04/20/18 09:47 Dose: 1 patch Pantoprazole Sodium (Protonix Ec Tab) 40 mg PO DAILY [facility] Last Admin: 04/20/18 09:47 Dose: 40 mg - Labs Labs: 04/20/18 11:33 04/20/18 11:33 PT 10.4 SECONDS (9.7-12.2) 04/17/18 06:19 INR 1.0 04/17/18 06:19 APTT 25 SECONDS (21-34) 04/17/18 06:19 Assessment and Plan (1) Thrombocytopenia Status: Acute (2) HTN (hypertension) Status: Acute (3) Electrolyte imbalance Status: Acute (4) Severe anemia Status: Acute (5) Acute kidney injury Status: Resolved Attending/Attestation - Attestation I have personally seen and examined this patient.: Yes I have fully participated in the care of the patient.: Yes I have reviewed all pertinent clinical information, including history, physical exam and plan: Yes Notes (Text): Patient seen and examined; I agree with the resident's note as above with the following additions/edits: Patient with pmh of htn, hypothyroidism, admitted with severe hemolytic anemia and thrombocytopenia, started on plasma exchange (TPE) for TTP; [id number] activity severely low, which is consistent with TTP; awaiting results to see if she has an inhibitor; Today receiving her 7th plasma exchange treatment in 8 days; thrombocytopenia has resolved; LDH improved though not yet normalized; Patient is very anxious to be discharged, though we are not yet able to setup TPE as outpatient; Per discussion with primary pail tester earlier this week and covering pail tester today, we will switch to every other day TPE sessions and assess for any worsening of monitoring parameters; next session set for day after tomorrow; Otherwise, stable volume and electrolyte status; continue to monitor; continue current anti-htn meds, BP controlled.
[2018-04-20 11:47] LABS: BASO % 0.2 % (0.0-2.0); EOS # 0.1 K/uL (0.0-0.7); EOS % 0.9 % (0.0-4.0); LYMPH # 2.2 K/uL (1.0-4.3); LYMPH % 22.6 % (20.0-40.0); MEAN PLATELET VOLUME 7.5 fL (7.2-11.7); MONO # 0.7 K/uL (0.0-0.8); MONO % 7.5 % (0.0-10.0); NEUT # 6.6 K/uL (1.8-7.0); NEUT % 68.8 % (50.0-75.0); NRBC % 0.1 % (0.0-2.0); RBC 3.24 Mil/uL (3.80-5.20); RED CELL DISTRIBUTION WIDTH 21.8 % (11.5-14.5); WHITE BLOOD COUNT 9.5 K/uL (4.8-10.8)
[2018-04-20 12:22] LABS: ALB/GLOB RATIO 1.6 (1.0-2.1); ALBUMIN 4.1 g/dL (3.5-5.0); ALT/SGPT 107 U/L (9-52); AST/SGOT 82 U/L (14-36); BLOOD UREA NITROGEN 19 mg/dL (7-17); CALCIUM 9.5 mg/dl (8.6-10.4); GFR NON-AFRICAN AMERICAN > 60
[2018-04-20 12:57] LABS: PARVOVIRUS B19 AB (IGM) 0.2 (<0.9)
[2018-04-20] MEDS: DiphenhydrAMINE 50 mg/ml Inj IVP PRN (17:34)
--- NOTE | 2018-04-20 20:47 | CP.PCM.PN ---
Subjective - Date & Time of Evaluation Date of Evaluation: 04/20/18 Time of Evaluation: 18:00 - Subjective Subjective: Covering Dr. De La Cruz No complaints, receiving plasma exchange For every other day exchange after todays treatment as recommended by Dr. De La Cruz Objective - Vital Signs/Intake and Output Vital Signs (last 24 hours): Temp Pulse Resp BP Pulse Ox 97.7 F 95 H 20 108/71 100 04/20/18 15:00 04/20/18 20:00 04/20/18 15:00 04/20/18 15:00 04/20/18 15:00 - Medications Medications: Current Medications Acetaminophen (Tylenol 325mg Tab) 650 mg PO DAILY PRN PRN Reason: pre-med before plasmapheresis Last Admin: 04/20/18 17:27 Dose: 650 mg Diphenhydramine HCl (Benadryl) 50 mg IVP DAILY PRN PRN Reason: BEFORE PLASMA EXCHANGE Last Admin: 04/20/18 17:34 Dose: 50 mg Docusate Sodium (Colace) 100 mg PO BID [facility] Last Admin: 04/20/18 17:26 Dose: 100 mg Hydrochlorothiazide (Hydrodiuril) 25 mg PO DAILY [facility] Last Admin: 04/20/18 09:47 Dose: 25 mg Calcium Chloride 1,000 mg/ (Sodium Chloride) 260 mls @ 125 mls/hr IV .Q2H5M PRN PRN Reason: DURING PLASMA EXCHANGE Last Admin: 04/20/18 17:26 Dose: 125 mls/hr Levothyroxine Sodium (Synthroid) 50 mcg PO DAILY@0600 [facility] Last Admin: 04/20/18 05:19 Dose: 50 mcg Losartan Potassium (Cozaar) 100 mg PO DAILY [facility] Last Admin: 04/20/18 09:47 Dose: 100 mg Methylprednisolone (Solu-Medrol) 50 mg IVP DAILY [facility] Montelukast Sodium (Singulair) 10 mg PO DAILY [facility] Last Admin: 04/20/18 09:47 Dose: 10 mg Nicotine (Nicoderm Cq) 1 patch TD DAILY [facility] Last Admin: 04/20/18 09:47 Dose: 1 patch Pantoprazole Sodium (Protonix Ec Tab) 40 mg PO DAILY [facility] Last Admin: 04/20/18 09:47 Dose: 40 mg - Labs Labs: 04/20/18 11:33 04/20/18 11:33 PT 10.4 SECONDS (9.7-12.2) 04/17/18 06:19 INR 1.0 04/17/18 06:19 APTT 25 SECONDS (21-34) 04/17/18 06:19 - Head Exam Head Exam: ATRAUMATIC - Eye Exam Eye Exam: Normal appearance - ENT Exam ENT Exam: Mucous Membranes Dry - Respiratory Exam Respiratory Exam: NORMAL BREATHING PATTERN - Cardiovascular Exam Cardiovascular Exam: +S1, +S2 - GI/Abdominal Exam GI & Abdominal Exam: Normal Bowel Sounds Assessment and Plan (1) TTP (thrombotic thrombocytopenic purpura) Assessment & Plan: responding to plasma exchange for every other day treatment f/u [id number] inhibitor titer Status: Acute
[2018-04-21] MEDS: Levothyroxine 50 MCG TAB PO SCH (05:11)
--- NOTE | 2018-04-21 06:27 | CP.PCM.PN ---
Subjective - Date & Time of Evaluation Date of Evaluation: 04/21/18 Time of Evaluation: 07:00 - Subjective Subjective: PGY 1 Medicine Progress Note for Dr. Fragoso. Patient seen and examined at bedside. Patient sitting in bed in no acute distress. No overnight events reports. Patient received her 7th plasmapheresis treatment w/ no issues yesterday 04/20. Patient denies chest pain, SOB, nausea, vomiting, diarrhea, and constipation. Objective - Vital Signs/Intake and Output Vital Signs (last 24 hours): Temp Pulse Resp BP Pulse Ox 98.0 F 88 20 122/82 99 04/20/18 23:00 04/21/18 01:00 04/20/18 23:00 04/20/18 23:00 04/20/18 23:00 - Medications Medications: Current Medications Acetaminophen (Tylenol 325mg Tab) 650 mg PO DAILY PRN PRN Reason: pre-med before plasmapheresis Last Admin: 04/20/18 17:27 Dose: 650 mg Diphenhydramine HCl (Benadryl) 50 mg IVP DAILY PRN PRN Reason: BEFORE PLASMA EXCHANGE Last Admin: 04/20/18 17:34 Dose: 50 mg Docusate Sodium (Colace) 100 mg PO BID [facility] Last Admin: 04/20/18 17:26 Dose: 100 mg Hydrochlorothiazide (Hydrodiuril) 25 mg PO DAILY [facility] Last Admin: 04/20/18 09:47 Dose: 25 mg Calcium Chloride 1,000 mg/ (Sodium Chloride) 260 mls @ 125 mls/hr IV .Q2H5M PRN PRN Reason: DURING PLASMA EXCHANGE Last Admin: 04/20/18 17:26 Dose: 125 mls/hr Levothyroxine Sodium (Synthroid) 50 mcg PO DAILY@0600 [facility] Last Admin: 04/21/18 05:11 Dose: 50 mcg Losartan Potassium (Cozaar) 100 mg PO DAILY [facility] Last Admin: 04/20/18 09:47 Dose: 100 mg Methylprednisolone (Solu-Medrol) 50 mg IVP DAILY [facility] Montelukast Sodium (Singulair) 10 mg PO DAILY [facility] Last Admin: 04/20/18 09:47 Dose: 10 mg Nicotine (Nicoderm Cq) 1 patch TD DAILY [facility] Last Admin: 04/20/18 09:47 Dose: 1 patch Pantoprazole Sodium (Protonix Ec Tab) 40 mg PO DAILY [facility] Last Admin: 04/20/18 09:47 Dose: 40 mg - Labs Labs: 04/20/18 11:33 04/20/18 11:33 PT 10.4 SECONDS (9.7-12.2) 04/17/18 06:19 INR 1.0 04/17/18 06:19 APTT 25 SECONDS (21-34) 04/17/18 06:19 - Constitutional Appears: Well, Non-toxic, No Acute Distress - Head Exam Head Exam: ATRAUMATIC, NORMAL INSPECTION, NORMOCEPHALIC - Eye Exam Eye Exam: EOMI, Normal appearance - ENT Exam ENT Exam: Mucous Membranes Moist - Respiratory Exam Respiratory Exam: Clear to Ausculation Bilateral, NORMAL BREATHING PATTERN. absent: Rales, Rhonchi, Wheezes - Cardiovascular Exam Cardiovascular Exam: +S1, +S2. absent: Irregular Rhythm, Murmur - GI/Abdominal Exam GI & Abdominal Exam: Soft, Normal Bowel Sounds - Back Exam Back Exam: NORMAL INSPECTION - Neurological Exam Neurological Exam: Alert, Awake, Oriented x3 - Psychiatric Exam Psychiatric exam: Normal Affect, Normal Mood - Skin Skin Exam: Dry, Intact, Normal Color, Warm Additional comments: RIJ in place, clean, dry, intact Assessment and Plan - Assessment and Plan (Free Text) Assessment: 62 yo F with PMHx of HTN, hypothyroidism, asthma, and migraines who presents with generalized weakness and hypotension. Patient was found to have hemoglobin of 4.7 and PLT count of 12 on admission, with concerns for TTP. Plan: 1. Thrombocytopenia--confirmed TTP - Current Management: - Every other day plasmapheresis sessions. Last one, 04/20. Next scheduled one 04/21. Trend hemoglobin & platlets, monitor for rebound drop in values - F/u [id number] reflex titer - s/p 7th plasmapheresis on 04/20 - Nephrology recs (Dr. Jacob) appreciated -pt responding well to plasmapheresis sessions - Heme/onc recs (Dr. De La Cruz) - would like 2 additional weeks of plasmapheresis, Dr. De La Cruz prefers inpatient treatment over outpatient - s/p 7th plasmapheresis on 04/20 - per hematology, session every other day, likely will need until next week, 04/26/18 Labs: - Hb/Hct: 4.7/13.8 on admission--> 10.3/29.7 (04/21) - PLT: 12 on admission--> 248 (04/21) - Reticulocyte count: 13.3 on admission--> 19.6 (04/17) - Haptoglobin < 20.0 - LDH: 4232 on admission--> 674 (04/19) -> 797 (04/20) -> 936 (04/21) - T. bilirubin: 3.2 on admission--> 0.6 (04/21) - CEA: 4.9 - CA19-9: 6.7 - CA125: 7.0 - Peripheral blood smear (04/12): -no increase in blasts -mild neutrophilia and mild monocytosis -thrombocytopenia with few large PLTs -RBC study shows normocytic anemia; RBC morphology--nucleated RBCs - f/u indirect and direct Lucio test - [id number] (04/12) <3, pending reflex titer - Parovirus B19 IgG Ab elevated at 5.0, IgM normal at 0.2 - strict I/Os Medications -continue with solumedrol 50 mg IV daily prn before plasmsa exchange, per Nephrology -Calcium gluconate 4.65 mEq in 0.9 NS before plasma exchange -Benadryl 50 mg IVP daily PRN before plasma exchange 2. HTN - BP now controlled, on admission uncontrolled, likely worsened by being on steroids per Nephrology - Nephrology recs (Dr. Jacob) recs appreciated - HCTZ 12.5 mg started 04/15, Increased to 25 mg for optimal HTN control on 04/16 - home med lisinopril 10 mg PO daily changed to losartan 50 mg PO daily due to reports of anaphylaxis associated with being on CHRISTINE inhibitor and plasmapheresis concomitantly; currently losartan 100mg PO for HTN coverage - SBP 100s - 130s 3. Electrolyte imbalance - Resolved - hypokalemia, hypomagnesemia being supplemented via IV and PO routes - continue to monitor 4. Severe anemia - Hb/Hct: 4.7/13.8 on admission--> 10.3/29.7 (04/21) - continue to monitor for rebound drop 5. Lacunar Infarct (chronic) - Alert and oriented - Continue to monitor - CT head without contrast Chronic microvascular ischemic changes.7 millimeter focal hypodensity seen at the level of the right internal capsule suggestive for a lacunar infarct, likely chronic.Scattered calcifications along the falx and tentorium.If there is concern for acute ischemic change, consider correlation with MRI. 6. Spleen Infarct (chronic) -Stool occult: negative -CT abdomen/pelvis: wedge-shaped hypodense regions involving the spleen may reflect infarctions of indeterminate age. 7. Hx of Asthma -Saturating 99% on RA -continue with Singulair 10mg PO daily 8. Hx of Hypothyroidism - TSH: 6.24--> 4.91 (04/12) - T4: 11.0 - continue with synthroid 50mcg PO daily 9. Ppx, Diet, Disposition -DVT ppx: Contraindicated at this point 2/2 to possibly TTP -GI ppx: protonix 40 mg PO daily -heart healthy diet -R IJ Permacath usuable for plasma exchange; no issues today. Hematology would like additional possible 1 week of plasmapheresis. Will find out if plasmapheresis can be done via outpatient infusion center vs inpatient. Patient is s/p 7 session. Now will be every other day. Will f/u w/ Dr. De La Cruz to confirm duration of treatment, aaron through 04/26/18. will d/w Dr. Fragoso. Further recs per Dr. Fouzia Lilly PGY1
[2018-04-21 08:10] LABS: BASO % 0.4 % (0.0-2.0); EOS % 0.4 % (0.0-4.0); HEMOGLOBIN 10.3 g/dL (11.0-16.0); LYMPH # 2.1 K/uL (1.0-4.3); LYMPH % 22.7 % (20.0-40.0); MEAN CELL VOLUME 92.4 fL (81.0-99.0); MEAN CORPUSCULAR HGB CONC 34.6 g/dL (33.0-37.0); MEAN PLATELET VOLUME 7.5 fL (7.2-11.7); MONO # 0.7 K/uL (0.0-0.8); MONO % 7.4 % (0.0-10.0); NEUT # 6.4 K/uL (1.8-7.0); NEUT % 69.1 % (50.0-75.0); RBC 3.22 Mil/uL (3.80-5.20); RED CELL DISTRIBUTION WIDTH 20.7 % (11.5-14.5); WHITE BLOOD COUNT 9.2 K/uL (4.8-10.8)
[2018-04-21 08:43] LABS: ALB/GLOB RATIO 1.4 (1.0-2.1); ALBUMIN 4.1 g/dL (3.5-5.0); ALT/SGPT 136 U/L (9-52); AST/SGOT 107 U/L (14-36); BLOOD UREA NITROGEN 18 mg/dL (7-17); CALCIUM 9.7 mg/dl (8.6-10.4); GFR NON-AFRICAN AMERICAN > 60
--- NOTE | 2018-04-21 09:51 | CP.PCM.PN ---
<Juan A Delong - Last Filed: 04/21/18 12:37> Subjective - Date & Time of Evaluation Date of Evaluation: 04/21/18 Time of Evaluation: 07:45 - Subjective Subjective: Rogelio Delong D.O. PGY2 - Nephrology Progress Note Dr. Aguirre Patient seen and examined this AM. No acute events reported overnight. Patient able to tolerate diet and ambulates around room without difficulty. 12 point ROS benign Objective - Vital Signs/Intake and Output Vital Signs (last 24 hours): Temp Pulse Resp BP Pulse Ox 97.9 F 83 20 129/86 100 04/21/18 07:00 04/21/18 07:00 04/21/18 07:00 04/21/18 07:00 04/21/18 07:00 - Medications Medications: Current Medications Acetaminophen (Tylenol 325mg Tab) 650 mg PO DAILY PRN PRN Reason: pre-med before plasmapheresis Last Admin: 04/20/18 17:27 Dose: 650 mg Diphenhydramine HCl (Benadryl) 50 mg IVP DAILY PRN PRN Reason: BEFORE PLASMA EXCHANGE Last Admin: 04/20/18 17:34 Dose: 50 mg Docusate Sodium (Colace) 100 mg PO BID [facility] Last Admin: 04/20/18 17:26 Dose: 100 mg Hydrochlorothiazide (Hydrodiuril) 25 mg PO DAILY [facility] Last Admin: 04/20/18 09:47 Dose: 25 mg Calcium Chloride 1,000 mg/ (Sodium Chloride) 260 mls @ 125 mls/hr IV .Q2H5M PRN PRN Reason: DURING PLASMA EXCHANGE Last Admin: 04/20/18 17:26 Dose: 125 mls/hr Levothyroxine Sodium (Synthroid) 50 mcg PO DAILY@0600 [facility] Last Admin: 04/21/18 05:11 Dose: 50 mcg Losartan Potassium (Cozaar) 100 mg PO DAILY [facility] Last Admin: 04/20/18 09:47 Dose: 100 mg Methylprednisolone (Solu-Medrol) 50 mg IVP DAILY [facility] Montelukast Sodium (Singulair) 10 mg PO DAILY [facility] Last Admin: 04/20/18 09:47 Dose: 10 mg Nicotine (Nicoderm Cq) 1 patch TD DAILY [facility] Last Admin: 04/20/18 09:47 Dose: 1 patch Pantoprazole Sodium (Protonix Ec Tab) 40 mg PO DAILY [facility] Last Admin: 04/20/18 09:47 Dose: 40 mg - Labs Labs: 04/21/18 07:40 04/21/18 07:40 PT 10.4 SECONDS (9.7-12.2) 04/17/18 06:19 INR 1.0 04/17/18 06:19 APTT 25 SECONDS (21-34) 04/17/18 06:19 - Constitutional Appears: Non-toxic, No Acute Distress - Head Exam Head Exam: ATRAUMATIC, NORMOCEPHALIC - Eye Exam Eye Exam: EOMI, PERRL - ENT Exam ENT Exam: Mucous Membranes Moist - Neck Exam Neck Exam: Full ROM - Respiratory Exam Respiratory Exam: Clear to Ausculation Bilateral, NORMAL BREATHING PATTERN - Cardiovascular Exam Cardiovascular Exam: REGULAR RHYTHM, +S1, +S2 - GI/Abdominal Exam GI & Abdominal Exam: Soft, Normal Bowel Sounds. absent: Tenderness - Extremities Exam Extremities Exam: Calf Tenderness, Full ROM - Neurological Exam Neurological Exam: Alert, Awake, Normal Gait, Oriented x3 Neuro motor strength exam: Left Upper Extremity: 5, Right Upper Extremity: 5, Left Lower Extremity: 5, Right Lower Extremity: 5 - Psychiatric Exam Psychiatric exam: Normal Affect, Normal Mood - Skin Skin Exam: Dry, Intact Assessment and Plan - Assessment and Plan (Free Text) Assessment: 62 year old AA female with past medical history of HTN, Hypothyroid, Asthma, Migraines who was was admitted to [facility] for severe anemia. Patient was started on plasma exchange therapy for suspicion of TTP vs. Hemolytic anemia. Nephrology was consulted for plasma exchange. In conjunction with hematology patient has received 7 treatments with improvement in her anemia. Plan: [id number] severely low consistent with TTP Hypertension Severe Hemolytic anemia Patient received 7 treatments of plasma exchange since admission Per Heme patient to have treatments start every other day, holding todays tx, will monitor CBC in AM Patient volume and electrolytes table, continue to monitor Continue with solumedrol Continue current ant-hypertensives, losartan and HCTZ <Jason Aguirre - Last Filed: 04/22/18 07:22> Objective - Vital Signs/Intake and Output Vital Signs (last 24 hours): Temp Pulse Resp BP Pulse Ox 98 F 100 H 20 124/74 95 04/21/18 23:20 04/22/18 01:00 04/21/18 23:20 04/21/18 23:20 04/21/18 23:20 - Medications Medications: Current Medications Acetaminophen (Tylenol 325mg Tab) 650 mg PO DAILY PRN PRN Reason: pre-med before plasmapheresis Last Admin: 04/20/18 17:27 Dose: 650 mg Diphenhydramine HCl (Benadryl) 50 mg IVP DAILY PRN PRN Reason: BEFORE PLASMA EXCHANGE Last Admin: 04/20/18 17:34 Dose: 50 mg Docusate Sodium (Colace) 100 mg PO BID [facility] Last Admin: 04/21/18 17:29 Dose: Not Given Hydrochlorothiazide (Hydrodiuril) 25 mg PO DAILY [facility] Last Admin: 04/21/18 10:24 Dose: 25 mg Calcium Chloride 1,000 mg/ (Sodium Chloride) 260 mls @ 125 mls/hr IV .Q2H5M PRN PRN Reason: DURING PLASMA EXCHANGE Last Admin: 04/20/18 17:26 Dose: 125 mls/hr Levothyroxine Sodium (Synthroid) 50 mcg PO DAILY@0600 [facility] Last Admin: 04/22/18 05:47 Dose: 50 mcg Losartan Potassium (Cozaar) 50 mg PO DAILY [facility] Methylprednisolone (Solu-Medrol) 50 mg IVP DAILY [facility] Last Admin: 04/21/18 12:12 Dose: 50 mg Montelukast Sodium (Singulair) 10 mg PO DAILY [facility] Last Admin: 04/21/18 10:24 Dose: 10 mg Nicotine (Nicoderm Cq) 1 patch TD DAILY [facility] Last Admin: 04/21/18 10:24 Dose: 1 patch Pantoprazole Sodium (Protonix Ec Tab) 40 mg PO DAILY [facility] Last Admin: 04/21/18 10:24 Dose: 40 mg - Labs Labs: 04/21/18 07:40 04/21/18 07:40 PT 10.4 SECONDS (9.7-12.2) 04/17/18 06:19 INR 1.0 04/17/18 06:19 APTT 25 SECONDS (21-34) 04/17/18 06:19 Assessment and Plan (1) Thrombocytopenia Status: Acute (2) HTN (hypertension) Status: Acute (3) Electrolyte imbalance Status: Acute (4) Severe anemia Status: Acute (5) Acute kidney injury Status: Resolved Attending/Attestation - Attestation I have personally seen and examined this patient.: Yes I have fully participated in the care of the patient.: Yes I have reviewed all pertinent clinical information, including history, physical exam and plan: Yes Notes (Text): Patient seen and examined; I agree with the resident's note above with the following additions/edits: Patient admitted with severe hemolytic anemia, thrombocytopenia, consistent with TTP, with low [id number] activity (still awaiting inhibitor study); s/p 7 sessions of therapeutic plasma exchange (TPE) with normalization of platelet count and stable hgb; LDH improved but still elevated; TPE held today and switching to every other day sessions from tomorrow to assess response; case management still trying to find out whether TPE can be done as outpatient; will continue with daily IV solumedrol 50 mg (will switch to PO prednisone on d/c); Otherwise stable electrolyte status; increasing transaminase levels of unclear etiology, will monitor; HTN with BP now too tightly controlled after increasing meds; will hold hctz for one day and decrease losartan to 50 mg daily;
[2018-04-21] MEDS: Pantoprazole 40 mg EC Tab PO SCH (10:24)
--- NOTE | 2018-04-22 01:45 | CP.PCM.PN ---
Subjective - Date & Time of Evaluation Date of Evaluation: 04/22/18 Time of Evaluation: 01:43 - Subjective Subjective: PGY-[address] Lazcano Patient seen and examined at bedside. Patient in no distress, has no complaints. Reports she has been tolerating meals and has been comfortable. Patient denies any nausea vomiting, headache, chest pains, shortness of breath, constipation, diarrhea. Objective - Vital Signs/Intake and Output Vital Signs (last 24 hours): Temp Pulse Resp BP Pulse Ox 98.2 F 94 H 20 98/63 L 98 04/21/18 15:10 04/21/18 15:10 04/21/18 15:10 04/21/18 15:10 04/21/18 15:10 - Medications Medications: Current Medications Acetaminophen (Tylenol 325mg Tab) 650 mg PO DAILY PRN PRN Reason: pre-med before plasmapheresis Last Admin: 04/20/18 17:27 Dose: 650 mg Diphenhydramine HCl (Benadryl) 50 mg IVP DAILY PRN PRN Reason: BEFORE PLASMA EXCHANGE Last Admin: 04/20/18 17:34 Dose: 50 mg Docusate Sodium (Colace) 100 mg PO BID [facility] Last Admin: 04/21/18 17:29 Dose: Not Given Hydrochlorothiazide (Hydrodiuril) 25 mg PO DAILY [facility] Last Admin: 04/21/18 10:24 Dose: 25 mg Calcium Chloride 1,000 mg/ (Sodium Chloride) 260 mls @ 125 mls/hr IV .Q2H5M PRN PRN Reason: DURING PLASMA EXCHANGE Last Admin: 04/20/18 17:26 Dose: 125 mls/hr Levothyroxine Sodium (Synthroid) 50 mcg PO DAILY@0600 [facility] Last Admin: 04/21/18 05:11 Dose: 50 mcg Losartan Potassium (Cozaar) 50 mg PO DAILY [facility] Methylprednisolone (Solu-Medrol) 50 mg IVP DAILY [facility] Last Admin: 04/21/18 12:12 Dose: 50 mg Montelukast Sodium (Singulair) 10 mg PO DAILY [facility] Last Admin: 04/21/18 10:24 Dose: 10 mg Nicotine (Nicoderm Cq) 1 patch TD DAILY [facility] Last Admin: 04/21/18 10:24 Dose: 1 patch Pantoprazole Sodium (Protonix Ec Tab) 40 mg PO DAILY [facility] Last Admin: 04/21/18 10:24 Dose: 40 mg - Labs Labs: 04/21/18 07:40 04/21/18 07:40 PT 10.4 SECONDS (9.7-12.2) 04/17/18 06:19 INR 1.0 04/17/18 06:19 APTT 25 SECONDS (21-34) 04/17/18 06:19 - Head Exam Head Exam: ATRAUMATIC, NORMAL INSPECTION - Eye Exam Eye Exam: EOMI, Normal appearance - Respiratory Exam Respiratory Exam: Clear to Ausculation Bilateral, NORMAL BREATHING PATTERN. absent: Rales, Rhonchi, Wheezes - Cardiovascular Exam Cardiovascular Exam: REGULAR RHYTHM, +S1, +S2. absent: Murmur - GI/Abdominal Exam GI & Abdominal Exam: Soft, Normal Bowel Sounds. absent: Tenderness - Extremities Exam Extremities Exam: Normal Inspection. absent: Normal Capillary Refill, Pedal Edema - Back Exam Back Exam: NORMAL INSPECTION - Neurological Exam Neurological Exam: Alert, Awake, CN II-XII Intact, Normal Gait, Oriented x3 - Psychiatric Exam Psychiatric exam: Normal Affect, Normal Mood - Skin Skin Exam: Dry, Intact, Normal Color, Warm Assessment and Plan - Assessment and Plan (Free Text) Assessment: 62 yo F with PMHx of HTN, hypothyroidism, asthma, and migraines who presents with generalized weakness and hypotension. Patient was found to have hemoglobin of 4.7 and PLT count of 12 on admission, with concerns for TTP. Plan: 1. Thrombocytopenia--confirmed TTP - Current Management: - Every other day plasmapheresis sessions. Last one, 04/20. Next scheduled one 04/21. Trend hemoglobin & platlets, monitor for rebound drop in values - F/u [id number] reflex titer - s/p 7th plasmapheresis on 04/20 - Nephrology recs (Dr. Jacob) appreciated -pt responding well to plasmapheresis sessions - Heme/onc recs (Dr. De La Cruz) - would like 2 additional weeks of plasmapheresis, Dr. De La Cruz prefers inpatient treatment over outpatient - s/p 7th plasmapheresis on 04/20 - per hematology, session every other day, likely will need until next week, 04/26/18 Labs: - Hb/Hct: 4.7/13.8 on admission--> 10.3/29.7 (04/21) - PLT: 12 on admission--> 248 (04/21) - Reticulocyte count: 13.3 on admission--> 19.6 (04/17) - Haptoglobin < 20.0 - LDH: 4232 on admission--> 674 (04/19) -> 797 (04/20) -> 936 (04/21) - T. bilirubin: 3.2 on admission--> 0.6 (04/21) - CEA: 4.9 - CA19-9: 6.7 - CA125: 7.0 - Peripheral blood smear (04/12): -no increase in blasts -mild neutrophilia and mild monocytosis -thrombocytopenia with few large PLTs -RBC study shows normocytic anemia; RBC morphology--nucleated RBCs - f/u indirect and direct Lucio test - [id number] (04/12) <3, pending reflex titer - Parovirus B19 IgG Ab elevated at 5.0, IgM normal at 0.2 - strict I/Os Medications -continue with solumedrol 50 mg IV daily prn before plasmsa exchange, per Nephrology -Calcium gluconate 4.65 mEq in 0.9 NS before plasma exchange -Benadryl 50 mg IVP daily PRN before plasma exchange 2. HTN - BP now controlled, on admission uncontrolled, likely worsened by being on steroids per Nephrology - Nephrology recs (Dr. Jacob) recs appreciated - HCTZ 12.5 mg started 04/15, Increased to 25 mg for optimal HTN control on 04/16 - home med lisinopril 10 mg PO daily changed to losartan 50 mg PO daily due to reports of anaphylaxis associated with being on CHRISTINE inhibitor and plasmapheresis concomitantly; currently losartan 100mg PO for HTN coverage - SBP 100s - 130s 3. Electrolyte imbalance - Resolved - hypokalemia, hypomagnesemia being supplemented via IV and PO routes - continue to monitor 4. Severe anemia - Hb/Hct: 4.7/13.8 on admission--> 10.3/29.7 (04/21) - continue to monitor for rebound drop 5. Lacunar Infarct (chronic) - Alert and oriented - Continue to monitor - CT head without contrast Chronic microvascular ischemic changes.7 millimeter focal hypodensity seen at the level of the right internal capsule suggestive for a lacunar infarct, likely chronic.Scattered calcifications along the falx and tentorium.If there is concern for acute ischemic change, consider correlation with MRI. 6. Spleen Infarct (chronic) -Stool occult: negative -CT abdomen/pelvis: wedge-shaped hypodense regions involving the spleen may reflect infarctions of indeterminate age. 7. Hx of Asthma -Saturating 99% on RA -continue with Singulair 10mg PO daily 8. Hx of Hypothyroidism - TSH: 6.24--> 4.91 (04/12) - T4: 11.0 - continue with synthroid 50mcg PO daily 9. Ppx, Diet, Disposition -DVT ppx: Contraindicated at this point 2/2 to possibly TTP -GI ppx: protonix 40 mg PO daily -heart healthy diet -R IJ Permacath usuable for plasma exchange; no issues today. Hematology would like additional possible 1 week of plasmapheresis. Will find out if plasmapheresis can be done via outpatient infusion center vs inpatient. Patient is s/p 7 session. Now will be every other day. Will f/u w/ Dr. De La Cruz to confirm duration of treatment, aaron through 04/26/18. will d/w Dr. Fragoso. Further recs per Dr. Fouzia Bingham, PGY-1
[2018-04-22] MEDS: Levothyroxine 50 MCG TAB PO SCH (05:47)
[2018-04-22 07:38] LABS: BASO % 0.3 % (0.0-2.0); EOS # 0.1 K/uL (0.0-0.7); EOS % 0.7 % (0.0-4.0); HEMOGLOBIN 10.4 g/dL (11.0-16.0); LYMPH # 2.8 K/uL (1.0-4.3); LYMPH % 26.8 % (20.0-40.0); MEAN CELL VOLUME 92.9 fL (81.0-99.0); MEAN CORPUSCULAR HEMOGLOBIN 31.3 pg (27.0-31.0); MEAN CORPUSCULAR HGB CONC 33.7 g/dL (33.0-37.0); MEAN PLATELET VOLUME 7.3 fL (7.2-11.7); MONO # 0.8 K/uL (0.0-0.8); MONO % 7.2 % (0.0-10.0); NEUT # 6.8 K/uL (1.8-7.0); NRBC % 0.1 % (0.0-2.0); RBC 3.33 Mil/uL (3.80-5.20); RED CELL DISTRIBUTION WIDTH 19.9 % (11.5-14.5); WHITE BLOOD COUNT 10.5 K/uL (4.8-10.8)
[2018-04-22 08:14] LABS: ALB/GLOB RATIO 1.4 (1.0-2.1); ALBUMIN 4.3 g/dL (3.5-5.0); ALT/SGPT 179 U/L (9-52); AST/SGOT 98 U/L (14-36); BLOOD UREA NITROGEN 21 mg/dL (7-17); CALCIUM 9.7 mg/dl (8.6-10.4); GFR NON-AFRICAN AMERICAN > 60
[2018-04-22] MEDS ORDERED: CALCIUM GLUCONATE IV PRN (08:30)
[2018-04-22] MEDS ORDERED: SODIUM CHLORIDE 0.9% IV PRN (08:30)
[2018-04-22] MEDS: DiphenhydrAMINE 50 mg/ml Inj IVP PRN (08:35)
[2018-04-22] MEDS: SODIUM CHLORIDE 0.9% IV PRN (08:53)
[2018-04-22] MEDS: CALCIUM GLUCONATE IV PRN (08:53)
[2018-04-22] MEDS: Pantoprazole 40 mg EC Tab PO SCH (09:10)
[2018-04-22 12:37] LABS: BASO % 0.3 % (0.0-2.0); EOS % 0.2 % (0.0-4.0); HEMOGLOBIN 9.6 g/dL (11.0-16.0); LYMPH # 0.9 K/uL (1.0-4.3); LYMPH % 6.7 % (20.0-40.0); MEAN CELL VOLUME 92.5 fL (81.0-99.0); MEAN CORPUSCULAR HEMOGLOBIN 31.6 pg (27.0-31.0); MEAN CORPUSCULAR HGB CONC 34.1 g/dL (33.0-37.0); MEAN PLATELET VOLUME 7.2 fL (7.2-11.7); MONO # 0.4 K/uL (0.0-0.8); MONO % 3.2 % (0.0-10.0); NEUT # 12.4 K/uL (1.8-7.0); NEUT % 89.6 % (50.0-75.0); PLATELET COUNT 228 K/uL (130-400); RBC 3.05 Mil/uL (3.80-5.20); RED CELL DISTRIBUTION WIDTH 19.6 % (11.5-14.5); WHITE BLOOD COUNT 13.9 K/uL (4.8-10.8)
[2018-04-22 12:58] LABS: ALB/GLOB RATIO 1.3 (1.0-2.1); ALBUMIN 3.6 g/dL (3.5-5.0); ALT/SGPT 87 U/L (9-52); AST/SGOT 59 U/L (14-36); BLOOD UREA NITROGEN 19 mg/dL (7-17); CALCIUM 9.5 mg/dl (8.6-10.4); GFR NON-AFRICAN AMERICAN > 60
[2018-04-22] MEDS ORDERED: Potassium Chloride 20 mEq ER Tab PO ONE (13:06)
[2018-04-22 13:19] LABS: ANISOCYTOSIS MODERATE; LYMPHOCYTE 6 % (20-40); MICROCYTOSIS SLIGHT; MONOCYTE 2 % (0-10); NEUTROPHIL 92 % (50-75); PLATELET ESTIMATE NORMAL (NORMAL); POIKILOCYTOSIS SLIGHT; TOTAL CELLS COUNTED 100
[2018-04-22 13:20] LABS: HYPOCHROMIC SLIGHT; OVALOCYTES SLIGHT; POLYCHROMIC SLIGHT; SCHISTOCYTES MODERATE; TEARDROP CELLS SLIGHT
--- NOTE | 2018-04-22 23:43 | CP.PCM.PN ---
Subjective - Date & Time of Evaluation Date of Evaluation: 04/22/18 Time of Evaluation: 15:00 - Subjective Subjective: Patient reports feeling well; no sob; s/p plasma exchange earlier today; Objective - Vital Signs/Intake and Output Vital Signs (last 24 hours): Temp Pulse Resp BP Pulse Ox 98 F 107 H 20 108/69 99 04/22/18 15:49 04/22/18 17:00 04/22/18 15:49 04/22/18 15:49 04/22/18 15:49 - Medications Medications: Current Medications Acetaminophen (Tylenol 325mg Tab) 650 mg PO DAILY PRN PRN Reason: pre-med before plasmapheresis Last Admin: 04/22/18 08:35 Dose: 650 mg Diphenhydramine HCl (Benadryl) 50 mg IVP DAILY PRN PRN Reason: BEFORE PLASMA EXCHANGE Last Admin: 04/22/18 08:35 Dose: 50 mg Docusate Sodium (Colace) 100 mg PO BID [facility] Last Admin: 04/22/18 18:46 Dose: Not Given Hydrochlorothiazide (Hydrodiuril) 25 mg PO DAILY [facility] Last Admin: 04/21/18 10:24 Dose: 25 mg Calcium Gluconate 4.65 meq/ (Sodium Chloride) 260 mls @ 130 mls/hr IV .Q2H PRN PRN Reason: DURING PLASMA EXCHANGE Last Admin: 04/22/18 08:53 Dose: 130 mls/hr Levothyroxine Sodium (Synthroid) 50 mcg PO DAILY@0600 [facility] Last Admin: 04/22/18 05:47 Dose: 50 mcg Losartan Potassium (Cozaar) 50 mg PO DAILY [facility] Last Admin: 04/22/18 13:03 Dose: Not Given Methylprednisolone (Solu-Medrol) 50 mg IVP DAILY [facility] Last Admin: 04/22/18 09:05 Dose: 50 mg Montelukast Sodium (Singulair) 10 mg PO DAILY [facility] Last Admin: 04/22/18 09:10 Dose: 10 mg Nicotine (Nicoderm Cq) 1 patch TD DAILY [facility] Last Admin: 04/22/18 09:11 Dose: 1 patch Pantoprazole Sodium (Protonix Ec Tab) 40 mg PO DAILY [facility] Last Admin: 04/22/18 09:10 Dose: 40 mg - Labs Labs: 04/22/18 12:20 04/22/18 12:20 PT 10.4 SECONDS (9.7-12.2) 04/17/18 06:19 INR 1.0 04/17/18 06:19 APTT 25 SECONDS (21-34) 04/17/18 06:19 - Constitutional Appears: Non-toxic, No Acute Distress - Eye Exam Eye Exam: Normal appearance - ENT Exam ENT Exam: Mucous Membranes Moist - Respiratory Exam Respiratory Exam: Clear to Ausculation Bilateral. absent: Respiratory Distress - Cardiovascular Exam Cardiovascular Exam: RRR, +S1, +S2 - GI/Abdominal Exam GI & Abdominal Exam: Soft. absent: Distended, Tenderness - Extremities Exam Additional comments: no leg edema - Neurological Exam Neurological Exam: Alert, Awake - Psychiatric Exam Psychiatric exam: Normal Mood. absent: Agitated Assessment and Plan (1) Thrombocytopenia Assessment & Plan: TTP, switched to every other day plasma exchange from today; no rebound in thrombocytopenia/LDH after holding TPE (therapeutic plasma exchange) yesterday; -next TPE for Tuesday; trying to arrange for outpatient TPE; -continue IV solumedrol 50 mg daily; -awaiting [id number] inhibitor study result; -monitor electrolytes; giving KCl 40 meq for mild hypokalemia today; Status: Acute (2) HTN (hypertension) Assessment & Plan: BP well controlled; continue current meds; Status: Chronic (3) Electrolyte imbalance Status: Acute (4) Severe anemia Status: Acute (5) Acute kidney injury Status: Resolved
--- NOTE | 2018-04-23 00:52 | CP.PCM.PN ---
Subjective - Date & Time of Evaluation Date of Evaluation: 04/23/18 Time of Evaluation: 00:51 - Subjective Subjective: PGY-[address] Fragoso Patient seen and examined at bedside. Patient in no distress, has no complaints. Reports she has been tolerating meals and has been comfortable. Patient denies any nausea vomiting, headache, chest pains, shortness of breath, constipation, diarrhea. Objective - Vital Signs/Intake and Output Vital Signs (last 24 hours): Temp Pulse Resp BP Pulse Ox 98.2 F 88 20 110/65 99 04/22/18 23:15 04/22/18 23:15 04/22/18 23:15 04/22/18 23:15 04/22/18 23:15 - Medications Medications: Current Medications Acetaminophen (Tylenol 325mg Tab) 650 mg PO DAILY PRN PRN Reason: pre-med before plasmapheresis Last Admin: 04/22/18 08:35 Dose: 650 mg Diphenhydramine HCl (Benadryl) 50 mg IVP DAILY PRN PRN Reason: BEFORE PLASMA EXCHANGE Last Admin: 04/22/18 08:35 Dose: 50 mg Docusate Sodium (Colace) 100 mg PO BID [facility] Last Admin: 04/22/18 18:46 Dose: Not Given Hydrochlorothiazide (Hydrodiuril) 25 mg PO DAILY [facility] Last Admin: 04/21/18 10:24 Dose: 25 mg Calcium Gluconate 4.65 meq/ (Sodium Chloride) 260 mls @ 130 mls/hr IV .Q2H PRN PRN Reason: DURING PLASMA EXCHANGE Last Admin: 04/22/18 08:53 Dose: 130 mls/hr Levothyroxine Sodium (Synthroid) 50 mcg PO DAILY@0600 [facility] Last Admin: 04/22/18 05:47 Dose: 50 mcg Losartan Potassium (Cozaar) 50 mg PO DAILY [facility] Last Admin: 04/22/18 13:03 Dose: Not Given Methylprednisolone (Solu-Medrol) 50 mg IVP DAILY [facility] Last Admin: 04/22/18 09:05 Dose: 50 mg Montelukast Sodium (Singulair) 10 mg PO DAILY [facility] Last Admin: 04/22/18 09:10 Dose: 10 mg Nicotine (Nicoderm Cq) 1 patch TD DAILY [facility] Last Admin: 04/22/18 09:11 Dose: 1 patch Pantoprazole Sodium (Protonix Ec Tab) 40 mg PO DAILY [facility] Last Admin: 04/22/18 09:10 Dose: 40 mg - Labs Labs: 04/22/18 12:20 04/22/18 12:20 PT 10.4 SECONDS (9.7-12.2) 04/17/18 06:19 INR 1.0 04/17/18 06:19 APTT 25 SECONDS (21-34) 04/17/18 06:19 - Head Exam Head Exam: ATRAUMATIC, NORMAL INSPECTION - Eye Exam Eye Exam: EOMI, Normal appearance - ENT Exam ENT Exam: Mucous Membranes Moist - Respiratory Exam Respiratory Exam: Clear to Ausculation Bilateral, NORMAL BREATHING PATTERN - GI/Abdominal Exam GI & Abdominal Exam: Soft, Normal Bowel Sounds. absent: Tenderness - Extremities Exam Extremities Exam: Full ROM, Normal Inspection - Neurological Exam Neurological Exam: Alert, Awake, CN II-XII Intact - Psychiatric Exam Psychiatric exam: Normal Affect, Normal Mood - Skin Skin Exam: Dry, Intact, Normal Color, Warm Assessment and Plan - Assessment and Plan (Free Text) Assessment: 62 yo F with PMHx of HTN, hypothyroidism, asthma, and migraines who presents with generalized weakness and hypotension. Patient was found to have hemoglobin of 4.7 and PLT count of 12 on admission, with concerns for TTP. Plan: 1. Thrombocytopenia--confirmed TTP - Current Management: - Every other day plasmapheresis sessions. Last one, 04/20. Next scheduled one 04/21. Trend hemoglobin & platlets, monitor for rebound drop in values - F/u [id number] reflex titer - s/p 7th plasmapheresis on 04/20 - Nephrology recs (Dr. Jacob) appreciated -pt responding well to plasmapheresis sessions - Heme/onc recs (Dr. De La Cruz) - would like 2 additional weeks of plasmapheresis, Dr. De La Cruz prefers inpatient treatment over outpatient - s/p 7th plasmapheresis on 04/20 - per hematology, session every other day, likely will need until next week, 04/26/18 Labs: - Hb/Hct: 4.7/13.8 on admission--> 10.3/29.7 (04/21) - PLT: 12 on admission--> 248 (04/21) - Reticulocyte count: 13.3 on admission--> 19.6 (04/17) - Haptoglobin < 20.0 - LDH: 4232 on admission--> 674 (04/19) -> 797 (04/20) -> 936 (04/21) - T. bilirubin: 3.2 on admission--> 0.6 (04/21) - CEA: 4.9 - CA19-9: 6.7 - CA125: 7.0 - Peripheral blood smear (04/12): -no increase in blasts -mild neutrophilia and mild monocytosis -thrombocytopenia with few large PLTs -RBC study shows normocytic anemia; RBC morphology--nucleated RBCs - f/u indirect and direct Lucio test - [id number] (04/12) <3, pending reflex titer - Parovirus B19 IgG Ab elevated at 5.0, IgM normal at 0.2 - strict I/Os Medications -continue with solumedrol 50 mg IV daily prn before plasmsa exchange, per Nephrology -Calcium gluconate 4.65 mEq in 0.9 NS before plasma exchange -Benadryl 50 mg IVP daily PRN before plasma exchange 2. HTN - BP now controlled, on admission uncontrolled, likely worsened by being on steroids per Nephrology - Nephrology recs (Dr. Jacob) recs appreciated - HCTZ 12.5 mg started 04/15, Increased to 25 mg for optimal HTN control on 04/16 - home med lisinopril 10 mg PO daily changed to losartan 50 mg PO daily due to reports of anaphylaxis associated with being on CHRISTINE inhibitor and plasmapheresis concomitantly; currently losartan 100mg PO for HTN coverage - SBP 100s - 130s 3. Electrolyte imbalance - Resolved - hypokalemia, hypomagnesemia being supplemented via IV and PO routes - continue to monitor 4. Severe anemia - Hb/Hct: 4.7/13.8 on admission--> 10.3/29.7 (04/21) - continue to monitor for rebound drop 5. Lacunar Infarct (chronic) - Alert and oriented - Continue to monitor - CT head without contrast Chronic microvascular ischemic changes.7 millimeter focal hypodensity seen at the level of the right internal capsule suggestive for a lacunar infarct, likely chronic.Scattered calcifications along the falx and tentorium.If there is concern for acute ischemic change, consider correlation with MRI. 6. Spleen Infarct (chronic) -Stool occult: negative -CT abdomen/pelvis: wedge-shaped hypodense regions involving the spleen may reflect infarctions of indeterminate age. 7. Hx of Asthma -Saturating 99% on RA -continue with Singulair 10mg PO daily 8. Hx of Hypothyroidism - TSH: 6.24--> 4.91 (04/12) - T4: 11.0 - continue with synthroid 50mcg PO daily 9. Ppx, Diet, Disposition -DVT ppx: Contraindicated at this point 2/2 to possibly TTP -GI ppx: protonix 40 mg PO daily -heart healthy diet -R IJ Permacath usuable for plasma exchange; no issues today. Hematology would like additional possible 1 week of plasmapheresis. Will find out if plasmapheresis can be done via outpatient infusion center vs inpatient. Patient is s/p 7 session. Now will be every other day. Will f/u w/ Dr. De La Cruz to confirm duration of treatment, aaron through 04/26/18. will d/w Dr. Fragoso. Further recs per Dr. Fouzia Bingham, PGY-1
[2018-04-23] MEDS: Levothyroxine 50 MCG TAB PO SCH (05:47)
[2018-04-23 08:39] LABS: BASO % 0.4 % (0.0-2.0); EOS % 0.3 % (0.0-4.0); HEMOGLOBIN 9.4 g/dL (11.0-16.0); LYMPH # 2.5 K/uL (1.0-4.3); LYMPH % 20.4 % (20.0-40.0); MEAN CORPUSCULAR HEMOGLOBIN 31.6 pg (27.0-31.0); MEAN CORPUSCULAR HGB CONC 33.4 g/dL (33.0-37.0); MEAN PLATELET VOLUME 7.1 fL (7.2-11.7); MONO # 0.8 K/uL (0.0-0.8); MONO % 6.4 % (0.0-10.0); NEUT # 8.9 K/uL (1.8-7.0); NEUT % 72.5 % (50.0-75.0); RBC 2.98 Mil/uL (3.80-5.20); RED CELL DISTRIBUTION WIDTH 20.2 % (11.5-14.5); WHITE BLOOD COUNT 12.3 K/uL (4.8-10.8)
[2018-04-23 08:41] LABS: MEAN CELL VOLUME 94.5 fL (81.0-99.0)
[2018-04-23 09:01] LABS: ALB/GLOB RATIO 1.3 (1.0-2.1); ALBUMIN 3.7 g/dL (3.5-5.0); ALT/SGPT 160 U/L (9-52); AST/SGOT 77 U/L (14-36); BLOOD UREA NITROGEN 17 mg/dL (7-17); CALCIUM 8.8 mg/dl (8.6-10.4); GFR NON-AFRICAN AMERICAN > 60
[2018-04-23] MEDS: Pantoprazole 40 mg EC Tab PO SCH (10:27)
--- NOTE | 2018-04-23 18:30 | CP.PCM.PN ---
Subjective - Date & Time of Evaluation Date of Evaluation: 04/22/18 Time of Evaluation: 16:00 - Subjective Subjective: No complaints. Objective - Vital Signs/Intake and Output Vital Signs (last 24 hours): Temp Pulse Resp BP Pulse Ox 98.6 F 97 H 20 121/76 98 04/23/18 07:00 04/23/18 08:36 04/23/18 07:00 04/23/18 07:00 04/23/18 07:00 - Medications Medications: Current Medications Acetaminophen (Tylenol 325mg Tab) 650 mg PO DAILY PRN PRN Reason: pre-med before plasmapheresis Last Admin: 04/22/18 08:35 Dose: 650 mg Diphenhydramine HCl (Benadryl) 50 mg IVP DAILY PRN PRN Reason: BEFORE PLASMA EXCHANGE Last Admin: 04/22/18 08:35 Dose: 50 mg Docusate Sodium (Colace) 100 mg PO BID [facility] Last Admin: 04/23/18 10:26 Dose: 100 mg Hydrochlorothiazide (Microzide) 12.5 mg PO DAILY [facility] Last Admin: 04/23/18 10:26 Dose: 12.5 mg Calcium Gluconate 4.65 meq/ (Sodium Chloride) 260 mls @ 130 mls/hr IV .Q2H PRN PRN Reason: DURING PLASMA EXCHANGE Last Admin: 04/22/18 08:53 Dose: 130 mls/hr Levothyroxine Sodium (Synthroid) 50 mcg PO DAILY@0600 [facility] Last Admin: 04/23/18 05:47 Dose: 50 mcg Losartan Potassium (Cozaar) 50 mg PO DAILY [facility] Last Admin: 04/23/18 10:26 Dose: 50 mg Methylprednisolone (Solu-Medrol) 50 mg IVP DAILY [facility] Last Admin: 04/23/18 10:29 Dose: Not Given Montelukast Sodium (Singulair) 10 mg PO DAILY [facility] Last Admin: 04/23/18 10:26 Dose: 10 mg Nicotine (Nicoderm Cq) 1 patch TD DAILY [facility] Last Admin: 04/23/18 10:27 Dose: 1 patch Pantoprazole Sodium (Protonix Ec Tab) 40 mg PO DAILY [facility] Last Admin: 04/23/18 10:27 Dose: 40 mg - Labs Labs: 04/23/18 08:27 04/23/18 08:27 PT 10.4 SECONDS (9.7-12.2) 04/17/18 06:19 INR 1.0 04/17/18 06:19 APTT 25 SECONDS (21-34) 04/17/18 06:19 - Head Exam Head Exam: ATRAUMATIC - Eye Exam Eye Exam: Normal appearance - ENT Exam ENT Exam: Mucous Membranes Dry - Respiratory Exam Respiratory Exam: NORMAL BREATHING PATTERN - Cardiovascular Exam Cardiovascular Exam: +S1, +S2 Assessment and Plan (1) TTP (thrombotic thrombocytopenic purpura) Assessment & Plan: on plasma exchange every other day; treated today next treatment Tuesday arrangement for outpatient plasma exchange being looked into f/u [id number] inhibitor titer Status: Acute
--- NOTE | 2018-04-23 19:58 | CP.PCM.PN ---
Objective - Vital Signs/Intake and Output Vital Signs (last 24 hours): Temp Pulse Resp BP Pulse Ox 98.4 F 92 H 20 117/79 96 04/23/18 15:00 04/23/18 15:00 04/23/18 15:00 04/23/18 15:00 04/23/18 15:00 - Medications Medications: Current Medications Acetaminophen (Tylenol 325mg Tab) 650 mg PO DAILY PRN PRN Reason: pre-med before plasmapheresis Last Admin: 04/22/18 08:35 Dose: 650 mg Diphenhydramine HCl (Benadryl) 50 mg IVP DAILY PRN PRN Reason: BEFORE PLASMA EXCHANGE Last Admin: 04/22/18 08:35 Dose: 50 mg Docusate Sodium (Colace) 100 mg PO BID [facility] Last Admin: 04/23/18 18:58 Dose: 100 mg Hydrochlorothiazide (Microzide) 12.5 mg PO DAILY [facility] Last Admin: 04/23/18 10:26 Dose: 12.5 mg Calcium Gluconate 4.65 meq/ (Sodium Chloride) 260 mls @ 130 mls/hr IV .Q2H PRN PRN Reason: DURING PLASMA EXCHANGE Last Admin: 04/22/18 08:53 Dose: 130 mls/hr Levothyroxine Sodium (Synthroid) 50 mcg PO DAILY@0600 [facility] Last Admin: 04/23/18 05:47 Dose: 50 mcg Losartan Potassium (Cozaar) 50 mg PO DAILY [facility] Last Admin: 04/23/18 10:26 Dose: 50 mg Methylprednisolone (Solu-Medrol) 50 mg IVP DAILY [facility] Last Admin: 04/23/18 10:29 Dose: Not Given Montelukast Sodium (Singulair) 10 mg PO DAILY [facility] Last Admin: 04/23/18 10:26 Dose: 10 mg Nicotine (Nicoderm Cq) 1 patch TD DAILY [facility] Last Admin: 04/23/18 10:27 Dose: 1 patch Pantoprazole Sodium (Protonix Ec Tab) 40 mg PO DAILY [facility] Last Admin: 04/23/18 10:27 Dose: 40 mg - Labs Labs: 04/23/18 08:27 04/23/18 08:27 PT 10.4 SECONDS (9.7-12.2) 04/17/18 06:19 INR 1.0 04/17/18 06:19 APTT 25 SECONDS (21-34) 04/17/18 06:19 Assessment and Plan (1) Thrombocytopenia Status: Acute (2) HTN (hypertension) Status: Chronic (3) Electrolyte imbalance Status: Acute (4) Severe anemia Status: Acute (5) Acute kidney injury Status: Resolved
[2018-04-23] MEDS ORDERED: MethylPREDNISolone 40 mg Vial IVP ONE (23:50)
[2018-04-24] MEDS: Levothyroxine 50 MCG TAB PO SCH (06:19)
[2018-04-24 07:45] LABS: BASO % 0.2 % (0.0-2.0); HEMOGLOBIN 10.5 g/dL (11.0-16.0); LYMPH # 0.8 K/uL (1.0-4.3); LYMPH % 6.9 % (20.0-40.0); MEAN CELL VOLUME 93.4 fL (81.0-99.0); MEAN CORPUSCULAR HEMOGLOBIN 31.5 pg (27.0-31.0); MEAN CORPUSCULAR HGB CONC 33.7 g/dL (33.0-37.0); MEAN PLATELET VOLUME 7.1 fL (7.2-11.7); MONO # 0.1 K/uL (0.0-0.8); MONO % 0.9 % (0.0-10.0); NEUT # 10.7 K/uL (1.8-7.0); PLATELET COUNT 236 K/uL (130-400); RBC 3.33 Mil/uL (3.80-5.20); RED CELL DISTRIBUTION WIDTH 19.1 % (11.5-14.5); WHITE BLOOD COUNT 11.7 K/uL (4.8-10.8)
[2018-04-24 08:03] LABS: ALB/GLOB RATIO 1.5 (1.0-2.1); ALBUMIN 4.4 g/dL (3.5-5.0); ALT/SGPT 171 U/L (9-52); AST/SGOT 74 U/L (14-36); BLOOD UREA NITROGEN 18 mg/dL (7-17); CALCIUM 9.7 mg/dl (8.6-10.4); GFR NON-AFRICAN AMERICAN > 60
--- NOTE | 2018-04-24 08:38 | CP.PCM.PN ---
<Juan A Delong - Last Filed: 04/24/18 13:28> Subjective - Date & Time of Evaluation Date of Evaluation: 04/24/18 Time of Evaluation: 08:05 - Subjective Subjective: Rogelio Delong PGY2 - Nephrology Progress Note Dr. Aguirre Patient seen and examined. No acute events overnight. No complaints offered. 12 point ROS benign. Tolerating diet. Objective - Vital Signs/Intake and Output Vital Signs (last 24 hours): Temp Pulse Resp BP Pulse Ox 97.8 F 107 H 20 113/76 99 04/24/18 07:47 04/24/18 07:47 04/24/18 07:47 04/24/18 07:47 04/24/18 07:47 Intake and Output: 04/24/18 04/24/18 06:59 18:59 Intake Total 400 Balance 400 - Medications Medications: Current Medications Acetaminophen (Tylenol 325mg Tab) 650 mg PO DAILY PRN PRN Reason: pre-med before plasmapheresis Last Admin: 04/22/18 08:35 Dose: 650 mg Diphenhydramine HCl (Benadryl) 50 mg IVP DAILY PRN PRN Reason: BEFORE PLASMA EXCHANGE Last Admin: 04/22/18 08:35 Dose: 50 mg Docusate Sodium (Colace) 100 mg PO BID [facility] Last Admin: 04/23/18 18:58 Dose: 100 mg Hydrochlorothiazide (Microzide) 12.5 mg PO DAILY [facility] Last Admin: 04/23/18 10:26 Dose: 12.5 mg Calcium Gluconate 4.65 meq/ (Sodium Chloride) 260 mls @ 130 mls/hr IV .Q2H PRN PRN Reason: DURING PLASMA EXCHANGE Last Admin: 04/22/18 08:53 Dose: 130 mls/hr Levothyroxine Sodium (Synthroid) 50 mcg PO DAILY@0600 [facility] Last Admin: 04/24/18 06:19 Dose: 50 mcg Losartan Potassium (Cozaar) 50 mg PO DAILY [facility] Last Admin: 04/23/18 10:26 Dose: 50 mg Methylprednisolone (Solu-Medrol) 50 mg IVP DAILY [facility] Last Admin: 04/23/18 10:29 Dose: Not Given Montelukast Sodium (Singulair) 10 mg PO DAILY [facility] Last Admin: 04/23/18 10:26 Dose: 10 mg Nicotine (Nicoderm Cq) 1 patch TD DAILY [facility] Last Admin: 04/23/18 10:27 Dose: 1 patch Pantoprazole Sodium (Protonix Ec Tab) 40 mg PO DAILY [facility] Last Admin: 04/23/18 10:27 Dose: 40 mg - Labs Labs: 04/24/18 07:37 04/24/18 07:37 PT 10.4 SECONDS (9.7-12.2) 04/17/18 06:19 INR 1.0 04/17/18 06:19 APTT 25 SECONDS (21-34) 04/17/18 06:19 - Constitutional Appears: Non-toxic, No Acute Distress - Head Exam Head Exam: ATRAUMATIC, NORMAL INSPECTION, NORMOCEPHALIC - Eye Exam Eye Exam: EOMI, PERRL - ENT Exam ENT Exam: Mucous Membranes Moist - Respiratory Exam Respiratory Exam: Clear to Ausculation Bilateral, NORMAL BREATHING PATTERN - Cardiovascular Exam Cardiovascular Exam: REGULAR RHYTHM, +S1, +S2 - GI/Abdominal Exam GI & Abdominal Exam: Soft, Normal Bowel Sounds - Extremities Exam Extremities Exam: Full ROM. absent: Pedal Edema - Neurological Exam Neurological Exam: Alert, Awake, Normal Gait, Oriented x3 Neuro motor strength exam: Left Upper Extremity: 5, Right Upper Extremity: 5, Left Lower Extremity: 5, Right Lower Extremity: 5 - Psychiatric Exam Psychiatric exam: Normal Affect, Normal Mood - Skin Skin Exam: Dry, Intact Assessment and Plan - Assessment and Plan (Free Text) Assessment: 62 year old AA female with past medical history of HTN, Hypothyroid, Asthma, Migraines who was was admitted to [facility] for severe anemia. Patient was started on plasma exchange therapy for suspicion of TTP vs. Hemolytic anemia. Nephrology was consulted for plasma exchange. Heme consulted and following along with TPE. Plan: [id number] level severely low consistent with TTP - [id number] (04/12) <3, pending reflex titer - Continue TPE, now on every other day tx - Platelets appear to be stable with treatments - Outpatient TPE being coordinated, will discuss with heme/onc as to when patient is stable for dc with outpatient TPE - Continue with solumedrol 50mg daily, switch to Prednisone upon d/c HTN - Patient BP stable - Goal MAP >65 - Continue current management HCTZ 25mg Daily Losartan 50mg PO daily Transaminitis - Etiology unclear, drugs vs. metabolic origin vs. chronic dz - Stable with some fluctuation during hospital stay - continue to monitor Patient seen, case and plan discussed with attending Dr. Aguirre <Jason Aguirre - Last Filed: 04/25/18 08:20> Objective - Vital Signs/Intake and Output Vital Signs (last 24 hours): Temp Pulse Resp BP Pulse Ox 97.6 F 81 20 104/69 98 04/24/18 23:35 04/25/18 01:00 04/24/18 23:35 04/24/18 23:35 04/24/18 23:35 - Medications Medications: Current Medications Acetaminophen (Tylenol 325mg Tab) 650 mg PO DAILY PRN PRN Reason: pre-med before plasmapheresis Last Admin: 04/22/18 08:35 Dose: 650 mg Diphenhydramine HCl (Benadryl) 50 mg IVP DAILY PRN PRN Reason: BEFORE PLASMA EXCHANGE Last Admin: 04/24/18 09:05 Dose: 50 mg Docusate Sodium (Colace) 100 mg PO BID [facility] Last Admin: 04/24/18 17:39 Dose: 100 mg Hydrochlorothiazide (Microzide) 12.5 mg PO DAILY [facility] Last Admin: 04/24/18 11:46 Dose: 12.5 mg Calcium Gluconate 4.65 meq/ (Sodium Chloride) 260 mls @ 130 mls/hr IV .Q2H PRN PRN Reason: DURING PLASMA EXCHANGE Last Admin: 04/24/18 09:05 Dose: 130 mls/hr Levothyroxine Sodium (Synthroid) 50 mcg PO DAILY@0600 [facility] Last Admin: 04/25/18 05:17 Dose: 50 mcg Losartan Potassium (Cozaar) 50 mg PO DAILY [facility] Last Admin: 04/24/18 11:46 Dose: 50 mg Montelukast Sodium (Singulair) 10 mg PO DAILY [facility] Last Admin: 04/24/18 11:46 Dose: 10 mg Nicotine (Nicoderm Cq) 1 patch TD DAILY [facility] Last Admin: 04/24/18 11:46 Dose: 1 patch Pantoprazole Sodium (Protonix Ec Tab) 40 mg PO DAILY [facility] Last Admin: 04/24/18 11:46 Dose: 40 mg Prednisone (Prednisone Tab) 50 mg PO DAILY [facility] - Labs Labs: 04/25/18 07:46 09/18/18 07:46 PT 10.4 SECONDS (9.7-12.2) 04/17/18 06:19 INR 1.0 04/17/18 06:19 APTT 25 SECONDS (21-34) 04/17/18 06:19 Assessment and Plan (1) Thrombocytopenia Status: Acute (2) HTN (hypertension) Status: Chronic (3) Electrolyte imbalance Status: Acute (4) Severe anemia Status: Acute (5) Acute kidney injury Status: Resolved Attending/Attestation - Attestation I have personally seen and examined this patient.: Yes I have fully participated in the care of the patient.: Yes I have reviewed all pertinent clinical information, including history, physical exam and plan: Yes Notes (Text): Patient seen and examined; I agree with the resident's note as above with the following additions/edits: Patient admitted with TTP after presentation with severe hemolytic anemia and thrombocytopenia; responded well to plasma exchange (TPE); underwent daily TPE sessions for 7 days before being switched to every other day sessions 2 days ago ; received TPE earlier today; Outpatient TPE in process of being setup as 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
[2018-04-24] MEDS: SODIUM CHLORIDE 0.9% IV PRN (09:05)
[2018-04-24] MEDS: CALCIUM GLUCONATE IV PRN (09:05)
[2018-04-24] MEDS: DiphenhydrAMINE 50 mg/ml Inj IVP PRN (09:05)
[2018-04-24 10:02] LABS: BANDS 1 % (0-2); LYMPHOCYTE 7 % (20-40); NEUTROPHIL 92 % (50-75); TOTAL CELLS COUNTED 100
[2018-04-24 10:03] LABS: ANISOCYTOSIS MODERATE; PLATELET ESTIMATE NORMAL (NORMAL); POIKILOCYTOSIS SLIGHT; SCHISTOCYTES MODERATE
--- NOTE | 2018-04-24 10:41 | CP.PCM.PN ---
Subjective - Date & Time of Evaluation Date of Evaluation: 04/24/18 Time of Evaluation: 07:20 - Subjective Subjective: PGY 1 Medicine Progress Note for Dr. Fragoso Patient seen and examined at bedside. Patient lying in bed comfortably, in no acute distress. No overnight events reported. Patient denies chest pain, SOB, nausea, vomiting, diarrhea, constipation. Patient had plasmapheresis session on 04/22, scheduled to have next today, 04/24. Objective - Vital Signs/Intake and Output Vital Signs (last 24 hours): Temp Pulse Resp BP Pulse Ox 97.8 F 107 H 20 113/76 99 04/24/18 07:47 04/24/18 07:47 04/24/18 07:47 04/24/18 07:47 04/24/18 07:47 Intake and Output: 04/24/18 04/24/18 06:59 18:59 Intake Total 400 Balance 400 - Medications Medications: Current Medications Acetaminophen (Tylenol 325mg Tab) 650 mg PO DAILY PRN PRN Reason: pre-med before plasmapheresis Last Admin: 04/22/18 08:35 Dose: 650 mg Diphenhydramine HCl (Benadryl) 50 mg IVP DAILY PRN PRN Reason: BEFORE PLASMA EXCHANGE Last Admin: 04/24/18 09:05 Dose: 50 mg Docusate Sodium (Colace) 100 mg PO BID [facility] Last Admin: 04/23/18 18:58 Dose: 100 mg Hydrochlorothiazide (Microzide) 12.5 mg PO DAILY [facility] Last Admin: 04/23/18 10:26 Dose: 12.5 mg Calcium Gluconate 4.65 meq/ (Sodium Chloride) 260 mls @ 130 mls/hr IV .Q2H PRN PRN Reason: DURING PLASMA EXCHANGE Last Admin: 04/24/18 09:05 Dose: 130 mls/hr Levothyroxine Sodium (Synthroid) 50 mcg PO DAILY@0600 [facility] Last Admin: 04/24/18 06:19 Dose: 50 mcg Losartan Potassium (Cozaar) 50 mg PO DAILY [facility] Last Admin: 04/23/18 10:26 Dose: 50 mg Methylprednisolone (Solu-Medrol) 50 mg IVP DAILY [facility] Last Admin: 04/24/18 09:04 Dose: 50 mg Montelukast Sodium (Singulair) 10 mg PO DAILY [facility] Last Admin: 04/23/18 10:26 Dose: 10 mg Nicotine (Nicoderm Cq) 1 patch TD DAILY [facility] Last Admin: 04/23/18 10:27 Dose: 1 patch Pantoprazole Sodium (Protonix Ec Tab) 40 mg PO DAILY [facility] Last Admin: 04/23/18 10:27 Dose: 40 mg - Labs Labs: 04/24/18 07:37 04/24/18 07:37 PT 10.4 SECONDS (9.7-12.2) 04/17/18 06:19 INR 1.0 04/17/18 06:19 APTT 25 SECONDS (21-34) 04/17/18 06:19 - Constitutional Appears: Non-toxic, No Acute Distress - Head Exam Head Exam: ATRAUMATIC, NORMAL INSPECTION, NORMOCEPHALIC - Eye Exam Eye Exam: EOMI, Normal appearance - ENT Exam ENT Exam: Mucous Membranes Moist - Neck Exam Neck Exam: Normal Inspection - Respiratory Exam Respiratory Exam: Clear to Ausculation Bilateral, NORMAL BREATHING PATTERN. absent: Rales, Rhonchi, Wheezes - Cardiovascular Exam Cardiovascular Exam: +S1, +S2. absent: Irregular Rhythm, Murmur - GI/Abdominal Exam GI & Abdominal Exam: Soft, Normal Bowel Sounds. absent: Firm, Guarding, Rigid - Extremities Exam Extremities Exam: Full ROM, Normal Inspection. absent: Calf Tenderness, Pedal Edema - Back Exam Back Exam: absent: CVA tenderness (L), CVA tenderness (R) - Neurological Exam Neurological Exam: Alert, Awake, Oriented x3 - Psychiatric Exam Psychiatric exam: Normal Affect, Normal Mood - Skin Skin Exam: Dry, Intact, Normal Color, Warm Assessment and Plan - Assessment and Plan (Free Text) Assessment: 62 yo F with PMHx of HTN, hypothyroidism, asthma, and migraines who presents with generalized weakness and hypotension. Patient was found to have hemoglobin of 4.7 and PLT count of 12 on admission, with concerns for TTP. Plan: 1. Thrombocytopenia--confirmed TTP - Current Management: - Every other day plasmapheresis sessions. Last one, 04/20. Next scheduled one 04/21. Trend hemoglobin & platlets, monitor for rebound drop in values - F/u [id number] reflex titer - s/p 8th plasmapheresis on 04/22 - scheduled for 04/24 - Pending outpatient sessions, will need final session on 05/03 - Nephrology recs (Dr. Jacob) appreciated -pt responding well to plasmapheresis sessions - Heme/onc recs (Dr. De La Cruz) - would like 2 additional weeks of plasmapheresis, Dr. De La Cruz prefers inpatient treatment over outpatient - s/p 8th plasmapheresis on 04/22 - per hematology, session every other day, likely will need until next week, 04/26/18 - Will need Labs: - Hb/Hct: 4.7/13.8 on admission--> stable in 10s/30s - PLT: 12 on admission--> stable 200s+ - Reticulocyte count: 13.3 on admission--> 19.6 (04/17) - Haptoglobin < 20.0 - LDH: 4232 on admission--> 674 (04/19) -> 797 (04/20) -> 936 (04/21) -> 598 (04/22 ) -> 677 (04/23) - T. bilirubin: 3.2 on admission--> 0.6 (04/21) (normalized) - CEA: 4.9 - CA19-9: 6.7 - CA125: 7.0 - Peripheral blood smear (04/12): -no increase in blasts -mild neutrophilia and mild monocytosis -thrombocytopenia with few large PLTs -RBC study shows normocytic anemia; RBC morphology--nucleated RBCs - f/u indirect and direct Lucio test - [id number] (04/12) <3, pending reflex titer - Parovirus B19 IgG Ab elevated at 5.0, IgM normal at 0.2 - strict I/Os Medications -continue with solumedrol 50 mg IV daily prn before plasma exchange, per Nephrology -Calcium gluconate 4.65 mEq in 0.9 NS before plasma exchange -Benadryl 50 mg IVP daily PRN before plasma exchange 2. HTN - BP now controlled, on admission uncontrolled, likely worsened by being on steroids per Nephrology - Nephrology recs (Dr. Jacob) recs appreciated - HCTZ 12.5 mg started 04/15, Increased to 25 mg for optimal HTN control on 04/16 - home med lisinopril 10 mg PO daily changed to losartan 50 mg PO daily due to reports of anaphylaxis associated with being on CHRISTINE inhibitor and plasmapheresis concomitantly; currently losartan 100mg PO for HTN coverage - SBP 100s - 130s 3. Electrolyte imbalance - Resolved - hypokalemia, hypomagnesemia being supplemented via IV and PO routes - continue to monitor 4. Severe anemia - Hb/Hct: 4.7/13.8 on admission--> stable in 10s/30s - continue to monitor for rebound drop 5. Lacunar Infarct (chronic) - Alert and oriented - Continue to monitor - CT head without contrast Chronic microvascular ischemic changes.7 millimeter focal hypodensity seen at the level of the right internal capsule suggestive for a lacunar infarct, likely chronic.Scattered calcifications along the falx and tentorium.If there is concern for acute ischemic change, consider correlation with MRI. 6. Spleen Infarct (chronic) -Stool occult: negative -CT abdomen/pelvis: wedge-shaped hypodense regions involving the spleen may reflect infarctions of indeterminate age. 7. Hx of Asthma -Saturating 99% on RA -continue with Singulair 10mg PO daily 8. Hx of Hypothyroidism - TSH: 6.24--> 4.91 (04/12) - T4: 11.0 - continue with synthroid 50mcg PO daily 9. Ppx, Diet, Disposition -DVT ppx: Contraindicated at this point 2/2 to possibly TTP -GI ppx: protonix 40 mg PO daily -heart healthy diet -R IJ Permacath usable for plasma exchange; no issues today. Hematology would like additional possible 1 week of plasmapheresis. Will find out if plasmapheresis can be done via outpatient infusion center vs inpatient. Patient is s/p 8 session, with one scheduled today 04/24. Now will be every other day. Will f/u w/ Dr. De La Cruz to confirm duration of treatment, likely will need treatment through 05/03. Doctor Tran in outpatient transfusion center contact number: [phone]. d/w Dr. Fragoso. Colin Lilly, PGY-1
[2018-04-24] MEDS: Pantoprazole 40 mg EC Tab PO SCH (11:46)
[2018-04-25] MEDS: Levothyroxine 50 MCG TAB PO SCH (05:17)
--- NOTE | 2018-04-25 06:26 | CP.PCM.PN ---
Subjective - Date & Time of Evaluation Date of Evaluation: 04/25/18 Time of Evaluation: 07:40 - Subjective Subjective: PGY 1 Medicine Progress Note for Dr. Fragoso. Patient seen and examined at bedside. No overnight events reported. Patient received plasmapheresis yesterday with no complications. Patient scheduled to receive it tomorrow 04/26. Patient scheduled to receive treatments through . Patient currently denies chest pain, shortness of breath, constipation, nausea, vomiting, headaches, vision. Objective - Vital Signs/Intake and Output Vital Signs (last 24 hours): Temp Pulse Resp BP Pulse Ox 97.6 F 81 20 104/69 98 04/24/18 23:35 04/25/18 01:00 04/24/18 23:35 04/24/18 23:35 04/24/18 23:35 - Medications Medications: Current Medications Acetaminophen (Tylenol 325mg Tab) 650 mg PO DAILY PRN PRN Reason: pre-med before plasmapheresis Last Admin: 04/22/18 08:35 Dose: 650 mg Diphenhydramine HCl (Benadryl) 50 mg IVP DAILY PRN PRN Reason: BEFORE PLASMA EXCHANGE Last Admin: 04/24/18 09:05 Dose: 50 mg Docusate Sodium (Colace) 100 mg PO BID [facility] Last Admin: 04/24/18 17:39 Dose: 100 mg Hydrochlorothiazide (Microzide) 12.5 mg PO DAILY [facility] Last Admin: 04/24/18 11:46 Dose: 12.5 mg Calcium Gluconate 4.65 meq/ (Sodium Chloride) 260 mls @ 130 mls/hr IV .Q2H PRN PRN Reason: DURING PLASMA EXCHANGE Last Admin: 04/24/18 09:05 Dose: 130 mls/hr Levothyroxine Sodium (Synthroid) 50 mcg PO DAILY@0600 [facility] Last Admin: 04/25/18 05:17 Dose: 50 mcg Losartan Potassium (Cozaar) 50 mg PO DAILY [facility] Last Admin: 04/24/18 11:46 Dose: 50 mg Montelukast Sodium (Singulair) 10 mg PO DAILY [facility] Last Admin: 04/24/18 11:46 Dose: 10 mg Nicotine (Nicoderm Cq) 1 patch TD DAILY [facility] Last Admin: 04/24/18 11:46 Dose: 1 patch Pantoprazole Sodium (Protonix Ec Tab) 40 mg PO DAILY [facility] Last Admin: 04/24/18 11:46 Dose: 40 mg Prednisone (Prednisone Tab) 50 mg PO DAILY [facility] - Labs Labs: 04/24/18 07:37 04/24/18 07:37 PT 10.4 SECONDS (9.7-12.2) 04/17/18 06:19 INR 1.0 04/17/18 06:19 APTT 25 SECONDS (21-34) 04/17/18 06:19 - Constitutional Appears: Non-toxic, No Acute Distress - Head Exam Head Exam: ATRAUMATIC, NORMAL INSPECTION, NORMOCEPHALIC - Eye Exam Eye Exam: EOMI, Normal appearance - ENT Exam ENT Exam: Mucous Membranes Moist - Respiratory Exam Respiratory Exam: Clear to Ausculation Bilateral, NORMAL BREATHING PATTERN. absent: Rales, Rhonchi, Wheezes - Cardiovascular Exam Cardiovascular Exam: +S1, +S2. absent: Irregular Rhythm, Murmur Additional comments: R chest permacath in place, dressing clean, dry, intact - GI/Abdominal Exam GI & Abdominal Exam: Soft, Normal Bowel Sounds. absent: Firm, Guarding, Rigid - Extremities Exam Extremities Exam: Full ROM, Normal Inspection. absent: Calf Tenderness, Pedal Edema - Back Exam Back Exam: absent: CVA tenderness (L), CVA tenderness (R) - Neurological Exam Neurological Exam: Alert, Awake, Oriented x3 - Psychiatric Exam Psychiatric exam: Normal Affect, Normal Mood - Skin Skin Exam: Dry, Intact, Normal Color, Warm Assessment and Plan - Assessment and Plan (Free Text) Assessment: 62 yo F with PMHx of HTN, hypothyroidism, asthma, and migraines who presents with generalized weakness and hypotension. Patient was found to have hemoglobin of 4.7 and PLT count of 12 on admission, with concerns for TTP, now currently stable w/ stable H/H & platelets: Plan: TTP - Current Management: - Every other day plasmapheresis sessions. Last one, 04/24. Next scheduled one 04/26. Trend hemoglobin & platelets, monitor for rebound drop in values - F/u [id number] reflex titer - s/p plasmapheresis on 04/24 - scheduled for tomorrow 04/26 - Final session on 05/03; likely will need inpatient stay 2/2 insurance. See dispo below - prednisone 50 mg PO daily prn before plasma exchange, per Nephrology - Calcium gluconate 4.65 mEq in 0.9 NS before plasma exchange - Benadryl 50 mg IVP daily PRN before plasma exchange - Nephrology recs (Dr. Jacob) appreciated -pt responding well to plasmapheresis sessions - Heme/onc recs (Dr. De La Cruz) - plasmapheresis every other day, through 05/03 Labs: - Hb/Hct: stable at 10s/30 (4.7/13.8 on admission) - PLT: stable 200s+ (12 on admission) - Reticulocyte count: stable in 2s (13.3 on admission) - Haptoglobin < 20.0 - LDH: fluctuating 600s to 800s (4232 on admission) - T. bilirubin: 3.2 on admission--> 0.6 (04/21) (normalized) - CEA: 4.9 - CA19-9: 6.7 - CA125: 7.0 - Peripheral blood smear (04/12): -no increase in blasts -mild neutrophilia and mild monocytosis -thrombocytopenia with few large PLTs -RBC study shows normocytic anemia; RBC morphology--nucleated RBCs - f/u indirect and direct Lucio test - [id number] (04/12) <3, pending reflex titer - Parovirus B19 IgG Ab elevated at 5.0, IgM normal at 0.2 - strict I/Os HTN - BP now controlled, on admission uncontrolled, likely worsened by being on steroids per Nephrology - Nephrology recs (Dr. Jacob) recs appreciated - HCTZ 12.5 mg started 04/15, Increased to 25 mg for optimal HTN control on 04/16 - home med lisinopril 10 mg PO daily changed to losartan 50 mg PO daily due to reports of anaphylaxis associated with being on CHRISTINE inhibitor and plasmapheresis concomitantly; currently losartan 100mg PO for HTN coverage - SBP 100s - 130s Severe anemia - Currently stable in 10s/30s - On admission: Hb/Hct: 4.7/13.8 Asthma - Singulair 10mg PO daily Hypothyroidism - TSH: 6.24--> 4.91 (04/12) - T4: 11.0 - synthroid 50mcg PO daily Lacunar Infarct (chronic) - CT head without contrast Chronic microvascular ischemic changes.7 millimeter focal hypodensity seen at the level of the right internal capsule suggestive for a lacunar infarct, likely chronic.Scattered calcifications along the falx and tentorium.If there is concern for acute ischemic change, consider correlation with MRI. Spleen Infarct (chronic) -Stool occult: negative -CT abdomen/pelvis: wedge-shaped hypodense regions involving the spleen may reflect infarctions of indeterminate age. Ppx, Diet, Disposition -DVT ppx: Contraindicated at this point 2/2 to possibly TTP -GI ppx: protonix 40 mg PO daily -heart healthy diet -R Permacath usable for plasma exchange; no issues today Hematology would like additional 1 week of plasmapheresis (through 05/03). Outpatient plasmapheresis less likely due to insurance authorization can be submitted only after Dr. Dumont talks to Dr. Tran @[phone]. Insurance authorization typically takes 2 weeks sooutpatient approval unlikely to work. Patient made aware of above information and understands she will likely be here through 05/03. d/w Dr. Fragoso. Colin Lilly, PGY-1
[2018-04-25 07:59] LABS: BASO % 0.4 % (0.0-2.0); EOS % 0.4 % (0.0-4.0); HEMOGLOBIN 9.4 g/dL (11.0-16.0); LYMPH % 28.4 % (20.0-40.0); MEAN CELL VOLUME 93.6 fL (81.0-99.0); MEAN CORPUSCULAR HEMOGLOBIN 31.5 pg (27.0-31.0); MEAN CORPUSCULAR HGB CONC 33.7 g/dL (33.0-37.0); MONO # 0.7 K/uL (0.0-0.8); MONO % 6.4 % (0.0-10.0); NEUT # 6.8 K/uL (1.8-7.0); NEUT % 64.4 % (50.0-75.0); RBC 2.99 Mil/uL (3.80-5.20); RED CELL DISTRIBUTION WIDTH 18.8 % (11.5-14.5); WHITE BLOOD COUNT 10.5 K/uL (4.8-10.8)
[2018-04-25 08:11] LABS: ALB/GLOB RATIO 1.5 (1.0-2.1); ALBUMIN 3.5 g/dL (3.5-5.0); ALT/SGPT 190 U/L (9-52); AST/SGOT 86 U/L (14-36); BLOOD UREA NITROGEN 19 mg/dL (7-17); GFR NON-AFRICAN AMERICAN > 60
--- NOTE | 2018-04-25 09:28 | CP.PCM.PN ---
<Juan A Delong - Last Filed: 04/25/18 13:34> Subjective - Date & Time of Evaluation Date of Evaluation: 04/25/18 Time of Evaluation: 08:15 - Subjective Subjective: Rogelio Delong PGY2 - Nephrology Progress Note Patient seen and examined this AM. No acute events overnight. Patient spent majority of interview discussing her outpatient plans for TPE. Patient is aware and agreeable to plan. Objective - Vital Signs/Intake and Output Vital Signs (last 24 hours): Temp Pulse Resp BP Pulse Ox 97.9 F 85 20 127/72 100 04/25/18 08:35 04/25/18 08:35 04/25/18 08:35 04/25/18 08:35 04/25/18 08:35 - Medications Medications: Current Medications Acetaminophen (Tylenol 325mg Tab) 650 mg PO DAILY PRN PRN Reason: pre-med before plasmapheresis Last Admin: 04/22/18 08:35 Dose: 650 mg Diphenhydramine HCl (Benadryl) 50 mg IVP DAILY PRN PRN Reason: BEFORE PLASMA EXCHANGE Last Admin: 04/24/18 09:05 Dose: 50 mg Docusate Sodium (Colace) 100 mg PO BID [facility] Last Admin: 04/24/18 17:39 Dose: 100 mg Hydrochlorothiazide (Microzide) 12.5 mg PO DAILY [facility] Last Admin: 04/24/18 11:46 Dose: 12.5 mg Calcium Gluconate 4.65 meq/ (Sodium Chloride) 260 mls @ 130 mls/hr IV .Q2H PRN PRN Reason: DURING PLASMA EXCHANGE Last Admin: 04/24/18 09:05 Dose: 130 mls/hr Levothyroxine Sodium (Synthroid) 50 mcg PO DAILY@0600 [facility] Last Admin: 04/25/18 05:17 Dose: 50 mcg Losartan Potassium (Cozaar) 50 mg PO DAILY [facility] Last Admin: 04/24/18 11:46 Dose: 50 mg Montelukast Sodium (Singulair) 10 mg PO DAILY [facility] Last Admin: 04/24/18 11:46 Dose: 10 mg Nicotine (Nicoderm Cq) 1 patch TD DAILY [facility] Last Admin: 04/24/18 11:46 Dose: 1 patch Pantoprazole Sodium (Protonix Ec Tab) 40 mg PO DAILY [facility] Last Admin: 04/24/18 11:46 Dose: 40 mg Prednisone (Prednisone Tab) 50 mg PO DAILY [facility] - Labs Labs: 04/25/18 07:46 04/25/18 07:46 PT 10.4 SECONDS (9.7-12.2) 04/17/18 06:19 INR 1.0 04/17/18 06:19 APTT 25 SECONDS (21-34) 04/17/18 06:19 - Constitutional Appears: Non-toxic, No Acute Distress - Head Exam Head Exam: ATRAUMATIC, NORMAL INSPECTION, NORMOCEPHALIC - Eye Exam Eye Exam: EOMI, PERRL - ENT Exam ENT Exam: Mucous Membranes Moist - Neck Exam Neck Exam: Full ROM - Respiratory Exam Respiratory Exam: Clear to Ausculation Bilateral, NORMAL BREATHING PATTERN - Cardiovascular Exam Cardiovascular Exam: REGULAR RHYTHM, +S1, +S2 - GI/Abdominal Exam GI & Abdominal Exam: Soft, Normal Bowel Sounds - Extremities Exam Extremities Exam: Full ROM. absent: Pedal Edema - Back Exam Back Exam: absent: CVA tenderness (L), CVA tenderness (R) - Neurological Exam Neurological Exam: Alert, Awake, CN II-XII Intact, Normal Gait, Oriented x3 Neuro motor strength exam: Left Upper Extremity: 5, Right Upper Extremity: 5, Left Lower Extremity: 5, Right Lower Extremity: 5 - Psychiatric Exam Psychiatric exam: Normal Affect, Normal Mood - Skin Skin Exam: Dry, Intact Assessment and Plan - Assessment and Plan (Free Text) Assessment: 62 year old AA female with past medical history of HTN, Hypothyroid, Asthma, Migraines who was was admitted to [facility] for severe anemia. Patient was started on plasma exchange therapy for suspicion of TTP vs. Hemolytic anemia. Nephrology was consulted for plasma exchange. Heme consulted and following along with TPE. Plan: [id number] level severely low consistent with TTP - [id number] (04/12) <3, pending reflex titer - Continue TPE, now on every other day tx - Platelets appear to be stable with treatments - Patient to be receiving continued TPE in hospital over next week - Solumedrol switched to PO prednisone 50mg Daily with taper next 2 weeks HTN - Patient BP stable - Goal MAP >65 - Continue current management HCTZ 25mg Daily Losartan 50mg PO daily Transaminitis - Etiology unclear, drugs vs. metabolic origin vs. chronic dz - Stable with some fluctuation during hospital stay - continue to monitor Patient seen, case and plan discussed with attending Dr. Aguirre <Jason Aguirre - Last Filed: 04/26/18 05:52> Objective - Vital Signs/Intake and Output Vital Signs (last 24 hours): Temp Pulse Resp BP Pulse Ox 97.8 F 76 20 134/83 100 04/25/18 23:35 04/25/18 23:35 04/25/18 23:35 04/25/18 23:35 04/25/18 23:35 Intake and Output: 04/25/18 04/26/18 18:59 06:59 Intake Total 200 Balance 200 - Medications Medications: Current Medications Acetaminophen (Tylenol 325mg Tab) 650 mg PO DAILY PRN PRN Reason: pre-med before plasmapheresis Last Admin: 04/22/18 08:35 Dose: 650 mg Diphenhydramine HCl (Benadryl) 50 mg IVP DAILY PRN PRN Reason: BEFORE PLASMA EXCHANGE Last Admin: 04/24/18 09:05 Dose: 50 mg Docusate Sodium (Colace) 100 mg PO BID [facility] Last Admin: 04/25/18 17:58 Dose: 100 mg Hydrochlorothiazide (Microzide) 12.5 mg PO DAILY [facility] Last Admin: 04/25/18 11:02 Dose: 12.5 mg Calcium Gluconate 4.65 meq/ (Sodium Chloride) 260 mls @ 130 mls/hr IV .Q2H PRN PRN Reason: DURING PLASMA EXCHANGE Last Admin: 04/24/18 09:05 Dose: 130 mls/hr Levothyroxine Sodium (Synthroid) 50 mcg PO DAILY@0600 [facility] Last Admin: 04/26/18 05:42 Dose: 50 mcg Losartan Potassium (Cozaar) 50 mg PO DAILY [facility] Last Admin: 04/25/18 11:01 Dose: 50 mg Montelukast Sodium (Singulair) 10 mg PO DAILY [facility] Last Admin: 04/25/18 11:02 Dose: 10 mg Nicotine (Nicoderm Cq) 1 patch TD DAILY [facility] Last Admin: 04/25/18 11:02 Dose: 1 patch Pantoprazole Sodium (Protonix Ec Tab) 40 mg PO DAILY [facility] Last Admin: 04/25/18 11:04 Dose: 40 mg Prednisone (Prednisone Tab) 50 mg PO DAILY [facility] Last Admin: 09/18/18 11:01 Dose: 50 mg - Labs Labs: 04/25/18 07:46 04/25/18 07:46 PT 10.4 SECONDS (9.7-12.2) 04/17/18 06:19 INR 1.0 04/17/18 06:19 APTT 25 SECONDS (21-34) 04/17/18 06:19 Assessment and Plan (1) Thrombocytopenia Status: Acute (2) HTN (hypertension) Status: Chronic (3) Electrolyte imbalance Status: Acute (4) Severe anemia Status: Acute (5) Acute kidney injury Status: Resolved Attending/Attestation - Attestation I have personally seen and examined this patient.: Yes I have fully participated in the care of the patient.: Yes I have reviewed all pertinent clinical information, including history, physical exam and plan: Yes Notes (Text): Patient seen and examined; I agree with the resident's note as above with the following additions/edits: Patient admitted with TTP, started on plasma exchange (TPE) x 7 days, switched to every other day TPE 3 days ago; responding well with platelet count normalized although slight drop noted today; LDH remains mildly elevated but stable; Were trying to arrange for outpatient TPE but insurance hurdles present currently; for now, will continue inpatient TPE every other day for the coming week; Still awaiting [id number] inhibitor study; on prednisone 50 mg daily, will start slow taper over 2 weeks; HTN controlled, continue losartan 50 and hctz 12.5 mg daily; Stable electrolyte status, will monitor closely;
[2018-04-25] MEDS: Pantoprazole 40 mg EC Tab PO SCH (11:04)
[2018-04-26] MEDS: Levothyroxine 50 MCG TAB PO SCH (05:42)
--- NOTE | 2018-04-26 09:20 | CP.PCM.PN ---
Subjective - Date & Time of Evaluation Date of Evaluation: 04/26/18 Time of Evaluation: 09:09 - Subjective Subjective: Rogelio Delong PGY2 - Nephrology Progress Note Dr. Aguirre Patient seen and examined this AM. No acute events reported overnight. Patient clinically unchanged. 12 ROS benign Objective - Vital Signs/Intake and Output Vital Signs (last 24 hours): Temp Pulse Resp BP Pulse Ox 98 F 81 20 116/71 96 04/26/18 07:00 04/26/18 07:00 04/26/18 07:00 04/26/18 07:00 04/26/18 07:00 Intake and Output: 04/26/18 04/26/18 06:59 18:59 Intake Total 200 Balance 200 - Medications Medications: Current Medications Acetaminophen (Tylenol 325mg Tab) 650 mg PO DAILY PRN PRN Reason: pre-med before plasmapheresis Last Admin: 04/22/18 08:35 Dose: 650 mg Diphenhydramine HCl (Benadryl) 50 mg IVP DAILY PRN PRN Reason: BEFORE PLASMA EXCHANGE Last Admin: 04/24/18 09:05 Dose: 50 mg Docusate Sodium (Colace) 100 mg PO BID [facility] Last Admin: 04/25/18 17:58 Dose: 100 mg Hydrochlorothiazide (Microzide) 12.5 mg PO DAILY [facility] Last Admin: 04/25/18 11:02 Dose: 12.5 mg Calcium Gluconate 4.65 meq/ (Sodium Chloride) 260 mls @ 130 mls/hr IV .Q2H PRN PRN Reason: DURING PLASMA EXCHANGE Last Admin: 04/24/18 09:05 Dose: 130 mls/hr Levothyroxine Sodium (Synthroid) 50 mcg PO DAILY@0600 [facility] Last Admin: 04/26/18 05:42 Dose: 50 mcg Losartan Potassium (Cozaar) 50 mg PO DAILY [facility] Last Admin: 04/25/18 11:01 Dose: 50 mg Montelukast Sodium (Singulair) 10 mg PO DAILY [facility] Last Admin: 04/25/18 11:02 Dose: 10 mg Nicotine (Nicoderm Cq) 1 patch TD DAILY [facility] Last Admin: 04/25/18 11:02 Dose: 1 patch Pantoprazole Sodium (Protonix Ec Tab) 40 mg PO DAILY [facility] Last Admin: 04/25/18 11:04 Dose: 40 mg Prednisone (Prednisone Tab) 50 mg PO DAILY [facility] Last Admin: 04/25/18 11:01 Dose: 50 mg - Labs Labs: 04/25/18 07:46 04/25/18 07:46 PT 10.4 SECONDS (9.7-12.2) 04/17/18 06:19 INR 1.0 04/17/18 06:19 APTT 25 SECONDS (21-34) 04/17/18 06:19 - Constitutional Appears: Non-toxic, No Acute Distress - Head Exam Head Exam: ATRAUMATIC, NORMAL INSPECTION, NORMOCEPHALIC - Eye Exam Eye Exam: EOMI, PERRL - ENT Exam ENT Exam: Mucous Membranes Moist - Neck Exam Neck Exam: Full ROM - Respiratory Exam Respiratory Exam: Clear to Ausculation Bilateral, NORMAL BREATHING PATTERN. absent: Rhonchi, Wheezes - Cardiovascular Exam Cardiovascular Exam: REGULAR RHYTHM, +S1, +S2 - Extremities Exam Extremities Exam: Full ROM. absent: Calf Tenderness - Neurological Exam Neurological Exam: Alert, Awake, Normal Gait, Oriented x3 Neuro motor strength exam: Left Upper Extremity: 5, Right Upper Extremity: 5, Left Lower Extremity: 5, Right Lower Extremity: 5 - Psychiatric Exam Psychiatric exam: Normal Affect, Normal Mood - Skin Skin Exam: Dry, Intact Assessment and Plan - Assessment and Plan (Free Text) Assessment: 62 year old AA female with past medical history of HTN, Hypothyroid, Asthma, Migraines who was was admitted to [facility] for severe anemia. Patient was started on plasma exchange therapy for TTP. Nephrology was consulted for plasma exchange. Heme consulted and following along with TPE. Plan: [id number] level severely low consistent with TTP - [id number] (04/12) <3 - Awaiting [id number] inhibitor study - Continue TPE, now on every other day tx - Platelets appear to be stable with treatments - Patient to be receiving continued TPE in hospital over next week - PO prednisone 50mg Daily with taper over next 2 weeks HTN - Patient BP stable - Goal MAP >65 - Continue current management HCTZ 12.5mg Daily Losartan 50mg PO daily Patient seen, case and plan discussed with attending Dr. Aguirre
[2018-04-26 10:21] LABS: BASO # 0.1 K/uL (0.0-0.2); BASO % 0.5 % (0.0-2.0); EOS % 0.3 % (0.0-4.0); HEMOGLOBIN 9.4 g/dL (11.0-16.0); LYMPH % 24.9 % (20.0-40.0); MEAN CELL VOLUME 93.8 fL (81.0-99.0); MEAN CORPUSCULAR HEMOGLOBIN 30.7 pg (27.0-31.0); MEAN CORPUSCULAR HGB CONC 32.8 g/dL (33.0-37.0); MONO # 0.6 K/uL (0.0-0.8); MONO % 4.7 % (0.0-10.0); NEUT # 8.3 K/uL (1.8-7.0); NEUT % 69.6 % (50.0-75.0); RBC 3.06 Mil/uL (3.80-5.20); RED CELL DISTRIBUTION WIDTH 18.9 % (11.5-14.5)
[2018-04-26] MEDS: Pantoprazole 40 mg EC Tab PO SCH (10:23)
[2018-04-26 10:37] LABS: ALB/GLOB RATIO 1.4 (1.0-2.1); ALBUMIN 3.8 g/dL (3.5-5.0); ALT/SGPT 247 U/L (9-52); AST/SGOT 98 U/L (14-36); BLOOD UREA NITROGEN 17 mg/dL (7-17); CALCIUM 9.6 mg/dl (8.6-10.4); GFR NON-AFRICAN AMERICAN > 60
--- NOTE | 2018-04-26 11:26 | CP.PCM.PN ---
Subjective - Date & Time of Evaluation Date of Evaluation: 04/26/18 Time of Evaluation: 09:55 - Subjective Subjective: PGY-1 Medicine Progress note for Dr. Fragoso Patient was seen and examined sitting up in bed eating breakfast today in no acute distress. Nurse reports no overnight events. Patient has no new complaints. She voices understanding of why she will remain here through next week to get plasmapheresis. Denies chest pain, shortness of breath, abdominal pain, fever, chills, dizziness, headache. Objective - Vital Signs/Intake and Output Vital Signs (last 24 hours): Temp Pulse Resp BP Pulse Ox 98 F 81 20 116/71 96 04/26/18 07:00 04/26/18 07:00 04/26/18 07:00 04/26/18 07:00 04/26/18 07:00 Intake and Output: 04/26/18 04/26/18 06:59 18:59 Intake Total 200 Balance 200 - Medications Medications: Current Medications Acetaminophen (Tylenol 325mg Tab) 650 mg PO DAILY PRN PRN Reason: pre-med before plasmapheresis Last Admin: 04/22/18 08:35 Dose: 650 mg Diphenhydramine HCl (Benadryl) 50 mg IVP DAILY PRN PRN Reason: BEFORE PLASMA EXCHANGE Last Admin: 04/24/18 09:05 Dose: 50 mg Docusate Sodium (Colace) 100 mg PO BID [facility] Last Admin: 04/26/18 10:23 Dose: 100 mg Hydrochlorothiazide (Microzide) 12.5 mg PO DAILY [facility] Last Admin: 04/26/18 10:23 Dose: 12.5 mg Calcium Gluconate 4.65 meq/ (Sodium Chloride) 260 mls @ 130 mls/hr IV .Q2H PRN PRN Reason: DURING PLASMA EXCHANGE Last Admin: 04/24/18 09:05 Dose: 130 mls/hr Levothyroxine Sodium (Synthroid) 50 mcg PO DAILY@0600 [facility] Last Admin: 04/26/18 05:42 Dose: 50 mcg Losartan Potassium (Cozaar) 50 mg PO DAILY [facility] Last Admin: 04/26/18 10:22 Dose: 50 mg Montelukast Sodium (Singulair) 10 mg PO DAILY [facility] Last Admin: 04/26/18 10:23 Dose: 10 mg Nicotine (Nicoderm Cq) 1 patch TD DAILY [facility] Last Admin: 04/26/18 10:24 Dose: 1 patch Pantoprazole Sodium (Protonix Ec Tab) 40 mg PO DAILY [facility] Last Admin: 04/26/18 10:23 Dose: 40 mg Prednisone (Prednisone Tab) 50 mg PO DAILY [facility] Last Admin: 04/26/18 10:22 Dose: 50 mg - Labs Labs: 04/26/18 08:57 04/26/18 08:57 PT 10.4 SECONDS (9.7-12.2) 04/17/18 06:19 INR 1.0 04/17/18 06:19 APTT 25 SECONDS (21-34) 04/17/18 06:19 - Constitutional Appears: Non-toxic, No Acute Distress - Eye Exam Eye Exam: EOMI, Normal appearance Additional comments: glasses - ENT Exam ENT Exam: Mucous Membranes Moist - Respiratory Exam Respiratory Exam: Clear to Ausculation Bilateral, NORMAL BREATHING PATTERN. absent: Rales, Rhonchi, Wheezes - Cardiovascular Exam Cardiovascular Exam: REGULAR RHYTHM, +S1, +S2. absent: Murmur Additional comments: R chest permacath in place, dressing c/d/i - GI/Abdominal Exam GI & Abdominal Exam: Soft, Normal Bowel Sounds. absent: Firm, Guarding, Tenderness - Extremities Exam Extremities Exam: Full ROM, Normal Capillary Refill Additional comments: peripheral pulses palpable bilaterally (radial, DP) - Neurological Exam Neurological Exam: Alert, Awake, Oriented x3 - Psychiatric Exam Psychiatric exam: Normal Affect, Normal Mood - Skin Skin Exam: Intact, Normal Color, Warm Assessment and Plan - Assessment and Plan (Free Text) Assessment: 62 yo F with PMHx of HTN, hypothyroidism, asthma, and migraines who presents with generalized weakness and hypotension. Patient was found to have hemoglobin of 4.7 and PLT count of 12 on admission, with concerns for TTP, now currently stable w/ stable H/H & platelets. Plan: TTP - Current Management: - Every other day plasmapheresis sessions. Next day later today, 04/26. Next scheduled one 04/28. Trend hemoglobin & platelets, monitor for rebound drop in values - F/u [id number] reflex titer - s/p plasmapheresis on 04/24 - scheduled for tomorrow 04/28: FFP ordered, transfusion order not yet placed - Final session on 05/03; likely will need inpatient stay 2/2 insurance. See dispo below - prednisone 50 mg PO daily prn before plasma exchange, per Nephrology, tapering over next 2 weeks, starting Tuesday - Calcium gluconate 4.65 mEq in 0.9 NS before plasma exchange - Benadryl 50 mg IVP daily PRN before plasma exchange - Nephrology recs (Dr. Jacob) appreciated -pt responding well to plasmapheresis sessions - Heme/onc recs (Dr. De La Cruz) - plasmapheresis every other day, through 05/03 Labs: - Hb/Hct: stable at 10s/30 (4.7/13.8 on admission) - PLT: stable 200s+ (12 on admission) - Reticulocyte count: stable in 2s (13.3 on admission) - Haptoglobin < 20.0 - LDH: fluctuating 600s to 800s (4232 on admission) - T. bilirubin: 3.2 on admission--> 0.6 (04/21) (normalized) - CEA: 4.9 - CA19-9: 6.7 - CA125: 7.0 - Peripheral blood smear (04/12): -no increase in blasts -mild neutrophilia and mild monocytosis -thrombocytopenia with few large PLTs -RBC study shows normocytic anemia; RBC morphology--nucleated RBCs - f/u indirect and direct Lucio test - [id number] (04/12) <3, pending reflex titer - Parovirus B19 IgG Ab elevated at 5.0, IgM normal at 0.2 - strict I/Os HTN - BP now controlled, on admission uncontrolled, likely worsened by being on steroids per Nephrology - Nephrology recs (Dr. Aguirre) recs appreciated - HCTZ 12.5 mg started 04/15, Increased to 25 mg for optimal HTN control on 04/16 - home med lisinopril 10 mg PO daily changed to losartan 50 mg PO daily due to reports of anaphylaxis associated with being on CHRISTINE inhibitor and plasmapheresis concomitantly; currently losartan 100mg PO for HTN coverage - SBP 100s - 130s Severe anemia - Currently stable in 10s/30s - On admission: Hb/Hct: 4.7/13.8 Asthma - Singulair 10mg PO daily Hypothyroidism - TSH: 6.24--> 4.91 (04/12) - T4: 11.0 - synthroid 50mcg PO daily Lacunar Infarct (chronic) - CT head without contrast Chronic microvascular ischemic changes.7 millimeter focal hypodensity seen at the level of the right internal capsule suggestive for a lacunar infarct, likely chronic.Scattered calcifications along the falx and tentorium.If there is concern for acute ischemic change, consider correlation with MRI. Spleen Infarct (chronic) -Stool occult: negative -CT abdomen/pelvis: wedge-shaped hypodense regions involving the spleen may reflect infarctions of indeterminate age. Ppx, Diet, Disposition -DVT ppx: Contraindicated at this point 2/2 to possibly TTP -GI ppx: protonix 40 mg PO daily -heart healthy diet -R Permacath usable for plasma exchange; no issues today Hematology would like additional 1 week of plasmapheresis (through 05/03). Outpatient plasmapheresis less likely due to insurance authorization can be submitted only after Dr. Dumont talks to Dr. Tran @[phone]. Insurance authorization typically takes 2 weeks sooutpatient approval unlikely to work. Patient made aware of above information and understands she will likely be here through 05/03. d/w Dr. Fragoso. Adrianna Henson PGY-1
[2018-04-26 11:50] LABS: BASO # 0.1 K/uL (0.0-0.2); BASO % 0.5 % (0.0-2.0); EOS % 0.2 % (0.0-4.0); LYMPH # 3.3 K/uL (1.0-4.3); LYMPH % 25.3 % (20.0-40.0); MEAN CORPUSCULAR HEMOGLOBIN 31.4 pg (27.0-31.0); MEAN CORPUSCULAR HGB CONC 33.4 g/dL (33.0-37.0); MEAN PLATELET VOLUME 7.1 fL (7.2-11.7); MONO # 0.7 K/uL (0.0-0.8); MONO % 5.5 % (0.0-10.0); NEUT # 8.9 K/uL (1.8-7.0); NEUT % 68.5 % (50.0-75.0); NRBC % 0.1 % (0.0-2.0); RBC 3.18 Mil/uL (3.80-5.20); RED CELL DISTRIBUTION WIDTH 18.7 % (11.5-14.5)
[2018-04-26 13:31] LABS: ALB/GLOB RATIO 1.5 (1.0-2.1); ALBUMIN 4.2 g/dL (3.5-5.0); ALT/SGPT 254 U/L (9-52); AST/SGOT 104 U/L (14-36); BLOOD UREA NITROGEN 20 mg/dL (7-17); CALCIUM 9.7 mg/dl (8.6-10.4); GFR NON-AFRICAN AMERICAN > 60
[2018-04-26] MEDS: DiphenhydrAMINE 50 mg/ml Inj IVP PRN (14:40)
[2018-04-27] MEDS: Levothyroxine 50 MCG TAB PO SCH (05:30)
--- NOTE | 2018-04-27 06:18 | CP.PCM.PN ---
Subjective - Date & Time of Evaluation Date of Evaluation: 04/27/18 Time of Evaluation: 07:35 - Subjective Subjective: PGY 1 Medicine Progress Note for Dr. Fragoso. Patient seen and examined at bedside. Patient lying in bed comfortably, in no acute distress. No overnight events reported. Patient states she feels the same as yesterday, no chest pain, SOB, nausea, vomiting, headaches, vision changes, constipation, diarrhea. Objective - Vital Signs/Intake and Output Vital Signs (last 24 hours): Temp Pulse Resp BP Pulse Ox 98.2 F 45 L 20 124/73 100 04/26/18 23:20 04/26/18 23:20 04/26/18 23:20 04/26/18 23:20 04/26/18 23:20 - Medications Medications: Current Medications Acetaminophen (Tylenol 325mg Tab) 650 mg PO DAILY PRN PRN Reason: pre-med before plasmapheresis Last Admin: 04/22/18 08:35 Dose: 650 mg Diphenhydramine HCl (Benadryl) 50 mg IVP DAILY PRN PRN Reason: BEFORE PLASMA EXCHANGE Last Admin: 04/26/18 14:40 Dose: 50 mg Docusate Sodium (Colace) 100 mg PO BID [facility] Last Admin: 04/26/18 17:55 Dose: 100 mg Hydrochlorothiazide (Microzide) 12.5 mg PO DAILY [facility] Last Admin: 04/26/18 10:23 Dose: 12.5 mg Calcium Gluconate 4.65 meq/ (Sodium Chloride) 260 mls @ 130 mls/hr IV .Q2H PRN PRN Reason: DURING PLASMA EXCHANGE Last Admin: 04/24/18 09:05 Dose: 130 mls/hr Levothyroxine Sodium (Synthroid) 50 mcg PO DAILY@0600 [facility] Last Admin: 04/27/18 05:30 Dose: 50 mcg Losartan Potassium (Cozaar) 50 mg PO DAILY [facility] Last Admin: 04/26/18 10:22 Dose: 50 mg Montelukast Sodium (Singulair) 10 mg PO DAILY [facility] Last Admin: 04/26/18 10:23 Dose: 10 mg Nicotine (Nicoderm Cq) 1 patch TD DAILY [facility] Last Admin: 04/26/18 10:24 Dose: 1 patch Pantoprazole Sodium (Protonix Ec Tab) 40 mg PO DAILY [facility] Last Admin: 04/26/18 10:23 Dose: 40 mg Prednisone (Prednisone Tab) 50 mg PO DAILY [facility] Last Admin: 04/26/18 10:22 Dose: 50 mg - Labs Labs: 04/26/18 08:57 04/26/18 12:07 PT 10.4 SECONDS (9.7-12.2) 04/17/18 06:19 INR 1.0 04/17/18 06:19 APTT 25 SECONDS (21-34) 04/17/18 06:19 - Constitutional Appears: Non-toxic, No Acute Distress - Head Exam Head Exam: ATRAUMATIC, NORMAL INSPECTION, NORMOCEPHALIC - Eye Exam Eye Exam: EOMI, Normal appearance - ENT Exam ENT Exam: Mucous Membranes Moist - Neck Exam Neck Exam: Normal Inspection - Respiratory Exam Respiratory Exam: Clear to Ausculation Bilateral, NORMAL BREATHING PATTERN. absent: Rales, Rhonchi, Wheezes - Cardiovascular Exam Cardiovascular Exam: +S1, +S2. absent: Irregular Rhythm, Murmur Additional comments: R chest permacath in place, dressing c/d/i - GI/Abdominal Exam GI & Abdominal Exam: Soft, Normal Bowel Sounds. absent: Firm, Guarding, Rigid - Extremities Exam Extremities Exam: Full ROM, Normal Capillary Refill, Normal Inspection. absent : Calf Tenderness, Pedal Edema - Neurological Exam Neurological Exam: Alert, Awake, Oriented x3 - Psychiatric Exam Psychiatric exam: Normal Affect, Normal Mood - Skin Skin Exam: Dry, Intact, Normal Color, Warm Assessment and Plan - Assessment and Plan (Free Text) Assessment: 62 yo F with PMHx of HTN, hypothyroidism, asthma, and migraines who presents with generalized weakness and hypotension. Patient was found to have hemoglobin of 4.7 and PLT count of 12 on admission, with concerns for TTP, now currently stable w/ stable H/H & platelets. Plan: TTP - Current Management: - Every other day plasmapheresis sessions. Next day later today, 04/26. Next scheduled on 04/28. Trend hemoglobin & platelets, monitor for rebound drop in values - F/u [id number] reflex titer - s/p 10th plasmapheresis on 04/26 - scheduled for tomorrow 04/28 - Final session on 05/03; likely will need inpatient stay 2/2 insurance. See dispo below - prednisone 50 mg PO daily prn before plasma exchange, per Nephrology, tapering over next 2 weeks, starting Tuesday - Calcium gluconate 4.65 mEq in 0.9 NS before plasma exchange - Benadryl 50 mg IVP daily PRN before plasma exchange - Nephrology recs (Dr. Jacob) appreciated -pt responding well to plasmapheresis sessions - Heme/onc recs (Dr. De La Cruz) - plasmapheresis every other day, through 05/03 Labs: - Hb/Hct: stable at 10s/30 (4.7/13.8 on admission) - PLT: stable 200s+ (12 on admission) - Reticulocyte count: stable in 2s (13.3 on admission) - Haptoglobin < 20.0 - LDH: fluctuating 600s to 800s (4232 on admission) - T. bilirubin: 3.2 on admission--> 0.6 (04/21) (normalized) - CEA: 4.9 - CA19-9: 6.7 - CA125: 7.0 - Peripheral blood smear (04/12): -no increase in blasts -mild neutrophilia and mild monocytosis -thrombocytopenia with few large PLTs -RBC study shows normocytic anemia; RBC morphology--nucleated RBCs - f/u indirect and direct Lucio test - [id number] (04/12) <3, pending reflex titer - Parovirus B19 IgG Ab elevated at 5.0, IgM normal at 0.2 - strict I/Os HTN - BP now controlled, on admission uncontrolled, likely worsened by being on steroids per Nephrology - Nephrology recs (Dr. Aguirre) recs appreciated - HCTZ 12.5 mg started 04/15, Increased to 25 mg for optimal HTN control on 04/16 - home med lisinopril 10 mg PO daily changed to losartan 50 mg PO daily due to reports of anaphylaxis associated with being on CHRISTINE inhibitor and plasmapheresis concomitantly; currently losartan 100mg PO for HTN coverage - SBP 100s - 130s Severe anemia - Currently stable in 10s/30s - On admission: Hb/Hct: 4.7/13.8 Asthma - Singulair 10mg PO daily Hypothyroidism - TSH: 6.24--> 4.91 (04/12) - T4: 11.0 - synthroid 50mcg PO daily Lacunar Infarct (chronic) - CT head without contrast Chronic microvascular ischemic changes.7 millimeter focal hypodensity seen at the level of the right internal capsule suggestive for a lacunar infarct, likely chronic.Scattered calcifications along the falx and tentorium.If there is concern for acute ischemic change, consider correlation with MRI. Spleen Infarct (chronic) -Stool occult: negative -CT abdomen/pelvis: wedge-shaped hypodense regions involving the spleen may reflect infarctions of indeterminate age. Ppx, Diet, Disposition -DVT ppx: Contraindicated at this point 2/2 to possibly TTP -GI ppx: protonix 40 mg PO daily -heart healthy diet -R Permacath usable for plasma exchange; no issues today Hematology would like additional 1 week of plasmapheresis (through 05/03). Outpatient plasmapheresis less likely due to insurance authorization can be submitted only after Dr. Dumont talks to Dr. Tran @[phone]. Insurance authorization typically takes 2 weeks so outpatient approval unlikely to work. Patient made aware of above information and understands she will likely be here through 05/03. d/w Dr. Fouzia Lilly PGY 1
[2018-04-27 06:49] LABS: BASO % 0.3 % (0.0-2.0); EOS % 0.3 % (0.0-4.0); HEMOGLOBIN 9.6 g/dL (11.0-16.0); LYMPH # 3.4 K/uL (1.0-4.3); LYMPH % 29.4 % (20.0-40.0); MEAN CELL VOLUME 93.6 fL (81.0-99.0); MEAN CORPUSCULAR HEMOGLOBIN 30.9 pg (27.0-31.0); MEAN PLATELET VOLUME 7.2 fL (7.2-11.7); MONO # 0.6 K/uL (0.0-0.8); MONO % 5.4 % (0.0-10.0); NEUT # 7.4 K/uL (1.8-7.0); NEUT % 64.6 % (50.0-75.0); RBC 3.09 Mil/uL (3.80-5.20); RED CELL DISTRIBUTION WIDTH 18.5 % (11.5-14.5); WHITE BLOOD COUNT 11.4 K/uL (4.8-10.8)
[2018-04-27 07:34] LABS: ALB/GLOB RATIO 1.4 (1.0-2.1); ALBUMIN 3.7 g/dL (3.5-5.0); ALT/SGPT 117 U/L (9-52); AST/SGOT 46 U/L (14-36); BLOOD UREA NITROGEN 20 mg/dL (7-17); CALCIUM 9.1 mg/dl (8.6-10.4); GFR NON-AFRICAN AMERICAN > 60
[2018-04-27] MEDS: Pantoprazole 40 mg EC Tab PO SCH (09:18)
--- NOTE | 2018-04-27 09:26 | CP.PCM.PN ---
<Juan A Delong - Last Filed: 04/27/18 09:22> Subjective - Date & Time of Evaluation Date of Evaluation: 04/27/18 Time of Evaluation: 08:30 - Subjective Subjective: Rogelio Delong PGY2 - Nephrology Progress Note Dr. Aguirre Patient seen and examined this AM. No acute events reported overnight. No complaints offered. Objective - Vital Signs/Intake and Output Vital Signs (last 24 hours): Temp Pulse Resp BP Pulse Ox 98.2 F 45 L 20 124/73 100 04/26/18 23:20 04/26/18 23:20 04/26/18 23:20 04/26/18 23:20 04/26/18 23:20 - Medications Medications: Current Medications Acetaminophen (Tylenol 325mg Tab) 650 mg PO DAILY PRN PRN Reason: pre-med before plasmapheresis Last Admin: 04/22/18 08:35 Dose: 650 mg Diphenhydramine HCl (Benadryl) 50 mg IVP DAILY PRN PRN Reason: BEFORE PLASMA EXCHANGE Last Admin: 04/26/18 14:40 Dose: 50 mg Docusate Sodium (Colace) 100 mg PO BID [facility] [place] Last Admin: 04/27/18 09:18 Dose: 100 mg Hydrochlorothiazide (Microzide) 12.5 mg PO DAILY [facility] [place] Last Admin: 04/27/18 09:18 Dose: 12.5 mg Calcium Gluconate 4.65 meq/ (Sodium Chloride) 260 mls @ 130 mls/hr IV .Q2H PRN PRN Reason: DURING PLASMA EXCHANGE Last Admin: 04/24/18 09:05 Dose: 130 mls/hr Levothyroxine Sodium (Synthroid) 50 mcg PO DAILY@0600 [facility] [place] Last Admin: 04/27/18 05:30 Dose: 50 mcg Losartan Potassium (Cozaar) 50 mg PO DAILY [facility] [place] Last Admin: 04/27/18 09:18 Dose: 50 mg Montelukast Sodium (Singulair) 10 mg PO DAILY [facility] [place] Last Admin: 04/27/18 09:18 Dose: 10 mg Nicotine (Nicoderm Cq) 1 patch TD DAILY [facility] [place] Last Admin: 04/27/18 09:18 Dose: 1 patch Pantoprazole Sodium (Protonix Ec Tab) 40 mg PO DAILY [facility] [place] Last Admin: 04/27/18 09:18 Dose: 40 mg Prednisone (Prednisone Tab) 50 mg PO DAILY [facility] [place] Last Admin: 04/27/18 09:18 Dose: 50 mg - Labs Labs: 04/27/18 06:37 04/27/18 06:37 PT 10.4 SECONDS (9.7-12.2) 04/17/18 06:19 INR 1.0 04/17/18 06:19 APTT 25 SECONDS (21-34) 04/17/18 06:19 - Constitutional Appears: No Acute Distress - Head Exam Head Exam: ATRAUMATIC, NORMAL INSPECTION, NORMOCEPHALIC - Eye Exam Eye Exam: EOMI, PERRL - ENT Exam ENT Exam: Mucous Membranes Moist - Respiratory Exam Respiratory Exam: Clear to Ausculation Bilateral, NORMAL BREATHING PATTERN. absent: Rhonchi, Wheezes - Cardiovascular Exam Cardiovascular Exam: REGULAR RHYTHM, +S1, +S2 - GI/Abdominal Exam GI & Abdominal Exam: Soft, Normal Bowel Sounds - Extremities Exam Extremities Exam: Full ROM. absent: Pedal Edema - Neurological Exam Neurological Exam: Alert, Awake, Normal Gait, Oriented x3 Neuro motor strength exam: Left Upper Extremity: 5, Right Upper Extremity: 5, Left Lower Extremity: 5, Right Lower Extremity: 5 - Psychiatric Exam Psychiatric exam: Normal Affect, Normal Mood - Skin Skin Exam: Dry, Intact Assessment and Plan - Assessment and Plan (Free Text) Assessment: 62 year old AA female with past medical history of HTN, Hypothyroid, Asthma, Migraines who was was admitted to [facility] for severe anemia. Patient was started on plasma exchange therapy for TTP. Nephrology was consulted for plasma exchange. Heme consulted and following along with TPE. Plan: [id number] level severely low consistent with TTP - [id number] (04/12) <3 - Awaiting [id number] inhibitor study - Continue TPE, now on every other day tx - Patient to be receiving continued TPE in hospital over next week - PO prednisone 50mg Daily with taper over next 2 weeks - Platelets holding steady at 190's HTN - Patient BP stable - Goal MAP >65 - HCTZ 12.5mg Daily - Losartan 50mg PO daily Patient seen, case and plan discussed with attending Dr. Aguirre <Jason Aguirre - Last Filed: 04/28/18 08:40> Objective - Vital Signs/Intake and Output Vital Signs (last 24 hours): Temp Pulse Resp BP Pulse Ox 97.3 F L 72 20 128/78 100 04/28/18 07:00 04/28/18 07:00 04/28/18 07:00 04/28/18 07:00 04/28/18 07:00 - Medications Medications: Current Medications Acetaminophen (Tylenol 325mg Tab) 650 mg PO DAILY PRN PRN Reason: pre-med before plasmapheresis Last Admin: 04/22/18 08:35 Dose: 650 mg Diphenhydramine HCl (Benadryl) 50 mg IVP DAILY PRN PRN Reason: BEFORE PLASMA EXCHANGE Last Admin: 04/26/18 14:40 Dose: 50 mg Diphenhydramine HCl (Benadryl) 50 mg PO MWF PRN PRN Reason: give before plasma exchange Docusate Sodium (Colace) 100 mg PO BID [facility] Last Admin: 04/27/18 17:56 Dose: 100 mg Hydrochlorothiazide (Microzide) 12.5 mg PO DAILY [facility] [place] Last Admin: 04/27/18 09:18 Dose: 12.5 mg Calcium Gluconate 4.65 meq/ (Sodium Chloride) 260 mls @ 130 mls/hr IV .Q2H PRN PRN Reason: DURING PLASMA EXCHANGE Levothyroxine Sodium (Synthroid) 50 mcg PO DAILY@0600 [facility] [place] Last Admin: 04/28/18 06:55 Dose: 50 mcg Losartan Potassium (Cozaar) 50 mg PO DAILY [facility] Last Admin: 04/27/18 09:18 Dose: 50 mg Montelukast Sodium (Singulair) 10 mg PO DAILY [facility] [place] Last Admin: 04/27/18 09:18 Dose: 10 mg Nicotine (Nicoderm Cq) 1 patch TD DAILY [facility] [place] Last Admin: 04/27/18 09:18 Dose: 1 patch Pantoprazole Sodium (Protonix Ec Tab) 40 mg PO DAILY [facility] [place] Last Admin: 04/27/18 09:18 Dose: 40 mg Prednisone (Prednisone Tab) 50 mg PO DAILY [facility] Last Admin: 04/27/18 09:18 Dose: 50 mg - Labs Labs: 04/28/18 07:03 04/28/18 07:03 PT 10.4 SECONDS (9.7-12.2) 04/17/18 06:19 INR 1.0 04/17/18 06:19 APTT 25 SECONDS (21-34) 04/17/18 06:19 Assessment and Plan (1) Thrombocytopenia Status: Acute (2) HTN (hypertension) Status: Chronic (3) Electrolyte imbalance Status: Acute (4) Severe anemia Status: Acute (5) Acute kidney injury Status: Resolved Attending/Attestation - Attestation I have personally seen and examined this patient.: Yes I have fully participated in the care of the patient.: Yes I have reviewed all pertinent clinical information, including history, physical exam and plan: Yes Notes (Text): Patient seen and examined; I agree with the resident's note as above with the following additions/edits: Patient admitted with TTP, undergoing every other day plasma exchange per primary business process representative; blood counts improved and stable, LDH slightly lower than previous days; -Next TPE session tomorrow; -Will continue to monitor electrolyte status daily and supplement as needed; continue calcium gluconate 1g with each TPE session; -Prednisone taper, will decrease to 40 mg daily for next 3 days; -HTN controlled, continue current meds;
[2018-04-27 15:49] VITALS: RESP 20
[2018-04-28] MEDS: Levothyroxine 50 MCG TAB PO SCH (06:55)
[2018-04-28 07:17] LABS: BASO % 0.4 % (0.0-2.0); EOS % 0.3 % (0.0-4.0); HEMOGLOBIN 9.9 g/dL (11.0-16.0); LYMPH # 3.8 K/uL (1.0-4.3); LYMPH % 32.6 % (20.0-40.0); MEAN CELL VOLUME 93.7 fL (81.0-99.0); MEAN CORPUSCULAR HEMOGLOBIN 30.8 pg (27.0-31.0); MEAN CORPUSCULAR HGB CONC 32.8 g/dL (33.0-37.0); MEAN PLATELET VOLUME 6.9 fL (7.2-11.7); MONO # 0.7 K/uL (0.0-0.8); MONO % 5.5 % (0.0-10.0); NEUT # 7.2 K/uL (1.8-7.0); NEUT % 61.2 % (50.0-75.0); NRBC % 0.1 % (0.0-2.0); RBC 3.21 Mil/uL (3.80-5.20); RED CELL DISTRIBUTION WIDTH 18.2 % (11.5-14.5); WHITE BLOOD COUNT 11.8 K/uL (4.8-10.8)
[2018-04-28 07:43] LABS: ALB/GLOB RATIO 1.4 (1.0-2.1); ALBUMIN 3.8 g/dL (3.5-5.0); ALT/SGPT 143 U/L (9-52); AST/SGOT 51 U/L (14-36); BLOOD UREA NITROGEN 19 mg/dL (7-17); CALCIUM 9.5 mg/dl (8.6-10.4); GFR NON-AFRICAN AMERICAN > 60
[2018-04-28] MEDS ORDERED: SODIUM CHLORIDE 0.9% IV PRN (08:07)
[2018-04-28] MEDS ORDERED: CALCIUM GLUCONATE IV PRN (08:07)
[2018-04-28] MEDS: Pantoprazole 40 mg EC Tab PO SCH (09:20)
--- NOTE | 2018-04-28 09:25 | CP.PCM.PN ---
Subjective - Date & Time of Evaluation Date of Evaluation: 04/27/18 Time of Evaluation: 20:00 - Subjective Subjective: Covering Dr. De La Cruz No complaints On every other day plasmapheresis Objective - Vital Signs/Intake and Output Vital Signs (last 24 hours): Temp Pulse Resp BP Pulse Ox 97.3 F L 72 20 128/78 100 04/28/18 07:00 04/28/18 07:00 04/28/18 07:00 04/28/18 07:00 04/28/18 07:00 - Medications Medications: Current Medications Acetaminophen (Tylenol 325mg Tab) 650 mg PO DAILY PRN PRN Reason: pre-med before plasmapheresis Last Admin: 04/22/18 08:35 Dose: 650 mg Diphenhydramine HCl (Benadryl) 50 mg IVP DAILY PRN PRN Reason: BEFORE PLASMA EXCHANGE Last Admin: 04/26/18 14:40 Dose: 50 mg Diphenhydramine HCl (Benadryl) 50 mg PO MWF PRN PRN Reason: give before plasma exchange Docusate Sodium (Colace) 100 mg PO BID [facility] Last Admin: 04/27/18 17:56 Dose: 100 mg Hydrochlorothiazide (Microzide) 12.5 mg PO DAILY [facility] Last Admin: 04/27/18 09:18 Dose: 12.5 mg Calcium Gluconate 4.65 meq/ (Sodium Chloride) 260 mls @ 130 mls/hr IV .Q2H PRN PRN Reason: DURING PLASMA EXCHANGE Levothyroxine Sodium (Synthroid) 50 mcg PO DAILY@0600 [facility] Last Admin: 04/28/18 06:55 Dose: 50 mcg Losartan Potassium (Cozaar) 50 mg PO DAILY [facility] Last Admin: 04/27/18 09:18 Dose: 50 mg Montelukast Sodium (Singulair) 10 mg PO DAILY [facility] Last Admin: 04/27/18 09:18 Dose: 10 mg Nicotine (Nicoderm Cq) 1 patch TD DAILY [facility] Last Admin: 04/27/18 09:18 Dose: 1 patch Pantoprazole Sodium (Protonix Ec Tab) 40 mg PO DAILY [facility] Last Admin: 04/27/18 09:18 Dose: 40 mg Prednisone (Prednisone Tab) 40 mg PO DAILY [facility] - Labs Labs: 04/28/18 07:03 04/28/18 07:03 PT 10.4 SECONDS (9.7-12.2) 04/17/18 06:19 INR 1.0 04/17/18 06:19 APTT 25 SECONDS (21-34) 04/17/18 06:19 - Head Exam Head Exam: ATRAUMATIC - Eye Exam Eye Exam: Normal appearance - ENT Exam ENT Exam: Mucous Membranes Dry - Respiratory Exam Respiratory Exam: NORMAL BREATHING PATTERN - Cardiovascular Exam Cardiovascular Exam: +S1, +S2 - GI/Abdominal Exam GI & Abdominal Exam: Normal Bowel Sounds Assessment and Plan (1) TTP (thrombotic thrombocytopenic purpura) Assessment & Plan: on plasmapheresis every other day doing well f/u with Dr. De La Cruz Status: Acute
--- NOTE | 2018-04-28 11:30 | CP.PCM.PN ---
Subjective - Date & Time of Evaluation Date of Evaluation: 04/28/18 Time of Evaluation: 10:10 - Subjective Subjective: PGY-1 Medicine Progress Note for Dr. Fragoso Patient was seen and examined today standing at bedside lotioning s/p shower in no acute distress. Nurse reports no overnight events. Patient reports being in good spirits has no new complaints. Denies chest pain, shortness of breath, abdominal pain, fever, chills, nausea, vomiting, weakness, fatigue, numbness, tingling. Objective - Vital Signs/Intake and Output Vital Signs (last 24 hours): Temp Pulse Resp BP Pulse Ox 97.3 F L 72 20 128/78 100 04/28/18 07:00 04/28/18 07:00 04/28/18 07:00 04/28/18 07:00 04/28/18 07:00 - Medications Medications: Current Medications Acetaminophen (Tylenol 325mg Tab) 650 mg PO DAILY PRN PRN Reason: pre-med before plasmapheresis Last Admin: 04/28/18 09:20 Dose: 650 mg Diphenhydramine HCl (Benadryl) 50 mg IVP DAILY PRN PRN Reason: BEFORE PLASMA EXCHANGE Last Admin: 04/26/18 14:40 Dose: 50 mg Diphenhydramine HCl (Benadryl) 50 mg PO MWF PRN PRN Reason: give before plasma exchange Last Admin: 04/28/18 09:21 Dose: 50 mg Docusate Sodium (Colace) 100 mg PO BID [facility] Last Admin: 04/28/18 09:20 Dose: 100 mg Hydrochlorothiazide (Microzide) 12.5 mg PO DAILY [facility] Last Admin: 04/28/18 09:20 Dose: 12.5 mg Calcium Gluconate 4.65 meq/ (Sodium Chloride) 260 mls @ 130 mls/hr IV .Q2H PRN PRN Reason: DURING PLASMA EXCHANGE Last Admin: 04/28/18 09:23 Dose: 130 mls/hr Levothyroxine Sodium (Synthroid) 50 mcg PO DAILY@0600 [facility] Last Admin: 04/28/18 06:55 Dose: 50 mcg Losartan Potassium (Cozaar) 50 mg PO DAILY [facility] Last Admin: 04/28/18 09:20 Dose: 50 mg Montelukast Sodium (Singulair) 10 mg PO DAILY [facility] Last Admin: 04/28/18 09:20 Dose: 10 mg Nicotine (Nicoderm Cq) 1 patch TD DAILY [facility] Last Admin: 04/28/18 09:20 Dose: 1 patch Pantoprazole Sodium (Protonix Ec Tab) 40 mg PO DAILY [facility] Last Admin: 04/28/18 09:20 Dose: 40 mg Prednisone (Prednisone Tab) 40 mg PO DAILY [facility] Last Admin: 04/28/18 09:20 Dose: 40 mg - Labs Labs: 04/28/18 07:03 04/28/18 07:03 PT 10.4 SECONDS (9.7-12.2) 04/17/18 06:19 INR 1.0 04/17/18 06:19 APTT 25 SECONDS (21-34) 04/17/18 06:19 - Constitutional Appears: Well, Non-toxic, No Acute Distress - Head Exam Head Exam: ATRAUMATIC, NORMOCEPHALIC - Eye Exam Eye Exam: EOMI, Normal appearance Additional comments: glasses - ENT Exam ENT Exam: Mucous Membranes Moist - Respiratory Exam Respiratory Exam: Clear to Ausculation Bilateral, NORMAL BREATHING PATTERN. absent: Rales, Rhonchi, Wheezes - Cardiovascular Exam Cardiovascular Exam: REGULAR RHYTHM, +S1, +S2. absent: Murmur Additional comments: R chest Permacath in place, dressing c/d/i - GI/Abdominal Exam GI & Abdominal Exam: Soft, Normal Bowel Sounds. absent: Firm, Guarding, Rigid, Tenderness - Extremities Exam Extremities Exam: Full ROM, Normal Capillary Refill. absent: Calf Tenderness, Pedal Edema Additional comments: peripheral pulses palpable bilaterally (radial, DP) - Neurological Exam Neurological Exam: Awake, Normal Gait, Oriented x3 - Psychiatric Exam Psychiatric exam: Normal Affect, Normal Mood - Skin Skin Exam: Dry, Normal Color, Warm Assessment and Plan - Assessment and Plan (Free Text) Assessment: 62 yo F with PMHx of HTN, hypothyroidism, asthma, and migraines who presents with generalized weakness and hypotension. Patient was found to have hemoglobin of 4.7 and PLT count of 12 on admission, with concerns for TTP, now currently stable w/ stable H/H & platelets. Plan: TTP - Current Management: - Every other day plasmapheresis sessions. Last earlier today, 04/28. Next scheduled on 04/30. Trend hemoglobin & platelets, monitor for rebound drop in values - F/u [id number] reflex titer - s/p 11th plasmapheresis on 04/28 - scheduled for tomorrow 04/30 - Final session on 05/03; likely will need inpatient stay 2/2 insurance. See dispo below - prednisone 40 mg PO daily prn before plasma exchange. Per Nephrology, tapering over next 2 weeks, today is day 1 of 50 -> 40mg - Calcium gluconate 4.65 mEq in 0.9 NS before plasma exchange - Benadryl 50 mg IVP daily PRN before plasma exchange - Nephrology recs (Dr. Jacob) appreciated -pt responding well to plasmapheresis sessions - Heme/onc recs (Dr. De La Cruz) - plasmapheresis every other day, through 05/03 Labs: - Hb/Hct: stable at 10s/30 (4.7/13.8 on admission) - PLT: stable 200s+ (12 on admission) - Reticulocyte count: stable in 2s (13.3 on admission) - Haptoglobin < 20.0 - LDH: fluctuating 600s to 800s (4232 on admission) - T. bilirubin: 3.2 on admission--> 0.6 (04/21) (normalized) - CEA: 4.9 - CA19-9: 6.7 - CA125: 7.0 - Peripheral blood smear (04/12): -no increase in blasts -mild neutrophilia and mild monocytosis -thrombocytopenia with few large PLTs -RBC study shows normocytic anemia; RBC morphology--nucleated RBCs - f/u indirect and direct Lucio test - [id number] (04/12) <3, pending reflex titer - Parovirus B19 IgG Ab elevated at 5.0, IgM normal at 0.2 - strict I/Os HTN - BP now controlled, on admission uncontrolled, likely worsened by being on steroids per Nephrology - Nephrology recs (Dr. Aguirre) recs appreciated - HCTZ 12.5 mg started 04/15, Increased to 25 mg for optimal HTN control on 04/16 - home med lisinopril 10 mg PO daily changed to losartan 50 mg PO daily due to reports of anaphylaxis associated with being on CHRISTINE inhibitor and plasmapheresis concomitantly; currently losartan 100mg PO for HTN coverage - SBP 100s - 130s Severe anemia - Currently stable in 10s/30s - On admission: Hb/Hct: 4.7/13.8 Asthma - Singulair 10mg PO daily Hypothyroidism - TSH: 6.24--> 4.91 (04/12) - T4: 11.0 - synthroid 50mcg PO daily Lacunar Infarct (chronic) - CT head without contrast Chronic microvascular ischemic changes.7 millimeter focal hypodensity seen at the level of the right internal capsule suggestive for a lacunar infarct, likely chronic.Scattered calcifications along the falx and tentorium.If there is concern for acute ischemic change, consider correlation with MRI. Spleen Infarct (chronic) -Stool occult: negative -CT abdomen/pelvis: wedge-shaped hypodense regions involving the spleen may reflect infarctions of indeterminate age. Ppx, Diet, Disposition -DVT ppx: Contraindicated at this point 2/2 to possibly TTP -GI ppx: protonix 40 mg PO daily -heart healthy diet -R Permacath usable for plasma exchange; no issues today Hematology would like plasmapheresis through 05/03. Outpatient plasmapheresis less likely due to insurance authorization can be submitted only after Dr. Dumont talks to Dr. Tran @[phone]. Insurance authorization typically takes 2 weeks so outpatient approval unlikely to work. Patient made aware of above information and understands she will be inpatient through 05/03. d/w Dr. Fouzia Henson PGY-1
--- NOTE | 2018-04-28 19:33 | CP.PCM.PN ---
Subjective - Date & Time of Evaluation Date of Evaluation: 04/28/18 Time of Evaluation: 19:33 - Subjective Subjective: his is a 62-year-old female with PMHx HTN, hypothyroidism, asthma, migraines, was admitted with weakness, dizzyness, near syncope , was found to have severe anemia, severe thrombocytopenia, diagnosed TTP , started on Plasmapheresis alternate day. no complaints, feeling better, no cp, no sob Objective - Vital Signs/Intake and Output Vital Signs (last 24 hours): Temp Pulse Resp BP Pulse Ox 98.2 F 86 20 119/80 100 04/28/18 15:00 04/28/18 15:00 04/28/18 15:00 04/28/18 15:00 04/28/18 15:00 - Medications Medications: Current Medications Acetaminophen (Tylenol 325mg Tab) 650 mg PO DAILY PRN PRN Reason: pre-med before plasmapheresis Last Admin: 04/28/18 09:20 Dose: 650 mg Diphenhydramine HCl (Benadryl) 50 mg IVP DAILY PRN PRN Reason: BEFORE PLASMA EXCHANGE Last Admin: 04/26/18 14:40 Dose: 50 mg Diphenhydramine HCl (Benadryl) 50 mg PO MWF PRN PRN Reason: give before plasma exchange Last Admin: 04/28/18 09:21 Dose: 50 mg Docusate Sodium (Colace) 100 mg PO BID [facility] Last Admin: 04/28/18 18:20 Dose: 100 mg Hydrochlorothiazide (Microzide) 12.5 mg PO DAILY [facility] Last Admin: 04/28/18 09:20 Dose: 12.5 mg Calcium Gluconate 4.65 meq/ (Sodium Chloride) 260 mls @ 130 mls/hr IV .Q2H PRN PRN Reason: DURING PLASMA EXCHANGE Last Admin: 04/28/18 09:23 Dose: 130 mls/hr Levothyroxine Sodium (Synthroid) 50 mcg PO DAILY@0600 [facility] Last Admin: 04/28/18 06:55 Dose: 50 mcg Losartan Potassium (Cozaar) 50 mg PO DAILY [facility] Last Admin: 04/28/18 09:20 Dose: 50 mg Montelukast Sodium (Singulair) 10 mg PO DAILY [facility] Last Admin: 04/28/18 09:20 Dose: 10 mg Nicotine (Nicoderm Cq) 1 patch TD DAILY [facility] Last Admin: 04/28/18 09:20 Dose: 1 patch Pantoprazole Sodium (Protonix Ec Tab) 40 mg PO DAILY [facility] Last Admin: 04/28/18 09:20 Dose: 40 mg Prednisone (Prednisone Tab) 40 mg PO DAILY [facility] Last Admin: 04/28/18 09:20 Dose: 40 mg - Labs Labs: 04/28/18 07:03 04/28/18 07:03 PT 10.4 SECONDS (9.7-12.2) 04/17/18 06:19 INR 1.0 04/17/18 06:19 APTT 25 SECONDS (21-34) 04/17/18 06:19 - Head Exam Head Exam: ATRAUMATIC, NORMAL INSPECTION, NORMOCEPHALIC - Eye Exam Eye Exam: EOMI, Normal appearance Pupil Exam: NORMAL ACCOMODATION, PERRL - ENT Exam ENT Exam: Mucous Membranes Moist, Normal Exam - Neck Exam Neck Exam: Full ROM, Normal Inspection - Cardiovascular Exam Cardiovascular Exam: REGULAR RHYTHM, +S1, +S2 - GI/Abdominal Exam GI & Abdominal Exam: Soft, Normal Bowel Sounds Additional comments: non tender, no hsm - Extremities Exam Extremities Exam: Normal Inspection Additional comments: no edema - Neurological Exam Neurological Exam: Alert, Awake, CN II-XII Intact, Oriented x3 - Skin Skin Exam: Normal Color, Warm Assessment and Plan - Assessment and Plan (Free Text) Plan: 62yo female with htn, astham, hypothyrodism with low h/h, low platelets 1. TTP 2. HTN , bp is stable on plasmaphersis alrtnate day h/h is stable, platelets are wnl, covering Dr. Aguirre today renal function is wnl
--- NOTE | 2018-04-29 03:46 | CP.PCM.PN ---
Subjective - Date & Time of Evaluation Date of Evaluation: 04/29/18 Time of Evaluation: 03:44 - Subjective Subjective: PGY-1 Medicine Progress Note for Dr. Fragoso Patient seen and examined at bedside, resting comfortably and in no acute distress. Patient continues to be pleasant and optimistic, no acute complaints. No fevers/chills, nausea/vomiting/diarrhea/constipation, headaches, chest pain, palpitations, sob, or abdominal pain. Objective - Vital Signs/Intake and Output Vital Signs (last 24 hours): Temp Pulse Resp BP Pulse Ox 97.4 F L 85 20 117/73 99 04/28/18 23:15 04/28/18 23:15 04/28/18 23:15 04/28/18 23:15 04/28/18 23:15 Intake and Output: 04/28/18 04/29/18 18:59 06:59 Intake Total 350 Balance 350 - Medications Medications: Current Medications Acetaminophen (Tylenol 325mg Tab) 650 mg PO DAILY PRN PRN Reason: pre-med before plasmapheresis Last Admin: 04/28/18 09:20 Dose: 650 mg Diphenhydramine HCl (Benadryl) 50 mg IVP DAILY PRN PRN Reason: BEFORE PLASMA EXCHANGE Last Admin: 04/26/18 14:40 Dose: 50 mg Diphenhydramine HCl (Benadryl) 50 mg PO MWF PRN PRN Reason: give before plasma exchange Last Admin: 04/28/18 09:21 Dose: 50 mg Docusate Sodium (Colace) 100 mg PO BID [facility] Last Admin: 04/28/18 18:20 Dose: 100 mg Hydrochlorothiazide (Microzide) 12.5 mg PO DAILY [facility] Last Admin: 04/28/18 09:20 Dose: 12.5 mg Calcium Gluconate 4.65 meq/ (Sodium Chloride) 260 mls @ 130 mls/hr IV .Q2H PRN PRN Reason: DURING PLASMA EXCHANGE Last Admin: 04/28/18 09:23 Dose: 130 mls/hr Levothyroxine Sodium (Synthroid) 50 mcg PO DAILY@0600 [facility] Last Admin: 04/28/18 06:55 Dose: 50 mcg Losartan Potassium (Cozaar) 50 mg PO DAILY [facility] Last Admin: 04/28/18 09:20 Dose: 50 mg Montelukast Sodium (Singulair) 10 mg PO DAILY [facility] Last Admin: 04/28/18 09:20 Dose: 10 mg Nicotine (Nicoderm Cq) 1 patch TD DAILY [facility] Last Admin: 04/28/18 09:20 Dose: 1 patch Pantoprazole Sodium (Protonix Ec Tab) 40 mg PO DAILY [facility] Last Admin: 04/28/18 09:20 Dose: 40 mg Prednisone (Prednisone Tab) 40 mg PO DAILY [facility] Last Admin: 04/28/18 09:20 Dose: 40 mg - Labs Labs: 04/28/18 07:03 04/28/18 07:03 PT 10.4 SECONDS (9.7-12.2) 04/17/18 06:19 INR 1.0 04/17/18 06:19 APTT 25 SECONDS (21-34) 04/17/18 06:19 - Constitutional Appears: Non-toxic, No Acute Distress - Head Exam Head Exam: ATRAUMATIC, NORMAL INSPECTION, NORMOCEPHALIC - Eye Exam Eye Exam: EOMI, Normal appearance Pupil Exam: NORMAL ACCOMODATION - ENT Exam ENT Exam: Mucous Membranes Moist, Normal Exam - Neck Exam Neck Exam: Full ROM, Normal Inspection. absent: Tenderness - Respiratory Exam Respiratory Exam: Clear to Ausculation Bilateral, NORMAL BREATHING PATTERN. absent: Rales, Rhonchi, Wheezes, Respiratory Distress, Stridor - Cardiovascular Exam Cardiovascular Exam: REGULAR RHYTHM, +S1, +S2 Additional comments: R chest Permacath in place, dressing c/d/i - GI/Abdominal Exam GI & Abdominal Exam: Soft, Normal Bowel Sounds. absent: Distended, Firm, Guarding, Rigid, Tenderness, Organomegaly, Rebound - Extremities Exam Extremities Exam: Full ROM, Normal Capillary Refill, Normal Inspection - Back Exam Back Exam: NORMAL INSPECTION - Neurological Exam Neurological Exam: Alert, Awake, CN II-XII Intact, Oriented x3 - Psychiatric Exam Psychiatric exam: Normal Affect, Normal Mood - Skin Skin Exam: Dry, Intact, Normal Color, Warm Assessment and Plan - Assessment and Plan (Free Text) Assessment: 62 yo F with PMHx of HTN, hypothyroidism, asthma, and migraines who presents with generalized weakness and hypotension. Patient was found to have hemoglobin of 4.7 and PLT count of 12 on admission, with concerns for TTP, now currently stable w/ stable H/H & platelets. Plan: TTP - Current Management: - Every other day plasmapheresis sessions. Last earlier today, 04/28. Next scheduled on 04/30. Trend hemoglobin & platelets, monitor for rebound drop in values - F/u [id number] reflex titer - s/p 11th plasmapheresis on 04/28 - scheduled for 12th tomorrow 04/30 - Final session on 05/03; likely will need inpatient stay 2/2 insurance. See dispo below - prednisone 40 mg PO daily prn before plasma exchange. Per Nephrology, tapering over next 2 weeks, today is day 1 of 50 -> 40mg - Calcium gluconate 4.65 mEq in 0.9 NS before plasma exchange - Benadryl 50 mg IVP daily PRN before plasma exchange - Nephrology recs (Dr. Jacob) appreciated -pt responding well to plasmapheresis sessions - Heme/onc recs (Dr. De La Cruz) - plasmapheresis every other day, through 05/03 Labs: - Hb/Hct: stable at 10s/30 (4.7/13.8 on admission) - PLT: stable 200s+ (12 on admission) - Reticulocyte count: stable in 2s (13.3 on admission) - Haptoglobin < 20.0 - LDH: fluctuating 600s to 800s (4232 on admission) - T. bilirubin: 3.2 on admission--> 0.6 (04/21) (normalized) - CEA: 4.9 - CA19-9: 6.7 - CA125: 7.0 - Peripheral blood smear (04/12): -no increase in blasts -mild neutrophilia and mild monocytosis -thrombocytopenia with few large PLTs -RBC study shows normocytic anemia; RBC morphology--nucleated RBCs - f/u indirect and direct Lucio test - [id number] (04/12) <3, pending reflex titer - Parovirus B19 IgG Ab elevated at 5.0, IgM normal at 0.2 - strict I/Os HTN - BP now controlled, on admission uncontrolled, likely worsened by being on steroids per Nephrology - Nephrology recs (Dr. Aguirre) recs appreciated - HCTZ 12.5 mg started 04/15, Increased to 25 mg for optimal HTN control on 04/16 - home med lisinopril 10 mg PO daily changed to losartan 50 mg PO daily due to reports of anaphylaxis associated with being on CHRISTINE inhibitor and plasmapheresis concomitantly; currently losartan 100mg PO for HTN coverage - SBP 100s - 130s Severe anemia - Currently stable in 10s/30s - On admission: Hb/Hct: 4.7/13.8 Asthma - Singulair 10mg PO daily Hypothyroidism - TSH: 6.24--> 4.91 (04/12) - T4: 11.0 - synthroid 50mcg PO daily Lacunar Infarct (chronic) - CT head without contrast Chronic microvascular ischemic changes.7 millimeter focal hypodensity seen at the level of the right internal capsule suggestive for a lacunar infarct, likely chronic.Scattered calcifications along the falx and tentorium.If there is concern for acute ischemic change, consider correlation with MRI. Spleen Infarct (chronic) -Stool occult: negative -CT abdomen/pelvis: wedge-shaped hypodense regions involving the spleen may reflect infarctions of indeterminate age. Ppx, Diet, Disposition -DVT ppx: Contraindicated at this point 2/2 to possibly TTP -GI ppx: protonix 40 mg PO daily -heart healthy diet -R Permacath usable for plasma exchange; no issues today Hematology would like plasmapheresis through 05/03. Outpatient plasmapheresis less likely due to insurance authorization can be submitted only after Dr. Dumont talks to Dr. Tran @[phone]. Insurance authorization typically takes 2 weeks so outpatient approval unlikely to work. Patient made aware of above information and understands she will be inpatient through 05/03. d/w Dr. Fouzia Barahona DO, PGY-1
[2018-04-29] MEDS: Levothyroxine 50 MCG TAB PO SCH (05:55)
[2018-04-29 07:39] LABS: BASO # 0.1 K/uL (0.0-0.2); BASO % 0.5 % (0.0-2.0); EOS % 0.4 % (0.0-4.0); HEMOGLOBIN 10.1 g/dL (11.0-16.0); LYMPH # 3.8 K/uL (1.0-4.3); LYMPH % 34.2 % (20.0-40.0); MEAN CELL VOLUME 92.5 fL (81.0-99.0); MEAN CORPUSCULAR HEMOGLOBIN 31.7 pg (27.0-31.0); MEAN CORPUSCULAR HGB CONC 34.2 g/dL (33.0-37.0); MEAN PLATELET VOLUME 7.8 fL (7.2-11.7); MONO # 0.6 K/uL (0.0-0.8); MONO % 5.7 % (0.0-10.0); NEUT # 6.5 K/uL (1.8-7.0); NEUT % 59.2 % (50.0-75.0); NRBC % 0.1 % (0.0-2.0); RBC 3.2 Mil/uL (3.80-5.20); RED CELL DISTRIBUTION WIDTH 17.5 % (11.5-14.5)
[2018-04-29 08:05] LABS: ALB/GLOB RATIO 1.4 (1.0-2.1); ALBUMIN 3.9 g/dL (3.5-5.0); ALT/SGPT 119 U/L (9-52); AST/SGOT 46 U/L (14-36); BLOOD UREA NITROGEN 16 mg/dL (7-17); CALCIUM 9.4 mg/dl (8.6-10.4); GFR NON-AFRICAN AMERICAN > 60
[2018-04-29] MEDS: Pantoprazole 40 mg EC Tab PO SCH (10:08)
--- NOTE | 2018-04-30 03:05 | CP.PCM.PN ---
Subjective - Date & Time of Evaluation Date of Evaluation: 04/30/18 Time of Evaluation: 03:03 - Subjective Subjective: PGY-1 Medicine Progress Note for Dr. Fragoso Patient was seen and examined today standing at bedside lotioning s/p shower in no acute distress. Nurse reports no overnight events. Patient reports being in good spirits has no new complaints. Denies chest pain, shortness of breath, abdominal pain, fever, chills, nausea, vomiting, weakness, fatigue, numbness, tingling. Objective - Vital Signs/Intake and Output Vital Signs (last 24 hours): Temp Pulse Resp BP Pulse Ox 98.3 F 87 20 124/77 100 04/29/18 23:15 04/29/18 23:15 04/29/18 23:15 04/29/18 23:15 04/29/18 23:15 - Medications Medications: Current Medications Acetaminophen (Tylenol 325mg Tab) 650 mg PO DAILY PRN PRN Reason: pre-med before plasmapheresis Last Admin: 04/28/18 09:20 Dose: 650 mg Diphenhydramine HCl (Benadryl) 50 mg IVP DAILY PRN PRN Reason: BEFORE PLASMA EXCHANGE Last Admin: 04/26/18 14:40 Dose: 50 mg Diphenhydramine HCl (Benadryl) 50 mg PO MWF PRN PRN Reason: give before plasma exchange Last Admin: 04/28/18 09:21 Dose: 50 mg Docusate Sodium (Colace) 100 mg PO BID [facility] Last Admin: 04/29/18 17:54 Dose: 100 mg Hydrochlorothiazide (Microzide) 12.5 mg PO DAILY [facility] Last Admin: 04/29/18 10:07 Dose: 12.5 mg Calcium Gluconate 4.65 meq/ (Sodium Chloride) 260 mls @ 130 mls/hr IV .Q2H PRN PRN Reason: DURING PLASMA EXCHANGE Last Admin: 04/28/18 09:23 Dose: 130 mls/hr Levothyroxine Sodium (Synthroid) 50 mcg PO DAILY@0600 [facility] Last Admin: 04/29/18 05:55 Dose: 50 mcg Losartan Potassium (Cozaar) 50 mg PO DAILY [facility] Last Admin: 04/29/18 10:07 Dose: 50 mg Montelukast Sodium (Singulair) 10 mg PO DAILY [facility] Last Admin: 04/29/18 10:08 Dose: 10 mg Nicotine (Nicoderm Cq) 1 patch TD DAILY [facility] Last Admin: 04/29/18 10:07 Dose: 1 patch Pantoprazole Sodium (Protonix Ec Tab) 40 mg PO DAILY [facility] Last Admin: 04/29/18 10:08 Dose: 40 mg Prednisone (Prednisone Tab) 40 mg PO DAILY [facility] Last Admin: 04/29/18 10:07 Dose: 40 mg - Labs Labs: 04/29/18 07:23 04/29/18 07:23 PT 10.4 SECONDS (9.7-12.2) 04/17/18 06:19 INR 1.0 04/17/18 06:19 APTT 25 SECONDS (21-34) 04/17/18 06:19 - Constitutional Appears: Non-toxic, No Acute Distress - Head Exam Head Exam: ATRAUMATIC, NORMAL INSPECTION, NORMOCEPHALIC - Eye Exam Eye Exam: EOMI, Normal appearance Pupil Exam: NORMAL ACCOMODATION - ENT Exam ENT Exam: Mucous Membranes Moist, Normal Exam - Neck Exam Neck Exam: Full ROM, Normal Inspection. absent: Tenderness - Respiratory Exam Respiratory Exam: Clear to Ausculation Bilateral, NORMAL BREATHING PATTERN - Cardiovascular Exam Cardiovascular Exam: REGULAR RHYTHM, +S1, +S2 - GI/Abdominal Exam GI & Abdominal Exam: Soft, Normal Bowel Sounds. absent: Distended, Firm, Guarding, Rigid, Tenderness, Organomegaly, Rebound - Extremities Exam Extremities Exam: Full ROM, Normal Capillary Refill, Normal Inspection. absent : Pedal Edema, Tenderness - Back Exam Back Exam: NORMAL INSPECTION - Neurological Exam Neurological Exam: Alert, Awake, CN II-XII Intact, Normal Gait, Oriented x3 - Psychiatric Exam Psychiatric exam: Normal Affect, Normal Mood - Skin Skin Exam: Dry, Intact, Normal Color, Warm Assessment and Plan - Assessment and Plan (Free Text) Assessment: 62 yo F with PMHx of HTN, hypothyroidism, asthma, and migraines who presents with generalized weakness and hypotension. Patient was found to have hemoglobin of 4.7 and PLT count of 12 on admission, with concerns for TTP, now currently stable w/ stable H/H & platelets. Plan: TTP - Current Management: - Every other day plasmapheresis sessions. Last earlier today, 04/28. Next scheduled on 04/30. Trend hemoglobin & platelets, monitor for rebound drop in values - F/u [id number] reflex titer - s/p 11th plasmapheresis on 04/28 - scheduled for 12th tomorrow 04/30 - Final session on 05/03; likely will need inpatient stay 2/2 insurance. See dispo below - prednisone 40 mg PO daily prn before plasma exchange. Per Nephrology, tapering over next 2 weeks, today is day 1 of 50 -> 40mg - Calcium gluconate 4.65 mEq in 0.9 NS before plasma exchange - Benadryl 50 mg IVP daily PRN before plasma exchange - Nephrology recs (Dr. Jacob) appreciated -pt responding well to plasmapheresis sessions - Heme/onc recs (Dr. De La Cruz) - plasmapheresis every other day, through 05/03 Labs: - Hb/Hct: stable at 10s/30 (4.7/13.8 on admission) - PLT: stable 200s+ (12 on admission) - Reticulocyte count: stable in 2s (13.3 on admission) - Haptoglobin < 20.0 - LDH: fluctuating 600s to 800s (4232 on admission) - T. bilirubin: 3.2 on admission--> 0.6 (04/21) (normalized) - CEA: 4.9 - CA19-9: 6.7 - CA125: 7.0 - Peripheral blood smear (04/12): -no increase in blasts -mild neutrophilia and mild monocytosis -thrombocytopenia with few large PLTs -RBC study shows normocytic anemia; RBC morphology--nucleated RBCs - f/u indirect and direct Lucio test - [id number] (04/12) <3, pending reflex titer - Parovirus B19 IgG Ab elevated at 5.0, IgM normal at 0.2 - strict I/Os HTN - BP now controlled, on admission uncontrolled, likely worsened by being on steroids per Nephrology - Nephrology recs (Dr. Aguirre) recs appreciated - HCTZ 12.5 mg started 04/15, Increased to 25 mg for optimal HTN control on 04/16 - home med lisinopril 10 mg PO daily changed to losartan 50 mg PO daily due to reports of anaphylaxis associated with being on CHRISTINE inhibitor and plasmapheresis concomitantly; currently losartan 100mg PO for HTN coverage - SBP 100s - 130s Severe anemia - Currently stable in 10s/30s - On admission: Hb/Hct: 4.7/13.8 Asthma - Singulair 10mg PO daily Hypothyroidism - TSH: 6.24--> 4.91 (04/12) - T4: 11.0 - synthroid 50mcg PO daily Lacunar Infarct (chronic) - CT head without contrast Chronic microvascular ischemic changes.7 millimeter focal hypodensity seen at the level of the right internal capsule suggestive for a lacunar infarct, likely chronic.Scattered calcifications along the falx and tentorium.If there is concern for acute ischemic change, consider correlation with MRI. Spleen Infarct (chronic) -Stool occult: negative -CT abdomen/pelvis: wedge-shaped hypodense regions involving the spleen may reflect infarctions of indeterminate age. Ppx, Diet, Disposition -DVT ppx: Contraindicated at this point 2/2 to possibly TTP -GI ppx: protonix 40 mg PO daily -heart healthy diet -R Permacath usable for plasma exchange; no issues today -Disposition: Hematology would like plasmapheresis through 05/03. Outpatient plasmapheresis less likely due to insurance authorization can be submitted only after Dr. Dumont talks to Dr. Tran @[phone]. Insurance authorization typically takes 2 weeks so outpatient approval unlikely to work. Patient made aware of above information and understands she will be inpatient through 05/03. Case to be discussed with Dr. Fouzia Barahona DO, PGY-1
[2018-04-30] MEDS: Levothyroxine 50 MCG TAB PO SCH (05:45)
--- NOTE | 2018-04-30 08:00 | CP.PCM.PN ---
Subjective - Date & Time of Evaluation Date of Evaluation: 04/29/18 Time of Evaluation: 15:00 - Subjective Subjective: Patient reports feeling well; no sob; ambulating; Objective - Vital Signs/Intake and Output Vital Signs (last 24 hours): Temp Pulse Resp BP Pulse Ox 98.3 F 87 20 124/77 100 04/29/18 23:15 04/29/18 23:15 04/29/18 23:15 04/29/18 23:15 04/29/18 23:15 - Medications Medications: Current Medications Acetaminophen (Tylenol 325mg Tab) 650 mg PO DAILY PRN PRN Reason: pre-med before plasmapheresis Last Admin: 04/28/18 09:20 Dose: 650 mg Diphenhydramine HCl (Benadryl) 50 mg IVP DAILY PRN PRN Reason: BEFORE PLASMA EXCHANGE Last Admin: 04/26/18 14:40 Dose: 50 mg Diphenhydramine HCl (Benadryl) 50 mg PO MWF PRN PRN Reason: give before plasma exchange Last Admin: 04/28/18 09:21 Dose: 50 mg Docusate Sodium (Colace) 100 mg PO BID [facility] Last Admin: 04/29/18 17:54 Dose: 100 mg Hydrochlorothiazide (Microzide) 12.5 mg PO DAILY [facility] Last Admin: 04/29/18 10:07 Dose: 12.5 mg Calcium Gluconate 4.65 meq/ (Sodium Chloride) 260 mls @ 130 mls/hr IV .Q2H PRN PRN Reason: DURING PLASMA EXCHANGE Last Admin: 04/28/18 09:23 Dose: 130 mls/hr Levothyroxine Sodium (Synthroid) 50 mcg PO DAILY@0600 [facility] Last Admin: 04/30/18 05:45 Dose: 50 mcg Losartan Potassium (Cozaar) 50 mg PO DAILY [facility] Last Admin: 04/29/18 10:07 Dose: 50 mg Montelukast Sodium (Singulair) 10 mg PO DAILY [facility] Last Admin: 04/29/18 10:08 Dose: 10 mg Nicotine (Nicoderm Cq) 1 patch TD DAILY [facility] Last Admin: 04/29/18 10:07 Dose: 1 patch Pantoprazole Sodium (Protonix Ec Tab) 40 mg PO DAILY [facility] Last Admin: 04/29/18 10:08 Dose: 40 mg Prednisone (Prednisone Tab) 40 mg PO DAILY [facility] Last Admin: 04/29/18 10:07 Dose: 40 mg - Labs Labs: 04/29/18 07:23 04/29/18 07:23 PT 10.4 SECONDS (9.7-12.2) 04/17/18 06:19 INR 1.0 04/17/18 06:19 APTT 25 SECONDS (21-34) 04/17/18 06:19 - Constitutional Appears: Non-toxic, No Acute Distress - Eye Exam Eye Exam: Normal appearance - Respiratory Exam Respiratory Exam: Clear to Ausculation Bilateral. absent: Respiratory Distress - Cardiovascular Exam Cardiovascular Exam: RRR, +S1, +S2 - GI/Abdominal Exam GI & Abdominal Exam: Soft. absent: Distended, Tenderness - Extremities Exam Additional comments: no leg edema; - Neurological Exam Neurological Exam: Alert, Awake - Psychiatric Exam Psychiatric exam: Normal Mood. absent: Agitated - Skin Skin Exam: Warm. absent: Cyanosis Assessment and Plan (1) Thrombocytopenia Assessment & Plan: TTP, platelet count/hgb stable on alternate day plasma exchange (1 plasma volume , FFP replacement); will continue same, next TPE session tomorrow; -monitor electrolytes; continue calcium gluconate 1g with TPE; -on prednisone taper, decreasing by 10 mg every 3 day; -f/u with primary biomechanical engineer on Tuesday; -f/u [id number] inhibitor study; Status: Acute (2) HTN (hypertension) Assessment & Plan: BP controlled, continue current meds; Status: Chronic (3) Electrolyte imbalance Status: Acute (4) Severe anemia Status: Acute (5) Acute kidney injury Status: Resolved
[2018-04-30 08:13] LABS: BASO % 0.3 % (0.0-2.0); EOS % 0.3 % (0.0-4.0); HEMOGLOBIN 10.3 g/dL (11.0-16.0); LYMPH % 34.2 % (20.0-40.0); MEAN CELL VOLUME 93.9 fL (81.0-99.0); MEAN CORPUSCULAR HEMOGLOBIN 31.5 pg (27.0-31.0); MEAN CORPUSCULAR HGB CONC 33.6 g/dL (33.0-37.0); MEAN PLATELET VOLUME 7.3 fL (7.2-11.7); MONO # 0.5 K/uL (0.0-0.8); MONO % 4.4 % (0.0-10.0); NEUT # 7.1 K/uL (1.8-7.0); NEUT % 60.8 % (50.0-75.0); RBC 3.28 Mil/uL (3.80-5.20); RED CELL DISTRIBUTION WIDTH 17.6 % (11.5-14.5); WHITE BLOOD COUNT 11.7 K/uL (4.8-10.8)
[2018-04-30 08:28] LABS: ALB/GLOB RATIO 1.4 (1.0-2.1); ALBUMIN 3.9 g/dL (3.5-5.0); ALT/SGPT 123 U/L (9-52); AST/SGOT 47 U/L (14-36); BLOOD UREA NITROGEN 21 mg/dL (7-17); CALCIUM 9.4 mg/dl (8.6-10.4); GFR NON-AFRICAN AMERICAN > 60
[2018-04-30] MEDS: Pantoprazole 40 mg EC Tab PO SCH (11:34)
[2018-04-30] MEDS ORDERED: SODIUM CHLORIDE 0.9% IV ONE (12:15)
[2018-04-30] MEDS ORDERED: CALCIUM GLUCONATE IV ONE (12:15)
[2018-05-01] MEDS: Levothyroxine 50 MCG TAB PO SCH (05:00)
[2018-05-01 06:36] LABS: BASO % 0.2 % (0.0-2.0); EOS # 0.1 K/uL (0.0-0.7); EOS % 0.5 % (0.0-4.0); LYMPH # 3.8 K/uL (1.0-4.3); MEAN CELL VOLUME 93.1 fL (81.0-99.0); MEAN CORPUSCULAR HEMOGLOBIN 30.5 pg (27.0-31.0); MEAN CORPUSCULAR HGB CONC 32.7 g/dL (33.0-37.0); MEAN PLATELET VOLUME 7.4 fL (7.2-11.7); MONO # 0.6 K/uL (0.0-0.8); MONO % 5.4 % (0.0-10.0); NEUT # 6.7 K/uL (1.8-7.0); NEUT % 59.9 % (50.0-75.0); NRBC % 0.1 % (0.0-2.0); RBC 3.27 Mil/uL (3.80-5.20); RED CELL DISTRIBUTION WIDTH 17.4 % (11.5-14.5); WHITE BLOOD COUNT 11.1 K/uL (4.8-10.8)
[2018-05-01 06:55] LABS: ALB/GLOB RATIO 1.4 (1.0-2.1); ALBUMIN 3.6 g/dL (3.5-5.0); ALT/SGPT 101 U/L (9-52); AST/SGOT 47 U/L (14-36); BLOOD UREA NITROGEN 21 mg/dL (7-17); CALCIUM 9.2 mg/dl (8.6-10.4); GFR NON-AFRICAN AMERICAN > 60
--- NOTE | 2018-05-01 09:09 | CP.PCM.PN ---
<Oscar Frederick - Last Filed: 05/01/18 14:06> Subjective - Date & Time of Evaluation Date of Evaluation: 05/01/18 Time of Evaluation: 09:07 - Subjective Subjective: Oscar Frederick DO, PGY-2: Nephrology Progress Note for Dr. Aguirre Patient was seen and examined at bedside. She reports undergoing plasmapheresis yesterday without incident. She denies any dyspnea, chest pain, headache, visual disturbance, unilateral weakness or numbness. Objective - Vital Signs/Intake and Output Vital Signs (last 24 hours): Temp Pulse Resp BP Pulse Ox 97.8 F 96 H 20 112/72 100 05/01/18 07:35 05/01/18 07:35 05/01/18 07:35 05/01/18 07:35 05/01/18 07:35 Intake and Output: 05/01/18 05/01/18 06:59 18:59 Intake Total 350 Balance 350 - Medications Medications: Current Medications Acetaminophen (Tylenol 325mg Tab) 650 mg PO DAILY PRN PRN Reason: pre-med before plasmapheresis Last Admin: 04/28/18 09:20 Dose: 650 mg Diphenhydramine HCl (Benadryl) 50 mg IVP DAILY PRN PRN Reason: BEFORE PLASMA EXCHANGE Last Admin: 04/26/18 14:40 Dose: 50 mg Diphenhydramine HCl (Benadryl) 50 mg PO MWF PRN PRN Reason: give before plasma exchange Last Admin: 04/28/18 09:21 Dose: 50 mg Docusate Sodium (Colace) 100 mg PO BID [facility] Last Admin: 04/30/18 17:49 Dose: 100 mg Hydrochlorothiazide (Microzide) 12.5 mg PO DAILY [facility] Last Admin: 04/30/18 11:33 Dose: 12.5 mg Calcium Gluconate 4.65 meq/ (Sodium Chloride) 260 mls @ 130 mls/hr IV .Q2H PRN PRN Reason: DURING PLASMA EXCHANGE Last Admin: 04/28/18 09:23 Dose: 130 mls/hr Levothyroxine Sodium (Synthroid) 50 mcg PO DAILY@0600 [facility] Last Admin: 05/01/18 05:00 Dose: 50 mcg Losartan Potassium (Cozaar) 50 mg PO DAILY [facility] Last Admin: 04/30/18 11:33 Dose: 50 mg Montelukast Sodium (Singulair) 10 mg PO DAILY [facility] Last Admin: 04/30/18 11:34 Dose: 10 mg Nicotine (Nicoderm Cq) 1 patch TD DAILY [facility] Last Admin: 04/30/18 11:33 Dose: 1 patch Pantoprazole Sodium (Protonix Ec Tab) 40 mg PO DAILY [facility] Last Admin: 04/30/18 11:34 Dose: 40 mg Prednisone (Prednisone Tab) 40 mg PO DAILY [facility] Last Admin: 04/30/18 11:34 Dose: 40 mg - Labs Labs: 05/01/18 06:29 05/01/18 06:29 PT 10.4 SECONDS (9.7-12.2) 04/17/18 06:19 INR 1.0 04/17/18 06:19 APTT 25 SECONDS (21-34) 04/17/18 06:19 - Constitutional Appears: Well, Non-toxic - Head Exam Head Exam: ATRAUMATIC, NORMOCEPHALIC - Eye Exam Eye Exam: EOMI, Normal appearance - ENT Exam ENT Exam: Mucous Membranes Moist - Neck Exam Neck Exam: Normal Inspection - Respiratory Exam Respiratory Exam: Clear to Ausculation Bilateral, NORMAL BREATHING PATTERN. absent: Accessory Muscle Use - Cardiovascular Exam Cardiovascular Exam: RRR, +S1, +S2 - Extremities Exam Extremities Exam: Normal Inspection. absent: Calf Tenderness - Neurological Exam Neurological Exam: Alert, Awake, Oriented x3 - Psychiatric Exam Psychiatric exam: Normal Affect, Normal Mood - Skin Skin Exam: Dry, Intact, Normal Color, Warm Assessment and Plan - Assessment and Plan (Free Text) Assessment: Assessment and Plan (1) Thrombocytopenia Assessment & Plan: TTP, platelet count/hgb stable on alternate day plasma exchange (1 plasma volume , FFP replacement); will continue same, -monitor electrolytes; continue calcium gluconate 1g with TPE; -on prednisone taper, decreasing by 10 mg every 3 day; to start on 30 mg Prednisone starting tomorrow -f/u with primary speech communication instructor on Tuesday; -f/u [id number] inhibitor study; Status: Acute (2) HTN (hypertension) Assessment & Plan: BP controlled, continue current meds; Status: Chronic (3) Electrolyte imbalance Status: Acute (4) Severe anemia Status: Acute (5) Acute kidney injury Status: Resolved Case was reviewed and discussed with attending physician, Dr. Aguirre <Jason Aguirre - Last Filed: 05/02/18 01:51> Objective - Vital Signs/Intake and Output Vital Signs (last 24 hours): Temp Pulse Resp BP Pulse Ox 97.6 F 87 20 112/65 98 05/01/18 23:20 05/01/18 23:20 05/01/18 23:20 05/01/18 23:20 05/01/18 23:20 Intake and Output: 05/01/18 05/02/18 18:59 06:59 Intake Total 300 Balance 300 - Medications Medications: Current Medications Acetaminophen (Tylenol 325mg Tab) 650 mg PO DAILY PRN PRN Reason: pre-med before plasmapheresis Last Admin: 04/28/18 09:20 Dose: 650 mg Diphenhydramine HCl (Benadryl) 50 mg IVP DAILY PRN PRN Reason: BEFORE PLASMA EXCHANGE Last Admin: 04/26/18 14:40 Dose: 50 mg Diphenhydramine HCl (Benadryl) 50 mg PO MWF PRN PRN Reason: give before plasma exchange Last Admin: 04/28/18 09:21 Dose: 50 mg Docusate Sodium (Colace) 100 mg PO BID [facility] Last Admin: 05/01/18 17:52 Dose: 100 mg Hydrochlorothiazide (Microzide) 12.5 mg PO Q48H [facility] Calcium Gluconate 4.65 meq/ (Sodium Chloride) 260 mls @ 130 mls/hr IV .Q2H PRN PRN Reason: DURING PLASMA EXCHANGE Last Admin: 04/28/18 09:23 Dose: 130 mls/hr Levothyroxine Sodium (Synthroid) 50 mcg PO DAILY@0600 [facility] Last Admin: 05/01/18 05:00 Dose: 50 mcg Losartan Potassium (Cozaar) 50 mg PO DAILY [facility] Last Admin: 05/01/18 09:49 Dose: 50 mg Montelukast Sodium (Singulair) 10 mg PO DAILY [facility] Last Admin: 05/01/18 09:49 Dose: 10 mg Nicotine (Nicoderm Cq) 1 patch TD DAILY [facility] Last Admin: 05/01/18 09:49 Dose: 1 patch Pantoprazole Sodium (Protonix Ec Tab) 40 mg PO DAILY [facility] Last Admin: 05/01/18 09:49 Dose: 40 mg Prednisone (Prednisone Tab) 30 mg PO DAILY [facility] - Labs Labs: 05/01/18 06:29 05/01/18 06:29 PT 10.4 SECONDS (9.7-12.2) 04/17/18 06:19 INR 1.0 04/17/18 06:19 APTT 25 SECONDS (21-34) 04/17/18 06:19 Assessment and Plan (1) Thrombocytopenia Status: Acute (2) HTN (hypertension) Status: Chronic (3) Electrolyte imbalance Status: Acute (4) Severe anemia Status: Acute (5) Acute kidney injury Status: Resolved Attending/Attestation - Attestation I have personally seen and examined this patient.: Yes I have fully participated in the care of the patient.: Yes I have reviewed all pertinent clinical information, including history, physical exam and plan: Yes Notes (Text): Patient seen and examined; I agree with the resident's note as above with the following additions/edits: Patient admitted with TTP, undergoing plasma exchange (TPE) every other day, last session should be tomorrow; responding well with stable blood counts, will check LDH tomorrow; will leave tunneled HD catheter for now, can remove as outpatient if clinically stable; HTN controlled; decreasing hctz 12.5 mg to every other day as serum bicarb mildly elevated; continue losartan 50 mg daily; -continue prednisone 30 mg daily x 3 days, should decrease to 20 mg x 3 days, then 10 mg x 3 days, then 5 mg x 3 days, then stop;
[2018-05-01] MEDS: Pantoprazole 40 mg EC Tab PO SCH (09:49)
--- NOTE | 2018-05-01 10:50 | CP.PCM.PN ---
Subjective - Date & Time of Evaluation Date of Evaluation: 05/01/18 Time of Evaluation: 10:49 - Subjective Subjective: Warner Valente DO PGY-1, Medicine progress note for Dr. Fragoso Pt seen and examined at bedside. Pt has no complaints at this time. No acute events overnight. Pt received plasmapheresis yesterday (05/01/18). Pt denies headache, dizziness, fever, chills, chest pain, sob, abdominal pain, n/v/d, bruising or bleeding. A 12-point ROS was reviewed and is otherwise unremarkable. Objective - Vital Signs/Intake and Output Vital Signs (last 24 hours): Temp Pulse Resp BP Pulse Ox 97.8 F 96 H 20 112/72 100 05/01/18 07:35 05/01/18 07:35 05/01/18 07:35 05/01/18 07:35 05/01/18 07:35 Intake and Output: 05/01/18 05/01/18 06:59 18:59 Intake Total 350 Balance 350 - Medications Medications: Current Medications Acetaminophen (Tylenol 325mg Tab) 650 mg PO DAILY PRN PRN Reason: pre-med before plasmapheresis Last Admin: 04/28/18 09:20 Dose: 650 mg Diphenhydramine HCl (Benadryl) 50 mg IVP DAILY PRN PRN Reason: BEFORE PLASMA EXCHANGE Last Admin: 04/26/18 14:40 Dose: 50 mg Diphenhydramine HCl (Benadryl) 50 mg PO MWF PRN PRN Reason: give before plasma exchange Last Admin: 04/28/18 09:21 Dose: 50 mg Docusate Sodium (Colace) 100 mg PO BID [facility] Last Admin: 05/01/18 09:49 Dose: 100 mg Hydrochlorothiazide (Microzide) 12.5 mg PO DAILY [facility] Last Admin: 05/01/18 09:49 Dose: 12.5 mg Calcium Gluconate 4.65 meq/ (Sodium Chloride) 260 mls @ 130 mls/hr IV .Q2H PRN PRN Reason: DURING PLASMA EXCHANGE Last Admin: 04/28/18 09:23 Dose: 130 mls/hr Levothyroxine Sodium (Synthroid) 50 mcg PO DAILY@0600 [facility] Last Admin: 05/01/18 05:00 Dose: 50 mcg Losartan Potassium (Cozaar) 50 mg PO DAILY [facility] Last Admin: 05/01/18 09:49 Dose: 50 mg Montelukast Sodium (Singulair) 10 mg PO DAILY [facility] Last Admin: 05/01/18 09:49 Dose: 10 mg Nicotine (Nicoderm Cq) 1 patch TD DAILY [facility] Last Admin: 05/01/18 09:49 Dose: 1 patch Pantoprazole Sodium (Protonix Ec Tab) 40 mg PO DAILY [facility] Last Admin: 05/01/18 09:49 Dose: 40 mg Prednisone (Prednisone Tab) 40 mg PO DAILY [facility] Last Admin: 05/01/18 09:49 Dose: 40 mg - Labs Labs: 05/01/18 06:29 05/01/18 06:29 PT 10.4 SECONDS (9.7-12.2) 04/17/18 06:19 INR 1.0 04/17/18 06:19 APTT 25 SECONDS (21-34) 04/17/18 06:19 - Constitutional Appears: Well, Non-toxic, No Acute Distress - Head Exam Head Exam: ATRAUMATIC, NORMAL INSPECTION - Eye Exam Eye Exam: EOMI, Normal appearance - ENT Exam ENT Exam: Mucous Membranes Moist - Neck Exam Neck Exam: Normal Inspection - Respiratory Exam Respiratory Exam: Clear to Ausculation Bilateral, NORMAL BREATHING PATTERN. absent: Rhonchi, Wheezes, Respiratory Distress - Cardiovascular Exam Cardiovascular Exam: REGULAR RHYTHM, +S1, +S2 - GI/Abdominal Exam GI & Abdominal Exam: Soft, Normal Bowel Sounds. absent: Tenderness, Organomegaly - Extremities Exam Extremities Exam: Normal Capillary Refill, Normal Inspection. absent: Calf Tenderness, Pedal Edema, Tenderness - Back Exam Back Exam: NORMAL INSPECTION - Neurological Exam Neurological Exam: Alert, Oriented x3 - Psychiatric Exam Psychiatric exam: Normal Affect, Normal Mood - Skin Skin Exam: Dry, Normal Color, Warm Additional comments: (+) right permacath in place; C/D/I; no erythema or signs of infection, no bleeding Assessment and Plan - Assessment and Plan (Free Text) Assessment: This is a 62 year old F with PMHx of HTN, hypothyroidism, asthma, and migraines who presents with generalized weakness and hypotension. Patient was found to have hemoglobin of 4.7 and PLT count of 12 on admission, with concerns for TTP, now currently stable w/ stable H/H & platelet count. Plan: TTP - Current Management: - Every other day plasmapheresis sessions. Last on 04/30. Next scheduled on . Trend hemoglobin & platelets, monitor for rebound drop in values - [id number] (04/12) <3, pending reflex titer - s/p 12th plasmapheresis on 04/30 - scheduled for tomorrow 05/02 - Final session on 05/02; likely will need inpatient stay 2/2 insurance. See dispo below - prednisone 40 mg PO daily prn before plasma exchange. Per Nephrology, tapering over next 2 weeks, today is day 1 of 50 -> 40mg - Calcium gluconate 4.65 mEq in 0.9 NS before plasma exchange - Benadryl 50 mg IVP daily PRN before plasma exchange - Nephrology recs (Dr. Jacob) appreciated -pt responding well to plasmapheresis sessions - Heme/onc recs (Dr. De La Cruz) - plasmapheresis every other day, through 05/03 Labs: - Hb/Hct: stable at 10s/30 (4.7/13.8 on admission) - PLT: stable 200s+ (12 on admission) - Reticulocyte count: stable in 2s (13.3 on admission) - Haptoglobin < 20.0 - LDH: wnl on 04/27 - T. bilirubin: 3.2 on admission--> 0.2 (04/21) (normalized) - CEA: 4.9 - CA19-9: 6.7 - CA125: 7.0 - Peripheral blood smear (04/12): -no increase in blasts -mild neutrophilia and mild monocytosis -thrombocytopenia with few large PLTs -RBC study shows normocytic anemia; RBC morphology--nucleated RBCs - f/u indirect and direct Lucio test - Parovirus B19 IgG Ab elevated at 5.0, IgM normal at 0.2 - strict I/Os HTN - BP now controlled, on admission uncontrolled, likely worsened by being on steroids per Nephrology - Nephrology recs (Dr. Aguirre) recs appreciated - HCTZ 12.5 mg started 04/15, Increased to 25 mg for optimal HTN control on 04/16 - home med lisinopril 10 mg PO daily changed to losartan 50 mg PO daily due to reports of anaphylaxis associated with being on CHRISTINE inhibitor and plasmapheresis concomitantly; currently losartan 100mg PO for HTN coverage - SBP 100s - 130s Severe anemia - Currently stable in 10s/30s - On admission: Hb/Hct: 4.7/13.8 Asthma - Singulair 10mg PO daily Hypothyroidism - TSH: 6.24--> 4.91 (04/12) - T4: 11.0 - synthroid 50mcg PO daily Lacunar Infarct (chronic) - CT head without contrast Chronic microvascular ischemic changes.7 millimeter focal hypodensity seen at the level of the right internal capsule suggestive for a lacunar infarct, likely chronic.Scattered calcifications along the falx and tentorium.If there is concern for acute ischemic change, consider correlation with MRI. Spleen Infarct (chronic) -Stool occult: negative -CT abdomen/pelvis: wedge-shaped hypodense regions involving the spleen may reflect infarctions of indeterminate age. Ppx, Diet, Disposition -DVT ppx: Contraindicated at this point 2/2 to possibly TTP -GI ppx: protonix 40 mg PO daily -heart healthy diet -R Permacath usable for plasma exchange; no issues today -Disposition: Hematology would like plasmapheresis through 05/03. Outpatient plasmapheresis less likely due to insurance authorization can be submitted only after Dr. Dumont talks to Dr. Tran @[phone]. Insurance authorization typically takes 2 weeks so outpatient approval unlikely to work. Patient made aware of above information and understands she will be inpatient through 05/03. All medical management as per Dr. Fouzia Valente PGY-1
[2018-05-02] MEDS: Levothyroxine 50 MCG TAB PO SCH (06:01)
[2018-05-02 08:09] LABS: BASO % 0.2 % (0.0-2.0); EOS # 0.1 K/uL (0.0-0.7); EOS % 0.7 % (0.0-4.0); HEMOGLOBIN 9.8 g/dL (11.0-16.0); LYMPH # 3.5 K/uL (1.0-4.3); LYMPH % 29.8 % (20.0-40.0); MEAN CORPUSCULAR HEMOGLOBIN 31.3 pg (27.0-31.0); MEAN CORPUSCULAR HGB CONC 33.3 g/dL (33.0-37.0); MEAN PLATELET VOLUME 7.4 fL (7.2-11.7); MONO # 0.5 K/uL (0.0-0.8); MONO % 4.4 % (0.0-10.0); NEUT # 7.6 K/uL (1.8-7.0); NEUT % 64.9 % (50.0-75.0); NRBC % 0.1 % (0.0-2.0); RBC 3.12 Mil/uL (3.80-5.20); RED CELL DISTRIBUTION WIDTH 17.5 % (11.5-14.5); WHITE BLOOD COUNT 11.7 K/uL (4.8-10.8)
[2018-05-02 08:55] LABS: ALB/GLOB RATIO 1.4 (1.0-2.1); ALBUMIN 3.8 g/dL (3.5-5.0); ALT/SGPT 106 U/L (9-52); AST/SGOT 39 U/L (14-36); BLOOD UREA NITROGEN 22 mg/dL (7-17); CALCIUM 9.4 mg/dl (8.6-10.4); GFR NON-AFRICAN AMERICAN > 60
--- NOTE | 2018-05-02 15:26 | CP.PCM.PN ---
Subjective - Date & Time of Evaluation Date of Evaluation: 05/02/18 Time of Evaluation: 09:45 - Subjective Subjective: Oscar Frederick DO, PGY-2: Nephrology Progress Note for Dr. Aguirre Patient seen and examined at bedside. Patient denies chest pain, headhache, nausea, vomiting, or visual disturbance. No adverse events noted overnight. Objective - Vital Signs/Intake and Output Vital Signs (last 24 hours): Temp Pulse Resp BP Pulse Ox 97.6 F 87 20 112/65 98 05/01/18 23:20 05/01/18 23:20 05/01/18 23:20 05/01/18 23:20 05/01/18 23:20 Intake and Output: 05/02/18 05/02/18 06:59 18:59 Intake Total 300 Balance 300 - Medications Medications: Current Medications Acetaminophen (Tylenol 325mg Tab) 650 mg PO DAILY PRN PRN Reason: pre-med before plasmapheresis Last Admin: 04/28/18 09:20 Dose: 650 mg Diphenhydramine HCl (Benadryl) 50 mg IVP DAILY PRN PRN Reason: BEFORE PLASMA EXCHANGE Last Admin: 04/26/18 14:40 Dose: 50 mg Diphenhydramine HCl (Benadryl) 50 mg PO MWF PRN PRN Reason: give before plasma exchange Last Admin: 04/28/18 09:21 Dose: 50 mg Docusate Sodium (Colace) 100 mg PO BID [facility] Last Admin: 05/02/18 10:18 Dose: 100 mg Hydrochlorothiazide (Microzide) 12.5 mg PO Q48H [facility] Calcium Gluconate 4.65 meq/ (Sodium Chloride) 260 mls @ 130 mls/hr IV .Q2H PRN PRN Reason: DURING PLASMA EXCHANGE Last Admin: 04/28/18 09:23 Dose: 130 mls/hr Levothyroxine Sodium (Synthroid) 50 mcg PO DAILY@0600 [facility] Last Admin: 05/02/18 06:01 Dose: 50 mcg Losartan Potassium (Cozaar) 50 mg PO DAILY [facility] Last Admin: 05/02/18 10:14 Dose: 50 mg Montelukast Sodium (Singulair) 10 mg PO DAILY [facility] Last Admin: 05/01/18 09:49 Dose: 10 mg Nicotine (Nicoderm Cq) 1 patch TD DAILY [facility] Last Admin: 05/02/18 10:15 Dose: 1 patch Pantoprazole Sodium (Protonix Ec Tab) 40 mg PO DAILY [facility] Last Admin: 05/01/18 09:49 Dose: 40 mg Prednisone (Prednisone Tab) 30 mg PO DAILY [facility] Last Admin: 05/02/18 10:12 Dose: 30 mg - Labs Labs: 05/02/18 08:00 05/02/18 08:00 PT 10.4 SECONDS (9.7-12.2) 04/17/18 06:19 INR 1.0 04/17/18 06:19 APTT 25 SECONDS (21-34) 04/17/18 06:19 - Constitutional Appears: Non-toxic - Head Exam Head Exam: ATRAUMATIC. absent: NORMOCEPHALIC - Eye Exam Eye Exam: EOMI, Normal appearance - ENT Exam ENT Exam: Mucous Membranes Moist - Neck Exam Neck Exam: Normal Inspection - Respiratory Exam Respiratory Exam: Clear to Ausculation Bilateral, NORMAL BREATHING PATTERN. absent: Accessory Muscle Use - Cardiovascular Exam Cardiovascular Exam: RRR, +S1, +S2 - GI/Abdominal Exam GI & Abdominal Exam: Soft, Normal Bowel Sounds - Extremities Exam Extremities Exam: Normal Inspection. absent: Calf Tenderness - Back Exam Back Exam: NORMAL INSPECTION. absent: CVA tenderness (L), CVA tenderness (R) - Neurological Exam Neurological Exam: Alert, Awake, Oriented x3 - Psychiatric Exam Psychiatric exam: Normal Affect, Normal Mood - Skin Skin Exam: Dry, Intact, Normal Color, Warm Assessment and Plan (1) Thrombocytopenia Assessment & Plan: - undergoing plasma exchange (TPE) every other day, last session today; - continue prednisone 30 mg daily x 3 days, should decrease to 20 mg x 3 days, then 10 mg x 3 days, then 5 mg x 3 days, then stop; Status: Acute (2) HTN (hypertension) Assessment & Plan: -decreasing hctz 12.5 mg to every other day as serum bicarb mildly elevated; continue losartan 50 mg daily; Status: Chronic (3) Electrolyte imbalance Status: Acute (4) Acute kidney injury Status: Resolved (5) Severe anemia Assessment & Plan: Continue monitor CBC daily Status: Acute
--- NOTE | 2018-05-02 15:30 | CP.PCM.PN ---
Subjective - Date & Time of Evaluation Date of Evaluation: 05/02/18 Time of Evaluation: 15:29 - Subjective Subjective: Warner Valente DO PGY-1, Medicine progress note for Dr. Fragoso Pt seen and examined at bedside. Pt has no complaints at this time. She is eating breakfast and resting comfortably. No acute events overnight. Pt will receive final plasmapheresis today. Pt denies headache, dizziness, fever, chills, chest pain, sob, abdominal pain, n/v/d, bruising or bleeding. A 12-point ROS was reviewed and is otherwise unremarkable. Objective - Vital Signs/Intake and Output Vital Signs (last 24 hours): Temp Pulse Resp BP Pulse Ox 97.6 F 87 20 112/65 98 05/01/18 23:20 05/01/18 23:20 05/01/18 23:20 05/01/18 23:20 05/01/18 23:20 Intake and Output: 05/02/18 05/02/18 06:59 18:59 Intake Total 300 Balance 300 - Medications Medications: Current Medications Acetaminophen (Tylenol 325mg Tab) 650 mg PO DAILY PRN PRN Reason: pre-med before plasmapheresis Last Admin: 04/28/18 09:20 Dose: 650 mg Diphenhydramine HCl (Benadryl) 50 mg IVP DAILY PRN PRN Reason: BEFORE PLASMA EXCHANGE Last Admin: 04/26/18 14:40 Dose: 50 mg Diphenhydramine HCl (Benadryl) 50 mg PO MWF PRN PRN Reason: give before plasma exchange Last Admin: 04/28/18 09:21 Dose: 50 mg Docusate Sodium (Colace) 100 mg PO BID [facility] Last Admin: 05/02/18 10:18 Dose: 100 mg Hydrochlorothiazide (Microzide) 12.5 mg PO Q48H [facility] Calcium Gluconate 4.65 meq/ (Sodium Chloride) 260 mls @ 130 mls/hr IV .Q2H PRN PRN Reason: DURING PLASMA EXCHANGE Last Admin: 04/28/18 09:23 Dose: 130 mls/hr Levothyroxine Sodium (Synthroid) 50 mcg PO DAILY@0600 [facility] Last Admin: 05/02/18 06:01 Dose: 50 mcg Losartan Potassium (Cozaar) 50 mg PO DAILY [facility] Last Admin: 05/02/18 10:14 Dose: 50 mg Montelukast Sodium (Singulair) 10 mg PO DAILY [facility] Last Admin: 05/01/18 09:49 Dose: 10 mg Nicotine (Nicoderm Cq) 1 patch TD DAILY [facility] Last Admin: 05/02/18 10:15 Dose: 1 patch Pantoprazole Sodium (Protonix Ec Tab) 40 mg PO DAILY [facility] Last Admin: 05/01/18 09:49 Dose: 40 mg Prednisone (Prednisone Tab) 30 mg PO DAILY [facility] Last Admin: 05/02/18 10:12 Dose: 30 mg - Labs Labs: 05/02/18 08:00 05/02/18 08:00 PT 10.4 SECONDS (9.7-12.2) 04/17/18 06:19 INR 1.0 04/17/18 06:19 APTT 25 SECONDS (21-34) 04/17/18 06:19 - Constitutional Appears: Well, Non-toxic, No Acute Distress - Head Exam Head Exam: ATRAUMATIC, NORMAL INSPECTION - Eye Exam Eye Exam: EOMI, Normal appearance - ENT Exam ENT Exam: Mucous Membranes Moist - Neck Exam Neck Exam: Normal Inspection - Respiratory Exam Respiratory Exam: Clear to Ausculation Bilateral, NORMAL BREATHING PATTERN. absent: Rales, Rhonchi, Wheezes, Respiratory Distress - Cardiovascular Exam Cardiovascular Exam: REGULAR RHYTHM, +S1, +S2 - GI/Abdominal Exam GI & Abdominal Exam: Soft, Normal Bowel Sounds. absent: Tenderness - Back Exam Back Exam: NORMAL INSPECTION - Neurological Exam Neurological Exam: Alert, Oriented x3 - Psychiatric Exam Psychiatric exam: Normal Affect, Normal Mood - Skin Skin Exam: Intact, Normal Color, Warm Additional comments: (+) right subclavian permacath in place; C/D/I; no erythema or signs of infection, no bleeding Assessment and Plan - Assessment and Plan (Free Text) Assessment: This is a 62 year old F with PMHx of HTN, hypothyroidism, asthma, and migraines who presents with generalized weakness and hypotension. Patient was found to have hemoglobin of 4.7 and PLT count of 12 on admission, with concerns for TTP, now currently stable w/ stable H/H & platelet count. Plan: TTP - Current Management: - Every other day plasmapheresis sessions. Pt received last plasmapheresis today. Pt has been tolerating transfusions well. Trend hemoglobin & platelets, monitor for rebound drop in values - [id number] (04/12) <3, pending reflex titer - s/p and final plasmapheresis today - Tapering prednisione as per nephrology - Nephrology recs (Dr. Jacob) appreciated - Heme/onc recs (Dr. De La Cruz) Labs: - Hb/Hct: stable at 10s/30s (4.7/13.8 on admission) - PLT: stable 200s+ (12 on admission) - Reticulocyte count: stable in 2s (13.3 on admission) - Haptoglobin < 20.0 on admission - LDH: wnl today - T. bilirubin: 3.2 on admission--> 0.2 (normalized on 04/21) - CEA: 4.9 slightly elevated - CA19-9: 6.7 normal - CA125: 7.0 normal - Peripheral blood smear (04/12): -no increase in blasts -mild neutrophilia and mild monocytosis -thrombocytopenia with few large PLTs -RBC study shows normocytic anemia; RBC morphology--nucleated RBCs - Parovirus B19 IgG Ab elevated at 5.0, IgM normal at 0.2 HTN - BP is well controlled, on admission uncontrolled, likely worsened by being on steroids per Nephrology - Nephrology recs (Dr. Aguirre) recs appreciated - HCTZ 12.5 mg started 04/15, Increased to 25 mg for optimal HTN control on 04/16. HCTZ has been decreased steadily, now 12.5 mg PO Q48H - home med lisinopril 10 mg PO daily changed to losartan 50 mg PO daily due to reports of anaphylaxis associated with being on CHRISTINE inhibitor and plasmapheresis concomitantly; currently losartan 50 mg PO for HTN coverage - Pt continued to be hemodynamically stable; SBP 100s - 130s Severe anemia; resolved - secondary to TTP - Currently stable in 10s/30s - On admission: Hb/Hct: 4.7/13.8 Asthma - Singulair 10mg PO daily Hypothyroidism - TSH: 6.24--> 4.91 (04/12) - T4: 11.0 - synthroid 50mcg PO daily Lacunar Infarct (chronic) - CT head without contrast Chronic microvascular ischemic changes.7 millimeter focal hypodensity seen at the level of the right internal capsule suggestive for a lacunar infarct, likely chronic. Scattered calcifications along the falx and tentorium.If there is concern for acute ischemic change, consider correlation with MRI. Spleen Infarct (chronic) -Stool occult: negative -CT abdomen/pelvis: wedge-shaped hypodense regions involving the spleen may reflect infarctions of indeterminate age. Ppx, Diet, Disposition -DVT ppx: Contraindicated at this point 2/2 to possibly TTP -GI ppx: protonix 40 mg PO daily -heart healthy diet -R Permacath usable for plasma exchange; no issues today -Disposition: Pt has had last plasmapheresis today. Discharge is likely tomorrow, given no acute pathology after most recent course of plasmapheris. All medical management as per Dr. Fouzia Valente PGY-1
[2018-05-03 00:44] VITALS: O2SAT 100
[2018-05-03] MEDS: Levothyroxine 50 MCG TAB PO SCH (07:12)
--- NOTE | 2018-05-03 07:24 | CP.PCM.DIS ---
Provider - Provider Date of Admission: 04/12/18 07:42 Attending physician: Shalom Fragoso Jr, MD Time Spent in preparation of Discharge (in minutes): 35 Hospital Course - Lab Results Lab Results: Micro Results 04/20/18 07:03 Naris MRSA Culture - Final MRSA NOT DETECTED 04/12/18 15:13 Nose MRSA Culture - Final MRSA NOT DETECTED Most Recent Lab Values WBC 11.7 K/uL (4.8-10.8) H 05/02/18 08:00 RBC 3.12 Mil/uL (3.80-5.20) L 05/02/18 08:00 Hgb 9.8 g/dL (11.0-16.0) L 05/02/18 08:00 Hct 29.4 % (34.0-47.0) L 05/02/18 08:00 MCV 94.0 fL (81.0-99.0) 05/02/18 08:00 MCH 31.3 pg (27.0-31.0) H 05/02/18 08:00 MCHC 33.3 g/dL (33.0-37.0) 05/02/18 08:00 RDW 17.5 % (11.5-14.5) H 05/02/18 08:00 Plt Count 231 K/uL (130-400) 05/02/18 08:00 MPV 7.4 fL (7.2-11.7) 05/02/18 08:00 Neut % (Auto) 64.9 % (50.0-75.0) 05/02/18 08:00 Lymph % (Auto) 29.8 % (20.0-40.0) 05/02/18 08:00 [place] % (Auto) 4.4 % (0.0-10.0) 05/02/18 08:00 Eos % (Auto) 0.7 % (0.0-4.0) 05/02/18 08:00 Baso % (Auto) 0.2 % (0.0-2.0) 05/02/18 08:00 Neut # (Auto) 7.6 K/uL (1.8-7.0) H 05/02/18 08:00 Lymph # (Auto) 3.5 K/uL (1.0-4.3) 05/02/18 08:00 Rad[place] # (Auto) 0.5 K/uL (0.0-0.8) 05/02/18 08:00 Eos # (Auto) 0.1 K/uL (0.0-0.7) 05/02/18 08:00 Baso # (Auto) 0.0 K/uL (0.0-0.2) 05/02/18 08:00 Neutrophils % (Manual) 92 % (50-75) H 04/24/18 07:37 Band Neutrophils % 1 % (0-2) 04/24/18 07:37 Lymphocytes % (Manual) 7 % (20-40) L 04/24/18 07:37 Monocytes % (Manual) TEST NOT PERFORMED 04/24/18 07:37 Differential Comment 04/19/18 06:18 Platelet Estimate Normal (NORMAL) 04/24/18 07:37 Polychromasia Slight 04/22/18 12:20 Hypochromasia (manual) Slight 04/22/18 12:20 Poikilocytosis (manual Slight 04/24/18 07:37 Anisocytosis (manual) Moderate 04/24/18 07:37 Microcytosis (manual) Slight 04/22/18 12:20 Macrocytosis (manual) Slight 04/22/18 12:20 Tear Drop Cells Slight 04/22/18 12:20 Ovalocytes Slight 04/22/18 12:20 Schistocytes Moderate 04/24/18 07:37 Retic Count 2.2 % (0.5-1.5) H 05/02/18 08:00 Haptoglobin < 20.0 mg/dL (30.0-200.0) L 04/12/18 15:57 PT 10.4 SECONDS (9.7-12.2) 04/17/18 06:19 INR 1.0 04/17/18 06:19 APTT 25 SECONDS (21-34) 04/17/18 06:19 Fibrinogen 126 mg/dL (200-400) L 04/12/18 15:57 [id number] Inhibitor <3 % Activity (68-163) L* 04/12/18 15:57 Sodium 138 mmol/L (132-148) 05/02/18 08:00 Potassium 4.0 mmol/L (3.6-5.2) 05/02/18 08:00 Chloride 101 mmol/L (98-107) 05/02/18 08:00 Carbon Dioxide 28 mmol/L (22-30) 05/02/18 08:00 Anion Gap 14 (10-20) 05/02/18 08:00 BUN 22 mg/dL (7-17) H 05/02/18 08:00 Creatinine 0.7 mg/dL (0.7-1.2) 05/02/18 08:00 Est GFR ( Amer) > 60 05/02/18 08:00 Est GFR (Non-Af Amer) > 60 05/02/18 08:00 Random Glucose 119 mg/dL (65-105) H 05/02/18 08:00 Hemoglobin A1c 4.6 % (4.2-6.5) 04/12/18 15:57 Calcium 9.4 mg/dl (8.6-10.4) 05/02/18 08:00 Phosphorus 4.1 mg/dL (2.5-4.5) 05/02/18 08:00 Magnesium 1.9 mg/dL (1.6-2.3) 05/02/18 08:00 Ferritin 1370.0 ng/mL 04/12/18 15:57 Total Bilirubin 0.2 mg/dL (0.2-1.3) 05/02/18 08:00 Direct Bilirubin 0.4 mg/dL (0.0-0.4) 04/17/18 06:16 AST 39 U/L (14-36) H 05/02/18 08:00 ALT 106 U/L (9-52) H 05/02/18 08:00 Alkaline Phosphatase 61 U/L (38-126) 05/02/18 08:00 Lactate Dehydrogenase 610 U/L (313-618) 05/02/18 08:00 Total Creatine Kinase 116 U/L (30-135) 04/12/18 05:01 Total Protein 6.4 g/dL (6.3-8.3) 05/02/18 08:00 Albumin 3.8 g/dL (3.5-5.0) 05/02/18 08:00 Globulin 2.7 gm/dL (2.2-3.9) 05/02/18 08:00 Albumin/Globulin Ratio 1.4 (1.0-2.1) 05/02/18 08:00 Lipase 360 U/L (23-300) H 04/12/18 04:49 Alpha Fetoprotein 2.5 ng/mL (0.0-7.5) 04/12/18 15:57 Carcinoembryonic Ag 4.9 ng/mL (0-3.0) H 04/12/18 15:57 CA 19-9 Antigen 6.7 U/mL (0-37) 04/12/18 15:57 CA 125 Antigen 7.0 U/mL (0-35) 04/12/18 15:57 Vitamin B12 685 pg/mL (239-931) 04/12/18 15:57 Folate > 20.0 ng/mL 04/12/18 15:57 Thyroxine (T4) 11.0 ug/dL (5.5-11.0) 04/12/18 15:57 TSH 3rd Generation 4.91 mIU/L (0.46-4.68) H 04/12/18 15:57 Urine Color Yellow (YELLOW) 04/12/18 07:26 Urine Clarity Hazy (Clear) 04/12/18 07:26 Urine pH 5.0 (5.0-8.0) 04/12/18 07:26 Ur Specific Freeborn 1.028 (1.003-1.030) 04/12/18 07:26 Urine Protein Negative mg/dL (NEGATIVE) 04/12/18 07:26 Urine Glucose (UA) Normal mg/dL (Normal) 04/12/18 07:26 Urine Ketones Negative mg/dL (NEGATIVE) 04/12/18 07:26 Urine Blood 2+ (NEGATIVE) H 04/12/18 07:26 Urine Nitrate Negative (NEGATIVE) 04/12/18 07:26 Urine Bilirubin Negative (NEGATIVE) 04/12/18 07:26 Urine Urobilinogen 2.0 mg/dL (0.2-1.0) H 04/12/18 07:26 Ur Leukocyte Esterase Trace Toshia/uL (Negative) 04/12/18 07:26 Urine WBC (Auto) 4 /hpf (0-5) 04/12/18 07:26 Urine RBC (Auto) 2 /hpf (0-3) 04/12/18 07:26 Ur Squamous Epith Cells 12 /hpf (0-5) H 04/12/18 07:26 Urine Bacteria Rare (<OCC) 04/12/18 07:26 Hyaline Casts 0-2 /lpf (0-2) 04/12/18 07:26 Stool Occult Blood Negative (NEGATIVE) 04/12/18 05:28 HIV 1&2 Antibody Screen Negative (NEGATIVE) 04/12/18 15:57 Parvovirus B19 IgG Ab 5.0 (<0.9) H 04/16/18 15:39 Parvovirus B19 IgM Ab 0.2 (<0.9) 04/16/18 15:39 Parvovirus Interpret (()) 04/16/18 15:39 Blood Type B POSITIVE 04/12/18 05:25 Blood Type Confirm B POSITIVE 04/12/18 05:25 Antibody Screen Negative 04/12/18 05:25 JOSEPH, Poly Interpret Negative (NEGATIVE) 04/12/18 15:45 Discharge Exam - Head Exam Head Exam: ATRAUMATIC, NORMAL INSPECTION Discharge Plan - Follow Up Plan Condition: GUARDED Disposition: HOME/ ROUTINE Referrals: Ramyundo Keller MD [Medical Doctor] -
[2018-05-03 07:54] LABS: BASO % 0.2 % (0.0-2.0); EOS # 0.1 K/uL (0.0-0.7); EOS % 0.6 % (0.0-4.0); HEMOGLOBIN 10.1 g/dL (11.0-16.0); LYMPH # 3.4 K/uL (1.0-4.3); LYMPH % 34.2 % (20.0-40.0); MEAN CELL VOLUME 94.4 fL (81.0-99.0); MEAN CORPUSCULAR HEMOGLOBIN 31.2 pg (27.0-31.0); MEAN CORPUSCULAR HGB CONC 33.1 g/dL (33.0-37.0); MEAN PLATELET VOLUME 7.2 fL (7.2-11.7); MONO # 0.5 K/uL (0.0-0.8); MONO % 5.2 % (0.0-10.0); NEUT % 59.8 % (50.0-75.0); NRBC % 0.1 % (0.0-2.0); RBC 3.22 Mil/uL (3.80-5.20); RED CELL DISTRIBUTION WIDTH 17.6 % (11.5-14.5); WHITE BLOOD COUNT 10.1 K/uL (4.8-10.8)
[2018-05-03 08:17] VITALS: BP 133/84; PULSE 78; TEMP 97.5
[2018-05-03 08:20] LABS: ALB/GLOB RATIO 1.5 (1.0-2.1); ALT/SGPT 119 U/L (9-52); AST/SGOT 62 U/L (14-36); BLOOD UREA NITROGEN 18 mg/dL (7-17); CALCIUM 9.2 mg/dl (8.6-10.4); GFR NON-AFRICAN AMERICAN > 60
[2018-05-03] MEDS: Pantoprazole 40 mg EC Tab PO SCH (10:24)
--- NOTE | 2018-05-04 01:49 | CP.PCM.PN ---
Subjective - Date & Time of Evaluation Date of Evaluation: 05/03/18 Time of Evaluation: 13:00 - Subjective Subjective: Patient reports feeling well; wanting to go home; Objective - Vital Signs/Intake and Output Vital Signs (last 24 hours): Temp Pulse Resp BP Pulse Ox 97.5 F L 78 20 133/84 100 05/03/18 08:15 05/03/18 08:15 05/03/18 08:15 05/03/18 08:15 05/03/18 08:15 - Labs Labs: 05/03/18 07:43 05/03/18 07:43 PT 10.4 SECONDS (9.7-12.2) 04/17/18 06:19 INR 1.0 04/17/18 06:19 APTT 25 SECONDS (21-34) 04/17/18 06:19 - Constitutional Appears: Non-toxic, No Acute Distress - Eye Exam Eye Exam: Normal appearance - Respiratory Exam Respiratory Exam: Clear to Ausculation Bilateral. absent: Respiratory Distress - Cardiovascular Exam Cardiovascular Exam: RRR, +S1, +S2 - GI/Abdominal Exam GI & Abdominal Exam: Soft. absent: Distended, Tenderness - Extremities Exam Additional comments: no leg edema; - Neurological Exam Neurological Exam: Alert, Awake - Psychiatric Exam Psychiatric exam: Normal Mood. absent: Agitated - Skin Skin Exam: Warm. absent: Cyanosis Assessment and Plan (1) Thrombocytopenia Assessment & Plan: TTP, treated with long course of plasma exchange (daily for 1 week, then every other day for about 10 days, last treatment yesterday); responded well with platelet/hgb count stable; discussed with montse today, will d/c HD catheter; patient to f/u with montse and PMD as outpatient; Status: Acute (2) HTN (hypertension) Assessment & Plan: controlled, continue current meds; Status: Chronic (3) Electrolyte imbalance Status: Acute (4) Severe anemia Status: Acute
== END 2018-05-03 15:42 | disposition home or self-care (01) | DRG 561 ==
LOC: EDBD 04:07 → SUPCPDRO 04:07 → C.ER 04:07 → EDBD 07:42 → C.9E 07:42 → C.5S 11:58 → C.9I 14:17 → C.6T 04-19 15:50
PROVIDERS: ADMIT Internal Medicine; ATTEND Internal Medicine
PROC: 30233N1 Transfusion of Nonautologous Red Blood Cells into Peripheral Vein, Percutaneous Approach (ICD-10-PCS; 2018-04-12)
PROC: 02H633Z Insertion of Infusion Device into Right Atrium, Percutaneous Approach (ICD-10-PCS; 2018-04-12)
PROC: 6A551Z3 Pheresis of Plasma, Multiple (ICD-10-PCS; principal; 2018-04-13)
PROC: 30233K1 Transfusion of Nonautologous Frozen Plasma into Peripheral Vein, Percutaneous Approach (ICD-10-PCS; 2018-04-18)
DX: M31.1 Thrombotic microangiopathy (principal); N17.9 Acute kidney failure, unspecified; J44.9 Chronic obstructive pulmonary disease, unspecified; E86.9 Volume depletion, unspecified; E87.6 Hypokalemia; D58.9 Hereditary hemolytic anemia, unspecified; D73.5 Infarction of spleen; F17.210 Nicotine dependence, cigarettes, uncomplicated; E03.9 Hypothyroidism, unspecified; I10 Essential (primary) hypertension; Z86.73 Personal history of transient ischemic attack (TIA), and cerebral infarction without residual deficits; G43.909 Migraine, unspecified, not intractable, without status migrainosus

== ENCOUNTER 2018-07-10 09:21 | Inpatient (IN) | payer MEDICAID ==
[2018-07-10] MEDS ORDERED: Sodium Chloride 0.9% 1,000 ML IV ONE (10:01)
--- NOTE | 2018-07-10 10:11 | C.PDOC ---
History Of Present Illness 62 yo female w/PMHx of HTN ( of medication for 1 months by PMD), hypothyrodism, BIBA for evaluation of dizziness associated with SOB intermittent since yesterday. As per pt, " woke up this AM feeling lightheaded, went to work and st ill was not feeling good". Otherwise, pt denies recent illness, fever, chills, headache, CP, dyspnea, wheezing, cough, palpitation, abd. pian, V/D, UTI sx. At yariel time of evaluation, appears comfortable, not in resp. distress. Pt is very poor historian. Pt admits, took her medication this AM ( aspirin, thyroid med). ED records review from past, last visit was on 04/12/18, admitted due to thrombotic thrombocytopenic purpura and severe anemia s/p Transfuse packed RBCs, Plasmapheresis Time Seen by Provider: 07/10/18 09:43 Chief Complaint (Nursing): Shortness Of Breath History Per: Patient Past Medical History Reviewed: Historical Data, Nursing Documentation, Vital Signs Vital Signs: Last Vital Signs Temp 97.9 F 07/10/18 09:34 Pulse 95 H 07/10/18 09:34 Resp 18 07/10/18 09:46 BP 95/68 L 07/10/18 09:34 Pulse Ox 98 07/10/18 09:34 - Medical History PMH: Anemia, Asthma, COPD, HTN, Hypothyroidism - [facility] Procedures INSERTION OF INFUSION DEVICE INTO R ATRIUM, PERC APPROACH (04/12/18) OPEN BIOPSY OF BREAST (11/29/02) PHERESIS OF PLASMA, MULTIPLE (04/12/18) TRANSFUSE NONAUT FROZEN PLASMA IN PERIPH VEIN, PERC (04/12/18) TRANSFUSE NONAUT RED BLOOD CELLS IN PERIPH VEIN, PERC (04/12/18) Family History: States: No Known Family Hx - Social History Hx Tobacco Use: No Hx Alcohol Use: No Hx Substance Use: No - Immunization History Hx Tetanus Toxoid Vaccination: No Hx Influenza Vaccination: No Hx Pneumococcal Vaccination: No Review Of Systems Except As Marked, All Systems Reviewed And Found Negative. Constitutional: Negative for: Fever, Chills Eyes: Negative for: Vision Change ENT: Negative for: Throat Pain Cardiovascular: Negative for: Chest Pain, Palpitations, Edema, Light Headedness Respiratory: Positive for: Shortness of Breath. Negative for: Cough, SOB with Excertion, Sputum, Wheezing Gastrointestinal: Negative for: Nausea, Vomiting, Abdominal Pain, Diarrhea Musculoskeletal: Negative for: Neck Pain Neurological: Positive for: Dizziness. Negative for: Weakness, Numbness, Altered Mental Status, Headache Physical Exam - Physical Exam Appears: Well, Non-toxic, No Acute Distress Skin: Normal Color, Warm, Dry, No Rash Head: Normacephalic Eye(s): bilateral: PERRL Nose: No Flaring, No Discharge Oral Mucosa: Moist, No Drooling Tongue: Normal Appearing Lips: Normal Appearing Throat: No Erythema, No Drooling Neck: Trachea Midline, Supple Cardiovascular: Rhythm Regular, No Murmur, No JVD, Other ((-) carotid bruits B/L) Respiratory: No Decreased Breath Sounds, No Accessory Muscle Use, No Stridor, No Wheezing Gastrointestinal/Abdominal: Soft, No Tenderness, No Distention, No Guarding Back: No CVA Tenderness Extremity: Normal ROM, No Pedal Edema, No Deformity, No Swelling Neurological/Psych: Oriented x3, Normal Speech ED Course And Treatment - Laboratory Results Result Diagrams: 07/10/18 10:23 07/10/18 10:23 Lab Interpretation: Abnormal ECG: Interpreted By Me, Viewed By Me ECG Rhythm: Sinus Rhythm ECG Interpretation: No Changes From Prior Interpretation Of ECG: SR@98/min, NAD, no acute T wave or ST-T changes O2 Sat by Pulse Oximetry: 98 Pulse Ox Interpretation: Normal - Radiology CXR: Interpreted by Me, Viewed By Tx CXR Interpretation: Yes: No Acute Disease Progress Note: Case discussed with and admission to ICU recommned. case discussed with , pt evaluated by sandwich hand and ICU admisison accepted. case discussed with Hem/onc , will see pt in inpatient. Critical Care Time - Critical Care Note Total Time (in mins): 40 Documented critical care: time excludes all time spent performing seperately billable procedures. Disposition - Disposition Disposition: HOSPITALIZED Disposition Time: 11:14 Condition: CRITICAL - Clinical Impression Clinical Impression: TTP (thrombotic thrombocytopenic purpura), Anemia, Dyspnea
[2018-07-10] MEDS ORDERED: Sodium Chloride 0.9% 1,000 ML ONE (10:26)
[2018-07-10 10:33] LABS: BASO % 0.5 % (0.0-2.0); EOS % 0.1 % (0.0-4.0); LYMPH # 1.9 K/uL (1.0-4.3); LYMPH % 21.9 % (20.0-40.0); MEAN CORPUSCULAR HEMOGLOBIN 28.1 pg (27.0-31.0); MEAN CORPUSCULAR HGB CONC 35.2 g/dL (33.0-37.0); MEAN PLATELET VOLUME 9.1 fL (7.2-11.7); MONO # 0.6 K/uL (0.0-0.8); MONO % 7.3 % (0.0-10.0); NEUT % 70.2 % (50.0-75.0); NRBC % 0.6 % (0.0-2.0); RBC 2.62 Mil/uL (3.80-5.20); RED CELL DISTRIBUTION WIDTH 17.7 % (11.5-14.5); WHITE BLOOD COUNT 8.6 K/uL (4.8-10.8)
[2018-07-10 10:39] LABS: INR 1.1
[2018-07-10 10:42] LABS: HEMOGLOBIN 7.4 g/dL (11.0-16.0); MEAN CELL VOLUME 79.9 fL (81.0-99.0)
--- NOTE | 2018-07-10 11:29 | RAD ---
HISTORY: SOB COMPARISON: No prior. TECHNIQUE: Chest PA and lateral FINDINGS: LUNGS: No focal consolidation. Please note that chest x-ray has limited sensitivity for the detection of pulmonary masses. PLEURA: No significant pleural effusion identified. No definite pneumothorax . CARDIOVASCULAR: Cardiomegaly. Atherosclerotic calcification present. OSSEOUS STRUCTURES: 1.5 x 1.3 cm rounded hyperdense focus at the level the right scapula of unclear etiology. Partially imaged sclerotic focus involving the proximal right humerus. VISUALIZED UPPER ABDOMEN: Unremarkable. OTHER FINDINGS: None. IMPRESSION: Cardiomegaly. 1.5 x 1.3 cm rounded hyperdense focus at the level the right scapula of indeterminate etiology; correlate with prior imaging if available. Partially imaged sclerotic focus involving the proximal right humerus. Correlate clinically. Additional dedicated imaging of these findings suggested if indicated.
[2018-07-10 11:41] LABS: ALB/GLOB RATIO 1.2 (1.0-2.1); ALBUMIN 4.3 g/dL (3.5-5.0); BLOOD UREA NITROGEN 40 mg/dL (7-17); CALCIUM 9.2 mg/dl (8.6-10.4); GFR NON-AFRICAN AMERICAN 51
[2018-07-10 12:08] LABS: ALT/SGPT 28 U/L (9-52); AST/SGOT 124 U/L (14-36)
[2018-07-10 12:12] LABS: B-TYPE NATRIURETIC PEPTIDE 3880 pg/mL (0-900)
--- NOTE | 2018-07-10 12:56 | CP.PCM.CON ---
History of Present Illness - History of Present Illness History of Present Illness: Erick Sage PGY1 Consult Note for Dr. Blount Pt is a 62yo F with PMH HTN, hypothyroid, asthma, thrombocytopenia presents to ED with dizziness and fatigue x2 days. Pt reports feeling tired, sleeping more than usual, and dizziness since yesterday. She feels as though she and the room are both spinning, but denies loss of consciousness or any falls. Pt reports previous history of these symptoms upon last admission for thrombocytopenia in 04/25. She reports associated shortness of breath, and one episode of vomiting in the ED. Pt also reports hot flashes. She denies fever, chills, headache, chest pain, nausea, abdominal pain, diarrhea, dysuria, sick contacts, or recent travel. SxH: permacath, removed 04/25 SocH: 20 pack/yr tobacco use, denies etoh or recreational drugs FamH: mom , cancer. dad , cancer Allergies: NKDA Meds: as per EMR PMD: Arianna Review of Systems - Review of Systems Review of Systems: as per HPI Past Patient History - Infectious Disease Hx of Infectious Diseases: None - Past Medical History & Family History Past Medical History?: Yes - Past Social History Smoking Status: Heavy Smoker > 10 Cigarettes Daily - CARDIAC Hx Hypertension: Yes - PULMONARY Hx Asthma: Yes Hx Chronic Obstructive Pulmonary Disease (COPD): Yes - HEENT Hx Deafness: Yes (right ear) Other/Comment: WEARS EYEGLASSES - ENDOCRINE/METABOLIC Hx Hypothyroidism: Yes - HEMATOLOGICAL/ONCOLOGICAL Hx Anemia: Yes - MUSCULOSKELETAL/RHEUMATOLOGICAL Hx Falls: Yes - PSYCHIATRIC Hx Substance Use: No - SURGICAL HISTORY Hx Surgeries: Yes Other/Comment: Permacath (out) - ANESTHESIA Hx Anesthesia: Yes Hx Anesthesia Reactions: No Meds Allergies/Adverse Reactions: Allergies Allergy/AdvReac Type Severity Reaction Status Date / Time house dust mite Allergy COUGH Verified 04/13/18 01:02 Seafood Allergy RASH Uncoded 04/13/18 01:02 Physical Exam - Constitutional Appears: No Acute Distress - Head Exam Head Exam: ATRAUMATIC, NORMOCEPHALIC - Eye Exam Eye Exam: EOMI, Normal appearance, PERRL Pupil Exam: NORMAL ACCOMODATION Additional comments: conjunctival pallor - ENT Exam ENT Exam: Mucous Membranes Moist - Neck Exam Neck exam: Positive for: Normal Inspection - Respiratory Exam Respiratory Exam: Clear to Auscultation Bilateral, NORMAL BREATHING PATTERN. absent: Rales, Rhonchi, Wheezes - Cardiovascular Exam Cardiovascular Exam: REGULAR RHYTHM, +S1, +S2. absent: Gallop, Rubs, Systolic Murmur - GI/Abdominal Exam GI & Abdominal Exam: Normal Bowel Sounds, Soft. absent: Distended, Firm, Tenderness - Extremities Exam Extremities exam: Positive for: normal inspection. Negative for: pedal edema - Back Exam Back exam: NORMAL INSPECTION - Neurological Exam Neurological exam: Alert, CN II-XII Intact, Oriented x3 - Expanded Neurological Exam Expanded Neuro motor strength exam: Left Upper Extremity: 5, Right Upper Extremity: 5, Left Lower Extremity: 5, Right Lower Extremity: 5 - Psychiatric Exam Psychiatric exam: Normal Affect, Normal Mood - Skin Skin Exam: Normal Color Results - Vital Signs Recent Vital Signs: Last Vital Signs Temp 97.9 F 07/10/18 09:34 Pulse 72 07/10/18 11:55 Resp 18 07/10/18 11:55 BP 112/80 07/10/18 11:55 Pulse Ox 99 07/10/18 11:55 - Labs Result Diagrams: 07/10/18 10:23 07/10/18 10:23 Labs: Laboratory Results - last 24 hr 07/10/18 07/10/18 07/10/18 10:23 10:23 10:23 WBC 8.6 RBC 2.62 L Hgb 7.4 L D Hct 21.0 L MCV 79.9 L D MCH 28.1 MCHC 35.2 RDW 17.7 H Plt Count 12 L* D MPV 9.1 Neut % (Auto) 70.2 Lymph % (Auto) 21.9 [place] % (Auto) 7.3 Eos % (Auto) 0.1 Baso % (Auto) 0.5 Neut # (Auto) 6.0 Lymph # (Auto) 1.9 [place] # (Auto) 0.6 Eos # (Auto) 0.0 Baso # (Auto) 0.0 Differential Comment Cancelled PT INR APTT Sodium 136 Potassium 3.8 Chloride 105 Carbon Dioxide 16 L Anion Gap 19 BUN 40 H Creatinine 1.1 Est GFR ( Amer) > 60 Est GFR (Non-Af Amer) 51 Random Glucose 117 H Calcium 9.2 Total Bilirubin 5.9 H AST 124 H D ALT 28 Alkaline Phosphatase 52 Troponin I 1.0900 H* NT-Pro-B Natriuret Pep 3880 H Total Protein 7.9 Albumin 4.3 Globulin 3.6 Albumin/Globulin Ratio 1.2 TSH 3rd Generation 1.70 Influenza Typ A,B (EIA) Negative for flu a/b 07/10/18 10:23 WBC RBC Hgb Hct MCV MCH MCHC RDW Plt Count MPV Neut % (Auto) Lymph % (Auto) [place] % (Auto) Eos % (Auto) Baso % (Auto) Neut # (Auto) Lymph # (Auto) [place] # (Auto) Eos # (Auto) Baso # (Auto) Differential Comment PT 12.0 INR 1.1 APTT 29 Sodium Potassium Chloride Carbon Dioxide Anion Gap BUN Creatinine Est GFR ( Amer) Est GFR (Non-Af Amer) Random Glucose Calcium Total Bilirubin AST ALT Alkaline Phosphatase Troponin I NT-Pro-B Natriuret Pep Total Protein Albumin Globulin Albumin/Globulin Ratio TSH 3rd Generation Influenza Typ A,B (EIA) Assessment & Plan - Assessment and Plan (Free Text) Assessment: 62yo F with PMH HTN, hypothyroid, asthma, thrombocytopenia presents to ED with dizziness and fatigue x2 days, admitted for thrombocytopenia Plan: Neuro - AAOx3 - no focal deficits Cardio - maintain normotension - h/o HTN - restart home lisinopril 10mg PO daily - restart home HCTZ 12.5mg PO daily - ASA 81 po daily Pulm - maintain O2 sat >92% - h/o asthma - continue home ventolin - continue home singulair 10mg po daily GI - Protonix 40 po daily Heme - Hemolytic Anemia, TTP - Plt 12 - h/o thrombocytopenia, s/p transfusions upon last admission 04/25 - [id number] <3% activity: 04/12/18 - smear: Hemolytic anemia: moderate anisocytosis and schistocytosis, helmet cells and RBC fragments. no blasts. RBCs hypochromic. - f/u retic count - Heme/onc consulted, Dr. Dumont - Vascular Sx consulted, Dr. Rodriguez - Blood [place] called for plasmapheresis, pt on sched for tomorrow - FFP (2.75L) x10 days, 1 plasma volume daily to be administered upon access Endo - h/o hypothyroid - continue home synthroid 50mcg po daily PPx: GI- protonix DVT- contraindicated at this time due to thrombocytopenia HHD Case reviewed with Dr. Blount
[2018-07-10] MEDS ORDERED: Albuterol HFA 90 mcg/actuation (8 g) IH PRN (13:25)
[2018-07-10 14:01] LABS: SQUAMOUS EPITHIAL 7 /hpf (0-5); URINE BILIRUBIN NEGATIVE (NEGATIVE); URINE BLOOD 3+ (NEGATIVE); URINE CLARITY Clear (Clear); URINE COLOR Amber (YELLOW); URINE GLUCOSE (UA) NORMAL (Normal); URINE LEUKOCYTE ESTERASE NEG Leu/uL (Negative); URINE PROTEIN 3+ mg/dL (NEGATIVE)
--- NOTE | 2018-07-10 18:54 | CP.PCM.CON ---
History of Present Illness - History of Present Illness History of Present Illness: Surgery Consult; Dr. Rodriguez Pt is a 62F with PMHx significant for thrombocytopenia, HTN, asthma, & hypothryroidism who presented to with complaints of dizziness and generalized weakness since yesterday. Pt states she has had similar complaints in the past. Pt reports feeling more tired than usual but denies any fall or loss of consciousness. Pt denies bleeding. Pt is currently admitted to ICU and being worked up for thrombocytopenia requiring plasmapheresis. Surgery consulted for permacath placement. PMHx: as listed PSHx: permacath SocialHx: 20pack/yr smoking hx, denies EtOH/drugs NKDA Review of Systems - Review of Systems All systems: reviewed and no additional remarkable complaints except (as per HPI) Past Patient History - Infectious Disease Hx of Infectious Diseases: None - Past Medical History & Family History Past Medical History?: Yes - Past Social History Smoking Status: Heavy Smoker > 10 Cigarettes Daily - CARDIAC Hx Hypertension: Yes - PULMONARY Hx Asthma: Yes - HEENT Hx Deafness: Yes (right ear) Other/Comment: WEARS EYEGLASSES - ENDOCRINE/METABOLIC Hx Hypothyroidism: Yes - HEMATOLOGICAL/ONCOLOGICAL Hx Anemia: Yes - MUSCULOSKELETAL/RHEUMATOLOGICAL Hx Falls: Yes - PSYCHIATRIC Hx Substance Use: No - SURGICAL HISTORY Hx Surgeries: Yes Other/Comment: Permacath (out) - ANESTHESIA Hx Anesthesia: Yes Hx Anesthesia Reactions: No Meds Allergies/Adverse Reactions: Allergies Allergy/AdvReac Type Severity Reaction Status Date / Time house dust mite Allergy COUGH Verified 04/13/18 01:02 Seafood Allergy RASH Uncoded 04/13/18 01:02 - Medications Medications: Current Medications Albuterol (Ventolin Hfa 90 Mcg/Actuation (8 G)) 2 puff IH RQ6 PRN PRN Reason: Shortness of Breath Hydrochlorothiazide (Microzide) 12.5 mg PO BID [facility] Last Admin: 07/10/18 17:21 Dose: 12.5 mg Levothyroxine Sodium (Synthroid) 50 mcg PO DAILY@0630 [facility] Lisinopril (Zestril) 10 mg PO BID [facility] Last Admin: 07/10/18 17:21 Dose: 10 mg Montelukast Sodium (Singulair) 10 mg PO HS [facility] Pantoprazole Sodium (Protonix Ec Tab) 40 mg PO DAILY JOSE Physical Exam - Constitutional Appears: Well, No Acute Distress - Head Exam Head Exam: ATRAUMATIC, NORMOCEPHALIC - ENT Exam ENT Exam: Mucous Membranes Moist - Cardiovascular Exam Cardiovascular Exam: RRR - GI/Abdominal Exam GI & Abdominal Exam: Soft - Neurological Exam Neurological exam: Alert, Oriented x3 - Skin Skin Exam: Dry, Warm Results - Vital Signs Recent Vital Signs: Last Vital Signs Temp 100.3 F H 07/10/18 16:00 Pulse 88 07/10/18 18:00 Resp 22 07/10/18 18:00 BP 124/83 07/10/18 18:00 Pulse Ox 98 07/10/18 18:00 - Labs Result Diagrams: 07/10/18 10:23 07/10/18 10:23 Labs: Laboratory Results - last 24 hr 07/10/18 07/10/18 07/10/18 10:23 10:23 10:23 WBC 8.6 RBC 2.62 L Hgb 7.4 L D Hct 21.0 L MCV 79.9 L D MCH 28.1 MCHC 35.2 RDW 17.7 H Plt Count 12 L* D MPV 9.1 Neut % (Auto) 70.2 Lymph % (Auto) 21.9 [place] % (Auto) 7.3 Eos % (Auto) 0.1 Baso % (Auto) 0.5 Neut # (Auto) 6.0 Lymph # (Auto) 1.9 [place] # (Auto) 0.6 Eos # (Auto) 0.0 Baso # (Auto) 0.0 Differential Comment Cancelled Smear Path Review Haptoglobin PT INR APTT Sodium 136 Potassium 3.8 Chloride 105 Carbon Dioxide 16 L Anion Gap 19 BUN 40 H Creatinine 1.1 Est GFR ( Amer) > 60 Est GFR (Non-Af Amer) 51 Random Glucose 117 H Calcium 9.2 Total Bilirubin 5.9 H AST 124 H D ALT 28 Alkaline Phosphatase 52 Lactate Dehydrogenase Troponin I 1.0900 H* NT-Pro-B Natriuret Pep 3880 H Total Protein 7.9 Albumin 4.3 Globulin 3.6 Albumin/Globulin Ratio 1.2 TSH 3rd Generation 1.70 Urine Color Urine Clarity Urine pH Ur Specific [place] Urine Protein Urine Glucose (UA) Urine Ketones Urine Blood Urine Nitrate Urine Bilirubin Urine Urobilinogen Ur Leukocyte Esterase Urine WBC (Auto) Urine RBC (Auto) Ur Squamous Epith Cells Hyaline Casts Influenza Typ A,B (EIA) Negative for flu a/b Blood Type Antibody Screen JOSEPH, Poly Interpret 07/10/18 07/10/18 07/10/18 10:23 12:53 13:02 WBC RBC Hgb Hct MCV MCH MCHC RDW Plt Count MPV Neut % (Auto) Lymph % (Auto) [place] % (Auto) Eos % (Auto) Baso % (Auto) Neut # (Auto) Lymph # (Auto) [place] # (Auto) Eos # (Auto) Baso # (Auto) Differential Comment Smear Path Review Haptoglobin PT 12.0 INR 1.1 APTT 29 Sodium Potassium Chloride Carbon Dioxide Anion Gap BUN Creatinine Est GFR ( Amer) Est GFR (Non-Af Amer) Random Glucose Calcium Total Bilirubin AST ALT Alkaline Phosphatase Lactate Dehydrogenase 5161 H Troponin I NT-Pro-B Natriuret Pep Total Protein Albumin Globulin Albumin/Globulin Ratio TSH 3rd Generation Urine Color Urine Clarity Urine pH Ur Specific [place] Urine Protein Urine Glucose (UA) Urine Ketones Urine Blood Urine Nitrate Urine Bilirubin Urine Urobilinogen Ur Leukocyte Esterase Urine WBC (Auto) Urine RBC (Auto) Ur Squamous Epith Cells Hyaline Casts Influenza Typ A,B (EIA) Blood Type B POSITIVE Antibody Screen Negative JOSEPH, Poly Interpret Negative 07/10/18 07/10/18 13:02 13:44 WBC RBC Hgb Hct MCV MCH MCHC RDW Plt Count MPV Neut % (Auto) Lymph % (Auto) [place] % (Auto) Eos % (Auto) Baso % (Auto) Neut # (Auto) Lymph # (Auto) [place] # (Auto) Eos # (Auto) Baso # (Auto) Differential Comment Smear Path Review Haptoglobin < 20.0 L PT INR APTT Sodium Potassium Chloride Carbon Dioxide Anion Gap BUN Creatinine Est GFR ( Amer) Est GFR (Non-Af Amer) Random Glucose Calcium Total Bilirubin AST ALT Alkaline Phosphatase Lactate Dehydrogenase Troponin I NT-Pro-B Natriuret Pep Total Protein Albumin Globulin Albumin/Globulin Ratio TSH 3rd Generation Urine Color Alyssa Urine Clarity Clear Urine pH 5.0 Ur Specific [place] 1.022 Urine Protein 3+ H Urine Glucose (UA) Normal Urine Ketones Negative Urine Blood 3+ H Urine Nitrate Negative Urine Bilirubin Negative Urine Urobilinogen 4.0 H Ur Leukocyte Esterase Neg Urine WBC (Auto) 8 H Urine RBC (Auto) 31 H Ur Squamous Epith Cells 7 H Hyaline Casts 11-20 H Influenza Typ A,B (EIA) Blood Type Antibody Screen JOSEPH, Poly Interpret Assessment & Plan - Assessment and Plan (Free Text) Assessment: 62F with thrombocytopenia requiring plasmapheresis Plan: - transfuse 2 units PRBCs & 1 unit PLTs - plan for 1 additional unit of PLT transfusion tomorrow prior to OR around noon - Keep NPO after midnight - d/w Dr. Jennifer Guillen
--- NOTE | 2018-07-10 23:32 | CP.PCM.CON ---
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 The patient notes to progressive fatigue during the weekend. Her family notes to h er sleeping a lot and not being herself and brought her to the hospital. In the ER she was noted to have a hgb of 7.4 and plt of 12,000. Review of her peripheral smear shows multiple schistocytes. Past medical history: HTN, hypothyroid, asthma, TTP Past surgical history: Denies Family history: Parents had cancer Social history: Former tobacco abuse Allergies: NKDA Review of systems: All remaining review of systems including HEENT, cardiovascular, respiratory, gastrointestinal, genitourinary, musculoskeletal, dermatologic, neurologic, and psychiatric are negative unless mentioned in the HPI. Past Patient History - Infectious Disease Hx of Infectious Diseases: None - Past Medical History & Family History Past Medical History?: Yes - Past Social History Smoking Status: Heavy Smoker > 10 Cigarettes Daily - CARDIAC Hx Hypertension: Yes - PULMONARY Hx Asthma: Yes - HEENT Hx Deafness: Yes (right ear) Other/Comment: WEARS EYEGLASSES - ENDOCRINE/METABOLIC Hx Hypothyroidism: Yes - HEMATOLOGICAL/ONCOLOGICAL Hx Anemia: Yes - MUSCULOSKELETAL/RHEUMATOLOGICAL Hx Falls: Yes - PSYCHIATRIC Hx Substance Use: No - SURGICAL HISTORY Hx Surgeries: Yes Other/Comment: Permacath (out) - ANESTHESIA Hx Anesthesia: Yes Hx Anesthesia Reactions: No Meds Allergies/Adverse Reactions: Allergies Allergy/AdvReac Type Severity Reaction Status Date / Time house dust mite Allergy COUGH Verified 04/13/18 01:02 Seafood Allergy RASH Uncoded 04/13/18 01:02 - Medications Medications: Current Medications Albuterol (Ventolin Hfa 90 Mcg/Actuation (8 G)) 2 puff IH RQ6 PRN PRN Reason: Shortness of Breath Hydrochlorothiazide (Microzide) 12.5 mg PO BID [facility] Last Admin: 07/10/18 17:21 Dose: 12.5 mg Levothyroxine Sodium (Synthroid) 50 mcg PO DAILY@0630 [facility] Lisinopril (Zestril) 10 mg PO BID [facility] Last Admin: 07/10/18 17:21 Dose: 10 mg Montelukast Sodium (Singulair) 10 mg PO HS JOSE Last Admin: 07/10/18 21:04 Dose: 10 mg Pantoprazole Sodium (Protonix Ec Tab) 40 mg PO DAILY [facility] Physical Exam - Head Exam Head Exam: ATRAUMATIC - Eye Exam Eye Exam: Normal appearance - ENT Exam ENT Exam: Mucous Membranes Dry - Respiratory Exam Respiratory Exam: NORMAL BREATHING PATTERN - Cardiovascular Exam Cardiovascular Exam: +S1, +S2 - GI/Abdominal Exam GI & Abdominal Exam: Normal Bowel Sounds Results - Vital Signs Recent Vital Signs: Last Vital Signs Temp 97.7 F 07/10/18 23:00 Pulse 88 07/10/18 23:00 Resp 25 H 07/10/18 23:00 BP 111/80 07/10/18 23:00 Pulse Ox 100 07/10/18 20:00 - Labs Result Diagrams: 07/10/18 10:23 07/10/18 10:23 Labs: Laboratory Results - last 24 hr 07/10/18 07/10/18 07/10/18 10:23 10:23 10:23 WBC 8.6 RBC 2.62 L Hgb 7.4 L D Hct 21.0 L MCV 79.9 L D MCH 28.1 MCHC 35.2 RDW 17.7 H Plt Count 12 L* D MPV 9.1 Neut % (Auto) 70.2 Lymph % (Auto) 21.9 [place] % (Auto) 7.3 Eos % (Auto) 0.1 Baso % (Auto) 0.5 Neut # (Auto) 6.0 Lymph # (Auto) 1.9 [place] # (Auto) 0.6 Eos # (Auto) 0.0 Baso # (Auto) 0.0 Differential Comment Cancelled Smear Path Review Haptoglobin PT INR APTT Sodium 136 Potassium 3.8 Chloride 105 Carbon Dioxide 16 L Anion Gap 19 BUN 40 H Creatinine 1.1 Est GFR ( Amer) > 60 Est GFR (Non-Af Amer) 51 Random Glucose 117 H Calcium 9.2 Total Bilirubin 5.9 H AST 124 H D ALT 28 Alkaline Phosphatase 52 Lactate Dehydrogenase Troponin I 1.0900 H* NT-Pro-B Natriuret Pep 3880 H Total Protein 7.9 Albumin 4.3 Globulin 3.6 Albumin/Globulin Ratio 1.2 TSH 3rd Generation 1.70 Urine Color Urine Clarity Urine pH Ur Specific [place] Urine Protein Urine Glucose (UA) Urine Ketones Urine Blood Urine Nitrate Urine Bilirubin Urine Urobilinogen Ur Leukocyte Esterase Urine WBC (Auto) Urine RBC (Auto) Ur Squamous Epith Cells Hyaline Casts Influenza Typ A,B (EIA) Negative for flu a/b Blood Type Antibody Screen JOSEPH, Poly Interpret 07/10/18 07/10/18 07/10/18 10:23 12:53 13:02 WBC RBC Hgb Hct MCV MCH MCHC RDW Plt Count MPV Neut % (Auto) Lymph % (Auto) [place] % (Auto) Eos % (Auto) Baso % (Auto) Neut # (Auto) Lymph # (Auto) [place] # (Auto) Eos # (Auto) Baso # (Auto) Differential Comment Smear Path Review Haptoglobin PT 12.0 INR 1.1 APTT 29 Sodium Potassium Chloride Carbon Dioxide Anion Gap BUN Creatinine Est GFR ( Amer) Est GFR (Non-Af Amer) Random Glucose Calcium Total Bilirubin AST ALT Alkaline Phosphatase Lactate Dehydrogenase 5161 H Troponin I NT-Pro-B Natriuret Pep Total Protein Albumin Globulin Albumin/Globulin Ratio TSH 3rd Generation Urine Color Urine Clarity Urine pH Ur Specific [place] Urine Protein Urine Glucose (UA) Urine Ketones Urine Blood Urine Nitrate Urine Bilirubin Urine Urobilinogen Ur Leukocyte Esterase Urine WBC (Auto) Urine RBC (Auto) Ur Squamous Epith Cells Hyaline Casts Influenza Typ A,B (EIA) Blood Type B POSITIVE Antibody Screen Negative JOSEPH, Poly Interpret Negative 07/10/18 07/10/18 13:02 13:44 WBC RBC Hgb Hct MCV MCH MCHC RDW Plt Count MPV Neut % (Auto) Lymph % (Auto) [place] % (Auto) Eos % (Auto) Baso % (Auto) Neut # (Auto) Lymph # (Auto) [place] # (Auto) Eos # (Auto) Baso # (Auto) Differential Comment Smear Path Review Haptoglobin < 20.0 L PT INR APTT Sodium Potassium Chloride Carbon Dioxide Anion Gap BUN Creatinine Est GFR ( Amer) Est GFR (Non-Af Amer) Random Glucose Calcium Total Bilirubin AST ALT Alkaline Phosphatase Lactate Dehydrogenase Troponin I NT-Pro-B Natriuret Pep Total Protein Albumin Globulin Albumin/Globulin Ratio TSH 3rd Generation Urine Color Alyssa Urine Clarity Clear Urine pH 5.0 Ur Specific [place] 1.022 Urine Protein 3+ H Urine Glucose (UA) Normal Urine Ketones Negative Urine Blood 3+ H Urine Nitrate Negative Urine Bilirubin Negative Urine Urobilinogen 4.0 H Ur Leukocyte Esterase Neg Urine WBC (Auto) 8 H Urine RBC (Auto) 31 H Ur Squamous Epith Cells 7 H Hyaline Casts 11-20 H Influenza Typ A,B (EIA) Blood Type Antibody Screen JOSEPH, Poly Interpret Assessment & Plan (1) 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 Status: Acute
[2018-07-11] MEDS: Levothyroxine 50 MCG TAB PO SCH (05:50)
[2018-07-11 08:16] LABS: BASO % 0.4 % (0.0-2.0); EOS % 0.5 % (0.0-4.0); HEMOGLOBIN 7.2 g/dL (11.0-16.0); LYMPH # 2.2 K/uL (1.0-4.3); LYMPH % 32.9 % (20.0-40.0); MEAN CELL VOLUME 79.2 fL (81.0-99.0); MEAN CORPUSCULAR HEMOGLOBIN 28.4 pg (27.0-31.0); MEAN CORPUSCULAR HGB CONC 35.8 g/dL (33.0-37.0); MEAN PLATELET VOLUME 8.3 fL (7.2-11.7); MONO # 0.5 K/uL (0.0-0.8); MONO % 7.9 % (0.0-10.0); NEUT # 3.8 K/uL (1.8-7.0); NEUT % 58.3 % (50.0-75.0); NRBC % 0.9 % (0.0-2.0); RBC 2.55 Mil/uL (3.80-5.20); RED CELL DISTRIBUTION WIDTH 17.1 % (11.5-14.5); WHITE BLOOD COUNT 6.6 K/uL (4.8-10.8)
[2018-07-11] MEDS: Pantoprazole 40 mg EC Tab PO SCH (10:05)
[2018-07-11 10:16] LABS: ALB/GLOB RATIO 1.2 (1.0-2.1); ALT/SGPT 147 U/L (9-52); AST/SGOT 279 U/L (14-36); BLOOD UREA NITROGEN 27 mg/dL (7-17); CALCIUM 9.1 mg/dl (8.6-10.4); GFR NON-AFRICAN AMERICAN 57
[2018-07-11] MEDS ORDERED: Potassium Chloride 20 mEq/15 ml LIQ UD PO ONE (13:00)
--- NOTE | 2018-07-11 13:57 | CP.CCUPN ---
<Erick Sage - Last Filed: 07/11/18 13:48> CCU Subjective - Physician Review Subjective (Free Text): 07/11/18 13:48 Erick Sage PGY1 Progress Note for Dr. Portillo Pt was examined at bedside this morning. She reports improvement of her fatigue and shortness of breath. She denies any chest pain, headache, dizziness, abdominal pain, nausea, vomiting. CCU Objective - Vital Signs / Intake & Output Vital Signs (Last 4 hours): Vital Signs Temp Pulse Resp BP Pulse Ox 07/11/18 13:38 98.5 F 07/11/18 13:22 90 31 H 150/90 07/11/18 13:00 93 H 24 07/11/18 12:27 96 H 40 H 146/88 100 07/11/18 12:00 93 H 32 H 100 07/11/18 11:28 95 H 21 141/79 100 07/11/18 11:00 97.7 F 91 H 20 100 07/11/18 10:27 91 H 15 137/74 99 07/11/18 10:00 90 19 100 Intake and Output (Last 8hrs): Intake & Output 07/10/18 07/11/18 07/11/18 22:59 06:59 14:59 Intake Total 300 325 200 Output Total 400 900 600 Balance -100 -575 -400 Weight 125 lb 6.4 oz Intake: Oral 300 0 200 Blood Product 0 325 Red Blood Cells Cpd As1 0 325 Lr Unit [id number] Output: Urine 400 900 600 Urine, Voided 400 900 600 Stool 0 Other: # Voids Urine, Voided 2 - Physical Exam Head: Positive for: Atraumatic, Normocephalic Pupils: Positive for: PERRL Extroacular Muscles: Positive for: EOMI Conjunctiva: Positive for: Other (pale) Mouth: Positive for: Moist Mucous Membranes Neck: Positive for: Normal Range of Motion Respiratory/Chest: Positive for: Clear to Auscultation. Negative for: Respiratory Distress, Accessory Muscle Use, Wheezes, Rales, Rhonchi Cardiovascular: Positive for: Regular Rate and Rhythm, Normal S1, S2, Irregular Rhythm. Negative for: Murmurs, Rub, Gallop Abdomen: Positive for: Normal Bowel Sounds. Negative for: Tenderness, Distention, Peritoneal Signs Upper Extremity: Positive for: Normal Inspection. Negative for: Cyanosis, Edema Lower Extremity: Positive for: Normal Inspection. Negative for: Edema Neurological: Positive for: GCS=15, CN II-XII Intact, Speech Normal Skin: Positive for: Warm, Dry, Normal Color - Medications Active Medications: Active Medications Generic Name Dose Route Start Last Admin Trade Name Freq PRN Reason Stop Dose Admin Albuterol 2 puff 07/10/18 13:25 Ventolin Hfa 90 Mcg/Actuation (8 G) IH RQ6 PRN Shortness of Breath Hydrochlorothiazide 12.5 mg 07/10/18 18:00 07/11/18 10:05 Microzide PO 12.5 mg BID JOSE Administration Calcium Gluconate 4.65 meq/ 110 mls @ 100 mls/hr 07/11/18 13:30 07/11/18 13:39 Sodium Chloride IV 07/11/18 14:35 100 mls/hr ONCE ONE Administration Levothyroxine Sodium 50 mcg 07/11/18 06:30 07/11/18 05:50 Synthroid PO 50 mcg DAILY@0630 JOSE Administration Lisinopril 10 mg 07/10/18 18:00 07/11/18 10:05 Zestril PO 10 mg BID JOSE Administration Montelukast Sodium 10 mg 07/10/18 22:00 07/10/18 21:04 Singulair PO 10 mg HS JOSE Administration Pantoprazole Sodium 40 mg 07/11/18 10:00 07/11/18 10:05 Protonix Ec Tab PO 40 mg DAILY JOSE Administration - Patient Studies Lab Studies: Lab Studies 07/11/18 07/11/18 07/11/18 Range/Units 08:10 08:10 08:10 WBC 6.6 (4.8-10.8) K/uL RBC 2.55 L (3.80-5.20) Mil/uL Hgb 7.2 L (11.0-16.0) g/dL Hct 20.2 L (34.0-47.0) % MCV 79.2 L (81.0-99.0) fL MCH 28.4 (27.0-31.0) pg MCHC 35.8 (33.0-37.0) g/dL RDW 17.1 H (11.5-14.5) % Plt Count 50 L D (130-400) K/uL MPV 8.3 (7.2-11.7) fL Neut % (Auto) 58.3 (50.0-75.0) % Lymph % (Auto) 32.9 (20.0-40.0) % [place] % (Auto) 7.9 (0.0-10.0) % Eos % (Auto) 0.5 (0.0-4.0) % Baso % (Auto) 0.4 (0.0-2.0) % Neut # (Auto) 3.8 (1.8-7.0) K/uL Lymph # (Auto) 2.2 (1.0-4.3) K/uL [place] # (Auto) 0.5 (0.0-0.8) K/uL Eos # (Auto) 0.0 (0.0-0.7) K/uL Baso # (Auto) 0.0 (0.0-0.2) K/uL Differential Comment Smear Path Review Retic Count (0.5-1.5) % Sodium 139 (132-148) mmol/L Potassium 3.0 L (3.6-5.2) mmol/L Chloride 104 (98-107) mmol/L Carbon Dioxide 24 (22-30) mmol/L Anion Gap 14 (10-20) BUN 27 H (7-17) mg/dL Creatinine 1.0 (0.7-1.2) mg/dL Est GFR ( Amer) > 60 Est GFR (Non-Af Amer) 57 Random Glucose 113 H (65-105) mg/dL Calcium 9.1 (8.6-10.4) mg/dl Phosphorus 3.2 (2.5-4.5) mg/dL Magnesium 1.8 (1.6-2.3) mg/dL Total Bilirubin 6.6 H (0.2-1.3) mg/dL AST 279 H D (14-36) U/L ALT 147 H D (9-52) U/L Alkaline Phosphatase 67 (38-126) U/L Troponin I 1.4200 H* (0.00-0.120) ng/mL Total Protein 7.5 (6.3-8.3) g/dL Albumin 4.0 (3.5-5.0) g/dL Globulin 3.4 (2.2-3.9) gm/dL Albumin/Globulin Ratio 1.2 (1.0-2.1) Urine Color (YELLOW) Urine Clarity (Clear) Urine pH (5.0-8.0) Ur Specific Gardner (1.003-1.030) Urine Protein (NEGATIVE) mg/dL Urine Glucose (UA) (Normal) mg/dL Urine Ketones (NEGATIVE) mg/dL Urine Blood (NEGATIVE) Urine Nitrate (NEGATIVE) Urine Bilirubin (NEGATIVE) Urine Urobilinogen (0.2-1.0) mg/dL Ur Leukocyte Esterase (Negative) Toshia/uL Urine WBC (Auto) (0-5) /hpf Urine RBC (Auto) (0-3) /hpf Ur Squamous Epith Cells (0-5) /hpf Hyaline Casts (0-2) /lpf Blood Type Antibody Screen JOSEPH, Poly Interpret (NEGATIVE) 07/11/18 07/10/18 07/10/18 Range/Units 08:10 13:44 12:53 WBC (4.8-10.8) K/uL RBC (3.80-5.20) Mil/uL Hgb (11.0-16.0) g/dL Hct (34.0-47.0) % MCV (81.0-99.0) fL MCH (27.0-31.0) pg MCHC (33.0-37.0) g/dL RDW (11.5-14.5) % Plt Count (130-400) K/uL MPV (7.2-11.7) fL Neut % (Auto) (50.0-75.0) % Lymph % (Auto) (20.0-40.0) % [place] % (Auto) (0.0-10.0) % Eos % (Auto) (0.0-4.0) % Baso % (Auto) (0.0-2.0) % Neut # (Auto) (1.8-7.0) K/uL Lymph # (Auto) (1.0-4.3) K/uL [place] # (Auto) (0.0-0.8) K/uL Eos # (Auto) (0.0-0.7) K/uL Baso # (Auto) (0.0-0.2) K/uL Differential Comment Smear Path Review Retic Count 2.8 H D (0.5-1.5) % Sodium (132-148) mmol/L Potassium (3.6-5.2) mmol/L Chloride (98-107) mmol/L Carbon Dioxide (22-30) mmol/L Anion Gap (10-20) BUN (7-17) mg/dL Creatinine (0.7-1.2) mg/dL Est GFR ( Amer) Est GFR (Non-Af Amer) Random Glucose (65-105) mg/dL Calcium (8.6-10.4) mg/dl Phosphorus (2.5-4.5) mg/dL Magnesium (1.6-2.3) mg/dL Total Bilirubin (0.2-1.3) mg/dL AST (14-36) U/L ALT (9-52) U/L Alkaline Phosphatase (38-126) U/L Troponin I (0.00-0.120) ng/mL Total Protein (6.3-8.3) g/dL Albumin (3.5-5.0) g/dL Globulin (2.2-3.9) gm/dL Albumin/Globulin Ratio (1.0-2.1) Urine Color Alyssa (YELLOW) Urine Clarity Clear (Clear) Urine pH 5.0 (5.0-8.0) Ur Specific Gardner 1.022 (1.003-1.030) Urine Protein 3+ H (NEGATIVE) mg/dL Urine Glucose (UA) Normal (Normal) mg/dL Urine Ketones Negative (NEGATIVE) mg/dL Urine Blood 3+ H (NEGATIVE) Urine Nitrate Negative (NEGATIVE) Urine Bilirubin Negative (NEGATIVE) Urine Urobilinogen 4.0 H (0.2-1.0) mg/dL Ur Leukocyte Esterase Neg (Negative) Toshia/uL Urine WBC (Auto) 8 H (0-5) /hpf Urine RBC (Auto) 31 H (0-3) /hpf Ur Squamous Epith Cells 7 H (0-5) /hpf Hyaline Casts 11-20 H (0-2) /lpf Blood Type B POSITIVE Antibody Screen Negative JOSEPH, Poly Interpret Negative (NEGATIVE) 07/10/18 Range/Units 10:23 WBC (4.8-10.8) K/uL RBC (3.80-5.20) Mil/uL Hgb (11.0-16.0) g/dL Hct (34.0-47.0) % MCV (81.0-99.0) fL MCH (27.0-31.0) pg MCHC (33.0-37.0) g/dL RDW (11.5-14.5) % Plt Count (130-400) K/uL MPV (7.2-11.7) fL Neut % (Auto) (50.0-75.0) % Lymph % (Auto) (20.0-40.0) % [place] % (Auto) (0.0-10.0) % Eos % (Auto) (0.0-4.0) % Baso % (Auto) (0.0-2.0) % Neut # (Auto) (1.8-7.0) K/uL Lymph # (Auto) (1.0-4.3) K/uL [place] # (Auto) (0.0-0.8) K/uL Eos # (Auto) (0.0-0.7) K/uL Baso # (Auto) (0.0-0.2) K/uL Differential Comment Smear Path Review Retic Count (0.5-1.5) % Sodium (132-148) mmol/L Potassium (3.6-5.2) mmol/L Chloride (98-107) mmol/L Carbon Dioxide (22-30) mmol/L Anion Gap (10-20) BUN (7-17) mg/dL Creatinine (0.7-1.2) mg/dL Est GFR ( Amer) Est GFR (Non-Af Amer) Random Glucose (65-105) mg/dL Calcium (8.6-10.4) mg/dl Phosphorus (2.5-4.5) mg/dL Magnesium (1.6-2.3) mg/dL Total Bilirubin (0.2-1.3) mg/dL AST (14-36) U/L ALT (9-52) U/L Alkaline Phosphatase (38-126) U/L Troponin I (0.00-0.120) ng/mL Total Protein (6.3-8.3) g/dL Albumin (3.5-5.0) g/dL Globulin (2.2-3.9) gm/dL Albumin/Globulin Ratio (1.0-2.1) Urine Color (YELLOW) Urine Clarity (Clear) Urine pH (5.0-8.0) Ur Specific Gardner (1.003-1.030) Urine Protein (NEGATIVE) mg/dL Urine Glucose (UA) (Normal) mg/dL Urine Ketones (NEGATIVE) mg/dL Urine Blood (NEGATIVE) Urine Nitrate (NEGATIVE) Urine Bilirubin (NEGATIVE) Urine Urobilinogen (0.2-1.0) mg/dL Ur Leukocyte Esterase (Negative) Toshia/uL Urine WBC (Auto) (0-5) /hpf Urine RBC (Auto) (0-3) /hpf Ur Squamous Epith Cells (0-5) /hpf Hyaline Casts (0-2) /lpf Blood Type Antibody Screen JOSEPH, Poly Interpret (NEGATIVE) Laboratory Results - last 24 hr 07/10/18 07/10/18 07/10/18 10:23 12:53 13:44 WBC RBC Hgb Hct MCV MCH MCHC RDW Plt Count MPV Neut % (Auto) Lymph % (Auto) [place] % (Auto) Eos % (Auto) Baso % (Auto) Neut # (Auto) Lymph # (Auto) [place] # (Auto) Eos # (Auto) Baso # (Auto) Differential Comment Smear Path Review Retic Count Sodium Potassium Chloride Carbon Dioxide Anion Gap BUN Creatinine Est GFR ( Amer) Est GFR (Non-Af Amer) Random Glucose Calcium Phosphorus Magnesium Total Bilirubin AST ALT Alkaline Phosphatase Troponin I Total Protein Albumin Globulin Albumin/Globulin Ratio Urine Color Alyssa Urine Clarity Clear Urine pH 5.0 Ur Specific Gardner 1.022 Urine Protein 3+ H Urine Glucose (UA) Normal Urine Ketones Negative Urine Blood 3+ H Urine Nitrate Negative Urine Bilirubin Negative Urine Urobilinogen 4.0 H Ur Leukocyte Esterase Neg Urine WBC (Auto) 8 H Urine RBC (Auto) 31 H Ur Squamous Epith Cells 7 H Hyaline Casts 11-20 H Blood Type B POSITIVE Antibody Screen Negative JOSEPH, Poly Interpret Negative 07/11/18 07/11/18 07/11/18 08:10 08:10 08:10 WBC 6.6 RBC 2.55 L Hgb 7.2 L Hct 20.2 L MCV 79.2 L MCH 28.4 MCHC 35.8 RDW 17.1 H Plt Count 50 L D MPV 8.3 Neut % (Auto) 58.3 Lymph % (Auto) 32.9 [place] % (Auto) 7.9 Eos % (Auto) 0.5 Baso % (Auto) 0.4 Neut # (Auto) 3.8 Lymph # (Auto) 2.2 [place] # (Auto) 0.5 Eos # (Auto) 0.0 Baso # (Auto) 0.0 Differential Comment Smear Path Review Retic Count 2.8 H D Sodium Potassium Chloride Carbon Dioxide Anion Gap BUN Creatinine Est GFR ( Amer) Est GFR (Non-Af Amer) Random Glucose Calcium Phosphorus Magnesium Total Bilirubin AST ALT Alkaline Phosphatase Troponin I 1.4200 H* Total Protein Albumin Globulin Albumin/Globulin Ratio Urine Color Urine Clarity Urine pH Ur Specific Gardner Urine Protein Urine Glucose (UA) Urine Ketones Urine Blood Urine Nitrate Urine Bilirubin Urine Urobilinogen Ur Leukocyte Esterase Urine WBC (Auto) Urine RBC (Auto) Ur Squamous Epith Cells Hyaline Casts Blood Type Antibody Screen JOSEPH, Poly Interpret 07/11/18 08:10 WBC RBC Hgb Hct MCV MCH MCHC RDW Plt Count MPV Neut % (Auto) Lymph % (Auto) [place] % (Auto) Eos % (Auto) Baso % (Auto) Neut # (Auto) Lymph # (Auto) [place] # (Auto) Eos # (Auto) Baso # (Auto) Differential Comment Smear Path Review Retic Count Sodium 139 Potassium 3.0 L Chloride 104 Carbon Dioxide 24 Anion Gap 14 BUN 27 H Creatinine 1.0 Est GFR ( Amer) > 60 Est GFR (Non-Af Amer) 57 Random Glucose 113 H Calcium 9.1 Phosphorus 3.2 Magnesium 1.8 Total Bilirubin 6.6 H AST 279 H D ALT 147 H D Alkaline Phosphatase 67 Troponin I Total Protein 7.5 Albumin 4.0 Globulin 3.4 Albumin/Globulin Ratio 1.2 Urine Color Urine Clarity Urine pH Ur Specific Gardner Urine Protein Urine Glucose (UA) Urine Ketones Urine Blood Urine Nitrate Urine Bilirubin Urine Urobilinogen Ur Leukocyte Esterase Urine WBC (Auto) Urine RBC (Auto) Ur Squamous Epith Cells Hyaline Casts Blood Type Antibody Screen JOSEPH, Poly Interpret EKG/Cardiology Studies: Cardiology / EKG Studies 07/11/18 08:57 EKG [ELECTROCARDIOGRAM] Stat Comment: Mode Of Transportation: Reason For Exam: Elevated Troponins - Procedures Procedures (Free Text): 07/11/18 14:02 R femoral cath insertion Review of Systems - Review of Systems Review of Systems: as per HPI Critical Care Progress Note - Nutrition Nutrition: Nutrition Category Date Time Status Heart Healthy Diet [DIET] Diets 07/11/18 Lunch Active Assessment/Plan - Assessment and Plan (Free Text) Assessment: 62yo F with PMH HTN, hypothyroid, asthma, thrombocytopenia presents to ED with dizziness and fatigue x2 days, admitted for thrombocytopenia. Smear showing schistocytes, anisocytosis. Pt being treated for hemolytic anemia and thrombocytopenia. Beginning first plamapheresis today. Plan: Neuro - AAOx3 - no focal deficits Cardio - elevated troponins 1.09 --> 1.42 - h/o HTN - restart home lisinopril 10mg PO daily - restart home HCTZ 12.5mg PO daily - hold ASA 81 po daily - Cardio consulted, Dr. Sidney estrella appreciated Pulm - maintain O2 sat >92% - h/o asthma - continue home ventolin - continue home singulair 10mg po daily GI - Protonix 40 po daily Heme - Hemolytic Anemia, TTP - s/p 2u FFP, 2u PRBCs, 1u platelet - s/p R femoral cath placement - Plt 50 - H/H 7.2/20.2 - h/o thrombocytopenia, s/p transfusions upon last admission 04/25 - [id number] <3% activity: 04/12/18 - smear: Hemolytic anemia: moderate anisocytosis and schistocytosis, helmet cells and RBC fragments. no blasts. RBCs hypochromic. - retic count 2.8, high - haptoglobin low - LDH 5160, high - f/u rpt [id number] - FFP (2.75L) x10 days, 1 plasma volume daily - Heme/onc consulted, Dr. Julia estrella appreciated - Vascular Sx consulted, Dr. Rodriguez Endo - h/o hypothyroid - continue home synthroid 50mcg po daily PPx: GI- protonix DVT- contraindicated at this time due to thrombocytopenia HHD Pt seen and case reviewed with Dr. Portillo <Marcell Portillo - Last Filed: 07/11/18 18:36> CCU Subjective - Physician Review Critical Care Time Spent (in minutes): 40 CCU Objective - Vital Signs / Intake & Output Intake and Output (Last 8hrs): Intake & Output 07/11/18 07/11/18 07/11/18 06:59 14:59 22:59 Intake Total 325 300 Output Total 900 600 Balance -575 -300 Weight 125 lb 6.4 oz Intake: Oral 0 300 Blood Product 325 Red Blood Cells Cpd As1 325 Lr Unit [id number] Output: Urine 900 600 Urine, Voided 900 600 Stool 0 Other: # Voids Urine, Voided 2 - Medications Active Medications: Active Medications Generic Name Dose Route Start Last Admin Trade Name Freq PRN Reason Stop Dose Admin Albuterol 2 puff 07/10/18 13:25 Ventolin Hfa 90 Mcg/Actuation (8 G) IH RQ6 PRN Shortness of Breath Hydrochlorothiazide 12.5 mg 07/10/18 18:00 07/11/18 18:22 Microzide PO 12.5 mg BID JOSE Administration Levothyroxine Sodium 50 mcg 07/11/18 06:30 07/11/18 05:50 Synthroid PO 50 mcg DAILY@0630 JOSE Administration Lisinopril 10 mg 07/10/18 18:00 07/11/18 18:22 Zestril PO 10 mg BID JOSE Administration Montelukast Sodium 10 mg 07/10/18 22:00 07/10/18 21:04 Singulair PO 10 mg HS JOSE Administration Pantoprazole Sodium 40 mg 07/11/18 10:00 07/11/18 10:05 Protonix Ec Tab PO 40 mg DAILY JOSE Administration - Patient Studies Lab Studies: Lab Studies 07/11/18 07/11/18 07/11/18 Range/Units 17:02 08:10 08:10 WBC 8.4 6.6 (4.8-10.8) K/uL RBC 2.70 L 2.55 L (3.80-5.20) Mil/uL Hgb 7.7 L 7.2 L (11.0-16.0) g/dL Hct 21.5 L 20.2 L (34.0-47.0) % MCV 79.5 L 79.2 L (81.0-99.0) fL MCH 28.5 28.4 (27.0-31.0) pg MCHC 35.8 35.8 (33.0-37.0) g/dL RDW 17.8 H 17.1 H (11.5-14.5) % Plt Count 33 L 50 L D (130-400) K/uL MPV 6.9 L 8.3 (7.2-11.7) fL Neut % (Auto) 70.4 58.3 (50.0-75.0) % Lymph % (Auto) 22.2 32.9 (20.0-40.0) % [place] % (Auto) 6.6 7.9 (0.0-10.0) % Eos % (Auto) 0.2 0.5 (0.0-4.0) % Baso % (Auto) 0.6 0.4 (0.0-2.0) % Neut # (Auto) 5.9 3.8 (1.8-7.0) K/uL Lymph # (Auto) 1.9 2.2 (1.0-4.3) K/uL [place] # (Auto) 0.6 0.5 (0.0-0.8) K/uL Eos # (Auto) 0.0 0.0 (0.0-0.7) K/uL Baso # (Auto) 0.0 0.0 (0.0-0.2) K/uL Differential Comment Retic Count (0.5-1.5) % Sodium 139 (132-148) mmol/L Potassium 3.0 L (3.6-5.2) mmol/L Chloride 104 (98-107) mmol/L Carbon Dioxide 24 (22-30) mmol/L Anion Gap 14 (10-20) BUN 27 H (7-17) mg/dL Creatinine 1.0 (0.7-1.2) mg/dL Est GFR ( Amer) > 60 Est GFR (Non-Af Amer) 57 Random Glucose 113 H (65-105) mg/dL Calcium 9.1 (8.6-10.4) mg/dl Phosphorus 3.2 (2.5-4.5) mg/dL Magnesium 1.8 (1.6-2.3) mg/dL Total Bilirubin 6.6 H (0.2-1.3) mg/dL AST 279 H D (14-36) U/L ALT 147 H D (9-52) U/L Alkaline Phosphatase 67 (38-126) U/L Troponin I (0.00-0.120) ng/mL Total Protein 7.5 (6.3-8.3) g/dL Albumin 4.0 (3.5-5.0) g/dL Globulin 3.4 (2.2-3.9) gm/dL Albumin/Globulin Ratio 1.2 (1.0-2.1) Blood Type Antibody Screen JOSEPH, Poly Interpret (NEGATIVE) 07/11/18 07/11/18 07/10/18 Range/Units 08:10 08:10 12:53 WBC (4.8-10.8) K/uL RBC (3.80-5.20) Mil/uL Hgb (11.0-16.0) g/dL Hct (34.0-47.0) % MCV (81.0-99.0) fL MCH (27.0-31.0) pg MCHC (33.0-37.0) g/dL RDW (11.5-14.5) % Plt Count (130-400) K/uL MPV (7.2-11.7) fL Neut % (Auto) (50.0-75.0) % Lymph % (Auto) (20.0-40.0) % [place] % (Auto) (0.0-10.0) % Eos % (Auto) (0.0-4.0) % Baso % (Auto) (0.0-2.0) % Neut # (Auto) (1.8-7.0) K/uL Lymph # (Auto) (1.0-4.3) K/uL [place] # (Auto) (0.0-0.8) K/uL Eos # (Auto) (0.0-0.7) K/uL Baso # (Auto) (0.0-0.2) K/uL Differential Comment Retic Count 2.8 H D (0.5-1.5) % Sodium (132-148) mmol/L Potassium (3.6-5.2) mmol/L Chloride (98-107) mmol/L Carbon Dioxide (22-30) mmol/L Anion Gap (10-20) BUN (7-17) mg/dL Creatinine (0.7-1.2) mg/dL Est GFR ( Amer) Est GFR (Non-Af Amer) Random Glucose (65-105) mg/dL Calcium (8.6-10.4) mg/dl Phosphorus (2.5-4.5) mg/dL Magnesium (1.6-2.3) mg/dL Total Bilirubin (0.2-1.3) mg/dL AST (14-36) U/L ALT (9-52) U/L Alkaline Phosphatase (38-126) U/L Troponin I 1.4200 H* (0.00-0.120) ng/mL Total Protein (6.3-8.3) g/dL Albumin (3.5-5.0) g/dL Globulin (2.2-3.9) gm/dL Albumin/Globulin Ratio (1.0-2.1) Blood Type B POSITIVE Antibody Screen Negative JOSEPH, Poly Interpret Negative (NEGATIVE) Laboratory Results - last 24 hr 07/10/18 07/11/18 07/11/18 12:53 08:10 08:10 WBC RBC Hgb Hct MCV MCH MCHC RDW Plt Count MPV Neut % (Auto) Lymph % (Auto) [place] % (Auto) Eos % (Auto) Baso % (Auto) Neut # (Auto) Lymph # (Auto) [place] # (Auto) Eos # (Auto) Baso # (Auto) Differential Comment Retic Count 2.8 H D Sodium Potassium Chloride Carbon Dioxide Anion Gap BUN Creatinine Est GFR ( Amer) Est GFR (Non-Af Amer) Random Glucose Calcium Phosphorus Magnesium Total Bilirubin AST ALT Alkaline Phosphatase Troponin I 1.4200 H* Total Protein Albumin Globulin Albumin/Globulin Ratio Blood Type B POSITIVE Antibody Screen Negative JOSEPH, Poly Interpret Negative 07/11/18 07/11/18 07/11/18 08:10 08:10 17:02 WBC 6.6 8.4 RBC 2.55 L 2.70 L Hgb 7.2 L 7.7 L Hct 20.2 L 21.5 L MCV 79.2 L 79.5 L MCH 28.4 28.5 MCHC 35.8 35.8 RDW 17.1 H 17.8 H Plt Count 50 L D 33 L MPV 8.3 6.9 L Neut % (Auto) 58.3 70.4 Lymph % (Auto) 32.9 22.2 [place] % (Auto) 7.9 6.6 Eos % (Auto) 0.5 0.2 Baso % (Auto) 0.4 0.6 Neut # (Auto) 3.8 5.9 Lymph # (Auto) 2.2 1.9 [place] # (Auto) 0.5 0.6 Eos # (Auto) 0.0 0.0 Baso # (Auto) 0.0 0.0 Differential Comment Retic Count Sodium 139 Potassium 3.0 L Chloride 104 Carbon Dioxide 24 Anion Gap 14 BUN 27 H Creatinine 1.0 Est GFR ( Amer) > 60 Est GFR (Non-Af Amer) 57 Random Glucose 113 H Calcium 9.1 Phosphorus 3.2 Magnesium 1.8 Total Bilirubin 6.6 H AST 279 H D ALT 147 H D Alkaline Phosphatase 67 Troponin I Total Protein 7.5 Albumin 4.0 Globulin 3.4 Albumin/Globulin Ratio 1.2 Blood Type Antibody Screen JOSEPH, Poly Interpret EKG/Cardiology Studies: Cardiology / EKG Studies 07/11/18 08:57 EKG [ELECTROCARDIOGRAM] Stat Comment: Mode Of Transportation: Reason For Exam: Elevated Troponins Critical Care Progress Note - Nutrition Nutrition: Nutrition Category Date Time Status Heart Healthy Diet [DIET] Diets 07/11/18 Lunch Active Attending/Attestation - Attestation I have personally seen and examined this patient.: Yes I have fully participated in the care of the patient.: Yes I have reviewed all pertinent clinical information: Yes Notes (Text): 07/11/18 18:35 patient seen and examined in the intensive care unit. Dialysis catheter inserted and right femoral vein under aseptic condition Status post plasmapheresis Transfuse packed RBCs Elevated troponins r/o secondary to demand ischemia seen by cardiology Patient started on aspirin Continue ICU observation Hematology follow-up
[2018-07-11 17:08] LABS: BASO % 0.6 % (0.0-2.0); EOS % 0.2 % (0.0-4.0); HEMOGLOBIN 7.7 g/dL (11.0-16.0); LYMPH # 1.9 K/uL (1.0-4.3); LYMPH % 22.2 % (20.0-40.0); MEAN CELL VOLUME 79.5 fL (81.0-99.0); MEAN CORPUSCULAR HEMOGLOBIN 28.5 pg (27.0-31.0); MEAN CORPUSCULAR HGB CONC 35.8 g/dL (33.0-37.0); MEAN PLATELET VOLUME 6.9 fL (7.2-11.7); MONO # 0.6 K/uL (0.0-0.8); MONO % 6.6 % (0.0-10.0); NEUT # 5.9 K/uL (1.8-7.0); NEUT % 70.4 % (50.0-75.0); NRBC % 1.3 % (0.0-2.0); RBC 2.7 Mil/uL (3.80-5.20); RED CELL DISTRIBUTION WIDTH 17.8 % (11.5-14.5); WHITE BLOOD COUNT 8.4 K/uL (4.8-10.8)
--- NOTE | 2018-07-11 18:38 | PCM.PROC ---
Procedures Attestation:: I certify that I have explained the specified Operation(s) or Procedure(s), risks, benefits and reasonable alternatives to the Patient and/or other person responsible. The opportunity was given to ask questions and all questions answered - Central Line Placement Right Femoral Hemodialysis Access Aseptic technique was employed throughout the procedure: Hand Hygiene done prior to procedure, Full sterile barriers (mask, hair cover, sterile gown, sterile gloves), Full body sterile drape, Chloraprep Antiseptic: 2 minute prep for Femoral CVP Time Out Performed: Yes Pt. Placed on Pulse Ox Monitor: Yes Central Line Prep: Chlorhexidine-Alcohol Combination Local Anesthesia Used: Lidocaine 1% Amount of Anesthesia Used (mls): 3 Ultrasound Used for Placement: No Central Line Lumen Inserted: double Central Line Length: 16 cm Post Procedure: Sutured in Place, Good Blood Return, All Ports Aspirated, Flushed, Capped, Sterile Dressing Applied Secured by: Suture Post procedure dressing: Chlorhexidine disc (Biopatch) Post Procedure X-Ray: No Patient Tolerated Procedure: Well
--- NOTE | 2018-07-11 19:15 | CARD ---
APPROVED REPORT Date of service: 07/10/2018 EKG Measurement Heart [id number] <Conclusion> Normal sinus rhythm Normal ECG
--- NOTE | 2018-07-11 22:19 | CP.PCM.PN ---
Subjective - Date & Time of Evaluation Date of Evaluation: 07/11/18 Time of Evaluation: 20:00 - Subjective Subjective: Appetite improved but still not feeling well. Objective - Vital Signs/Intake and Output Vital Signs (last 24 hours): Temp Pulse Resp BP Pulse Ox 98.4 F 88 20 155/100 H 100 07/11/18 22:00 07/11/18 22:00 07/11/18 22:00 07/11/18 22:00 07/11/18 20:12 Intake and Output: 07/11/18 07/12/18 18:59 06:59 Intake Total 600 100 Output Total 950 300 Balance -350 -200 - Medications Medications: Current Medications Albuterol (Ventolin Hfa 90 Mcg/Actuation (8 G)) 2 puff IH RQ6 PRN PRN Reason: Shortness of Breath Hydrochlorothiazide (Microzide) 12.5 mg PO BID [facility] Last Admin: 07/11/18 18:22 Dose: 12.5 mg Levothyroxine Sodium (Synthroid) 50 mcg PO DAILY@0630 [facility] Last Admin: 07/11/18 05:50 Dose: 50 mcg Lisinopril (Zestril) 10 mg PO BID [facility] Last Admin: 07/11/18 18:22 Dose: 10 mg Montelukast Sodium (Singulair) 10 mg PO [facility] Last Admin: 07/11/18 21:23 Dose: 10 mg Pantoprazole Sodium (Protonix Ec Tab) 40 mg PO DAILY [facility] Last Admin: 07/11/18 10:05 Dose: 40 mg - Labs Labs: 07/11/18 17:02 07/11/18 08:10 PT 12.0 SECONDS (9.7-12.2) 07/10/18 10:23 INR 1.1 07/10/18 10:23 APTT 29 SECONDS (21-34) 07/10/18 10:23 - Head Exam Head Exam: ATRAUMATIC - Eye Exam Eye Exam: Normal appearance - ENT Exam ENT Exam: Mucous Membranes Dry - Respiratory Exam Respiratory Exam: NORMAL BREATHING PATTERN - Cardiovascular Exam Cardiovascular Exam: +S1, +S2 - GI/Abdominal Exam GI & Abdominal Exam: Normal Bowel Sounds Assessment and Plan (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
[2018-07-12 05:49] LABS: BASO % 0.4 % (0.0-2.0); EOS % 0.3 % (0.0-4.0); HEMOGLOBIN 9.5 g/dL (11.0-16.0); LYMPH % 20.6 % (20.0-40.0); MEAN CELL VOLUME 82.4 fL (81.0-99.0); MEAN CORPUSCULAR HEMOGLOBIN 29.4 pg (27.0-31.0); MEAN CORPUSCULAR HGB CONC 35.7 g/dL (33.0-37.0); MONO # 0.7 K/uL (0.0-0.8); MONO % 6.9 % (0.0-10.0); NEUT # 6.9 K/uL (1.8-7.0); NEUT % 71.8 % (50.0-75.0); NRBC % 1.5 % (0.0-2.0); RBC 3.22 Mil/uL (3.80-5.20); RED CELL DISTRIBUTION WIDTH 16.5 % (11.5-14.5); WHITE BLOOD COUNT 9.6 K/uL (4.8-10.8)
[2018-07-12 06:06] LABS: ALB/GLOB RATIO 1.3 (1.0-2.1); ALBUMIN 4.1 g/dL (3.5-5.0); ALT/SGPT 160 U/L (9-52); AST/SGOT 161 U/L (14-36); BLOOD UREA NITROGEN 14 mg/dL (7-17); CALCIUM 9.3 mg/dl (8.6-10.4); GFR NON-AFRICAN AMERICAN > 60
[2018-07-12] MEDS: Levothyroxine 50 MCG TAB PO SCH (06:09)
[2018-07-12] MEDS: Magnesium Sulfate 1 gm in D5W 1 GM/100 ML BAG IVPB SCH ×4 (08:40→09:42)
[2018-07-12] MEDS: Pantoprazole 40 mg EC Tab PO SCH (09:42)
[2018-07-12] MEDS: Potassium Chloride 20 mEq/15 ml LIQ UD PO SCH ×2 (09:44→16:00)
--- NOTE | 2018-07-12 11:00 | CP.CCUPN ---
<Erick Sage - Last Filed: 07/12/18 10:49> CCU Subjective - Physician Review Subjective (Free Text): 07/12/18 10:49 Valeriasaravanan Alona PGY1 Progress Note for Dr. Portillo Pt was examined at bedside this morning. She reports improvement in her fatigue, states that she feels well today. She denies any headache, shortness of breath, chest pain, nausea, vomiting, abdominal pain, diarrhea, dysuria. CCU Objective - Vital Signs / Intake & Output Vital Signs (Last 4 hours): Vital Signs Temp Pulse Resp BP Pulse Ox 07/12/18 10:02 88 26 H 99 07/12/18 10:00 88 23 151/94 H 99 07/12/18 09:02 85 30 H 99 07/12/18 09:00 84 22 162/99 H 99 07/12/18 08:02 81 22 99 07/12/18 08:00 97 F L 69 18 107/58 L 98 07/12/18 07:00 72 18 99/61 L 97 Intake and Output (Last 8hrs): Intake & Output 07/11/18 07/12/18 07/12/18 22:59 06:59 14:59 Intake Total 400 325 500 Output Total 650 1000 Balance -250 -675 500 Weight 126 lb Intake: Intake, IV Amount 300 Left Forearm 300 Oral 400 0 200 Blood Product 0 325 Red Blood Cells Cpd As1 0 325 Lr Unit [id number] Output: Urine 650 1000 Urine, Voided 650 1000 Stool 0 Other: # Voids Urine, Voided 1 - Physical Exam Head: Positive for: Atraumatic, Normocephalic Pupils: Positive for: PERRL Extroacular Muscles: Positive for: EOMI Conjunctiva: Positive for: Other (pale) Mouth: Positive for: Moist Mucous Membranes Neck: Positive for: Normal Range of Motion Respiratory/Chest: Positive for: Clear to Auscultation. Negative for: Respiratory Distress, Accessory Muscle Use, Wheezes, Rales, Rhonchi Cardiovascular: Positive for: Regular Rate and Rhythm, Normal S1, S2, Irregular Rhythm. Negative for: Murmurs, Rub, Gallop Abdomen: Positive for: Normal Bowel Sounds. Negative for: Tenderness, Distention, Peritoneal Signs Upper Extremity: Positive for: Normal Inspection. Negative for: Cyanosis, Edema Lower Extremity: Positive for: Normal Inspection. Negative for: Edema Neurological: Positive for: GCS=15, CN II-XII Intact, Speech Normal Skin: Positive for: Warm, Dry, Normal Color - Medications Active Medications: Active Medications Generic Name Dose Route Start Last Admin Trade Name Freq PRN Reason Stop Dose Admin Albuterol 2 puff 07/10/18 13:25 Ventolin Hfa 90 Mcg/Actuation (8 G) IH RQ6 PRN Shortness of Breath Hydrochlorothiazide 12.5 mg 07/10/18 18:00 07/12/18 09:48 Microzide PO 12.5 mg BID JOSE Administration Potassium Chloride 20 meq in 100 mls @ 50 mls/hr 07/12/18 09:34 07/12/18 09:41 Potassium Chloride 20 Meq/100 Ml IVPB 07/12/18 11:33 50 mls/hr ONCE ONE Administration Levothyroxine Sodium 50 mcg 07/11/18 06:30 07/12/18 06:09 Synthroid PO 50 mcg DAILY@0630 JOSE Administration Lisinopril 10 mg 07/10/18 18:00 07/12/18 09:42 Zestril PO 10 mg BID JOSE Administration Montelukast Sodium 10 mg 07/10/18 22:00 07/11/18 21:23 Singulair PO 10 mg HS JOSE Administration Pantoprazole Sodium 40 mg 07/11/18 10:00 07/12/18 09:42 Protonix Ec Tab PO 40 mg DAILY JOSE Administration Potassium Chloride 40 meq 07/12/18 09:45 07/12/18 09:44 Potassium Chloride Oral Soln PO 07/12/18 15:46 40 meq Q6H JOSE Administration - Patient Studies Lab Studies: Lab Studies 07/12/18 07/12/18 07/11/18 Range/Units 05:45 05:45 17:02 WBC 9.6 8.4 (4.8-10.8) K/uL RBC 3.22 L 2.70 L (3.80-5.20) Mil/uL Hgb 9.5 L 7.7 L (11.0-16.0) g/dL Hct 26.5 L 21.5 L (34.0-47.0) % MCV 82.4 D 79.5 L (81.0-99.0) fL MCH 29.4 28.5 (27.0-31.0) pg MCHC 35.7 35.8 (33.0-37.0) g/dL RDW 16.5 H 17.8 H (11.5-14.5) % Plt Count 21 L* D 33 L (130-400) K/uL MPV 9.0 6.9 L (7.2-11.7) fL Neut % (Auto) 71.8 70.4 (50.0-75.0) % Lymph % (Auto) 20.6 22.2 (20.0-40.0) % Harvey % (Auto) 6.9 6.6 (0.0-10.0) % Eos % (Auto) 0.3 0.2 (0.0-4.0) % Baso % (Auto) 0.4 0.6 (0.0-2.0) % Neut # (Auto) 6.9 5.9 (1.8-7.0) K/uL Lymph # (Auto) 2.0 1.9 (1.0-4.3) K/uL Harvey # (Auto) 0.7 0.6 (0.0-0.8) K/uL Eos # (Auto) 0.0 0.0 (0.0-0.7) K/uL Baso # (Auto) 0.0 0.0 (0.0-0.2) K/uL Differential Comment Sodium 135 (132-148) mmol/L Potassium 2.9 L (3.6-5.2) mmol/L Chloride 98 (98-107) mmol/L Carbon Dioxide 26 (22-30) mmol/L Anion Gap 15 (10-20) BUN 14 (7-17) mg/dL Creatinine 0.8 (0.7-1.2) mg/dL Est GFR ( Amer) > 60 Est GFR (Non-Af Amer) > 60 Random Glucose 119 H (65-105) mg/dL Calcium 9.3 (8.6-10.4) mg/dl Phosphorus 3.7 (2.5-4.5) mg/dL Magnesium 1.4 L (1.6-2.3) mg/dL Total Bilirubin 3.0 H (0.2-1.3) mg/dL AST 161 H D (14-36) U/L ALT 160 H (9-52) U/L Alkaline Phosphatase 62 (38-126) U/L Total Protein 7.4 (6.3-8.3) g/dL Albumin 4.1 (3.5-5.0) g/dL Globulin 3.3 (2.2-3.9) gm/dL Albumin/Globulin Ratio 1.3 (1.0-2.1) Blood Type Antibody Screen JOSEPH, Poly Interpret (NEGATIVE) 07/10/18 Range/Units 12:53 WBC (4.8-10.8) K/uL RBC (3.80-5.20) Mil/uL Hgb (11.0-16.0) g/dL Hct (34.0-47.0) % MCV (81.0-99.0) fL MCH (27.0-31.0) pg MCHC (33.0-37.0) g/dL RDW (11.5-14.5) % Plt Count (130-400) K/uL MPV (7.2-11.7) fL Neut % (Auto) (50.0-75.0) % Lymph % (Auto) (20.0-40.0) % Harvey % (Auto) (0.0-10.0) % Eos % (Auto) (0.0-4.0) % Baso % (Auto) (0.0-2.0) % Neut # (Auto) (1.8-7.0) K/uL Lymph # (Auto) (1.0-4.3) K/uL Harvey # (Auto) (0.0-0.8) K/uL Eos # (Auto) (0.0-0.7) K/uL Baso # (Auto) (0.0-0.2) K/uL Differential Comment Sodium (132-148) mmol/L Potassium (3.6-5.2) mmol/L Chloride (98-107) mmol/L Carbon Dioxide (22-30) mmol/L Anion Gap (10-20) BUN (7-17) mg/dL Creatinine (0.7-1.2) mg/dL Est GFR ( Amer) Est GFR (Non-Af Amer) Random Glucose (65-105) mg/dL Calcium (8.6-10.4) mg/dl Phosphorus (2.5-4.5) mg/dL Magnesium (1.6-2.3) mg/dL Total Bilirubin (0.2-1.3) mg/dL AST (14-36) U/L ALT (9-52) U/L Alkaline Phosphatase (38-126) U/L Total Protein (6.3-8.3) g/dL Albumin (3.5-5.0) g/dL Globulin (2.2-3.9) gm/dL Albumin/Globulin Ratio (1.0-2.1) Blood Type B POSITIVE Antibody Screen Negative JOSEPH, Poly Interpret Negative (NEGATIVE) Laboratory Results - last 24 hr 07/10/18 07/11/18 07/12/18 12:53 17:02 05:45 WBC 8.4 9.6 RBC 2.70 L 3.22 L Hgb 7.7 L 9.5 L Hct 21.5 L 26.5 L MCV 79.5 L 82.4 D MCH 28.5 29.4 MCHC 35.8 35.7 RDW 17.8 H 16.5 H Plt Count 33 L 21 L* D MPV 6.9 L 9.0 Neut % (Auto) 70.4 71.8 Lymph % (Auto) 22.2 20.6 Harvey % (Auto) 6.6 6.9 Eos % (Auto) 0.2 0.3 Baso % (Auto) 0.6 0.4 Neut # (Auto) 5.9 6.9 Lymph # (Auto) 1.9 2.0 Harvey # (Auto) 0.6 0.7 Eos # (Auto) 0.0 0.0 Baso # (Auto) 0.0 0.0 Differential Comment Sodium Potassium Chloride Carbon Dioxide Anion Gap BUN Creatinine Est GFR ( Amer) Est GFR (Non-Af Amer) Random Glucose Calcium Phosphorus Magnesium Total Bilirubin AST ALT Alkaline Phosphatase Total Protein Albumin Globulin Albumin/Globulin Ratio Blood Type B POSITIVE Antibody Screen Negative JOSEPH, Poly Interpret Negative 07/12/18 05:45 WBC RBC Hgb Hct MCV MCH MCHC RDW Plt Count MPV Neut % (Auto) Lymph % (Auto) Harvey % (Auto) Eos % (Auto) Baso % (Auto) Neut # (Auto) Lymph # (Auto) Harvey # (Auto) Eos # (Auto) Baso # (Auto) Differential Comment Sodium 135 Potassium 2.9 L Chloride 98 Carbon Dioxide 26 Anion Gap 15 BUN 14 Creatinine 0.8 Est GFR ( Amer) > 60 Est GFR (Non-Af Amer) > 60 Random Glucose 119 H Calcium 9.3 Phosphorus 3.7 Magnesium 1.4 L Total Bilirubin 3.0 H AST 161 H D ALT 160 H Alkaline Phosphatase 62 Total Protein 7.4 Albumin 4.1 Globulin 3.3 Albumin/Globulin Ratio 1.3 Blood Type Antibody Screen JOSEPH, Poly Interpret Review of Systems - Review of Systems Review of Systems: as per HPI Critical Care Progress Note - Nutrition Nutrition: Nutrition Category Date Time Status Heart Healthy Diet [DIET] Diets 07/11/18 Lunch Active Assessment/Plan - Assessment and Plan (Free Text) Assessment: 62yo F with PMH HTN, hypothyroid, asthma, thrombocytopenia presents to ED with dizziness and fatigue x2 days, admitted for thrombocytopenia. Smear showing schistocytes, anisocytosis. Pt being treated for hemolytic anemia and thrombocytopenia. S/p plasmapheresis yesterday, machine malfunctioned mid- treatment. S/p 1u PRBC. Pt continues to be thrombocytopenic, pt to receive plasmapheresis today. Plan: Neuro - AAOx3 - no focal deficits Cardio - elevated troponins 1.09 --> 1.42 - h/o HTN - lisinopril 10mg PO daily - HCTZ 12.5mg PO daily - resume ASA 81 po daily - Cardio consulted, Dr. Little - delores appreciated Pulm - maintain O2 sat >92% - h/o asthma - ventolin - singulair 10mg po daily GI - Protonix 40 po daily Heme - Hemolytic Anemia, TTP - s/p 1u PRBC, plasmapheresis #1 yesterday: machine malfunctioned mid-treatment - s/p R femoral cath placement - Plt 21 - H/H 9.4/26.5 - h/o thrombocytopenia, s/p transfusions upon last admission 04/25 - [id number] <3% activity: 04/12/18 - smear: Hemolytic anemia: moderate anisocytosis and schistocytosis, helmet cells and RBC fragments. no blasts. RBCs hypochromic. - retic count 2.8, high - haptoglobin low - LDH 5160, high - f/u rpt [id number] - FFP (2.75L) x10 days, 1 plasma volume daily - for plasmapheresis #2 today - Heme/onc consulted, Dr. Julia estrella appreciated - Vascular Sx consulted, Dr. Rodriguez Endo - h/o hypothyroid - synthroid 50mcg po daily PPx: GI- protonix DVT- contraindicated at this time due to thrombocytopenia HHD Pt seen and case reviewed with Dr. Portillo <Marcell Portillo S - Last Filed: 07/12/18 17:42> CCU Subjective - Physician Review Critical Care Time Spent (in minutes): 40 CCU Objective - Vital Signs / Intake & Output Vital Signs (Last 4 hours): Vital Signs Temp Pulse Resp BP Pulse Ox 07/12/18 17:12 97 H 26 H 98 07/12/18 17:00 84 22 90/58 L 97 07/12/18 16:04 102 H 100 07/12/18 16:00 98 F 88 21 122/71 96 07/12/18 15:21 98 H 31 H 07/12/18 15:00 98 H 22 140/82 95 07/12/18 14:00 92 H 22 128/71 99 Intake and Output (Last 8hrs): Intake & Output 07/12/18 07/12/18 07/12/18 06:59 14:59 22:59 Intake Total 325 920 50 Output Total 1000 500 Balance -675 920 -450 Weight 126 lb Intake: Intake, IV Amount 600 Left Forearm 600 Oral 0 320 50 Blood Product 325 Red Blood Cells Cpd As1 325 Lr Unit [id number] Output: Urine 1000 500 Urine, Voided 1000 500 - Medications Active Medications: Active Medications Generic Name Dose Route Start Last Admin Trade Name Freq PRN Reason Stop Dose Admin Albuterol 2 puff 07/10/18 13:25 Ventolin Hfa 90 Mcg/Actuation (8 G) IH RQ6 PRN Shortness of Breath Hydrochlorothiazide 12.5 mg 07/10/18 18:00 07/12/18 09:48 Microzide PO 12.5 mg BID JOSE Administration Levothyroxine Sodium 50 mcg 07/11/18 06:30 07/12/18 06:09 Synthroid PO 50 mcg DAILY@0630 JOSE Administration Lisinopril 10 mg 07/10/18 18:00 07/12/18 17:17 Zestril PO Not Given BID JOSE Montelukast Sodium 10 mg 07/10/18 22:00 07/11/18 21:23 Singulair PO 10 mg HS JOSE Administration Pantoprazole Sodium 40 mg 07/11/18 10:00 07/12/18 09:42 Protonix Ec Tab PO 40 mg DAILY JOSE Administration - Patient Studies Lab Studies: Microbiology Studies 07/11/18 05:24 MRSA Culture (Admit) - Final Naris MRSA NOT DETECTED Lab Studies 07/12/18 07/12/18 07/12/18 Range/Units 15:04 05:45 05:45 WBC 9.6 (4.8-10.8) K/uL RBC 3.22 L (3.80-5.20) Mil/uL Hgb 9.5 L (11.0-16.0) g/dL Hct 26.5 L (34.0-47.0) % MCV 82.4 D (81.0-99.0) fL MCH 29.4 (27.0-31.0) pg MCHC 35.7 (33.0-37.0) g/dL RDW 16.5 H (11.5-14.5) % Plt Count 21 L* D (130-400) K/uL MPV 9.0 (7.2-11.7) fL Neut % (Auto) 71.8 (50.0-75.0) % Lymph % (Auto) 20.6 (20.0-40.0) % Harvey % (Auto) 6.9 (0.0-10.0) % Eos % (Auto) 0.3 (0.0-4.0) % Baso % (Auto) 0.4 (0.0-2.0) % Neut # (Auto) 6.9 (1.8-7.0) K/uL Lymph # (Auto) 2.0 (1.0-4.3) K/uL Harvey # (Auto) 0.7 (0.0-0.8) K/uL Eos # (Auto) 0.0 (0.0-0.7) K/uL Baso # (Auto) 0.0 (0.0-0.2) K/uL Differential Comment Sodium 135 (132-148) mmol/L Potassium 2.9 L (3.6-5.2) mmol/L Chloride 98 (98-107) mmol/L Carbon Dioxide 26 (22-30) mmol/L Anion Gap 15 (10-20) BUN 14 (7-17) mg/dL Creatinine 0.8 (0.7-1.2) mg/dL Est GFR ( Amer) > 60 Est GFR (Non-Af Amer) > 60 Random Glucose 119 H (65-105) mg/dL Calcium 9.3 (8.6-10.4) mg/dl Phosphorus 3.7 (2.5-4.5) mg/dL Magnesium 1.4 L (1.6-2.3) mg/dL Total Bilirubin 3.0 H (0.2-1.3) mg/dL AST 161 H D (14-36) U/L ALT 160 H (9-52) U/L Alkaline Phosphatase 62 (38-126) U/L Troponin I 0.3290 H* (0.00-0.120) ng/mL Total Protein 7.4 (6.3-8.3) g/dL Albumin 4.1 (3.5-5.0) g/dL Globulin 3.3 (2.2-3.9) gm/dL Albumin/Globulin Ratio 1.3 (1.0-2.1) Blood Type Antibody Screen JOSEPH, Poly Interpret (NEGATIVE) 07/10/18 Range/Units 12:53 WBC (4.8-10.8) K/uL RBC (3.80-5.20) Mil/uL Hgb (11.0-16.0) g/dL Hct (34.0-47.0) % MCV (81.0-99.0) fL MCH (27.0-31.0) pg MCHC (33.0-37.0) g/dL RDW (11.5-14.5) % Plt Count (130-400) K/uL MPV (7.2-11.7) fL Neut % (Auto) (50.0-75.0) % Lymph % (Auto) (20.0-40.0) % Harvey % (Auto) (0.0-10.0) % Eos % (Auto) (0.0-4.0) % Baso % (Auto) (0.0-2.0) % Neut # (Auto) (1.8-7.0) K/uL Lymph # (Auto) (1.0-4.3) K/uL Harvey # (Auto) (0.0-0.8) K/uL Eos # (Auto) (0.0-0.7) K/uL Baso # (Auto) (0.0-0.2) K/uL Differential Comment Sodium (132-148) mmol/L Potassium (3.6-5.2) mmol/L Chloride (98-107) mmol/L Carbon Dioxide (22-30) mmol/L Anion Gap (10-20) BUN (7-17) mg/dL Creatinine (0.7-1.2) mg/dL Est GFR ( Amer) Est GFR (Non-Af Amer) Random Glucose (65-105) mg/dL Calcium (8.6-10.4) mg/dl Phosphorus (2.5-4.5) mg/dL Magnesium (1.6-2.3) mg/dL Total Bilirubin (0.2-1.3) mg/dL AST (14-36) U/L ALT (9-52) U/L Alkaline Phosphatase (38-126) U/L Troponin I (0.00-0.120) ng/mL Total Protein (6.3-8.3) g/dL Albumin (3.5-5.0) g/dL Globulin (2.2-3.9) gm/dL Albumin/Globulin Ratio (1.0-2.1) Blood Type B POSITIVE Antibody Screen Negative JOSEPH, Poly Interpret Negative (NEGATIVE) Laboratory Results - last 24 hr 07/10/18 07/12/18 07/12/18 12:53 05:45 05:45 WBC 9.6 RBC 3.22 L Hgb 9.5 L Hct 26.5 L MCV 82.4 D MCH 29.4 MCHC 35.7 RDW 16.5 H Plt Count 21 L* D MPV 9.0 Neut % (Auto) 71.8 Lymph % (Auto) 20.6 Harvey % (Auto) 6.9 Eos % (Auto) 0.3 Baso % (Auto) 0.4 Neut # (Auto) 6.9 Lymph # (Auto) 2.0 Harvey # (Auto) 0.7 Eos # (Auto) 0.0 Baso # (Auto) 0.0 Differential Comment Sodium 135 Potassium 2.9 L Chloride 98 Carbon Dioxide 26 Anion Gap 15 BUN 14 Creatinine 0.8 Est GFR ( Amer) > 60 Est GFR (Non-Af Amer) > 60 Random Glucose 119 H Calcium 9.3 Phosphorus 3.7 Magnesium 1.4 L Total Bilirubin 3.0 H AST 161 H D ALT 160 H Alkaline Phosphatase 62 Troponin I Total Protein 7.4 Albumin 4.1 Globulin 3.3 Albumin/Globulin Ratio 1.3 Blood Type B POSITIVE Antibody Screen Negative JOSEPH, Poly Interpret Negative 07/12/18 15:04 WBC RBC Hgb Hct MCV MCH MCHC RDW Plt Count MPV Neut % (Auto) Lymph % (Auto) Harvey % (Auto) Eos % (Auto) Baso % (Auto) Neut # (Auto) Lymph # (Auto) Harvey # (Auto) Eos # (Auto) Baso # (Auto) Differential Comment Sodium Potassium Chloride Carbon Dioxide Anion Gap BUN Creatinine Est GFR ( Amer) Est GFR (Non-Af Amer) Random Glucose Calcium Phosphorus Magnesium Total Bilirubin AST ALT Alkaline Phosphatase Troponin I 0.3290 H* Total Protein Albumin Globulin Albumin/Globulin Ratio Blood Type Antibody Screen JOSEPH, Poly Interpret Critical Care Progress Note - Nutrition Nutrition: Nutrition Category Date Time Status Heart Healthy Diet [DIET] Diets 07/11/18 Lunch Active Attending/Attestation - Attestation I have personally seen and examined this patient.: Yes I have fully participated in the care of the patient.: Yes I have reviewed all pertinent clinical information: Yes Notes (Text): 07/12/18 17:41 patient seen and examined in the intensive care unit. Regarding plasmapheresis Improving platelets Continue aspirin Seen by cardiology
--- NOTE | 2018-07-12 11:38 | CARD ---
APPROVED REPORT Date of service: 07/11/2018 EKG Measurement Heart [id number] <Conclusion> Normal sinus rhythm Nonspecific T wave abnormality Abnormal ECG
[2018-07-12] MEDS ORDERED: DiphenhydrAMINE 50 mg/ml Inj IVP STA (14:56)
--- NOTE | 2018-07-12 19:59 | CP.PCM.PN ---
Subjective - Date & Time of Evaluation Date of Evaluation: 07/12/18 Time of Evaluation: 19:15 - Subjective Subjective: Feeling better. Objective - Vital Signs/Intake and Output Vital Signs (last 24 hours): Temp Pulse Resp BP Pulse Ox 98 F 98 H 21 113/70 99 07/12/18 16:00 07/12/18 19:00 07/12/18 19:00 07/12/18 19:00 07/12/18 19:00 Intake and Output: 07/12/18 07/13/18 18:59 06:59 Intake Total 1090 0 Output Total 900 Balance 190 0 - Medications Medications: Current Medications Albuterol (Ventolin Hfa 90 Mcg/Actuation (8 G)) 2 puff IH RQ6 PRN PRN Reason: Shortness of Breath Hydrochlorothiazide (Microzide) 12.5 mg PO BID [facility] Last Admin: 07/12/18 18:03 Dose: 12.5 mg Levothyroxine Sodium (Synthroid) 50 mcg PO DAILY@0630 [facility] Last Admin: 07/12/18 06:09 Dose: 50 mcg Lisinopril (Zestril) 10 mg PO BID [facility] Last Admin: 07/12/18 17:59 Dose: 10 mg Montelukast Sodium (Singulair) 10 mg PO HS [facility] Last Admin: 07/11/18 21:23 Dose: 10 mg Pantoprazole Sodium (Protonix Ec Tab) 40 mg PO DAILY [facility] Last Admin: 07/12/18 09:42 Dose: 40 mg - Labs Labs: 07/12/18 05:45 07/12/18 05:45 PT 12.0 SECONDS (9.7-12.2) 07/10/18 10:23 INR 1.1 07/10/18 10:23 APTT 29 SECONDS (21-34) 07/10/18 10:23 - Head Exam Head Exam: ATRAUMATIC - Eye Exam Eye Exam: Normal appearance - ENT Exam ENT Exam: Mucous Membranes Dry - Respiratory Exam Respiratory Exam: NORMAL BREATHING PATTERN - Cardiovascular Exam Cardiovascular Exam: +S1, +S2 - GI/Abdominal Exam GI & Abdominal Exam: Normal Bowel Sounds Assessment and Plan (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
--- NOTE | 2018-07-12 21:04 | CP.PCM.CON ---
History of Present Illness - History of Present Illness History of Present Illness: 62 F admitted for Thrombocytopenia consulted for elevated Trops Patient denies chest pain and dyspnea ProBNP elevated EKG: Non specific A/P: Non ST elevation LA elevated ProBNP Check ECHO At present not a candidate for anticoagulation or cardiac cath Recommend O2, B blockers, Statins and nitrates if chest pain D/W patient and daughter at bedside Past Patient History - Infectious Disease Hx of Infectious Diseases: None - Past Medical History & Family History Past Medical History?: Yes - Past Social History Smoking Status: Heavy Smoker > 10 Cigarettes Daily - CARDIAC Hx Hypertension: Yes - PULMONARY Hx Asthma: Yes - HEENT Hx Deafness: Yes (right ear) Other/Comment: WEARS EYEGLASSES - ENDOCRINE/METABOLIC Hx Hypothyroidism: Yes - HEMATOLOGICAL/ONCOLOGICAL Hx Anemia: Yes - MUSCULOSKELETAL/RHEUMATOLOGICAL Hx Falls: Yes - PSYCHIATRIC Hx Substance Use: No - SURGICAL HISTORY Hx Surgeries: Yes Other/Comment: Permacath (out) - ANESTHESIA Hx Anesthesia: Yes Hx Anesthesia Reactions: No Meds Allergies/Adverse Reactions: Allergies Allergy/AdvReac Type Severity Reaction Status Date / Time house dust mite Allergy COUGH Verified 04/13/18 01:02 Seafood Allergy RASH Uncoded 04/13/18 01:02 - Medications Medications: Current Medications Albuterol (Ventolin Hfa 90 Mcg/Actuation (8 G)) 2 puff IH RQ6 PRN PRN Reason: Shortness of Breath Hydrochlorothiazide (Microzide) 12.5 mg PO BID [facility] Last Admin: 07/12/18 18:03 Dose: 12.5 mg Levothyroxine Sodium (Synthroid) 50 mcg PO DAILY@0630 [facility] Last Admin: 07/12/18 06:09 Dose: 50 mcg Lisinopril (Zestril) 10 mg PO BID [facility] Last Admin: 07/12/18 17:59 Dose: 10 mg Montelukast Sodium (Singulair) 10 mg PO HS [facility] Last Admin: 07/11/18 21:23 Dose: 10 mg Pantoprazole Sodium (Protonix Ec Tab) 40 mg PO DAILY [facility] Last Admin: 07/12/18 09:42 Dose: 40 mg Results - Vital Signs Recent Vital Signs: Last Vital Signs Temp 98 F 07/12/18 16:00 Pulse 100 H 07/12/18 20:00 Resp 27 H 07/12/18 20:00 BP 117/76 07/12/18 19:57 Pulse Ox 100 07/12/18 20:00 - Labs Result Diagrams: 07/12/18 05:45 07/12/18 05:45 Labs: Laboratory Results - last 24 hr 07/10/18 07/12/18 07/12/18 12:53 05:45 05:45 WBC 9.6 RBC 3.22 L Hgb 9.5 L Hct 26.5 L MCV 82.4 D MCH 29.4 MCHC 35.7 RDW 16.5 H Plt Count 21 L* D MPV 9.0 Neut % (Auto) 71.8 Lymph % (Auto) 20.6 [place] % (Auto) 6.9 Eos % (Auto) 0.3 Baso % (Auto) 0.4 Neut # (Auto) 6.9 Lymph # (Auto) 2.0 [place] # (Auto) 0.7 Eos # (Auto) 0.0 Baso # (Auto) 0.0 Differential Comment Sodium 135 Potassium 2.9 L Chloride 98 Carbon Dioxide 26 Anion Gap 15 BUN 14 Creatinine 0.8 Est GFR ( Amer) > 60 Est GFR (Non-Af Amer) > 60 Random Glucose 119 H Calcium 9.3 Phosphorus 3.7 Magnesium 1.4 L Total Bilirubin 3.0 H AST 161 H D ALT 160 H Alkaline Phosphatase 62 Troponin I Total Protein 7.4 Albumin 4.1 Globulin 3.3 Albumin/Globulin Ratio 1.3 Blood Type B POSITIVE Antibody Screen Negative JOSEPH, Poly Interpret Negative 07/12/18 15:04 WBC RBC Hgb Hct MCV MCH MCHC RDW Plt Count MPV Neut % (Auto) Lymph % (Auto) [place] % (Auto) Eos % (Auto) Baso % (Auto) Neut # (Auto) Lymph # (Auto) [place] # (Auto) Eos # (Auto) Baso # (Auto) Differential Comment Sodium Potassium Chloride Carbon Dioxide Anion Gap BUN Creatinine Est GFR ( Amer) Est GFR (Non-Af Amer) Random Glucose Calcium Phosphorus Magnesium Total Bilirubin AST ALT Alkaline Phosphatase Troponin I 0.3290 H* Total Protein Albumin Globulin Albumin/Globulin Ratio Blood Type Antibody Screen JOSEPH, Poly Interpret
[2018-07-12] MEDS ORDERED: CALCIUM GLUCONATE IVPB ONE (21:55)
[2018-07-12] MEDS ORDERED: SODIUM CHLORIDE 0.9% IVPB ONE (21:55)
[2018-07-13 06:08] LABS: BASO % 0.4 % (0.0-2.0); EOS # 0.1 K/uL (0.0-0.7); EOS % 0.7 % (0.0-4.0); HEMOGLOBIN 10.4 g/dL (11.0-16.0); LYMPH # 1.7 K/uL (1.0-4.3); LYMPH % 21.7 % (20.0-40.0); MEAN CELL VOLUME 86.2 fL (81.0-99.0); MEAN CORPUSCULAR HEMOGLOBIN 29.8 pg (27.0-31.0); MEAN CORPUSCULAR HGB CONC 34.6 g/dL (33.0-37.0); MEAN PLATELET VOLUME 10.6 fL (7.2-11.7); MONO # 0.6 K/uL (0.0-0.8); MONO % 8.1 % (0.0-10.0); NEUT # 5.4 K/uL (1.8-7.0); NEUT % 69.1 % (50.0-75.0); NRBC % 0.7 % (0.0-2.0); RBC 3.5 Mil/uL (3.80-5.20); WHITE BLOOD COUNT 7.8 K/uL (4.8-10.8)
[2018-07-13] MEDS: Levothyroxine 50 MCG TAB PO SCH (06:38)
[2018-07-13] MEDS ORDERED: guaiFENesin 100 mg/5 ml Syrup UD PO PRN (06:52)
--- NOTE | 2018-07-13 07:20 | CP.CCUPN ---
<Bonifacio Paige - Last Filed: 07/13/18 13:47> CCU Subjective - Physician Review Subjective (Free Text): 07/13/18 08:16 Pt was examined at bedside this morning. No acute events overnight. She denies any headache, shortness of breath, chest pain, nausea, vomiting, abdominal pain, diarrhea, dysuria. Critical Care Time Spent (in minutes): 35 CCU Objective - Vital Signs / Intake & Output Vital Signs (Last 4 hours): Vital Signs Temp Pulse Resp BP Pulse Ox 07/13/18 07:00 78 18 97/66 L 07/13/18 06:58 76 18 101/65 07/13/18 06:00 90 29 H 07/13/18 05:57 87 29 H 110/72 100 07/13/18 05:00 91 H 24 93 L 07/13/18 04:58 87 21 115/83 96 07/13/18 04:39 87 19 98/68 L 99 07/13/18 04:00 99.1 F 87 19 97/66 L 98 07/13/18 03:57 87 21 88/58 L 96 Intake and Output (Last 8hrs): Intake & Output 07/12/18 07/13/18 07/13/18 22:59 06:59 14:59 Intake Total 290 240 0 Output Total 900 850 0 Balance -610 -610 0 Weight 55.4 kg Intake: Intake, IV Amount 0 0 0 Left Forearm 0 0 0 Oral 290 240 0 Output: Urine 900 850 0 Urine, Voided 900 850 0 Stool 0 0 0 Emesis 0 0 0 Other: # Voids Urine, Voided 2 - Physical Exam Head: Positive for: Atraumatic, Normocephalic Pupils: Positive for: PERRL Extroacular Muscles: Positive for: EOMI Conjunctiva: Positive for: Other (pale) Mouth: Positive for: Moist Mucous Membranes Neck: Positive for: Normal Range of Motion Respiratory/Chest: Positive for: Clear to Auscultation. Negative for: Respiratory Distress, Accessory Muscle Use, Wheezes, Rales, Rhonchi Cardiovascular: Positive for: Regular Rate and Rhythm, Normal S1, S2, Irregular Rhythm. Negative for: Murmurs, Rub, Gallop Abdomen: Positive for: Normal Bowel Sounds. Negative for: Tenderness, Distention, Peritoneal Signs Upper Extremity: Positive for: Normal Inspection. Negative for: Cyanosis, Edema Lower Extremity: Positive for: Normal Inspection. Negative for: Edema Neurological: Positive for: GCS=15, CN II-XII Intact, Speech Normal Skin: Positive for: Warm, Dry, Normal Color - Medications Active Medications: Active Medications Generic Name Dose Route Start Last Admin Trade Name Freq PRN Reason Stop Dose Admin Albuterol 2 puff 07/10/18 13:25 Ventolin Hfa 90 Mcg/Actuation (8 G) IH RQ6 PRN Shortness of Breath Diphenhydramine HCl 50 mg 07/13/18 10:00 Benadryl IVP 07/13/18 10:01 ONCE ONE Guaifenesin 100 mg 07/13/18 06:52 Robitussin PO Q4H PRN Cough Hydrochlorothiazide 12.5 mg 07/10/18 18:00 07/12/18 18:03 Microzide PO 12.5 mg BID JOSE Administration Calcium Gluconate 1,000 mg/ 110 mls @ 0 mls/hr 07/13/18 10:00 Sodium Chloride IVPB 07/13/18 10:01 ONCE ONE Per Protocol Levothyroxine Sodium 50 mcg 07/11/18 06:30 07/13/18 06:38 Synthroid PO 50 mcg DAILY@0630 JOSE Administration Lisinopril 10 mg 07/10/18 18:00 07/12/18 17:59 Zestril PO 10 mg BID JOSE Administration Montelukast Sodium 10 mg 07/10/18 22:00 07/12/18 21:41 Singulair PO 10 mg HS JOSE Administration Pantoprazole Sodium 40 mg 07/11/18 10:00 07/12/18 09:42 Protonix Ec Tab PO 40 mg DAILY JOSE Administration - Patient Studies Lab Studies: Microbiology Studies 07/11/18 05:24 MRSA Culture (Admit) - Final Naris MRSA NOT DETECTED Lab Studies 07/13/18 07/12/18 07/12/18 Range/Units 05:49 15:04 05:45 WBC 7.8 9.6 (4.8-10.8) K/uL RBC 3.50 L 3.22 L (3.80-5.20) Mil/uL Hgb 10.4 L 9.5 L (11.0-16.0) g/dL Hct 30.2 L 26.5 L (34.0-47.0) % MCV 86.2 D 82.4 D (81.0-99.0) fL MCH 29.8 29.4 (27.0-31.0) pg MCHC 34.6 35.7 (33.0-37.0) g/dL RDW 17.0 H 16.5 H (11.5-14.5) % Plt Count 43 L D 21 L* D (130-400) K/uL MPV 10.6 9.0 (7.2-11.7) fL Neut % (Auto) 69.1 71.8 (50.0-75.0) % Lymph % (Auto) 21.7 20.6 (20.0-40.0) % [place] % (Auto) 8.1 6.9 (0.0-10.0) % Eos % (Auto) 0.7 0.3 (0.0-4.0) % Baso % (Auto) 0.4 0.4 (0.0-2.0) % Neut # (Auto) 5.4 6.9 (1.8-7.0) K/uL Lymph # (Auto) 1.7 2.0 (1.0-4.3) K/uL [place] # (Auto) 0.6 0.7 (0.0-0.8) K/uL Eos # (Auto) 0.1 0.0 (0.0-0.7) K/uL Baso # (Auto) 0.0 0.0 (0.0-0.2) K/uL Differential Comment Troponin I 0.3290 H* (0.00-0.120) ng/mL Laboratory Results - last 24 hr 07/12/18 07/12/18 07/13/18 05:45 15:04 05:49 WBC 9.6 7.8 RBC 3.22 L 3.50 L Hgb 9.5 L 10.4 L Hct 26.5 L 30.2 L MCV 82.4 D 86.2 D MCH 29.4 29.8 MCHC 35.7 34.6 RDW 16.5 H 17.0 H Plt Count 21 L* D 43 L D MPV 9.0 10.6 Neut % (Auto) 71.8 69.1 Lymph % (Auto) 20.6 21.7 [place] % (Auto) 6.9 8.1 Eos % (Auto) 0.3 0.7 Baso % (Auto) 0.4 0.4 Neut # (Auto) 6.9 5.4 Lymph # (Auto) 2.0 1.7 [place] # (Auto) 0.7 0.6 Eos # (Auto) 0.0 0.1 Baso # (Auto) 0.0 0.0 Differential Comment Troponin I 0.3290 H* Critical Care Progress Note - Nutrition Nutrition: Nutrition Category Date Time Status Heart Healthy Diet [DIET] Diets 07/11/18 Lunch Active Assessment/Plan - Assessment and Plan (Free Text) Assessment: 62yo F with PMH HTN, hypothyroid, asthma, thrombocytopenia presents to ED with dizziness and fatigue x2 days, admitted for thrombocytopenia. Smear showing schistocytes, anisocytosis. Pt being treated for hemolytic anemia and thrombocytopenia. Pt continues to be thrombocytopenic, pt to receive plasmapheresis today. Plan: Neuro - AAOx3 - no focal deficits Cardio Elevated troponins - elevated troponins 1.42 --> 0.33 - ProBNP: 3880 - Echo: f/u - ASA 81 po daily - Cardio consulted, Dr. Sidney estrella appreciated - not a candidate for cardiac cath HTN - lisinopril 10mg PO daily - HCTZ 12.5mg PO daily Pulm Hx of asthma - maintain O2 sat >92% - ventolin PRN - singulair 10mg po daily GI - Protonix 40 po daily Heme Hemolytic Anemia, TTP - s/p 1u PRBC, plasmapheresis #1 yesterday: machine malfunctioned mid-treatment - s/p R femoral cath placement - Plt 21--> 43 - H/H: 104/30.2 - h/o thrombocytopenia, s/p transfusions upon last admission 04/25 - [id number] <3% activity: 04/12/18 - smear: Hemolytic anemia: moderate anisocytosis and schistocytosis, helmet cells and RBC fragments. no blasts. RBCs hypochromic. - retic count 2.8, high - haptoglobin low - LDH 5160, high - f/u rpt [id number] - FFP (2.75L) x10 days, 1 plasma volume daily - for plasmapheresis #3 today - Heme/onc consulted, Dr. Julia estrella appreciated - Vascular Sx consulted, Dr. Rodriguez - Permacath placement on 07/14 11:30AM - Transfuse 1 unit of platelets - NPO after midnight Endo Hypothyroidism - synthroid 50mcg po daily PPx: GI- protonix DVT- contraindicated at this time due to thrombocytopenia HHD Pt seen and case reviewed with Dr. Americo Paige, PGY-1 <Mike Cartagena M - Last Filed: 07/14/18 14:38> CCU Objective - Vital Signs / Intake & Output Vital Signs (Last 4 hours): Vital Signs Temp Pulse Resp BP Pulse Ox 07/14/18 14:09 86 25 H 107/59 L 07/14/18 14:00 87 27 H 100 07/14/18 13:04 78 25 H 99/60 L 07/14/18 13:00 94 H 07/14/18 12:45 98.3 F 99 H 14 99/60 L 98 07/14/18 11:40 99.6 F 92 H 22 98/54 L 99 07/14/18 11:05 92 H 28 H 98/54 L 96 07/14/18 11:00 90 34 H 100 Intake and Output (Last 8hrs): Intake & Output 07/13/18 07/14/18 07/14/18 22:59 06:59 14:59 Intake Total 370 458 170 Output Total 230 900 500 Balance 140 -442 -330 Weight 122 lb Intake: IV 50 Oral 370 150 120 Blood Product 208 Apheresis Plts Acda Lr 208 3rd Con Unit [id number] Other 100 Apheresis Plts Acda Lr 100 3rd Con Unit [id number] Output: Urine 230 900 500 Urine, Voided 230 900 500 Other: # Voids Urine, Voided 1 - Medications Active Medications: Active Medications Generic Name Dose Route Start Last Admin Trade Name Freq PRN Reason Stop Dose Admin Albuterol 2 puff 07/10/18 13:25 Ventolin Hfa 90 Mcg/Actuation (8 G) IH RQ6 PRN Shortness of Breath Aspirin 81 mg 07/15/18 10:00 Aspirin Chewable PO DAILY JOSE Guaifenesin 100 mg 07/13/18 06:52 Robitussin PO Q4H PRN Cough Hydrochlorothiazide 12.5 mg 07/10/18 18:00 07/14/18 10:06 Microzide PO Not Given BID JOSE Levothyroxine Sodium 50 mcg 07/11/18 06:30 07/14/18 06:01 Synthroid PO 50 mcg DAILY@0630 JOSE Administration Lisinopril 10 mg 07/10/18 18:00 07/14/18 10:06 Zestril PO Not Given BID JOSE Montelukast Sodium 10 mg 07/10/18 22:00 07/13/18 22:00 Singulair PO 10 mg HS JOSE Administration Pantoprazole Sodium 40 mg 07/11/18 10:00 07/14/18 10:06 Protonix Ec Tab PO Not Given DAILY JOSE - Patient Studies Lab Studies: Lab Studies 07/14/18 07/14/18 07/14/18 Range/Units 06:37 06:37 06:37 WBC 10.4 (4.8-10.8) K/uL RBC 2.94 L (3.80-5.20) Mil/uL Hgb 8.9 L (11.0-16.0) g/dL Hct 25.4 L (34.0-47.0) % MCV 86.6 (81.0-99.0) fL MCH 30.4 (27.0-31.0) pg MCHC 35.0 (33.0-37.0) g/dL RDW 16.9 H (11.5-14.5) % Plt Count 131 (130-400) K/uL MPV 9.2 (7.2-11.7) fL Neut % (Auto) 83.2 H (50.0-75.0) % Lymph % (Auto) 10.3 L (20.0-40.0) % [place] % (Auto) 5.2 (0.0-10.0) % Eos % (Auto) 0.8 (0.0-4.0) % Baso % (Auto) 0.5 (0.0-2.0) % Neut # (Auto) 8.6 H (1.8-7.0) K/uL Lymph # (Auto) 1.1 (1.0-4.3) K/uL [place] # (Auto) 0.5 (0.0-0.8) K/uL Eos # (Auto) 0.1 (0.0-0.7) K/uL Baso # (Auto) 0.1 (0.0-0.2) K/uL [id number] Inhibitor (68-163) % Activity Sodium 135 (132-148) mmol/L Potassium 3.5 L (3.6-5.2) mmol/L Chloride 97 L (98-107) mmol/L Carbon Dioxide 28 (22-30) mmol/L Anion Gap 14 (10-20) BUN 17 (7-17) mg/dL Creatinine 1.1 (0.7-1.2) mg/dL Est GFR ( Amer) > 60 Est GFR (Non-Af Amer) 51 Random Glucose 104 (65-105) mg/dL Calcium 8.6 (8.6-10.4) mg/dl Phosphorus 4.8 H (2.5-4.5) mg/dL Magnesium 1.6 (1.6-2.3) mg/dL Total Bilirubin 1.2 (0.2-1.3) mg/dL AST 45 H D (14-36) U/L ALT 65 H D (9-52) U/L Alkaline Phosphatase 57 (38-126) U/L Lactate Dehydrogenase 978 H (313-618) U/L Total Protein 6.5 (6.3-8.3) g/dL Albumin 3.8 (3.5-5.0) g/dL Globulin 2.7 (2.2-3.9) gm/dL Albumin/Globulin Ratio 1.4 (1.0-2.1) 07/11/18 Range/Units 08:10 WBC (4.8-10.8) K/uL RBC (3.80-5.20) Mil/uL Hgb (11.0-16.0) g/dL Hct (34.0-47.0) % MCV (81.0-99.0) fL MCH (27.0-31.0) pg MCHC (33.0-37.0) g/dL RDW (11.5-14.5) % Plt Count (130-400) K/uL MPV (7.2-11.7) fL Neut % (Auto) (50.0-75.0) % Lymph % (Auto) (20.0-40.0) % [place] % (Auto) (0.0-10.0) % Eos % (Auto) (0.0-4.0) % Baso % (Auto) (0.0-2.0) % Neut # (Auto) (1.8-7.0) K/uL Lymph # (Auto) (1.0-4.3) K/uL [place] # (Auto) (0.0-0.8) K/uL Eos # (Auto) (0.0-0.7) K/uL Baso # (Auto) (0.0-0.2) K/uL [id number] Inhibitor <3 L* (68-163) % Activity Sodium (132-148) mmol/L Potassium (3.6-5.2) mmol/L Chloride (98-107) mmol/L Carbon Dioxide (22-30) mmol/L Anion Gap (10-20) BUN (7-17) mg/dL Creatinine (0.7-1.2) mg/dL Est GFR ( Amer) Est GFR (Non-Af Amer) Random Glucose (65-105) mg/dL Calcium (8.6-10.4) mg/dl Phosphorus (2.5-4.5) mg/dL Magnesium (1.6-2.3) mg/dL Total Bilirubin (0.2-1.3) mg/dL AST (14-36) U/L ALT (9-52) U/L Alkaline Phosphatase (38-126) U/L Lactate Dehydrogenase (313-618) U/L Total Protein (6.3-8.3) g/dL Albumin (3.5-5.0) g/dL Globulin (2.2-3.9) gm/dL Albumin/Globulin Ratio (1.0-2.1) Laboratory Results - last 24 hr 07/11/18 07/14/18 07/14/18 08:10 06:37 06:37 WBC 10.4 RBC 2.94 L Hgb 8.9 L Hct 25.4 L MCV 86.6 MCH 30.4 MCHC 35.0 RDW 16.9 H Plt Count 131 MPV 9.2 Neut % (Auto) 83.2 H Lymph % (Auto) 10.3 L [place] % (Auto) 5.2 Eos % (Auto) 0.8 Baso % (Auto) 0.5 Neut # (Auto) 8.6 H Lymph # (Auto) 1.1 [place] # (Auto) 0.5 Eos # (Auto) 0.1 Baso # (Auto) 0.1 [id number] Inhibitor <3 L* Sodium Potassium Chloride Carbon Dioxide Anion Gap BUN Creatinine Est GFR ( Amer) Est GFR (Non-Af Amer) Random Glucose Calcium Phosphorus Magnesium Total Bilirubin AST ALT Alkaline Phosphatase Lactate Dehydrogenase 978 H Total Protein Albumin Globulin Albumin/Globulin Ratio 07/14/18 06:37 WBC RBC Hgb Hct MCV MCH MCHC RDW Plt Count MPV Neut % (Auto) Lymph % (Auto) [place] % (Auto) Eos % (Auto) Baso % (Auto) Neut # (Auto) Lymph # (Auto) [place] # (Auto) Eos # (Auto) Baso # (Auto) [id number] Inhibitor Sodium 135 Potassium 3.5 L Chloride 97 L Carbon Dioxide 28 Anion Gap 14 BUN 17 Creatinine 1.1 Est GFR ( Amer) > 60 Est GFR (Non-Af Amer) 51 Random Glucose 104 Calcium 8.6 Phosphorus 4.8 H Magnesium 1.6 Total Bilirubin 1.2 AST 45 H D ALT 65 H D Alkaline Phosphatase 57 Lactate Dehydrogenase Total Protein 6.5 Albumin 3.8 Globulin 2.7 Albumin/Globulin Ratio 1.4 Critical Care Progress Note - Nutrition Nutrition: Nutrition Category Date Time Status Heart Healthy Diet [DIET] Diets 07/14/18 Lunch Active Assessment/Plan - Assessment and Plan (Free Text) Plan: Patient seen and examined at bedside. Patient has h/o TTP. -Patient remains hemodynamically stable -no active bleeding -continue plasmapharesis as per hematology. - Date & Time Date: 07/13/18 Time: 19:00
[2018-07-13 07:56] LABS: ALB/GLOB RATIO 1.3 (1.0-2.1); ALBUMIN 4.1 g/dL (3.5-5.0); ALT/SGPT 88 U/L (9-52); AST/SGOT 76 U/L (14-36); BLOOD UREA NITROGEN 13 mg/dL (7-17); GFR NON-AFRICAN AMERICAN > 60
[2018-07-13] MEDS: Magnesium Sulfate 1 gm in D5W 1 GM/100 ML BAG IVPB SCH ×3 (08:16→09:30)
[2018-07-13] MEDS ORDERED: Potassium Chloride 20 mEq ER Tab PO ONE (08:30)
[2018-07-13] MEDS ORDERED: DiphenhydrAMINE 50 mg/ml Inj IVP ONE (10:00)
[2018-07-13] MEDS: Pantoprazole 40 mg EC Tab PO SCH (11:15)
--- NOTE | 2018-07-13 11:31 | CP.PCM.PN ---
Subjective - Date & Time of Evaluation Date of Evaluation: 07/13/18 Time of Evaluation: 10:00 - Subjective Subjective: Vascular Surgery Pt seen and examined. Getting plasmapheresis. No new complaints. Femoral shiley functioning but needs replacement. Objective - Vital Signs/Intake and Output Vital Signs (last 24 hours): Temp Pulse Resp BP Pulse Ox 99.1 F 78 18 97/66 L 100 07/13/18 04:00 07/13/18 07:00 07/13/18 07:00 07/13/18 07:00 07/13/18 05:57 Intake and Output: 07/13/18 07/13/18 06:59 18:59 Intake Total 360 320 Output Total 850 0 Balance -490 320 - Medications Medications: Current Medications Albuterol (Ventolin Hfa 90 Mcg/Actuation (8 G)) 2 puff IH RQ6 PRN PRN Reason: Shortness of Breath Guaifenesin (Robitussin) 100 mg PO Q4H PRN PRN Reason: Cough Hydrochlorothiazide (Microzide) 12.5 mg PO BID [facility] Last Admin: 07/13/18 11:14 Dose: 12.5 mg Levothyroxine Sodium (Synthroid) 50 mcg PO DAILY@0630 [facility] Last Admin: 07/13/18 06:38 Dose: 50 mcg Lisinopril (Zestril) 10 mg PO BID [facility] Last Admin: 07/13/18 11:15 Dose: 10 mg Montelukast Sodium (Singulair) 10 mg PO HS [facility] Last Admin: 07/12/18 21:41 Dose: 10 mg Pantoprazole Sodium (Protonix Ec Tab) 40 mg PO DAILY [facility] Last Admin: 07/13/18 11:15 Dose: 40 mg - Labs Labs: 07/13/18 05:49 07/13/18 07:42 PT 12.0 SECONDS (9.7-12.2) 07/10/18 10:23 INR 1.1 07/10/18 10:23 APTT 29 SECONDS (21-34) 07/10/18 10:23 - Constitutional Appears: Non-toxic, No Acute Distress - Head Exam Head Exam: ATRAUMATIC, NORMOCEPHALIC - Eye Exam Eye Exam: EOMI. absent: Scleral icterus - Respiratory Exam Respiratory Exam: NORMAL BREATHING PATTERN. absent: Respiratory Distress - GI/Abdominal Exam GI & Abdominal Exam: Soft. absent: Distended, Guarding - Neurological Exam Neurological Exam: Alert, Awake, Oriented x3 - Skin Skin Exam: Dry, Warm Assessment and Plan - Assessment and Plan (Free Text) Assessment: 62F requiring further plasmapheresis for TTP Plan: NPO p MN Consent in chart OR tomorrow at 11:30AM for permacath placement possible plt transfusion prior to OR, check labs in AM. D/W Dr Jennifer Alvarez PGY4
[2018-07-13] MEDS ORDERED: Iodixanol 320 MG/ML 100 ML BOTTLE IV ONE (18:03)
--- NOTE | 2018-07-13 20:11 | CARD ---
APPROVED REPORT Date of service: 07/13/2018 EXAM: Two-dimensional and M-mode echocardiogram with Doppler and color Doppler. INDICATION Dizziness and Vertigo Dyspnea COPD RISK FACTORS Hypertension 2D DIMENSIONS IVSd1.0 (0.7-1.1cm)LVDd3.2 (3.9-5.9cm) PWd1.0 (0.7-1.1cm)LA [id number] (18-58mL) LVDs2.1 (2.5-4.0cm)FS (%) 34.1 % LVEF (%)64.5 (>50%)LVEF (Simon's)65 % M-Mode DIMENSIONS Left Atrium (MM)2.16 (2.5-4.0cm)IVSd1.04 (0.7-1.1cm) Aortic Root2.57 (2.2-3.7cm)LVDd3.81 (4.0-5.6cm) Aortic Cusp Exc.1.70 (1.5-2.0cm)PWd0.87 (0.7-1.1cm) FS (%) 39 %LVDs2.33 (2.0-3.8cm) LVEF (%)70 (>50%) Mitral Valve MV E Plowmwsp30.7cm/sMV A Swnpwkdk10.1cm/sE/A ratio1.0 TDI Lateral E' Peak V6.48cm/sMedial E' Peak V5.64cm/sE/Lateral E'12.0 E/Medial E'13.8 Tricuspid Valve TR Peak Pityxpbx401sm/sTR Peak Gr.[id number] LEFT VENTRICLE The left ventricle is normal size. There is normal left ventricular wall thickness. Left ventricle systolic function is normal. The Ejection Fraction is 65-70%. There is normal LV segmental wall motion. The left ventricular diastolic function is normal. RIGHT VENTRICLE The right ventricle is normal size. There is normal right ventricular wall thickness. The right ventricular systolic function is normal. ATRIA The left atrium size is normal. The right atrium size is normal. The interatrial septum is intact with no evidence for an atrial septal defect. AORTIC VALVE The aortic valve is normal in structure. No aortic regurgitation is present. There is no aortic valvular stenosis. There is no aortic valvular vegetation. MITRAL VALVE The mitral valve is normal in structure. There is no evidence of mitral valve prolapse. There is no mitral valve stenosis. Mitral regurgitation is mild. TRICUSPID VALVE The tricuspid valve is normal in structure. There is mild tricuspid regurgitation. Right ventricular systolic pressure is estimated at less than 30 mmHg. There is no pulmonary hypertension. PULMONIC VALVE The pulmonic valve is not well visualized. There is mild pulmonic valvular regurgitation. GREAT VESSELS The aortic root is normal in size. PERICARDIAL EFFUSION There is no significant pericardial effusion. <Conclusion> Left ventricle systolic function is normal. The Ejection Fraction is 65-70%. No aortic regurgitation is present. Mitral regurgitation is mild. There is mild tricuspid regurgitation. There is no pulmonary hypertension. There is mild pulmonic valvular regurgitation.
--- NOTE | 2018-07-14 00:25 | PN ---
DATE: 07/13/2018 FOLLOWUP COVERING FOR: Rakesh Little MD SUBJECTIVE: The patient denies chest pain at this time. No reported ventricular tachycardia or hypotension. PHYSICAL EXAMINATION: VITAL SIGNS: Blood pressure 116/78, heart rate 98, temperature 98.4, respirations 30. HEENT: Pale conjunctivae. CHEST: Clear. HEART: S1 and S2 are regular. EXTREMITIES: No edema. EKG revealed normal sinus rhythm with nonspecific T-wave changes. Chest x-ray revealed borderline cardiomegaly, no infiltrate. LABORATORY DATA: Hemoglobin and hematocrit 10.4 and 30.2, white count 7.8, platelet count 43,000. PT, INR and PTT are within normal limits. Today's SMA-7 is within normal limits except for glucose of 117. Troponins 1.42 and 0.329. I did review the echocardiography study which was consistent with LVH with normal systolic function, [id number] pericardial effusion, reduced systolic compliance. No definite tamponade, however, there was echogenicity noted in the right atrium. ASSESSMENT: 1. Borderline troponin elevation, rule out pulmonary infarct. 2. [id number] circumferential pericardial effusion. 3. Thrombocytopenia. 4. Hypothyroidism. RECOMMENDATIONS: Continue current Synthroid, Zestril and hydrochlorothiazide. Obtain chest CT angio to rule out pulmonary infarction. Obtain also venous Doppler of the lower extremities. Gwyn Alonzo MD
[2018-07-14] MEDS: Levothyroxine 50 MCG TAB PO SCH (06:01)
[2018-07-14] MEDS ORDERED: DiphenhydrAMINE 50 mg/ml Inj IVP ONE (06:30)
[2018-07-14 06:52] LABS: BASO # 0.1 K/uL (0.0-0.2); BASO % 0.5 % (0.0-2.0); EOS # 0.1 K/uL (0.0-0.7); EOS % 0.8 % (0.0-4.0); HEMOGLOBIN 8.9 g/dL (11.0-16.0); LYMPH # 1.1 K/uL (1.0-4.3); LYMPH % 10.3 % (20.0-40.0); MEAN CELL VOLUME 86.6 fL (81.0-99.0); MEAN CORPUSCULAR HEMOGLOBIN 30.4 pg (27.0-31.0); MEAN PLATELET VOLUME 9.2 fL (7.2-11.7); MONO # 0.5 K/uL (0.0-0.8); MONO % 5.2 % (0.0-10.0); NEUT # 8.6 K/uL (1.8-7.0); NEUT % 83.2 % (50.0-75.0); NRBC % 0.2 % (0.0-2.0); RBC 2.94 Mil/uL (3.80-5.20); RED CELL DISTRIBUTION WIDTH 16.9 % (11.5-14.5); WHITE BLOOD COUNT 10.4 K/uL (4.8-10.8)
[2018-07-14 07:10] LABS: ALB/GLOB RATIO 1.4 (1.0-2.1); ALBUMIN 3.8 g/dL (3.5-5.0); ALT/SGPT 65 U/L (9-52); AST/SGOT 45 U/L (14-36); BLOOD UREA NITROGEN 17 mg/dL (7-17); CALCIUM 8.6 mg/dl (8.6-10.4); GFR NON-AFRICAN AMERICAN 51
[2018-07-14] MEDS ORDERED: Potassium Chloride 20 mEq/15 ml LIQ UD PO ONE (07:40)
--- NOTE | 2018-07-14 07:42 | CP.CCUPN ---
<Erick Sage - Last Filed: 07/14/18 10:35> CCU Subjective - Physician Review Subjective (Free Text): 07/14/18 10:20 Valeriasaravanan Grimesunruly PGY1 Progress Note for Dr. Americo Cartagena Pt was examined at bedside this morning. She reports improvement in her fatigue. She denies any headache, shortness of breath, chest pain, nausea, vomiting, abdominal pain, diarrhea, dysuria. CCU Objective - Vital Signs / Intake & Output Vital Signs (Last 4 hours): Vital Signs Temp Pulse Resp BP Pulse Ox 07/14/18 06:44 112/83 07/14/18 06:43 89 27 H 07/14/18 06:00 94 H 21 90 L 07/14/18 05:47 98.2 F 92 H 23 128/70 07/14/18 05:38 90 19 128/70 07/14/18 05:00 94 H 30 H 90/56 L 95 07/14/18 04:55 97.8 F 97 H 22 94/52 L 07/14/18 04:33 91 H 24 90/56 L 98 07/14/18 04:25 97.8 F 91 H 21 90/56 L 07/14/18 04:15 96 H 23 85/57 L 99 07/14/18 04:10 97.8 F 94 H 20 85/57 L 07/14/18 04:00 97.8 F 94 H 19 85/57 L 97 07/14/18 03:55 97.5 F L 102 H 18 80/56 L Intake and Output (Last 8hrs): Intake & Output 07/13/18 07/14/18 07/14/18 22:59 06:59 14:59 Intake Total 370 458 Output Total 230 900 Balance 140 -442 Weight 122 lb Intake: Oral 370 150 Blood Product 208 Apheresis Plts Acda Lr 208 3rd Con Unit [id number] Other 100 Apheresis Plts Acda Lr 100 3rd Con Unit [id number] Output: Urine 230 900 Urine, Voided 230 900 Other: # Voids Urine, Voided 1 - Physical Exam Head: Positive for: Atraumatic, Normocephalic Pupils: Positive for: PERRL Extroacular Muscles: Positive for: EOMI Conjunctiva: Positive for: Other (pale) Mouth: Positive for: Moist Mucous Membranes Neck: Positive for: Normal Range of Motion Respiratory/Chest: Positive for: Clear to Auscultation. Negative for: Respiratory Distress, Accessory Muscle Use, Wheezes, Rales, Rhonchi Cardiovascular: Positive for: Regular Rate and Rhythm, Normal S1, S2, Irregular Rhythm. Negative for: Murmurs, Rub, Gallop Abdomen: Positive for: Normal Bowel Sounds. Negative for: Tenderness, Dis tention, Peritoneal Signs Upper Extremity: Positive for: Normal Inspection. Negative for: Cyanosis, Edema Lower Extremity: Positive for: Normal Inspection. Negative for: Edema Neurological: Positive for: GCS=15, CN II-XII Intact, Speech Normal Skin: Positive for: Warm, Dry, Normal Color - Medications Active Medications: Active Medications Generic Name Dose Route Start Last Admin Trade Name Freq PRN Reason Stop Dose Admin Albuterol 2 puff 07/10/18 13:25 Ventolin Hfa 90 Mcg/Actuation (8 G) IH RQ6 PRN Shortness of Breath Guaifenesin 100 mg 07/13/18 06:52 Robitussin PO Q4H PRN Cough Hydrochlorothiazide 12.5 mg 07/10/18 18:00 07/13/18 18:02 Microzide PO 12.5 mg BID JOSE Administration Levothyroxine Sodium 50 mcg 07/11/18 06:30 07/14/18 06:01 Synthroid PO 50 mcg DAILY@0630 JOSE Administration Lisinopril 10 mg 07/10/18 18:00 07/13/18 18:02 Zestril PO 10 mg BID JOSE Administration Montelukast Sodium 10 mg 07/10/18 22:00 07/13/18 22:00 Singulair PO 10 mg HS JOSE Administration Pantoprazole Sodium 40 mg 07/11/18 10:00 07/13/18 11:15 Protonix Ec Tab PO 40 mg DAILY JOSE Administration Potassium Chloride 20 meq 07/14/18 07:40 Potassium Chloride Oral Soln PO 07/14/18 07:41 ONCE ONE - Patient Studies Lab Studies: Lab Studies 07/14/18 07/14/18 07/14/18 Range/Units 06:37 06:37 06:37 WBC 10.4 (4.8-10.8) K/uL RBC 2.94 L (3.80-5.20) Mil/uL Hgb 8.9 L (11.0-16.0) g/dL Hct 25.4 L (34.0-47.0) % MCV 86.6 (81.0-99.0) fL MCH 30.4 (27.0-31.0) pg MCHC 35.0 (33.0-37.0) g/dL RDW 16.9 H (11.5-14.5) % Plt Count 131 (130-400) K/uL MPV 9.2 (7.2-11.7) fL Neut % (Auto) 83.2 H (50.0-75.0) % Lymph % (Auto) 10.3 L (20.0-40.0) % Morrill % (Auto) 5.2 (0.0-10.0) % Eos % (Auto) 0.8 (0.0-4.0) % Baso % (Auto) 0.5 (0.0-2.0) % Neut # (Auto) 8.6 H (1.8-7.0) K/uL Lymph # (Auto) 1.1 (1.0-4.3) K/uL Morrill # (Auto) 0.5 (0.0-0.8) K/uL Eos # (Auto) 0.1 (0.0-0.7) K/uL Baso # (Auto) 0.1 (0.0-0.2) K/uL Differential Comment [id number] Inhibitor (68-163) % Activity Sodium 135 (132-148) mmol/L Potassium 3.5 L (3.6-5.2) mmol/L Chloride 97 L (98-107) mmol/L Carbon Dioxide 28 (22-30) mmol/L Anion Gap 14 (10-20) BUN 17 (7-17) mg/dL Creatinine 1.1 (0.7-1.2) mg/dL Est GFR ( Amer) > 60 Est GFR (Non-Af Amer) 51 Random Glucose 104 (65-105) mg/dL Calcium 8.6 (8.6-10.4) mg/dl Phosphorus 4.8 H (2.5-4.5) mg/dL Magnesium 1.6 (1.6-2.3) mg/dL Total Bilirubin 1.2 (0.2-1.3) mg/dL AST 45 H D (14-36) U/L ALT 65 H D (9-52) U/L Alkaline Phosphatase 57 (38-126) U/L Lactate Dehydrogenase 978 H (313-618) U/L Total Protein 6.5 (6.3-8.3) g/dL Albumin 3.8 (3.5-5.0) g/dL Globulin 2.7 (2.2-3.9) gm/dL Albumin/Globulin Ratio 1.4 (1.0-2.1) 07/13/18 07/13/18 07/11/18 Range/Units 07:42 05:49 08:10 WBC 7.8 (4.8-10.8) K/uL RBC 3.50 L (3.80-5.20) Mil/uL Hgb 10.4 L (11.0-16.0) g/dL Hct 30.2 L (34.0-47.0) % MCV 86.2 D (81.0-99.0) fL MCH 29.8 (27.0-31.0) pg MCHC 34.6 (33.0-37.0) g/dL RDW 17.0 H (11.5-14.5) % Plt Count 43 L D (130-400) K/uL MPV 10.6 (7.2-11.7) fL Neut % (Auto) 69.1 (50.0-75.0) % Lymph % (Auto) 21.7 (20.0-40.0) % Morrill % (Auto) 8.1 (0.0-10.0) % Eos % (Auto) 0.7 (0.0-4.0) % Baso % (Auto) 0.4 (0.0-2.0) % Neut # (Auto) 5.4 (1.8-7.0) K/uL Lymph # (Auto) 1.7 (1.0-4.3) K/uL Morrill # (Auto) 0.6 (0.0-0.8) K/uL Eos # (Auto) 0.1 (0.0-0.7) K/uL Baso # (Auto) 0.0 (0.0-0.2) K/uL Differential Comment [id number] Inhibitor <3 L* (68-163) % Activity Sodium 135 (132-148) mmol/L Potassium 3.8 (3.6-5.2) mmol/L Chloride 98 (98-107) mmol/L Carbon Dioxide 26 (22-30) mmol/L Anion Gap 15 (10-20) BUN 13 (7-17) mg/dL Creatinine 0.8 (0.7-1.2) mg/dL Est GFR ( Amer) > 60 Est GFR (Non-Af Amer) > 60 Random Glucose 117 H (65-105) mg/dL Calcium 9.0 (8.6-10.4) mg/dl Phosphorus 4.0 (2.5-4.5) mg/dL Magnesium 1.9 (1.6-2.3) mg/dL Total Bilirubin 1.5 H (0.2-1.3) mg/dL AST 76 H D (14-36) U/L ALT 88 H D (9-52) U/L Alkaline Phosphatase 54 (38-126) U/L Lactate Dehydrogenase (313-618) U/L Total Protein 7.2 (6.3-8.3) g/dL Albumin 4.1 (3.5-5.0) g/dL Globulin 3.1 (2.2-3.9) gm/dL Albumin/Globulin Ratio 1.3 (1.0-2.1) Laboratory Results - last 24 hr 07/11/18 07/13/18 07/13/18 08:10 05:49 07:42 WBC 7.8 RBC 3.50 L Hgb 10.4 L Hct 30.2 L MCV 86.2 D MCH 29.8 MCHC 34.6 RDW 17.0 H Plt Count 43 L D MPV 10.6 Neut % (Auto) 69.1 Lymph % (Auto) 21.7 Morrill % (Auto) 8.1 Eos % (Auto) 0.7 Baso % (Auto) 0.4 Neut # (Auto) 5.4 Lymph # (Auto) 1.7 Morrill # (Auto) 0.6 Eos # (Auto) 0.1 Baso # (Auto) 0.0 Differential Comment [id number] Inhibitor <3 L* Sodium 135 Potassium 3.8 Chloride 98 Carbon Dioxide 26 Anion Gap 15 BUN 13 Creatinine 0.8 Est GFR ( Amer) > 60 Est GFR (Non-Af Amer) > 60 Random Glucose 117 H Calcium 9.0 Phosphorus 4.0 Magnesium 1.9 Total Bilirubin 1.5 H AST 76 H D ALT 88 H D Alkaline Phosphatase 54 Lactate Dehydrogenase Total Protein 7.2 Albumin 4.1 Globulin 3.1 Albumin/Globulin Ratio 1.3 07/14/18 07/14/18 07/14/18 06:37 06:37 06:37 WBC 10.4 RBC 2.94 L Hgb 8.9 L Hct 25.4 L MCV 86.6 MCH 30.4 MCHC 35.0 RDW 16.9 H Plt Count 131 MPV 9.2 Neut % (Auto) 83.2 H Lymph % (Auto) 10.3 L Morrill % (Auto) 5.2 Eos % (Auto) 0.8 Baso % (Auto) 0.5 Neut # (Auto) 8.6 H Lymph # (Auto) 1.1 Morrill # (Auto) 0.5 Eos # (Auto) 0.1 Baso # (Auto) 0.1 Differential Comment [id number] Inhibitor Sodium 135 Potassium 3.5 L Chloride 97 L Carbon Dioxide 28 Anion Gap 14 BUN 17 Creatinine 1.1 Est GFR ( Amer) > 60 Est GFR (Non-Af Amer) 51 Random Glucose 104 Calcium 8.6 Phosphorus 4.8 H Magnesium 1.6 Total Bilirubin 1.2 AST 45 H D ALT 65 H D Alkaline Phosphatase 57 Lactate Dehydrogenase 978 H Total Protein 6.5 Albumin 3.8 Globulin 2.7 Albumin/Globulin Ratio 1.4 Review of Systems - Review of Systems Review of Systems: as per HPI Critical Care Progress Note - Nutrition Nutrition: Nutrition Category Date Time Status NPO Diet [DIET] Diets 07/14/18 Breakfast Active Assessment/Plan - Assessment and Plan (Free Text) Assessment: 62yo F with PMH HTN, hypothyroid, asthma, thrombocytopenia presents to ED with dizziness and fatigue x2 days, admitted for thrombocytopenia. Smear showing schistocytes, anisocytosis. Pt being treated for hemolytic anemia and thrombocytopenia. S/p 30u FFP, day 4 of plasmapheresis. Pt for OR today with Dr. Rodriguez for permacath. Plan: Neuro - AAOx3 - no focal deficits Cardio Elevated troponins - elevated troponins 1.42 --> 0.33 - ProBNP: 3880 - Echo: EF 65-70%, normal LV systolic function - CT angio: no PE. RLL subsegmental atelectasis and small R pleural effusion. mild emphysema. mild cardiomegaly. small pericardial effusion. - f/u venous doppler - Cardio consulted, Dr. Sidney estrella appreciated - not a candidate for cardiac cath HTN - lisinopril 10mg PO daily, held today for OR - HCTZ 12.5mg PO daily, held today for OR Pulm Hx of asthma - maintain O2 sat >92% - ventolin PRN - singulair 10mg po daily GI - Protonix 40 po daily Heme Hemolytic Anemia, TTP - s/p 30u FFP, 4th plasmapheresis today - s/p 1u platelets 07/14 - for OR today with Dr. Rodriguez for permacath - Plt 131 - H/H: 104/30.2 - h/o thrombocytopenia, s/p transfusions upon last admission 04/25 - [id number] <3% activity - smear: Hemolytic anemia: moderate anisocytosis and schistocytosis, helmet cells and RBC fragments. no blasts. RBCs hypochromic. - retic count 2.8, high - haptoglobin low - LDH 978, high - FFP (2.75L) x10 days, 1 plasma volume daily - Heme/onc consulted, Dr. Julia estrella appreciated - Vascular Sx consulted, Dr. Rodriguez Endo Hypothyroidism - synthroid 50mcg po daily PPx: GI- protonix DVT- contraindicated at this time due to thrombocytopenia NPO after midnight Pt seen and case reviewed with Dr. Americo Cartagena <Mike Cartagena - Last Filed: 07/14/18 14:40> CCU Objective - Vital Signs / Intake & Output Vital Signs (Last 4 hours): Vital Signs Temp Pulse Resp BP Pulse Ox 07/14/18 14:09 86 25 H 107/59 L 07/14/18 14:00 87 27 H 100 07/14/18 13:04 78 25 H 99/60 L 07/14/18 13:00 94 H 07/14/18 12:45 98.3 F 99 H 14 99/60 L 98 07/14/18 11:40 99.6 F 92 H 22 98/54 L 99 07/14/18 11:05 92 H 28 H 98/54 L 96 07/14/18 11:00 90 34 H 100 Intake and Output (Last 8hrs): Intake & Output 07/13/18 07/14/18 07/14/18 22:59 06:59 14:59 Intake Total 370 458 170 Output Total 230 900 500 Balance 140 -442 -330 Weight 122 lb Intake: IV 50 Oral 370 150 120 Blood Product 208 Apheresis Plts Acda Lr 208 3rd Con Unit [id number] Other 100 Apheresis Plts Acda Lr 100 3rd Con Unit [id number] Output: Urine 230 900 500 Urine, Voided 230 900 500 Other: # Voids Urine, Voided 1 - Medications Active Medications: Active Medications Generic Name Dose Route Start Last Admin Trade Name Freq PRN Reason Stop Dose Admin Albuterol 2 puff 07/10/18 13:25 Ventolin Hfa 90 Mcg/Actuation (8 G) IH RQ6 PRN Shortness of Breath Aspirin 81 mg 07/15/18 10:00 Aspirin Chewable PO DAILY JOSE Guaifenesin 100 mg 07/13/18 06:52 Robitussin PO Q4H PRN Cough Hydrochlorothiazide 12.5 mg 07/10/18 18:00 07/14/18 10:06 Microzide PO Not Given BID JOSE Levothyroxine Sodium 50 mcg 07/11/18 06:30 07/14/18 06:01 Synthroid PO 50 mcg DAILY@0630 JOSE Administration Lisinopril 10 mg 07/10/18 18:00 07/14/18 10:06 Zestril PO Not Given BID JOSE Montelukast Sodium 10 mg 07/10/18 22:00 07/13/18 22:00 Singulair PO 10 mg HS JOSE Administration Pantoprazole Sodium 40 mg 07/11/18 10:00 07/14/18 10:06 Protonix Ec Tab PO Not Given DAILY JOSE - Patient Studies Lab Studies: Lab Studies 07/14/18 07/14/18 07/14/18 Range/Units 06:37 06:37 06:37 WBC 10.4 (4.8-10.8) K/uL RBC 2.94 L (3.80-5.20) Mil/uL Hgb 8.9 L (11.0-16.0) g/dL Hct 25.4 L (34.0-47.0) % MCV 86.6 (81.0-99.0) fL MCH 30.4 (27.0-31.0) pg MCHC 35.0 (33.0-37.0) g/dL RDW 16.9 H (11.5-14.5) % Plt Count 131 (130-400) K/uL MPV 9.2 (7.2-11.7) fL Neut % (Auto) 83.2 H (50.0-75.0) % Lymph % (Auto) 10.3 L (20.0-40.0) % Morrill % (Auto) 5.2 (0.0-10.0) % Eos % (Auto) 0.8 (0.0-4.0) % Baso % (Auto) 0.5 (0.0-2.0) % Neut # (Auto) 8.6 H (1.8-7.0) K/uL Lymph # (Auto) 1.1 (1.0-4.3) K/uL Morrill # (Auto) 0.5 (0.0-0.8) K/uL Eos # (Auto) 0.1 (0.0-0.7) K/uL Baso # (Auto) 0.1 (0.0-0.2) K/uL [id number] Inhibitor (68-163) % Activity Sodium 135 (132-148) mmol/L Potassium 3.5 L (3.6-5.2) mmol/L Chloride 97 L (98-107) mmol/L Carbon Dioxide 28 (22-30) mmol/L Anion Gap 14 (10-20) BUN 17 (7-17) mg/dL Creatinine 1.1 (0.7-1.2) mg/dL Est GFR ( Amer) > 60 Est GFR (Non-Af Amer) 51 Random Glucose 104 (65-105) mg/dL Calcium 8.6 (8.6-10.4) mg/dl Phosphorus 4.8 H (2.5-4.5) mg/dL Magnesium 1.6 (1.6-2.3) mg/dL Total Bilirubin 1.2 (0.2-1.3) mg/dL AST 45 H D (14-36) U/L ALT 65 H D (9-52) U/L Alkaline Phosphatase 57 (38-126) U/L Lactate Dehydrogenase 978 H (313-618) U/L Total Protein 6.5 (6.3-8.3) g/dL Albumin 3.8 (3.5-5.0) g/dL Globulin 2.7 (2.2-3.9) gm/dL Albumin/Globulin Ratio 1.4 (1.0-2.1) 07/11/18 Range/Units 08:10 WBC (4.8-10.8) K/uL RBC (3.80-5.20) Mil/uL Hgb (11.0-16.0) g/dL Hct (34.0-47.0) % MCV (81.0-99.0) fL MCH (27.0-31.0) pg MCHC (33.0-37.0) g/dL RDW (11.5-14.5) % Plt Count (130-400) K/uL MPV (7.2-11.7) fL Neut % (Auto) (50.0-75.0) % Lymph % (Auto) (20.0-40.0) % Morrill % (Auto) (0.0-10.0) % Eos % (Auto) (0.0-4.0) % Baso % (Auto) (0.0-2.0) % Neut # (Auto) (1.8-7.0) K/uL Lymph # (Auto) (1.0-4.3) K/uL Morrill # (Auto) (0.0-0.8) K/uL Eos # (Auto) (0.0-0.7) K/uL Baso # (Auto) (0.0-0.2) K/uL [id number] Inhibitor <3 L* (68-163) % Activity Sodium (132-148) mmol/L Potassium (3.6-5.2) mmol/L Chloride (98-107) mmol/L Carbon Dioxide (22-30) mmol/L Anion Gap (10-20) BUN (7-17) mg/dL Creatinine (0.7-1.2) mg/dL Est GFR ( Amer) Est GFR (Non-Af Amer) Random Glucose (65-105) mg/dL Calcium (8.6-10.4) mg/dl Phosphorus (2.5-4.5) mg/dL Magnesium (1.6-2.3) mg/dL Total Bilirubin (0.2-1.3) mg/dL AST (14-36) U/L ALT (9-52) U/L Alkaline Phosphatase (38-126) U/L Lactate Dehydrogenase (313-618) U/L Total Protein (6.3-8.3) g/dL Albumin (3.5-5.0) g/dL Globulin (2.2-3.9) gm/dL Albumin/Globulin Ratio (1.0-2.1) Laboratory Results - last 24 hr 07/11/18 07/14/18 07/14/18 08:10 06:37 06:37 WBC 10.4 RBC 2.94 L Hgb 8.9 L Hct 25.4 L MCV 86.6 MCH 30.4 MCHC 35.0 RDW 16.9 H Plt Count 131 MPV 9.2 Neut % (Auto) 83.2 H Lymph % (Auto) 10.3 L Morrill % (Auto) 5.2 Eos % (Auto) 0.8 Baso % (Auto) 0.5 Neut # (Auto) 8.6 H Lymph # (Auto) 1.1 Morrill # (Auto) 0.5 Eos # (Auto) 0.1 Baso # (Auto) 0.1 [id number] Inhibitor <3 L* Sodium Potassium Chloride Carbon Dioxide Anion Gap BUN Creatinine Est GFR ( Amer) Est GFR (Non-Af Amer) Random Glucose Calcium Phosphorus Magnesium Total Bilirubin AST ALT Alkaline Phosphatase Lactate Dehydrogenase 978 H Total Protein Albumin Globulin Albumin/Globulin Ratio 07/14/18 06:37 WBC RBC Hgb Hct MCV MCH MCHC RDW Plt Count MPV Neut % (Auto) Lymph % (Auto) Morrill % (Auto) Eos % (Auto) Baso % (Auto) Neut # (Auto) Lymph # (Auto) Morrill # (Auto) Eos # (Auto) Baso # (Auto) [id number] Inhibitor Sodium 135 Potassium 3.5 L Chloride 97 L Carbon Dioxide 28 Anion Gap 14 BUN 17 Creatinine 1.1 Est GFR ( Amer) > 60 Est GFR (Non-Af Amer) 51 Random Glucose 104 Calcium 8.6 Phosphorus 4.8 H Magnesium 1.6 Total Bilirubin 1.2 AST 45 H D ALT 65 H D Alkaline Phosphatase 57 Lactate Dehydrogenase Total Protein 6.5 Albumin 3.8 Globulin 2.7 Albumin/Globulin Ratio 1.4 Critical Care Progress Note - Nutrition Nutrition: Nutrition Category Date Time Status Heart Healthy Diet [DIET] Diets 07/14/18 Lunch Active Assessment/Plan - Assessment and Plan (Free Text) Plan: Patient remains hemodynamically stable. -change from femoral HD cath to tunelled cath -continue plasmapharesis as per heme/onc - Date & Time Date: 07/14/18 Time: 14:40
--- NOTE | 2018-07-14 08:45 | CT ---
Date of service: 07/13/2018 PROCEDURE: CT Chest with contrast (Pulmonary Angiogram) HISTORY: r/o pe COMPARISON: None available. TECHNIQUE: Axial computed tomography images were obtained of the chest in the pulmonary arterial phase of enhancement. Coronal and sagittal reformatted images were created and reviewed. Intravenous contrast dose: 100 mL Visipaque 320 Radiation dose: Total exam DLP = 275.43 mGy-cm. This CT exam was performed using one or more of the following dose reduction techniques: Automated exposure control, adjustment of the mA and/or kV according to patient size, and/or use of iterative reconstruction technique. FINDINGS: PULMONARY ARTERIES: Unremarkable. No pulmonary embolism. AORTA: No acute findings. No thoracic aortic aneurysm. There is mild atherosclerotic calcification of the thoracic aorta. LUNGS: Right lower lobe subsegmental atelectasis. No acute infiltrate. Linear scar/atelectasis in left lower lobe. No pulmonary mass. No abnormal parenchymal opacity elsewhere. Mild centrilobular pulmonary emphysema. PLEURAL SPACES: Small right pleural effusion. No left pleural effusion. No pneumothorax. HEART: Mild cardiomegaly.. Small pericardial effusion. No congestive change. LYMPH NODES: No lymphadenopathy. BONES, CHEST WALL: Unremarkable. No fracture or destructive lesion OTHER FINDINGS: Unremarkable. IMPRESSION: No evidence of pulmonary embolism. Right lower lobe subsegmental atelectasis and small right pleural effusion. No acute infiltrate. Mild centrilobular pulmonary emphysema. Mild cardiomegaly. Small pericardial effusion. The preliminary findings for this examination were reported by [facility] at 7:01 p.m. on 07/13/2018. There is concurrence of this report with the preliminary findings.
[2018-07-14] MEDS: Pantoprazole 40 mg EC Tab PO SCH (10:06)
--- NOTE | 2018-07-14 11:11 | CP.PCM.PN ---
<Fadia Massey - Last Filed: 07/14/18 13:26> Subjective - Date & Time of Evaluation Date of Evaluation: 07/14/18 Time of Evaluation: 11:07 - Subjective Subjective: Cardiology Follow Up Patient was seen and examined at bedside. Patient report she feels better today, less weak. Denied any chest pain, shortness of breath, palpitations, dizziness, or light headedness. Objective - Vital Signs/Intake and Output Vital Signs (last 24 hours): Temp Pulse Resp BP Pulse Ox 100.4 F H 93 H 24 94/64 L 96 07/14/18 08:00 07/14/18 10:05 07/14/18 10:05 07/14/18 10:05 07/14/18 10:05 Intake and Output: 07/14/18 07/14/18 06:59 18:59 Intake Total 458 Output Total 900 Balance -442 - Medications Medications: Current Medications Albuterol (Ventolin Hfa 90 Mcg/Actuation (8 G)) 2 puff IH RQ6 PRN PRN Reason: Shortness of Breath Guaifenesin (Robitussin) 100 mg PO Q4H PRN PRN Reason: Cough Hydrochlorothiazide (Microzide) 12.5 mg PO BID [facility] Last Admin: 07/14/18 10:06 Dose: Not Given Levothyroxine Sodium (Synthroid) 50 mcg PO DAILY@0630 [facility] Last Admin: 07/14/18 06:01 Dose: 50 mcg Lisinopril (Zestril) 10 mg PO BID [facility] Last Admin: 07/14/18 10:06 Dose: Not Given Montelukast Sodium (Singulair) 10 mg PO [facility] Last Admin: 07/13/18 22:00 Dose: 10 mg Pantoprazole Sodium (Protonix Ec Tab) 40 mg PO DAILY [facility] Last Admin: 07/14/18 10:06 Dose: Not Given - Labs Labs: 07/14/18 06:37 07/14/18 06:37 PT 12.0 SECONDS (9.7-12.2) 07/10/18 10:23 INR 1.1 07/10/18 10:23 APTT 29 SECONDS (21-34) 07/10/18 10:23 - Constitutional Appears: No Acute Distress - Head Exam Head Exam: NORMAL INSPECTION, NORMOCEPHALIC - Eye Exam Eye Exam: EOMI, Normal appearance - ENT Exam ENT Exam: Mucous Membranes Moist - Respiratory Exam Respiratory Exam: Clear to Ausculation Bilateral, NORMAL BREATHING PATTERN - Cardiovascular Exam Cardiovascular Exam: REGULAR RHYTHM, +S1, +S2 - GI/Abdominal Exam GI & Abdominal Exam: Soft, Normal Bowel Sounds. absent: Tenderness, Diminished Bowel Sounds - Neurological Exam Neurological Exam: Alert, Awake, Oriented x3 - Psychiatric Exam Psychiatric exam: Normal Affect, Normal Mood - Skin Skin Exam: Dry, Intact, Normal Color, Warm Assessment and Plan - Assessment and Plan (Free Text) Plan: TTP NSTEMI Imaging: - EKG: No ST changes noted - ECHO: Normal LVEF, small pericardial effusion noted, repeat ECHO in 3 months or sooner if patient is symptomatic - Cardiac cath when patient medically stable and cleared by heme/onc Management: - Continue with O2, BB, statins and nitrates needed for chest pain - As per heme/onc, can start aspirin only - Patient will complete series of plasma exchange, possible cath afterwards if medically stable Case discussed with Fadia Nevarez DO, PGY2 <Rakesh Little - Last Filed: 07/14/18 21:45> Objective - Vital Signs/Intake and Output Vital Signs (last 24 hours): Temp Pulse Resp BP Pulse Ox 98.2 F 82 19 92/58 L 99 07/14/18 17:03 07/14/18 18:00 07/14/18 18:00 07/14/18 18:00 07/14/18 18:00 Intake and Output: 07/14/18 07/15/18 18:59 06:59 Intake Total 1430 Output Total 1930 Balance -500 - Medications Medications: Current Medications Albuterol (Ventolin Hfa 90 Mcg/Actuation (8 G)) 2 puff IH RQ6 PRN PRN Reason: Shortness of Breath Aspirin (Aspirin Chewable) 81 mg PO DAILY [facility] Diphenhydramine HCl (Benadryl) 50 mg IVP DAILY PRN PRN Reason: Other Guaifenesin (Robitussin) 100 mg PO Q4H PRN PRN Reason: Cough Hydrochlorothiazide (Microzide) 12.5 mg PO BID [facility] Last Admin: 07/14/18 19:23 Dose: Not Given Levothyroxine Sodium (Synthroid) 50 mcg PO DAILY@0630 [facility] Last Admin: 07/14/18 06:01 Dose: 50 mcg Lisinopril (Zestril) 10 mg PO BID [facility] Last Admin: 07/14/18 19:24 Dose: Not Given Methylprednisolone (Solu-Medrol) 30 mg IV Q12 [facility] Last Admin: 07/14/18 21:43 Dose: 30 mg Montelukast Sodium (Singulair) 10 mg PO HS [facility] Last Admin: 07/14/18 21:43 Dose: 10 mg Pantoprazole Sodium (Protonix Ec Tab) 40 mg PO DAILY [facility] Last Admin: 07/14/18 10:06 Dose: Not Given - Labs Labs: 07/14/18 06:37 07/14/18 06:37 PT 12.0 SECONDS (9.7-12.2) 07/10/18 10:23 INR 1.1 07/10/18 10:23 APTT 29 SECONDS (21-34) 07/10/18 10:23 Assessment and Plan - Assessment and Plan (Free Text) Plan: Patient seen and evaluated personally by me Plan of care d/w the medical record consultant and as documented
[2018-07-14] MEDS ORDERED: Lidocaine Hydrochloride 10 ML INJ ONE (11:53)
[2018-07-14] MEDS ORDERED: HEPARIN-NS 5,000 UNITS/500 ML 5,000 UNIT/500 ML BAG IV ONE (11:54)
[2018-07-14] MEDS ORDERED: Midazolam 2 MG/2 ML VIAL ONE (11:59)
[2018-07-14] MEDS ORDERED: ceFAZolin IV 1 gm in Dextrose 1 GM/50 ML BAG IVPB ONE (12:13)
--- NOTE | 2018-07-14 12:50 | PCM.SURG1 ---
Surgeon's Initial Post Op Note - Surgeon's Notes Surgeon: Dr. Rodriguez Youth Minister: Zuhair PGY2 Type of Anesthesia: IV Sedation, Local Anesthesia Administered By: Salvador Lilly Pre-Operative Diagnosis: Thrombocytopenia; Need for plasmapheresis Operative Findings: See operative report Post-Operative Diagnosis: same Operation Performed: Right IJ permacath placement Specimen/Specimens Removed: None Estimated Blood Loss: EBL {In ML}: 5 Blood Products Given: N/A Drains Used: No Drains Post-Op Condition: Good Date of Surgery/Procedure: 07/14/18 Time of Surgery/Procedure: 12:50
--- NOTE | 2018-07-14 13:13 | RAD ---
Date of service: 07/14/2018 PROCEDURE: Intraoperative Fluoroscopy. HISTORY: RENAL FAILURE FINDINGS: Fluoroscopic assistance was provided. Fluoroscopy time = 7.2 sec. Radiation dose = 0.29 mGy. Please refer to the operative report from MANISH Irby.
--- NOTE | 2018-07-14 13:31 | RAD ---
Date of service: 07/14/2018 HISTORY: R IJ permacath placement COMPARISON: Comparison chest 07/10/2018 comparison also made with CTA chest dated 07/13/2018. FINDINGS: Interval placement right IJ PermCath, the tips of which lie in the region the right atrium and possibly the upper IVC. LUNGS: Mild bibasilar atelectasis. PLEURA: No significant pleural effusion identified, no pneumothorax apparent. CARDIOVASCULAR: Mild aortic atherosclerotic calcification seen to better advantage on prior CTA chest. Heart is enlarged.. OSSEOUS STRUCTURES: No significant abnormalities. VISUALIZED UPPER ABDOMEN: Normal. OTHER FINDINGS: None. IMPRESSION: Interval placement right IJ PermCath with tips in the region of the right atrium and possibly the superior IVC. No evidence of pneumothorax.. Mild bibasilar atelectasis right greater than left. Cardiomegaly
--- NOTE | 2018-07-14 14:52 | CP.CCUPN ---
CCU Subjective - Physician Review Subjective (Free Text): 07/14/18 14:47 Erick Sage PGY1 Progress Note for Dr. Americo Cartagena Femoral shiley cath removed from pt. Pressure was held and bleeding from site stopped within 5 minutes. Site was dressed, to reevaluate in 4 hours. CCU Objective - Vital Signs / Intake & Output Vital Signs (Last 4 hours): Vital Signs Temp Pulse Resp BP Pulse Ox 07/14/18 14:09 86 25 H 107/59 L 07/14/18 14:00 87 27 H 100 07/14/18 13:04 78 25 H 99/60 L 07/14/18 13:00 94 H 07/14/18 12:45 98.3 F 99 H 14 99/60 L 98 07/14/18 11:40 99.6 F 92 H 22 98/54 L 99 07/14/18 11:05 92 H 28 H 98/54 L 96 07/14/18 11:00 90 34 H 100 Intake and Output (Last 8hrs): Intake & Output 07/13/18 07/14/18 07/14/18 22:59 06:59 14:59 Intake Total 370 458 170 Output Total 230 900 500 Balance 140 -442 -330 Weight 122 lb Intake: IV 50 Oral 370 150 120 Blood Product 208 Apheresis Plts Acda Lr 208 3rd Con Unit [id number] Other 100 Apheresis Plts Acda Lr 100 3rd Con Unit [id number] Output: Urine 230 900 500 Urine, Voided 230 900 500 Other: # Voids Urine, Voided 1 - Physical Exam Head: Positive for: Atraumatic, Normocephalic Pupils: Positive for: PERRL Extroacular Muscles: Positive for: EOMI Conjunctiva: Positive for: Other (pale) Mouth: Positive for: Moist Mucous Membranes Neck: Positive for: Normal Range of Motion Respiratory/Chest: Positive for: Clear to Auscultation. Negative for: Respiratory Distress, Accessory Muscle Use, Wheezes, Rales, Rhonchi Cardiovascular: Positive for: Regular Rate and Rhythm, Normal S1, S2, Irregular Rhythm. Negative for: Murmurs, Rub, Gallop Abdomen: Positive for: Normal Bowel Sounds. Negative for: Tenderness, Distention, Peritoneal Signs Upper Extremity: Positive for: Normal Inspection. Negative for: Cyanosis, Edema Lower Extremity: Positive for: Normal Inspection. Negative for: Edema Neurological: Positive for: GCS=15, CN II-XII Intact, Speech Normal Skin: Positive for: Warm, Dry, Normal Color - Medications Active Medications: Active Medications Generic Name Dose Route Start Last Admin Trade Name Freq PRN Reason Stop Dose Admin Albuterol 2 puff 07/10/18 13:25 Ventolin Hfa 90 Mcg/Actuation (8 G) IH RQ6 PRN Shortness of Breath Aspirin 81 mg 07/15/18 10:00 Aspirin Chewable PO DAILY JOSE Guaifenesin 100 mg 07/13/18 06:52 Robitussin PO Q4H PRN Cough Hydrochlorothiazide 12.5 mg 07/10/18 18:00 07/14/18 10:06 Microzide PO Not Given BID JOSE Levothyroxine Sodium 50 mcg 07/11/18 06:30 07/14/18 06:01 Synthroid PO 50 mcg DAILY@0630 JOSE Administration Lisinopril 10 mg 07/10/18 18:00 07/14/18 10:06 Zestril PO Not Given BID JOSE Montelukast Sodium 10 mg 07/10/18 22:00 07/13/18 22:00 Singulair PO 10 mg HS JOSE Administration Pantoprazole Sodium 40 mg 07/11/18 10:00 07/14/18 10:06 Protonix Ec Tab PO Not Given DAILY JOSE - Patient Studies Lab Studies: Lab Studies 07/14/18 07/14/18 07/14/18 Range/Units 06:37 06:37 06:37 WBC 10.4 (4.8-10.8) K/uL RBC 2.94 L (3.80-5.20) Mil/uL Hgb 8.9 L (11.0-16.0) g/dL Hct 25.4 L (34.0-47.0) % MCV 86.6 (81.0-99.0) fL MCH 30.4 (27.0-31.0) pg MCHC 35.0 (33.0-37.0) g/dL RDW 16.9 H (11.5-14.5) % Plt Count 131 (130-400) K/uL MPV 9.2 (7.2-11.7) fL Neut % (Auto) 83.2 H (50.0-75.0) % Lymph % (Auto) 10.3 L (20.0-40.0) % Starke % (Auto) 5.2 (0.0-10.0) % Eos % (Auto) 0.8 (0.0-4.0) % Baso % (Auto) 0.5 (0.0-2.0) % Neut # (Auto) 8.6 H (1.8-7.0) K/uL Lymph # (Auto) 1.1 (1.0-4.3) K/uL Starke # (Auto) 0.5 (0.0-0.8) K/uL Eos # (Auto) 0.1 (0.0-0.7) K/uL Baso # (Auto) 0.1 (0.0-0.2) K/uL [id number] Inhibitor (68-163) % Activity Sodium 135 (132-148) mmol/L Potassium 3.5 L (3.6-5.2) mmol/L Chloride 97 L (98-107) mmol/L Carbon Dioxide 28 (22-30) mmol/L Anion Gap 14 (10-20) BUN 17 (7-17) mg/dL Creatinine 1.1 (0.7-1.2) mg/dL Est GFR ( Amer) > 60 Est GFR (Non-Af Amer) 51 Random Glucose 104 (65-105) mg/dL Calcium 8.6 (8.6-10.4) mg/dl Phosphorus 4.8 H (2.5-4.5) mg/dL Magnesium 1.6 (1.6-2.3) mg/dL Total Bilirubin 1.2 (0.2-1.3) mg/dL AST 45 H D (14-36) U/L ALT 65 H D (9-52) U/L Alkaline Phosphatase 57 (38-126) U/L Lactate Dehydrogenase 978 H (313-618) U/L Total Protein 6.5 (6.3-8.3) g/dL Albumin 3.8 (3.5-5.0) g/dL Globulin 2.7 (2.2-3.9) gm/dL Albumin/Globulin Ratio 1.4 (1.0-2.1) 07/11/18 Range/Units 08:10 WBC (4.8-10.8) K/uL RBC (3.80-5.20) Mil/uL Hgb (11.0-16.0) g/dL Hct (34.0-47.0) % MCV (81.0-99.0) fL MCH (27.0-31.0) pg MCHC (33.0-37.0) g/dL RDW (11.5-14.5) % Plt Count (130-400) K/uL MPV (7.2-11.7) fL Neut % (Auto) (50.0-75.0) % Lymph % (Auto) (20.0-40.0) % Starke % (Auto) (0.0-10.0) % Eos % (Auto) (0.0-4.0) % Baso % (Auto) (0.0-2.0) % Neut # (Auto) (1.8-7.0) K/uL Lymph # (Auto) (1.0-4.3) K/uL Starke # (Auto) (0.0-0.8) K/uL Eos # (Auto) (0.0-0.7) K/uL Baso # (Auto) (0.0-0.2) K/uL [id number] Inhibitor <3 L* (68-163) % Activity Sodium (132-148) mmol/L Potassium (3.6-5.2) mmol/L Chloride (98-107) mmol/L Carbon Dioxide (22-30) mmol/L Anion Gap (10-20) BUN (7-17) mg/dL Creatinine (0.7-1.2) mg/dL Est GFR ( Amer) Est GFR (Non-Af Amer) Random Glucose (65-105) mg/dL Calcium (8.6-10.4) mg/dl Phosphorus (2.5-4.5) mg/dL Magnesium (1.6-2.3) mg/dL Total Bilirubin (0.2-1.3) mg/dL AST (14-36) U/L ALT (9-52) U/L Alkaline Phosphatase (38-126) U/L Lactate Dehydrogenase (313-618) U/L Total Protein (6.3-8.3) g/dL Albumin (3.5-5.0) g/dL Globulin (2.2-3.9) gm/dL Albumin/Globulin Ratio (1.0-2.1) Laboratory Results - last 24 hr 07/11/18 07/14/18 07/14/18 08:10 06:37 06:37 WBC 10.4 RBC 2.94 L Hgb 8.9 L Hct 25.4 L MCV 86.6 MCH 30.4 MCHC 35.0 RDW 16.9 H Plt Count 131 MPV 9.2 Neut % (Auto) 83.2 H Lymph % (Auto) 10.3 L Starke % (Auto) 5.2 Eos % (Auto) 0.8 Baso % (Auto) 0.5 Neut # (Auto) 8.6 H Lymph # (Auto) 1.1 Starke # (Auto) 0.5 Eos # (Auto) 0.1 Baso # (Auto) 0.1 [id number] Inhibitor <3 L* Sodium Potassium Chloride Carbon Dioxide Anion Gap BUN Creatinine Est GFR ( Amer) Est GFR (Non-Af Amer) Random Glucose Calcium Phosphorus Magnesium Total Bilirubin AST ALT Alkaline Phosphatase Lactate Dehydrogenase 978 H Total Protein Albumin Globulin Albumin/Globulin Ratio 07/14/18 06:37 WBC RBC Hgb Hct MCV MCH MCHC RDW Plt Count MPV Neut % (Auto) Lymph % (Auto) Starke % (Auto) Eos % (Auto) Baso % (Auto) Neut # (Auto) Lymph # (Auto) Starke # (Auto) Eos # (Auto) Baso # (Auto) [id number] Inhibitor Sodium 135 Potassium 3.5 L Chloride 97 L Carbon Dioxide 28 Anion Gap 14 BUN 17 Creatinine 1.1 Est GFR ( Amer) > 60 Est GFR (Non-Af Amer) 51 Random Glucose 104 Calcium 8.6 Phosphorus 4.8 H Magnesium 1.6 Total Bilirubin 1.2 AST 45 H D ALT 65 H D Alkaline Phosphatase 57 Lactate Dehydrogenase Total Protein 6.5 Albumin 3.8 Globulin 2.7 Albumin/Globulin Ratio 1.4 Critical Care Progress Note - Nutrition Nutrition: Nutrition Category Date Time Status Heart Healthy Diet [DIET] Diets 07/14/18 Lunch Active
[2018-07-14] MEDS ORDERED: DiphenhydrAMINE 50 mg/ml Inj IVP STA (16:33)
[2018-07-14] MEDS ORDERED: DiphenhydrAMINE 50 mg/ml Inj IVP PRN (16:33)
[2018-07-14] MEDS ORDERED: DiphenhydrAMINE 50 mg/ml Inj ONE (16:40)
--- NOTE | 2018-07-14 20:34 | OP ---
PROCEDURE DATE: 07/14/2018 PREOPERATIVE DIAGNOSIS: Thrombotic thrombocytopenic purpura, need for plasmapheresis. PROCEDURE CARRIED OUT: Insertion of Perm-A-Cath via right jugular vein with C-arm fluoroscopy and ultrasound-guided puncture. SURGEON: Raymundo Rodriguez Jr., MD ACOUSTIC SENSOR OPERATOR: Brady Moffett DO ANESTHESIOLOGIST: Mr. Lilly INDICATION FOR PROCEDURE: The patient is a middle-aged woman with TTP who requires placement of a catheter for plasmapheresis. OPERATIVE FINDINGS: Catheter was inserted uneventfully via jugular vein. DESCRIPTION OF PROCEDURE: The patient was given local anesthesia. Using ultrasound guidance and micropuncture technique, the right jugular vein was cannulated. Under fluoroscopic control, this was exchanged with an 0.035 wire. Sheath dilator was passed over this, and the catheter was positioned originating on the right chest wall, going to the jugular vein and terminating in the superior vena cava. It was flushed with heparinized saline with good return. The procedure was then terminated. Ultrasound imaging of the neck showed the vein was 13 mm in diameter with normal compressibility and no intraluminal thrombosis. Raymundo Rodriguez Jr., MD cc: Tali Blount MD
[2018-07-14] MEDS: MethylPREDNISolone 40 mg Vial IV SCH (21:43)
--- NOTE | 2018-07-14 22:40 | CP.PCM.PN ---
Subjective - Date & Time of Evaluation Date of Evaluation: 07/14/18 Time of Evaluation: 19:00 - Subjective Subjective: Feeling better [id number] noted low with positive inhibitor will start steroids continue daily plasma exchange please avoid plavix as can cause TTP if cardiac cath non emergent; would recommend holding until TTP resolves Objective - Vital Signs/Intake and Output Vital Signs (last 24 hours): Temp Pulse Resp BP Pulse Ox 98.2 F 82 19 92/58 L 99 07/14/18 17:03 07/14/18 18:00 07/14/18 18:00 07/14/18 18:00 07/14/18 18:00 Intake and Output: 07/14/18 07/15/18 18:59 06:59 Intake Total 1430 600 Output Total 1930 200 Balance -500 400 - Medications Medications: Current Medications Albuterol (Ventolin Hfa 90 Mcg/Actuation (8 G)) 2 puff IH RQ6 PRN PRN Reason: Shortness of Breath Aspirin (Aspirin Chewable) 81 mg PO DAILY [facility] Diphenhydramine HCl (Benadryl) 50 mg IVP DAILY PRN PRN Reason: Other Guaifenesin (Robitussin) 100 mg PO Q4H PRN PRN Reason: Cough Hydrochlorothiazide (Microzide) 12.5 mg PO BID [facility] Last Admin: 07/14/18 19:23 Dose: Not Given Levothyroxine Sodium (Synthroid) 50 mcg PO DAILY@0630 [facility] Last Admin: 07/14/18 06:01 Dose: 50 mcg Lisinopril (Zestril) 10 mg PO BID [facility] Last Admin: 07/14/18 19:24 Dose: Not Given Methylprednisolone (Solu-Medrol) 30 mg IV Q12 [facility] Last Admin: 07/14/18 21:43 Dose: 30 mg Montelukast Sodium (Singulair) 10 mg PO HS [facility] Last Admin: 07/14/18 21:43 Dose: 10 mg Pantoprazole Sodium (Protonix Ec Tab) 40 mg PO DAILY [facility] Last Admin: 07/14/18 10:06 Dose: Not Given - Labs Labs: 07/14/18 06:37 07/14/18 06:37 PT 12.0 SECONDS (9.7-12.2) 07/10/18 10:23 INR 1.1 12/03/18 10:23 APTT 29 SECONDS (21-34) 07/10/18 10:23 - Head Exam Head Exam: ATRAUMATIC - Eye Exam Eye Exam: Normal appearance - ENT Exam ENT Exam: Mucous Membranes Dry - Respiratory Exam Respiratory Exam: NORMAL BREATHING PATTERN - Cardiovascular Exam Cardiovascular Exam: +S1, +S2 - GI/Abdominal Exam GI & Abdominal Exam: Normal Bowel Sounds Assessment and Plan (1) TTP (thrombotic thrombocytopenic purpura) Status: Acute
--- NOTE | 2018-07-14 22:44 | CP.PCM.PN ---
Subjective - Date & Time of Evaluation Date of Evaluation: 07/13/18 Time of Evaluation: 16:00 - Subjective Subjective: Feeling better Objective - Vital Signs/Intake and Output Vital Signs (last 24 hours): Temp Pulse Resp BP Pulse Ox 98.2 F 82 19 92/58 L 99 07/14/18 17:03 07/14/18 18:00 07/14/18 18:00 07/14/18 18:00 07/14/18 18:00 Intake and Output: 07/14/18 07/15/18 18:59 06:59 Intake Total 1430 600 Output Total 1930 200 Balance -500 400 - Medications Medications: Current Medications Albuterol (Ventolin Hfa 90 Mcg/Actuation (8 G)) 2 puff IH RQ6 PRN PRN Reason: Shortness of Breath Aspirin (Aspirin Chewable) 81 mg PO DAILY [facility] Diphenhydramine HCl (Benadryl) 50 mg IVP DAILY PRN PRN Reason: Other Guaifenesin (Robitussin) 100 mg PO Q4H PRN PRN Reason: Cough Hydrochlorothiazide (Microzide) 12.5 mg PO BID [facility] Last Admin: 07/14/18 19:23 Dose: Not Given Levothyroxine Sodium (Synthroid) 50 mcg PO DAILY@0630 [facility] Last Admin: 07/14/18 06:01 Dose: 50 mcg Lisinopril (Zestril) 10 mg PO BID [facility] Last Admin: 07/14/18 19:24 Dose: Not Given Methylprednisolone (Solu-Medrol) 30 mg IV Q12 [facility] Last Admin: 07/14/18 21:43 Dose: 30 mg Montelukast Sodium (Singulair) 10 mg PO HS [facility] Last Admin: 07/14/18 21:43 Dose: 10 mg Pantoprazole Sodium (Protonix Ec Tab) 40 mg PO DAILY [facility] Last Admin: 07/14/18 10:06 Dose: Not Given - Labs Labs: 07/14/18 06:37 07/14/18 06:37 PT 12.0 SECONDS (9.7-12.2) 07/10/18 10:23 INR 1.1 07/10/18 10:23 APTT 29 SECONDS (21-34) 07/10/18 10:23 - Head Exam Head Exam: ATRAUMATIC - Eye Exam Eye Exam: Normal appearance - ENT Exam ENT Exam: Mucous Membranes Dry - Respiratory Exam Respiratory Exam: NORMAL BREATHING PATTERN - Cardiovascular Exam Cardiovascular Exam: +S1, +S2 - GI/Abdominal Exam GI & Abdominal Exam: Normal Bowel Sounds Assessment and Plan (1) TTP (thrombotic thrombocytopenic purpura) Assessment & Plan: diopathic and recurrent since 04/2018 plasma exchange daily f/u [id number] level and inhibitor screen Status: Acute
[2018-07-15 05:46] LABS: BASO % 0.3 % (0.0-2.0); LYMPH # 0.4 K/uL (1.0-4.3); LYMPH % 7.4 % (20.0-40.0); MEAN CELL VOLUME 87.2 fL (81.0-99.0); MEAN CORPUSCULAR HEMOGLOBIN 29.9 pg (27.0-31.0); MEAN CORPUSCULAR HGB CONC 34.3 g/dL (33.0-37.0); MONO # 0.1 K/uL (0.0-0.8); NEUT # 5.4 K/uL (1.8-7.0); NEUT % 90.3 % (50.0-75.0); PLATELET COUNT 182 K/uL (130-400)
[2018-07-15 06:39] LABS: ALB/GLOB RATIO 1.4 (1.0-2.1); ALBUMIN 3.9 g/dL (3.5-5.0); ALT/SGPT 42 U/L (9-52); AST/SGOT 30 U/L (14-36); BLOOD UREA NITROGEN 19 mg/dL (7-17); CALCIUM 8.4 mg/dl (8.6-10.4); GFR NON-AFRICAN AMERICAN > 60
[2018-07-15] MEDS: Levothyroxine 50 MCG TAB PO SCH (07:49)
--- NOTE | 2018-07-15 08:36 | CP.PCM.PN ---
Subjective - Date & Time of Evaluation Date of Evaluation: 07/15/18 Time of Evaluation: 08:33 - Subjective Subjective: Vascular Surgery Progress Note for Dr. Rodriguez This 62F was seen and examined this AM at bedside no acute events overnight. She denies any chest pain or SOB. She reports soreness at the permacath insertion site. No new complaints at this time. Objective - Vital Signs/Intake and Output Vital Signs (last 24 hours): Temp Pulse Resp BP Pulse Ox 98.3 F 89 20 102/56 L 98 07/15/18 07:50 07/14/18 22:00 07/14/18 22:00 07/14/18 22:00 07/14/18 22:00 Intake and Output: 07/15/18 07/15/18 06:59 18:59 Intake Total 1000 Output Total 800 Balance 200 - Medications Medications: Current Medications Albuterol (Ventolin Hfa 90 Mcg/Actuation (8 G)) 2 puff IH RQ6 PRN PRN Reason: Shortness of Breath Aspirin (Aspirin Chewable) 81 mg PO DAILY [facility] Diphenhydramine HCl (Benadryl) 50 mg IVP DAILY PRN PRN Reason: Other Guaifenesin (Robitussin) 100 mg PO Q4H PRN PRN Reason: Cough Hydrochlorothiazide (Microzide) 12.5 mg PO BID [facility] Last Admin: 07/14/18 19:23 Dose: Not Given Levothyroxine Sodium (Synthroid) 50 mcg PO DAILY@0630 [facility] Last Admin: 07/15/18 07:49 Dose: 50 mcg Lisinopril (Zestril) 10 mg PO BID [facility] Last Admin: 07/14/18 19:24 Dose: Not Given Methylprednisolone (Solu-Medrol) 30 mg IV Q12 [facility] Last Admin: 07/14/18 21:43 Dose: 30 mg Montelukast Sodium (Singulair) 10 mg PO HS [facility] Last Admin: 07/14/18 21:43 Dose: 10 mg Pantoprazole Sodium (Protonix Ec Tab) 40 mg PO DAILY [facility] Last Admin: 07/14/18 10:06 Dose: Not Given - Labs Labs: 07/15/18 05:34 07/15/18 05:34 PT 12.0 SECONDS (9.7-12.2) 07/10/18 10:23 INR 1.1 07/10/18 10:23 APTT 29 SECONDS (21-34) 07/10/18 10:23 - Constitutional Appears: Non-toxic, No Acute Distress - Head Exam Head Exam: ATRAUMATIC, NORMOCEPHALIC - Eye Exam Eye Exam: EOMI - ENT Exam ENT Exam: Mucous Membranes Moist - Neck Exam Additional comments: No hematoma, dressing clean dry and intact - Respiratory Exam Respiratory Exam: NORMAL BREATHING PATTERN - Cardiovascular Exam Cardiovascular Exam: +S1, +S2 - GI/Abdominal Exam GI & Abdominal Exam: Soft. absent: Firm, Guarding, Rigid, Tenderness - Neurological Exam Neurological Exam: Alert, Awake - Psychiatric Exam Psychiatric exam: Normal Affect, Normal Mood - Skin Skin Exam: Dry, Intact Assessment and Plan - Assessment and Plan (Free Text) Assessment: 62F POD 1 S/P right IJ permacath placement and doing well No more surgical management at this time Thank you for the interesting consult. D/W Dr. Jennifer Vogt PGY3
[2018-07-15 08:41] LABS: LYMPHOCYTE 6 % (20-40); MONOCYTE 2 % (0-10); NEUTROPHIL 92 % (50-75); PLATELET ESTIMATE NORMAL (NORMAL); TOTAL CELLS COUNTED 100
[2018-07-15 08:42] LABS: ANISOCYTOSIS MODERATE; GIANT PLATELETS PRESENT; HYPOCHROMIC SLIGHT; LARGE PLATELETS PRESENT; POIKILOCYTOSIS MODERATE; POLYCHROMIC SLIGHT; SCHISTOCYTES MODERATE
[2018-07-15 08:43] LABS: OVALOCYTES SLIGHT
[2018-07-15 08:44] LABS: TOXIC GRANULATION PRESENT
[2018-07-15] MEDS: DiphenhydrAMINE 50 mg/ml Inj IVP PRN (09:00)
[2018-07-15] MEDS: Pantoprazole 40 mg EC Tab PO SCH (12:39)
[2018-07-15] MEDS: Calcium-Vit D 250 mg-125 Units Tab UD PO SCH ×2 (12:39→17:34)
[2018-07-15] MEDS: MethylPREDNISolone 40 mg Vial IV SCH ×2 (12:42→21:16)
--- NOTE | 2018-07-15 21:36 | CP.PCM.PN ---
Subjective - Date & Time of Evaluation Date of Evaluation: 07/15/18 Time of Evaluation: 18:30 - Subjective Subjective: Feeling better Objective - Vital Signs/Intake and Output Vital Signs (last 24 hours): Temp Pulse Resp BP Pulse Ox 98.3 F 89 20 102/56 L 98 07/15/18 07:50 07/14/18 22:00 07/14/18 22:00 07/14/18 22:00 07/14/18 22:00 - Medications Medications: Current Medications Albuterol (Ventolin Hfa 90 Mcg/Actuation (8 G)) 2 puff IH RQ6 PRN PRN Reason: Shortness of Breath Aspirin (Aspirin Chewable) 81 mg PO DAILY [facility] Last Admin: 07/15/18 12:39 Dose: 81 mg Calcium/Vitamin D (Oscal-D 250 Mg-125 Units Tab) 1 tab PO BID [facility] Last Admin: 07/15/18 17:34 Dose: 1 tab Diphenhydramine HCl (Benadryl) 50 mg IVP DAILY PRN PRN Reason: Other Last Admin: 07/15/18 09:00 Dose: 50 mg Guaifenesin (Robitussin) 100 mg PO Q4H PRN PRN Reason: Cough Hydrochlorothiazide (Microzide) 12.5 mg PO BID [facility] Last Admin: 07/15/18 17:35 Dose: 12.5 mg Levothyroxine Sodium (Synthroid) 50 mcg PO DAILY@0630 [facility] Last Admin: 07/15/18 07:49 Dose: 50 mcg Lisinopril (Zestril) 10 mg PO BID [facility] Last Admin: 07/15/18 17:35 Dose: 10 mg Methylprednisolone (Solu-Medrol) 30 mg IV Q12 [facility] Last Admin: 07/15/18 21:16 Dose: 30 mg Montelukast Sodium (Singulair) 10 mg PO HS [facility] Last Admin: 07/15/18 21:16 Dose: 10 mg Pantoprazole Sodium (Protonix Ec Tab) 40 mg PO DAILY [facility] Last Admin: 07/15/18 12:39 Dose: 40 mg - Labs Labs: 07/15/18 05:34 07/15/18 05:34 PT 12.0 SECONDS (9.7-12.2) 07/10/18 10:23 INR 1.1 07/10/18 10:23 APTT 29 SECONDS (21-34) 07/10/18 10:23 - Head Exam Head Exam: ATRAUMATIC - ENT Exam ENT Exam: Mucous Membranes Dry - Respiratory Exam Respiratory Exam: NORMAL BREATHING PATTERN - Cardiovascular Exam Cardiovascular Exam: +S1, +S2 - GI/Abdominal Exam GI & Abdominal Exam: Normal Bowel Sounds Assessment and Plan (1) TTP (thrombotic thrombocytopenic purpura) Assessment & Plan: [id number] noted low with positive inhibitor will start steroids continue daily plasma exchange please avoid plavix as can cause TTP cleared from hematology standpoint for further cardiac work up Status: Acute
--- NOTE | 2018-07-15 22:46 | CP.PCM.PN ---
Subjective - Date & Time of Evaluation Date of Evaluation: 07/15/18 Time of Evaluation: 11:15 - Subjective Subjective: Patient was seen and examined. Denies chest pain and dyspnea Physical Examination - Constitutional Appears: No Acute Distress - Head Exam Head Exam: NORMAL INSPECTION, NORMOCEPHALIC - Eye Exam Eye Exam: EOMI, Normal appearance - ENT Exam ENT Exam: Mucous Membranes Moist - Respiratory Exam Respiratory Exam: Clear to Ausculation Bilateral, NORMAL BREATHING PATTERN - Cardiovascular Exam Cardiovascular Exam: REGULAR RHYTHM, +S1, +S2 - GI/Abdominal Exam GI & Abdominal Exam: Soft, Normal Bowel Sounds. absent: Tenderness, Diminished Bowel Sounds - Neurological Exam Neurological Exam: Alert, Awake, Oriented x3 - Psychiatric Exam Psychiatric exam: Normal Affect, Normal Mood - Skin Skin Exam: Dry, Intact, Normal Color, Warm Assessment and Plan - Assessment and Plan (Free Text) Plan: TTP NSTEMI Imaging: - EKG: No ST changes noted - ECHO: Normal LVEF, small pericardial effusion noted, repeat ECHO in 3 months or sooner if patient is symptomatic - Cardiac cath when patient medically stable and cleared by heme/onc Management: - Continue with O2, BB, statins and nitrates needed for chest pain - As per heme/onc, can start aspirin only - Patient will complete series of plasma exchange, possible cath afterwards if medically stable Objective - Vital Signs/Intake and Output Vital Signs (last 24 hours): Temp Pulse Resp BP Pulse Ox 98.3 F 79 17 114/66 100 07/15/18 07:50 07/15/18 22:00 07/15/18 22:00 07/15/18 21:52 07/15/18 22:00 - Medications Medications: Current Medications Albuterol (Ventolin Hfa 90 Mcg/Actuation (8 G)) 2 puff IH RQ6 PRN PRN Reason: Shortness of Breath Aspirin (Aspirin Chewable) 81 mg PO DAILY [facility] Last Admin: 07/15/18 12:39 Dose: 81 mg Calcium/Vitamin D (Oscal-D 250 Mg-125 Units Tab) 1 tab PO BID [facility] Last Admin: 07/15/18 17:34 Dose: 1 tab Diphenhydramine HCl (Benadryl) 50 mg IVP DAILY PRN PRN Reason: Other Last Admin: 07/15/18 09:00 Dose: 50 mg Guaifenesin (Robitussin) 100 mg PO Q4H PRN PRN Reason: Cough Hydrochlorothiazide (Microzide) 12.5 mg PO BID [facility] Last Admin: 07/15/18 17:35 Dose: 12.5 mg Levothyroxine Sodium (Synthroid) 50 mcg PO DAILY@0630 [facility] Last Admin: 07/15/18 07:49 Dose: 50 mcg Lisinopril (Zestril) 10 mg PO BID [facility] Last Admin: 07/15/18 17:35 Dose: 10 mg Methylprednisolone (Solu-Medrol) 30 mg IV Q12 [facility] Last Admin: 07/15/18 21:16 Dose: 30 mg Montelukast Sodium (Singulair) 10 mg PO HS [facility] Last Admin: 07/15/18 21:16 Dose: 10 mg Pantoprazole Sodium (Protonix Ec Tab) 40 mg PO DAILY [facility] Last Admin: 07/15/18 12:39 Dose: 40 mg - Labs Labs: 07/15/18 05:34 07/15/18 05:34 PT 12.0 SECONDS (9.7-12.2) 07/10/18 10:23 INR 1.1 07/10/18 10:23 APTT 29 SECONDS (21-34) 07/10/18 10:23
[2018-07-16 05:45] LABS: BASO % 0.1 % (0.0-2.0); HEMOGLOBIN 8.7 g/dL (11.0-16.0); LYMPH # 1.1 K/uL (1.0-4.3); LYMPH % 11.7 % (20.0-40.0); MEAN CELL VOLUME 86.7 fL (81.0-99.0); MEAN CORPUSCULAR HGB CONC 33.4 g/dL (33.0-37.0); MEAN PLATELET VOLUME 8.9 fL (7.2-11.7); MONO # 0.3 K/uL (0.0-0.8); MONO % 3.5 % (0.0-10.0); NEUT # 8.3 K/uL (1.8-7.0); NEUT % 84.7 % (50.0-75.0); RBC 3.02 Mil/uL (3.80-5.20); RED CELL DISTRIBUTION WIDTH 16.8 % (11.5-14.5); WHITE BLOOD COUNT 9.7 K/uL (4.8-10.8)
[2018-07-16 06:06] LABS: ALB/GLOB RATIO 1.5 (1.0-2.1); ALBUMIN 4.2 g/dL (3.5-5.0); ALT/SGPT 39 U/L (9-52); AST/SGOT 27 U/L (14-36); BLOOD UREA NITROGEN 17 mg/dL (7-17); CALCIUM 9.8 mg/dl (8.6-10.4); GFR NON-AFRICAN AMERICAN > 60
[2018-07-16] MEDS: Levothyroxine 50 MCG TAB PO SCH (06:26)
[2018-07-16] MEDS: Pantoprazole 40 mg EC Tab PO SCH (09:20)
[2018-07-16] MEDS: MethylPREDNISolone 40 mg Vial IV SCH ×2 (09:20→22:20)
[2018-07-16] MEDS: Calcium-Vit D 250 mg-125 Units Tab UD PO SCH ×2 (09:20→18:28)
--- NOTE | 2018-07-16 11:51 | CP.PCM.PN ---
Subjective - Date & Time of Evaluation Date of Evaluation: 07/16/18 Time of Evaluation: 11:50 - Subjective Subjective: Will monitor platelets tomorrow, If stable Cardiac cath Tuesday Non STEMI Stable Objective - Vital Signs/Intake and Output Vital Signs (last 24 hours): Temp Pulse Resp BP Pulse Ox 97.8 F 86 21 112/73 100 07/16/18 06:00 07/16/18 09:19 07/16/18 09:19 07/16/18 09:19 07/16/18 09:19 Intake and Output: 07/16/18 07/16/18 06:59 18:59 Intake Total 400 Output Total 600 Balance -200 - Medications Medications: Current Medications Albuterol (Ventolin Hfa 90 Mcg/Actuation (8 G)) 2 puff IH RQ6 PRN PRN Reason: Shortness of Breath Aspirin (Aspirin Chewable) 81 mg PO DAILY [facility] Last Admin: 07/16/18 09:20 Dose: 81 mg Calcium/Vitamin D (Oscal-D 250 Mg-125 Units Tab) 1 tab PO BID [facility] Last Admin: 07/16/18 09:20 Dose: 1 tab Diphenhydramine HCl (Benadryl) 50 mg IVP DAILY PRN PRN Reason: Other Last Admin: 07/15/18 09:00 Dose: 50 mg Guaifenesin (Robitussin) 100 mg PO Q4H PRN PRN Reason: Cough Hydrochlorothiazide (Microzide) 12.5 mg PO BID [facility] Last Admin: 07/16/18 09:20 Dose: 12.5 mg Levothyroxine Sodium (Synthroid) 50 mcg PO DAILY@0630 [facility] Last Admin: 07/16/18 06:26 Dose: 50 mcg Lisinopril (Zestril) 10 mg PO BID [facility] Last Admin: 07/16/18 09:20 Dose: 10 mg Methylprednisolone (Solu-Medrol) 30 mg IV Q12 [facility] Last Admin: 07/16/18 09:20 Dose: 30 mg Montelukast Sodium (Singulair) 10 mg PO HS [facility] Last Admin: 07/15/18 21:16 Dose: 10 mg Pantoprazole Sodium (Protonix Ec Tab) 40 mg PO DAILY [facility] Last Admin: 07/16/18 09:20 Dose: 40 mg - Labs Labs: 07/16/18 05:40 07/16/18 05:40 PT 12.0 SECONDS (9.7-12.2) 07/10/18 10:23 INR 1.1 07/10/18 10:23 APTT 29 SECONDS (21-34) 07/10/18 10:23
[2018-07-17] MEDS: Levothyroxine 50 MCG TAB PO SCH (06:25)
[2018-07-17 06:31] LABS: BASO % 0.1 % (0.0-2.0); HEMOGLOBIN 8.6 g/dL (11.0-16.0); LYMPH # 1.4 K/uL (1.0-4.3); LYMPH % 10.8 % (20.0-40.0); MEAN CELL VOLUME 86.2 fL (81.0-99.0); MEAN CORPUSCULAR HEMOGLOBIN 28.6 pg (27.0-31.0); MEAN CORPUSCULAR HGB CONC 33.2 g/dL (33.0-37.0); MEAN PLATELET VOLUME 8.3 fL (7.2-11.7); MONO # 0.3 K/uL (0.0-0.8); MONO % 2.2 % (0.0-10.0); NEUT # 10.9 K/uL (1.8-7.0); NEUT % 86.9 % (50.0-75.0); RBC 3.02 Mil/uL (3.80-5.20); RED CELL DISTRIBUTION WIDTH 16.8 % (11.5-14.5); WHITE BLOOD COUNT 12.6 K/uL (4.8-10.8)
[2018-07-17 06:52] LABS: ALB/GLOB RATIO 1.6 (1.0-2.1); ALT/SGPT 36 U/L (9-52); AST/SGOT 29 U/L (14-36); BLOOD UREA NITROGEN 22 mg/dL (7-17); CALCIUM 9.3 mg/dl (8.6-10.4); GFR NON-AFRICAN AMERICAN > 60
[2018-07-17] MEDS: DiphenhydrAMINE 50 mg/ml Inj IVP PRN (08:50)
--- NOTE | 2018-07-17 09:27 | CP.PCM.PN ---
<Fadia Massey - Last Filed: 07/17/18 09:25> Subjective - Date & Time of Evaluation Date of Evaluation: 07/17/18 Time of Evaluation: 09:25 - Subjective Subjective: Cardiology Follow Up Patient was seen and examined at bedside. Patient report she feels back to baseline. Denied any chest pain, shortness of breath, palpitations, dizziness, or light headedness. Objective - Vital Signs/Intake and Output Vital Signs (last 24 hours): Temp Pulse Resp BP Pulse Ox 97.2 F L 102 H 14 114/59 L 98 07/17/18 08:00 07/17/18 08:17 07/17/18 06:00 07/17/18 04:01 07/17/18 08:00 Intake and Output: 07/17/18 07/17/18 06:59 18:59 Intake Total 720 Output Total 2050 Balance -1330 - Medications Medications: Current Medications Albuterol (Ventolin Hfa 90 Mcg/Actuation (8 G)) 2 puff IH RQ6 PRN PRN Reason: Shortness of Breath Aspirin (Aspirin Chewable) 81 mg PO DAILY [facility] Last Admin: 07/16/18 09:20 Dose: 81 mg Calcium/Vitamin D (Oscal-D 250 Mg-125 Units Tab) 1 tab PO BID [facility] Last Admin: 07/16/18 18:28 Dose: 1 tab Diphenhydramine HCl (Benadryl) 50 mg IVP DAILY PRN PRN Reason: Other Last Admin: 07/17/18 08:50 Dose: 50 mg Guaifenesin (Robitussin) 100 mg PO Q4H PRN PRN Reason: Cough Hydrochlorothiazide (Microzide) 12.5 mg PO BID [facility] Last Admin: 07/16/18 17:51 Dose: 12.5 mg Calcium Gluconate 4.65 meq/ (Sodium Chloride) 110 mls @ 100 mls/hr IV ONCE ONE Stop: 07/17/18 09:37 Last Admin: 07/17/18 08:51 Dose: 100 mls/hr Levothyroxine Sodium (Synthroid) 50 mcg PO DAILY@0630 [facility] Last Admin: 07/17/18 06:25 Dose: 50 mcg Lisinopril (Zestril) 10 mg PO BID [facility] Last Admin: 07/16/18 17:53 Dose: 10 mg Methylprednisolone (Solu-Medrol) 30 mg IV Q12 [facility] Last Admin: 07/16/18 22:20 Dose: 30 mg Montelukast Sodium (Singulair) 10 mg PO HS [facility] Last Admin: 07/16/18 22:20 Dose: 10 mg Pantoprazole Sodium (Protonix Ec Tab) 40 mg PO DAILY [facility] Last Admin: 07/16/18 09:20 Dose: 40 mg - Labs Labs: 07/17/18 06:24 07/17/18 06:24 PT 12.0 SECONDS (9.7-12.2) 07/10/18 10:23 INR 1.1 07/10/18 10:23 APTT 29 SECONDS (21-34) 07/10/18 10:23 - Additional Findings Additional findings: - Constitutional Appears: No Acute Distress - Head Exam Head Exam: NORMAL INSPECTION, NORMOCEPHALIC - Eye Exam Eye Exam: EOMI, Normal appearance - ENT Exam ENT Exam: Mucous Membranes Moist - Respiratory Exam Respiratory Exam: Clear to Ausculation Bilateral, NORMAL BREATHING PATTERN - Cardiovascular Exam Cardiovascular Exam: REGULAR RHYTHM, +S1, +S2 - GI/Abdominal Exam GI & Abdominal Exam: Soft, Normal Bowel Sounds. absent: Tenderness, Diminished Bowel Sounds - Neurological Exam Neurological Exam: Alert, Awake, Oriented x3 - Psychiatric Exam Psychiatric exam: Normal Affect, Normal Mood - Skin Skin Exam: Dry, Intact, Normal Color, Warm Assessment and Plan - Assessment and Plan (Free Text) Plan: TTP NSTEMI Imaging: - EKG: No ST changes noted - ECHO: Normal LVEF, small pericardial effusion noted, repeat ECHO in 3 months or sooner if patient is symptomatic Management: - Continue with O2, BB, statins and nitrates needed for chest pain - As per heme/onc, can start aspirin only - Cardiac cath scheduled for 07/18/18 at 2pm Case discussed with Fadia Nevarez DO, PGY2 <Rakesh Little - Last Filed: 07/17/18 21:32> Objective - Vital Signs/Intake and Output Vital Signs (last 24 hours): Temp Pulse Resp BP Pulse Ox 98.2 F 83 12 118/63 100 07/17/18 16:00 07/17/18 18:00 07/17/18 18:00 07/17/18 17:57 07/17/18 17:57 Intake and Output: 07/17/18 07/18/18 18:59 06:59 Intake Total 1050 Output Total 1450 Balance -400 - Medications Medications: Current Medications Albuterol (Ventolin Hfa 90 Mcg/Actuation (8 G)) 2 puff IH RQ6 PRN PRN Reason: Shortness of Breath Aspirin (Aspirin Chewable) 81 mg PO DAILY [facility] Last Admin: 07/17/18 11:22 Dose: 81 mg Calcium/Vitamin D (Oscal-D 250 Mg-125 Units Tab) 1 tab PO BID [facility] Last Admin: 07/17/18 17:56 Dose: 1 tab Diphenhydramine HCl (Benadryl) 50 mg IVP DAILY PRN PRN Reason: Other Last Admin: 07/17/18 08:50 Dose: 50 mg Guaifenesin (Robitussin) 100 mg PO Q4H PRN PRN Reason: Cough Hydrochlorothiazide (Microzide) 12.5 mg PO BID [facility] Last Admin: 07/17/18 17:56 Dose: 12.5 mg Levothyroxine Sodium (Synthroid) 50 mcg PO DAILY@0630 [facility] Last Admin: 07/17/18 06:25 Dose: 50 mcg Lisinopril (Zestril) 10 mg PO BID [facility] Last Admin: 07/17/18 17:56 Dose: 10 mg Methylprednisolone (Solu-Medrol) 30 mg IV Q12 [facility] Last Admin: 07/17/18 11:38 Dose: 30 mg Montelukast Sodium (Singulair) 10 mg PO HS [facility] Last Admin: 07/16/18 22:20 Dose: 10 mg Pantoprazole Sodium (Protonix Ec Tab) 40 mg PO DAILY [facility] Last Admin: 07/17/18 11:22 Dose: 40 mg - Labs Labs: 07/17/18 06:24 07/17/18 06:24 PT 12.0 SECONDS (9.7-12.2) 07/10/18 10:23 INR 1.1 07/10/18 10:23 APTT 29 SECONDS (21-34) 07/10/18 10:23 Assessment and Plan - Assessment and Plan (Free Text) Plan: Patient seen and evaluated personally by me Plan of care d/w the resident and as documented
[2018-07-17] MEDS ORDERED: Magnesium Sulfate 1 gm in D5W 1 GM/100 ML BAG IVPB ONE (09:44)
[2018-07-17] MEDS: Pantoprazole 40 mg EC Tab PO SCH (11:22)
[2018-07-17] MEDS: Calcium-Vit D 250 mg-125 Units Tab UD PO SCH ×2 (11:22→17:56)
[2018-07-17] MEDS: MethylPREDNISolone 40 mg Vial IV SCH ×2 (11:38→21:54)
[2018-07-18] MEDS: Levothyroxine 50 MCG TAB PO SCH (05:38)
[2018-07-18 06:11] LABS: BASO % 0.3 % (0.0-2.0); HEMOGLOBIN 9.4 g/dL (11.0-16.0); LYMPH % 14.8 % (20.0-40.0); MEAN CELL VOLUME 88.6 fL (81.0-99.0); MEAN CORPUSCULAR HGB CONC 33.9 g/dL (33.0-37.0); MEAN PLATELET VOLUME 8.6 fL (7.2-11.7); MONO # 0.5 K/uL (0.0-0.8); MONO % 3.5 % (0.0-10.0); NEUT % 81.4 % (50.0-75.0); NRBC % 0.1 % (0.0-2.0); RBC 3.13 Mil/uL (3.80-5.20); RED CELL DISTRIBUTION WIDTH 16.7 % (11.5-14.5); WHITE BLOOD COUNT 13.5 K/uL (4.8-10.8)
[2018-07-18 06:38] LABS: ALB/GLOB RATIO 1.6 (1.0-2.1); ALBUMIN 4.1 g/dL (3.5-5.0); ALT/SGPT 95 U/L (9-52); AST/SGOT 80 U/L (14-36); BLOOD UREA NITROGEN 22 mg/dL (7-17); CALCIUM 9.1 mg/dl (8.6-10.4); GFR NON-AFRICAN AMERICAN > 60
[2018-07-18] MEDS: MethylPREDNISolone 40 mg Vial IV SCH ×2 (10:40→21:55)
[2018-07-18] MEDS: Pantoprazole 40 mg EC Tab PO SCH (10:41)
[2018-07-18] MEDS: Calcium-Vit D 250 mg-125 Units Tab UD PO SCH ×2 (10:41→18:34)
--- NOTE | 2018-07-18 12:33 | VASCLAB ---
Date of service: 07/16/2018 PROCEDURE: Lower Extremity Venous Duplex Exam. HISTORY: r/o dvt B/L LE Edema PRIORS: None. TECHNIQUE: Bilateral common femoral, femoral, popliteal and posterior tibial, peroneal and great saphenous veins were evaluated. Flow was assessed with color Doppler, compressibility, assessment of phasic flow and augmentation response. Report prepared by Dougie Bach, T FINDINGS: RIGHT: 1. Common Femoral Vein: 1.1. Compressibility - Fully compressible: Thrombus - None : Flow - Phasic: Augmentation -Normal: Reflux - . 2. Femoral Vein: 2.1. Compressibility - Fully compressible: Thrombus - None : Flow - Phasic: Augmentation -Normal: Reflux - . 3. Popliteal Vein: 3.1. Compressibility - Fully compressible: Thrombus - None : Flow - Phasic: Augmentation -Normal: Reflux - . 4. Posterior Tibial Vein: 4.1. Compressibility - Fully compressible: Thrombus - None: Flow - Phasic: Augmentation -Normal: Reflux - . 5. Peroneal Vein: 5.1. Compressibility - Fully compressible: Thrombus - None: Flow - Phasic: Augmentation -Normal: Reflux - . 6. Great Saphenous Vein: 6.1. Compressibility - Fully compressible: Thrombus - None: Flow - Phasic: Augmentation - Normal: Reflux - . LEFT: 1. Common Femoral Vein: 1.1. Compressibility - Fully compressible: Thrombus - None: Flow - Phasic: Augmentation -Normal: Reflux - . 2. Femoral Vein: 2.1. Compressibility - Fully compressible: Thrombus - None: Flow - Phasic: Augmentation -Normal: Reflux - . 3. Popliteal Vein: 3.1. Compressibility - Fully compressible: Thrombus - None : Flow - Phasic: Augmentation -Normal: Reflux - . 4. Posterior Tibial Vein: 4.1. Compressibility - Fully compressible: Thrombus - None: Flow - Phasic: Augmentation -Normal: Reflux - . 5. Peroneal Vein: 5.1. Compressibility - Fully compressible: Thrombus - None: Flow - Phasic: Augmentation -Normal: Reflux - None. 6. Great Saphenous Vein: 6.1. Compressibility - Fully compressible: Thrombus - None: Flow - Phasic: Augmentation - Normal: Reflux - . OTHER FINDINGS: Right: None significant. Left: None significant. IMPRESSION: Right: No evidence of deep or superficial vein thrombosis of the right lower extremity. Left: No evidence of deep or superficial vein thrombosis of the left lower extremity.
[2018-07-18] MEDS ORDERED: Midazolam 2 MG/2 ML VIAL ONE (13:55)
[2018-07-18] MEDS ORDERED: Verapamil 2 ML ONE (14:21)
[2018-07-18] MEDS ORDERED: Nitroglycerin 50mg in D5W 50 MG/250 ML BOTTLE IV ONE (14:22)
[2018-07-18] MEDS ORDERED: DiphenhydrAMINE 50 mg/ml Inj ONE (14:32)
--- NOTE | 2018-07-18 15:13 | CP.PCM.PN ---
Subjective - Date & Time of Evaluation Date of Evaluation: 07/18/18 Time of Evaluation: 15:12 - Subjective Subjective: Patient s/p cath 1. Normal Coronaries 2. Normal EF Medical management D/C ASA Recommend GI prophylaxis OOB to ambulate after 4 hrs Objective - Vital Signs/Intake and Output Vital Signs (last 24 hours): Temp Pulse Resp BP Pulse Ox 98.1 F 83 20 122/73 99 07/18/18 07:00 07/18/18 07:00 07/18/18 07:00 07/18/18 07:00 07/18/18 07:00 Intake and Output: 07/18/18 07/18/18 06:59 18:59 Intake Total 200 Output Total 300 Balance -100 - Medications Medications: Current Medications Albuterol (Ventolin Hfa 90 Mcg/Actuation (8 G)) 2 puff IH RQ6 PRN PRN Reason: Shortness of Breath Aspirin (Aspirin Chewable) 81 mg PO DAILY [facility] Last Admin: 07/18/18 10:41 Dose: 81 mg Calcium/Vitamin D (Oscal-D 250 Mg-125 Units Tab) 1 tab PO BID [facility] Last Admin: 07/18/18 10:41 Dose: 1 tab Diphenhydramine HCl (Benadryl) 50 mg IVP DAILY PRN PRN Reason: Other Last Admin: 07/17/18 08:50 Dose: 50 mg Guaifenesin (Robitussin) 100 mg PO Q4H PRN PRN Reason: Cough Hydrochlorothiazide (Microzide) 12.5 mg PO BID [facility] Last Admin: 07/18/18 10:41 Dose: 12.5 mg Levothyroxine Sodium (Synthroid) 50 mcg PO DAILY@0630 [facility] Last Admin: 07/18/18 05:38 Dose: 50 mcg Lisinopril (Zestril) 10 mg PO BID [facility] Last Admin: 07/18/18 11:10 Dose: 10 mg Methylprednisolone (Solu-Medrol) 30 mg IV Q12 [facility] Last Admin: 07/18/18 10:40 Dose: 30 mg Montelukast Sodium (Singulair) 10 mg PO HS [facility] Last Admin: 07/17/18 21:54 Dose: 10 mg Pantoprazole Sodium (Protonix Ec Tab) 40 mg PO DAILY [facility] Last Admin: 07/18/18 10:41 Dose: 40 mg - Labs Labs: 07/18/18 06:03 07/18/18 06:03 PT 12.0 SECONDS (9.7-12.2) 07/10/18 10:23 INR 1.1 07/10/18 10:23 APTT 29 SECONDS (21-34) 07/10/18 10:23
[2018-07-19] MEDS: Levothyroxine 50 MCG TAB PO SCH (05:52)
--- NOTE | 2018-07-19 08:49 | CP.PCM.PN ---
<Fadia Massey - Last Filed: 07/19/18 08:46> Subjective - Date & Time of Evaluation Date of Evaluation: 07/19/18 Time of Evaluation: 08:47 - Subjective Subjective: Cardiology Follow Up Patient was seen and examined at bedside. Patient report she feels well. Denied any chest pain, shortness of breath, palpitations, dizziness, or light headedness. Objective - Vital Signs/Intake and Output Vital Signs (last 24 hours): Temp Pulse Resp BP Pulse Ox 98.0 F 76 18 112/71 18 L 07/19/18 07:40 07/19/18 07:40 07/19/18 07:40 07/19/18 07:40 07/19/18 07:40 - Medications Medications: Current Medications Albuterol (Ventolin Hfa 90 Mcg/Actuation (8 G)) 2 puff IH RQ6 PRN PRN Reason: Shortness of Breath Calcium/Vitamin D (Oscal-D 250 Mg-125 Units Tab) 1 tab PO BID [facility] Last Admin: 07/18/18 18:34 Dose: 1 tab Diphenhydramine HCl (Benadryl) 50 mg IVP DAILY PRN PRN Reason: Other Last Admin: 07/17/18 08:50 Dose: 50 mg Guaifenesin (Robitussin) 100 mg PO Q4H PRN PRN Reason: Cough Hydrochlorothiazide (Microzide) 12.5 mg PO BID [facility] Last Admin: 07/18/18 18:34 Dose: 12.5 mg Levothyroxine Sodium (Synthroid) 50 mcg PO DAILY@0630 [facility] Last Admin: 07/19/18 05:52 Dose: 50 mcg Lisinopril (Zestril) 10 mg PO BID [facility] Last Admin: 07/18/18 18:34 Dose: 10 mg Methylprednisolone (Solu-Medrol) 30 mg IV Q12 [facility] Last Admin: 07/18/18 21:55 Dose: 30 mg Montelukast Sodium (Singulair) 10 mg PO HS [facility] Last Admin: 07/18/18 21:56 Dose: 10 mg Pantoprazole Sodium (Protonix Ec Tab) 40 mg PO DAILY [facility] Last Admin: 07/18/18 10:41 Dose: 40 mg - Labs Labs: 07/18/18 06:03 07/18/18 06:03 PT 12.0 SECONDS (9.7-12.2) 07/10/18 10:23 INR 1.1 07/10/18 10:23 APTT 29 SECONDS (21-34) 07/10/18 10:23 - Additional Findings Additional findings: - Constitutional Appears: No Acute Distress - Head Exam Head Exam: NORMAL INSPECTION, NORMOCEPHALIC - Eye Exam Eye Exam: EOMI, Normal appearance - ENT Exam ENT Exam: Mucous Membranes Moist - Respiratory Exam Respiratory Exam: Clear to Ausculation Bilateral, NORMAL BREATHING PATTERN - Cardiovascular Exam Cardiovascular Exam: REGULAR RHYTHM, +S1, +S2 - GI/Abdominal Exam GI & Abdominal Exam: Soft, Normal Bowel Sounds. absent: Tenderness, Diminished Bowel Sounds - Neurological Exam Neurological Exam: Alert, Awake, Oriented x3 - Psychiatric Exam Psychiatric exam: Normal Affect, Normal Mood - Skin Skin Exam: Dry, Intact, Normal Color, Warm Assessment and Plan - Assessment and Plan (Free Text) Plan: TTP NSTEMI Small Pericardial Effusion Imaging: - EKG: No ST changes noted - ECHO: Normal LVEF, small pericardial effusion noted, repeat ECHO in 3 months or sooner if patient is symptomatic Management: - s/p Cardiac catherization: nonobstructive coronaries, normal LVEF Case discussed with Fadia Nevarez DO, PGY2 <Rakesh Little - Last Filed: 07/19/18 22:19> Objective - Vital Signs/Intake and Output Vital Signs (last 24 hours): Temp Pulse Resp BP Pulse Ox 97.8 F 85 16 99/62 L 98 07/19/18 15:20 07/19/18 18:23 07/19/18 15:20 07/19/18 18:23 07/19/18 15:20 - Medications Medications: Current Medications Albuterol (Ventolin Hfa 90 Mcg/Actuation (8 G)) 2 puff IH RQ6 PRN PRN Reason: Shortness of Breath Calcium/Vitamin D (Oscal-D 250 Mg-125 Units Tab) 1 tab PO BID [facility] Last Admin: 07/19/18 18:20 Dose: 1 tab Diphenhydramine HCl (Benadryl) 50 mg IVP DAILY PRN PRN Reason: Other Last Admin: 07/17/18 08:50 Dose: 50 mg Guaifenesin (Robitussin) 100 mg PO Q4H PRN PRN Reason: Cough Hydrochlorothiazide (Microzide) 12.5 mg PO BID [facility] Last Admin: 07/19/18 18:30 Dose: Not Given Levothyroxine Sodium (Synthroid) 50 mcg PO DAILY@0630 [facility] Last Admin: 07/19/18 05:52 Dose: 50 mcg Lisinopril (Zestril) 10 mg PO BID [facility] Last Admin: 07/19/18 18:29 Dose: Not Given Methylprednisolone (Solu-Medrol) 30 mg IV Q12 [facility] Last Admin: 07/19/18 21:42 Dose: 30 mg Montelukast Sodium (Singulair) 10 mg PO HS [facility] Last Admin: 07/19/18 21:42 Dose: 10 mg Pantoprazole Sodium (Protonix Ec Tab) 40 mg PO DAILY [facility] Last Admin: 07/19/18 10:47 Dose: 40 mg - Labs Labs: 07/19/18 15:09 07/19/18 15:09 PT 12.0 SECONDS (9.7-12.2) 07/10/18 10:23 INR 1.1 07/10/18 10:23 APTT 29 SECONDS (21-34) 07/10/18 10:23 Assessment and Plan - Assessment and Plan (Free Text) Plan: patient seen and evaluated personally by me Plan of care d/w the medical records field technician and as documented
[2018-07-19] MEDS: MethylPREDNISolone 40 mg Vial IV SCH ×2 (10:47→21:42)
[2018-07-19] MEDS: Calcium-Vit D 250 mg-125 Units Tab UD PO SCH ×2 (10:47→18:20)
[2018-07-19] MEDS: Pantoprazole 40 mg EC Tab PO SCH (10:47)
--- NOTE | 2018-07-19 11:40 | CP.PCM.PN ---
Subjective - Date & Time of Evaluation Date of Evaluation: 07/16/18 Time of Evaluation: 12:00 - Subjective Subjective: Feeling better Objective - Vital Signs/Intake and Output Vital Signs (last 24 hours): Temp Pulse Resp BP Pulse Ox 98.0 F 76 18 112/71 18 L 07/19/18 07:40 07/19/18 07:40 07/19/18 07:40 07/19/18 07:40 07/19/18 07:40 - Medications Medications: Current Medications Albuterol (Ventolin Hfa 90 Mcg/Actuation (8 G)) 2 puff IH RQ6 PRN PRN Reason: Shortness of Breath Calcium/Vitamin D (Oscal-D 250 Mg-125 Units Tab) 1 tab PO BID [facility] Last Admin: 07/19/18 10:47 Dose: 1 tab Diphenhydramine HCl (Benadryl) 50 mg IVP DAILY PRN PRN Reason: Other Last Admin: 07/17/18 08:50 Dose: 50 mg Guaifenesin (Robitussin) 100 mg PO Q4H PRN PRN Reason: Cough Hydrochlorothiazide (Microzide) 12.5 mg PO BID [facility] Last Admin: 07/19/18 10:46 Dose: 12.5 mg Levothyroxine Sodium (Synthroid) 50 mcg PO DAILY@0630 [facility] Last Admin: 07/19/18 05:52 Dose: 50 mcg Lisinopril (Zestril) 10 mg PO BID [facility] Last Admin: 07/19/18 10:46 Dose: 10 mg Methylprednisolone (Solu-Medrol) 30 mg IV Q12 [facility] Last Admin: 07/19/18 10:47 Dose: 30 mg Montelukast Sodium (Singulair) 10 mg PO HS [facility] Last Admin: 07/18/18 21:56 Dose: 10 mg Pantoprazole Sodium (Protonix Ec Tab) 40 mg PO DAILY [facility] Last Admin: 07/19/18 10:47 Dose: 40 mg - Labs Labs: 07/18/18 06:03 07/18/18 06:03 PT 12.0 SECONDS (9.7-12.2) 07/10/18 10:23 INR 1.1 07/10/18 10:23 APTT 29 SECONDS (21-34) 07/10/18 10:23 - Head Exam Head Exam: ATRAUMATIC - Eye Exam Eye Exam: Normal appearance - ENT Exam ENT Exam: Mucous Membranes Dry - Respiratory Exam Respiratory Exam: NORMAL BREATHING PATTERN - Cardiovascular Exam Cardiovascular Exam: +S1, +S2 - GI/Abdominal Exam GI & Abdominal Exam: Normal Bowel Sounds Assessment and Plan (1) TTP (thrombotic thrombocytopenic purpura) Assessment & Plan: [id number] noted low with positive inhibitor on steroids continue daily plasma exchange please avoid plavix as can cause TTP cleared from hematology standpoint for further cardiac work up Status: Acute
--- NOTE | 2018-07-19 11:41 | CP.PCM.PN ---
Subjective - Date & Time of Evaluation Date of Evaluation: 07/17/18 Time of Evaluation: 18:00 - Subjective Subjective: Feeling better. Objective - Vital Signs/Intake and Output Vital Signs (last 24 hours): Temp Pulse Resp BP Pulse Ox 98.0 F 76 18 112/71 18 L 07/19/18 07:40 07/19/18 07:40 07/19/18 07:40 07/19/18 07:40 07/19/18 07:40 - Medications Medications: Current Medications Albuterol (Ventolin Hfa 90 Mcg/Actuation (8 G)) 2 puff IH RQ6 PRN PRN Reason: Shortness of Breath Calcium/Vitamin D (Oscal-D 250 Mg-125 Units Tab) 1 tab PO BID [facility] Last Admin: 07/19/18 10:47 Dose: 1 tab Diphenhydramine HCl (Benadryl) 50 mg IVP DAILY PRN PRN Reason: Other Last Admin: 07/17/18 08:50 Dose: 50 mg Guaifenesin (Robitussin) 100 mg PO Q4H PRN PRN Reason: Cough Hydrochlorothiazide (Microzide) 12.5 mg PO BID [facility] Last Admin: 07/19/18 10:46 Dose: 12.5 mg Levothyroxine Sodium (Synthroid) 50 mcg PO DAILY@0630 [facility] Last Admin: 07/19/18 05:52 Dose: 50 mcg Lisinopril (Zestril) 10 mg PO BID [facility] Last Admin: 07/19/18 10:46 Dose: 10 mg Methylprednisolone (Solu-Medrol) 30 mg IV Q12 [facility] Last Admin: 07/19/18 10:47 Dose: 30 mg Montelukast Sodium (Singulair) 10 mg PO HS [facility] Last Admin: 07/18/18 21:56 Dose: 10 mg Pantoprazole Sodium (Protonix Ec Tab) 40 mg PO DAILY [facility] Last Admin: 07/19/18 10:47 Dose: 40 mg - Labs Labs: 07/18/18 06:03 07/18/18 06:03 PT 12.0 SECONDS (9.7-12.2) 07/10/18 10:23 INR 1.1 07/10/18 10:23 APTT 29 SECONDS (21-34) 07/10/18 10:23 - Head Exam Head Exam: ATRAUMATIC - Eye Exam Eye Exam: Normal appearance - ENT Exam ENT Exam: Mucous Membranes Dry - Respiratory Exam Respiratory Exam: NORMAL BREATHING PATTERN - Cardiovascular Exam Cardiovascular Exam: +S1, +S2 - GI/Abdominal Exam GI & Abdominal Exam: Normal Bowel Sounds Assessment and Plan (1) TTP (thrombotic thrombocytopenic purpura) Assessment & Plan: [id number] noted low with positive inhibitor on steroids continue daily plasma exchange Status: Acute
--- NOTE | 2018-07-19 11:43 | CP.PCM.PN ---
Subjective - Date & Time of Evaluation Date of Evaluation: 07/18/18 Time of Evaluation: 13:00 - Subjective Subjective: Feeling better Objective - Vital Signs/Intake and Output Vital Signs (last 24 hours): Temp Pulse Resp BP Pulse Ox 98.0 F 76 18 112/71 18 L 07/19/18 07:40 07/19/18 07:40 07/19/18 07:40 07/19/18 07:40 07/19/18 07:40 - Medications Medications: Current Medications Albuterol (Ventolin Hfa 90 Mcg/Actuation (8 G)) 2 puff IH RQ6 PRN PRN Reason: Shortness of Breath Calcium/Vitamin D (Oscal-D 250 Mg-125 Units Tab) 1 tab PO BID [facility] Last Admin: 07/19/18 10:47 Dose: 1 tab Diphenhydramine HCl (Benadryl) 50 mg IVP DAILY PRN PRN Reason: Other Last Admin: 07/17/18 08:50 Dose: 50 mg Guaifenesin (Robitussin) 100 mg PO Q4H PRN PRN Reason: Cough Hydrochlorothiazide (Microzide) 12.5 mg PO BID [facility] Last Admin: 07/19/18 10:46 Dose: 12.5 mg Levothyroxine Sodium (Synthroid) 50 mcg PO DAILY@0630 [facility] Last Admin: 07/19/18 05:52 Dose: 50 mcg Lisinopril (Zestril) 10 mg PO BID [facility] Last Admin: 07/19/18 10:46 Dose: 10 mg Methylprednisolone (Solu-Medrol) 30 mg IV Q12 [facility] Last Admin: 07/19/18 10:47 Dose: 30 mg Montelukast Sodium (Singulair) 10 mg PO HS [facility] Last Admin: 07/18/18 21:56 Dose: 10 mg Pantoprazole Sodium (Protonix Ec Tab) 40 mg PO DAILY [facility] Last Admin: 07/19/18 10:47 Dose: 40 mg - Labs Labs: 07/18/18 06:03 07/18/18 06:03 PT 12.0 SECONDS (9.7-12.2) 07/10/18 10:23 INR 1.1 07/10/18 10:23 APTT 29 SECONDS (21-34) 07/10/18 10:23 - Head Exam Head Exam: ATRAUMATIC - Eye Exam Eye Exam: Normal appearance - ENT Exam ENT Exam: Mucous Membranes Dry - Respiratory Exam Respiratory Exam: NORMAL BREATHING PATTERN - Cardiovascular Exam Cardiovascular Exam: +S1, +S2 - GI/Abdominal Exam GI & Abdominal Exam: Normal Bowel Sounds Assessment and Plan (1) TTP (thrombotic thrombocytopenic purpura) Assessment & Plan: [id number] noted low with positive inhibitor on steroids plasma exchange; last session Tue. Status: Acute
--- NOTE | 2018-07-19 11:48 | CP.PCM.PN ---
Subjective - Date & Time of Evaluation Date of Evaluation: 07/19/18 Time of Evaluation: 11:00 - Subjective Subjective: No complaints. Objective - Vital Signs/Intake and Output Vital Signs (last 24 hours): Temp Pulse Resp BP Pulse Ox 98.0 F 76 18 112/71 18 L 07/19/18 07:40 07/19/18 07:40 07/19/18 07:40 07/19/18 07:40 07/19/18 07:40 - Medications Medications: Current Medications Albuterol (Ventolin Hfa 90 Mcg/Actuation (8 G)) 2 puff IH RQ6 PRN PRN Reason: Shortness of Breath Calcium/Vitamin D (Oscal-D 250 Mg-125 Units Tab) 1 tab PO BID [facility] Last Admin: 07/19/18 10:47 Dose: 1 tab Diphenhydramine HCl (Benadryl) 50 mg IVP DAILY PRN PRN Reason: Other Last Admin: 07/17/18 08:50 Dose: 50 mg Guaifenesin (Robitussin) 100 mg PO Q4H PRN PRN Reason: Cough Hydrochlorothiazide (Microzide) 12.5 mg PO BID [facility] Last Admin: 07/19/18 10:46 Dose: 12.5 mg Levothyroxine Sodium (Synthroid) 50 mcg PO DAILY@0630 [facility] Last Admin: 07/19/18 05:52 Dose: 50 mcg Lisinopril (Zestril) 10 mg PO BID [facility] Last Admin: 07/19/18 10:46 Dose: 10 mg Methylprednisolone (Solu-Medrol) 30 mg IV Q12 [facility] Last Admin: 07/19/18 10:47 Dose: 30 mg Montelukast Sodium (Singulair) 10 mg PO HS [facility] Last Admin: 07/18/18 21:56 Dose: 10 mg Pantoprazole Sodium (Protonix Ec Tab) 40 mg PO DAILY [facility] Last Admin: 07/19/18 10:47 Dose: 40 mg - Labs Labs: 07/18/18 06:03 07/18/18 06:03 PT 12.0 SECONDS (9.7-12.2) 07/10/18 10:23 INR 1.1 07/10/18 10:23 APTT 29 SECONDS (21-34) 07/10/18 10:23 - Head Exam Head Exam: ATRAUMATIC - Eye Exam Eye Exam: Normal appearance - ENT Exam ENT Exam: Mucous Membranes Dry - Respiratory Exam Respiratory Exam: NORMAL BREATHING PATTERN - Cardiovascular Exam Cardiovascular Exam: +S1, +S2 - GI/Abdominal Exam GI & Abdominal Exam: Normal Bowel Sounds Assessment and Plan (1) TTP (thrombotic thrombocytopenic purpura) Assessment & Plan: [id number] noted low with positive inhibitor on steroids last day of plasma exchange today outpatient rituximab Status: Acute
--- NOTE | 2018-07-19 12:55 | CP.PCM.PN ---
Subjective - Date & Time of Evaluation Date of Evaluation: 07/19/18 Time of Evaluation: 07:50 - Subjective Subjective: Medicine progress note ( Dr. Hernandez's service) Patient was seen and examined at bedside. Patient states that she is doing well and has no complaints. Patient denies any symptoms of fever, chills, nausea, vomiting, abdominal pain, chest pain, palpitations, shortness of breath, dizziness, lightheadedness, bruising or bleeding, bloody BM or hematuria. Objective - Vital Signs/Intake and Output Vital Signs (last 24 hours): Temp Pulse Resp BP Pulse Ox 98.0 F 76 18 112/71 18 L 07/19/18 07:40 07/19/18 07:40 07/19/18 07:40 07/19/18 07:40 07/19/18 07:40 - Medications Medications: Current Medications Albuterol (Ventolin Hfa 90 Mcg/Actuation (8 G)) 2 puff IH RQ6 PRN PRN Reason: Shortness of Breath Calcium/Vitamin D (Oscal-D 250 Mg-125 Units Tab) 1 tab PO BID [facility] Last Admin: 07/19/18 10:47 Dose: 1 tab Diphenhydramine HCl (Benadryl) 50 mg IVP DAILY PRN PRN Reason: Other Last Admin: 07/17/18 08:50 Dose: 50 mg Guaifenesin (Robitussin) 100 mg PO Q4H PRN PRN Reason: Cough Hydrochlorothiazide (Microzide) 12.5 mg PO BID [facility] Last Admin: 07/19/18 10:46 Dose: 12.5 mg Calcium Gluconate 4.65 meq/ (Sodium Chloride) 110 mls @ 100 mls/hr IV ONCE ONE Stop: 07/19/18 13:41 Levothyroxine Sodium (Synthroid) 50 mcg PO DAILY@0630 [facility] Last Admin: 07/19/18 05:52 Dose: 50 mcg Lisinopril (Zestril) 10 mg PO BID [facility] Last Admin: 07/19/18 10:46 Dose: 10 mg Methylprednisolone (Solu-Medrol) 30 mg IV Q12 [facility] Last Admin: 07/19/18 10:47 Dose: 30 mg Montelukast Sodium (Singulair) 10 mg PO HS [facility] Last Admin: 07/18/18 21:56 Dose: 10 mg Pantoprazole Sodium (Protonix Ec Tab) 40 mg PO DAILY [facility] Last Admin: 07/19/18 10:47 Dose: 40 mg - Labs Labs: 07/18/18 06:03 07/18/18 06:03 PT 12.0 SECONDS (9.7-12.2) 07/10/18 10:23 INR 1.1 07/10/18 10:23 APTT 29 SECONDS (21-34) 07/10/18 10:23 - Constitutional Appears: Well, No Acute Distress - Head Exam Head Exam: ATRAUMATIC, NORMAL INSPECTION - Eye Exam Eye Exam: EOMI - ENT Exam ENT Exam: Mucous Membranes Moist - Neck Exam Additional comments: Right IJ permacath in place - Respiratory Exam Respiratory Exam: Clear to Ausculation Bilateral, NORMAL BREATHING PATTERN. absent: Chest Wall Tenderness, Decreased Breath Sounds, Prolonged Expiratory Phase, Wheezes - Cardiovascular Exam Cardiovascular Exam: REGULAR RHYTHM, +S1, +S2. absent: Murmur - GI/Abdominal Exam GI & Abdominal Exam: Soft, Normal Bowel Sounds. absent: Distended, Firm, Guarding, Rigid, Tenderness - Extremities Exam Extremities Exam: Normal Inspection. absent: Calf Tenderness, Pedal Edema, Tenderness Additional comments: S/p cardiac catherization access through the right radial; Right radial pulses bounding - Back Exam Back Exam: NORMAL INSPECTION. 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 Dumont covering Dr. De La Cruz-----> Help appreciated * [id number] noted low with positive inhibitor * Last plasmapheresis today, 07/19/[address] Dumont via right IJ permacath * Solu-medrol 30mg IV Q12H * Will need outpatient rituximab Status: Acute (2) HTN (hypertension) Assessment & Plan: HCTZ 12.5mg PO daily Lisinopril 10mg PO BID Status: Chronic (3) Hypothyroid Assessment & Plan: Synthroid 50mcg PO daily Status: Acute (4) Asthma Assessment & Plan: Ventolin 2 puff INH RQ6H PRN Singulair 10mg PO HS Robitussin 100mg PO Q4H PRN for cough Status: Chronic (5) Prophylactic measure Assessment & Plan: DVT: Chemical anticoagulation contraindicated in light of TTP, SCDs GI: Protonix 40mg PO daily Oscal-D 250Mg-125 units 1 tab PO BID Disposition: Last plasmapheresis today, 07/19/18 and will need outpatient rituximab as per Dr. Hernandez. [place] discharge by 07/21/18 All plans and management discussed with Dr. Hernandez Status: Acute
[2018-07-19 15:20] LABS: BASO # 0.1 K/uL (0.0-0.2); BASO % 0.4 % (0.0-2.0); HEMOGLOBIN 9.3 g/dL (11.0-16.0); LYMPH # 3.1 K/uL (1.0-4.3); LYMPH % 16.7 % (20.0-40.0); MEAN CELL VOLUME 89.3 fL (81.0-99.0); MEAN CORPUSCULAR HEMOGLOBIN 29.9 pg (27.0-31.0); MEAN CORPUSCULAR HGB CONC 33.4 g/dL (33.0-37.0); MONO # 0.8 K/uL (0.0-0.8); MONO % 4.6 % (0.0-10.0); NEUT # 14.5 K/uL (1.8-7.0); NEUT % 78.3 % (50.0-75.0); NRBC % 0.2 % (0.0-2.0); RBC 3.12 Mil/uL (3.80-5.20); RED CELL DISTRIBUTION WIDTH 17.5 % (11.5-14.5); WHITE BLOOD COUNT 18.5 K/uL (4.8-10.8)
[2018-07-19 15:54] LABS: ALB/GLOB RATIO 1.4 (1.0-2.1); ALBUMIN 4.1 g/dL (3.5-5.0); ALT/SGPT 94 U/L (9-52); AST/SGOT 67 U/L (14-36); BLOOD UREA NITROGEN 30 mg/dL (7-17); CALCIUM 9.2 mg/dl (8.6-10.4); GFR NON-AFRICAN AMERICAN > 60
[2018-07-20] MEDS: Levothyroxine 50 MCG TAB PO SCH (05:36)
[2018-07-20 07:44] LABS: BASO % 0.1 % (0.0-2.0); HEMOGLOBIN 9.3 g/dL (11.0-16.0); LYMPH # 1.9 K/uL (1.0-4.3); LYMPH % 14.1 % (20.0-40.0); MEAN CELL VOLUME 89.6 fL (81.0-99.0); MEAN CORPUSCULAR HEMOGLOBIN 30.3 pg (27.0-31.0); MEAN CORPUSCULAR HGB CONC 33.8 g/dL (33.0-37.0); MEAN PLATELET VOLUME 7.8 fL (7.2-11.7); MONO # 0.6 K/uL (0.0-0.8); MONO % 4.5 % (0.0-10.0); NEUT # 10.9 K/uL (1.8-7.0); NEUT % 81.3 % (50.0-75.0); NRBC % 0.3 % (0.0-2.0); RBC 3.06 Mil/uL (3.80-5.20); RED CELL DISTRIBUTION WIDTH 17.8 % (11.5-14.5); WHITE BLOOD COUNT 13.4 K/uL (4.8-10.8)
[2018-07-20 08:17] LABS: ALB/GLOB RATIO 1.3 (1.0-2.1); ALBUMIN 3.4 g/dL (3.5-5.0); ALT/SGPT 101 U/L (9-52); AST/SGOT 62 U/L (14-36); BLOOD UREA NITROGEN 27 mg/dL (7-17); CALCIUM 8.4 mg/dl (8.6-10.4); GFR NON-AFRICAN AMERICAN > 60
[2018-07-20] MEDS: MethylPREDNISolone 40 mg Vial IV SCH ×2 (09:44→22:18)
[2018-07-20] MEDS: Calcium-Vit D 250 mg-125 Units Tab UD PO SCH ×2 (09:44→18:28)
[2018-07-20] MEDS: Pantoprazole 40 mg EC Tab PO SCH (09:44)
--- NOTE | 2018-07-20 12:49 | CP.PCM.PN ---
Subjective - Date & Time of Evaluation Date of Evaluation: 07/20/18 Time of Evaluation: 09:25 - Subjective Subjective: Resident Progress Note for Dr. Hernandez Patient seen and examined at bedside. No acute events overnight. Patient is feeling well and has a great appetite. Patient denies any symptoms of fever, chills, nausea, vomiting, abdominal pain, chest pain, palpitations, shortness of breath, dizziness, lightheadedness, bruising or bleeding, bloody BM or hematuria. Objective - Vital Signs/Intake and Output Vital Signs (last 24 hours): Temp Pulse Resp BP Pulse Ox 97.4 F L 80 20 114/63 99 07/20/18 07:50 07/20/18 07:50 07/20/18 07:50 07/20/18 07:50 07/20/18 07:50 - Medications Medications: Current Medications Albuterol (Ventolin Hfa 90 Mcg/Actuation (8 G)) 2 puff IH RQ6 PRN PRN Reason: Shortness of Breath Calcium/Vitamin D (Oscal-D 250 Mg-125 Units Tab) 1 tab PO BID [facility] Last Admin: 07/20/18 09:44 Dose: 1 tab Diphenhydramine HCl (Benadryl) 50 mg PO DAILY PRN PRN Reason: Other Guaifenesin (Robitussin) 100 mg PO Q4H PRN PRN Reason: Cough Hydrochlorothiazide (Microzide) 12.5 mg PO BID [facility] Last Admin: 07/20/18 09:44 Dose: 12.5 mg Levothyroxine Sodium (Synthroid) 50 mcg PO DAILY@0630 [facility] Last Admin: 07/20/18 05:36 Dose: 50 mcg Lisinopril (Zestril) 10 mg PO BID [facility] Last Admin: 07/20/18 09:44 Dose: 10 mg Methylprednisolone (Solu-Medrol) 30 mg IV Q12 [facility] Last Admin: 07/20/18 09:44 Dose: 30 mg Montelukast Sodium (Singulair) 10 mg PO HS [facility] Last Admin: 07/19/18 21:42 Dose: 10 mg Pantoprazole Sodium (Protonix Ec Tab) 40 mg PO DAILY [facility] Last Admin: 07/20/18 09:44 Dose: 40 mg - Labs Labs: 07/20/18 07:37 12/13/18 07:37 PT 12.0 SECONDS (9.7-12.2) 07/10/18 10:23 INR 1.1 07/10/18 10:23 APTT 29 SECONDS (21-34) 07/10/18 10:23 - Additional Findings Additional findings: - Constitutional Appears: Well, No Acute Distress - Head Exam Head Exam: ATRAUMATIC, NORMAL INSPECTION - Eye Exam Eye Exam: EOMI - ENT Exam ENT Exam: Mucous Membranes Moist - Neck Exam Additional comments: Right IJ permacath in place, dry, clean, no active discharge - Respiratory Exam Respiratory Exam: Clear to Ausculation Bilateral, NORMAL BREATHING PATTERN. absent: Chest Wall Tenderness, Decreased Breath Sounds - Cardiovascular Exam Cardiovascular Exam: REGULAR RHYTHM, +S1, +S2. absent: Murmur - GI/Abdominal Exam GI & Abdominal Exam: Soft, Normal Bowel Sounds. absent: Distended, Firm, Guarding, Rigid, Tenderness - Extremities Exam Extremities Exam: Normal Inspection. absent: Calf Tenderness, Pedal Edema, Tenderness Additional comments: S/p cardiac catherization access through the right radial; Right radial pulses bounding - Back Exam Back Exam: NORMAL INSPECTION. 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 Dumont covering Dr. De La Cruz-----> Help appreciated * [id number] noted low with positive inhibitor * Last plasmapheresis today, 07/19/[address] Dumont via right IJ permacath * Solu-medrol 30mg IV Q12H * Will need outpatient rituximab Status: Acute (2) HTN (hypertension) Assessment & Plan: HCTZ 12.5mg PO daily Lisinopril 10mg PO BID Status: Chronic (3) Hypothyroid Assessment & Plan: Synthroid 50mcg PO daily Status: Acute (4) Asthma, stable Assessment & Plan: Ventolin 2 puff INH RQ6H PRN Singulair 10mg PO HS Robitussin 100mg PO Q4H PRN for cough Status: Chronic (5) Prophylactic measure Assessment & Plan: DVT: Chemical anticoagulation contraindicated in light of TTP, SCDs GI: Protonix 40mg PO daily Oscal-D 250Mg-125 units 1 tab PO BID Disposition: Last plasmapheresis on 07/19/18 and will need outpatient rituximab. Likely discharge by Tuesday07/21/[address] Dumont All plans and management discussed with Dr. Hernandez
--- NOTE | 2018-07-20 23:45 | CP.PCM.PN ---
Subjective - Date & Time of Evaluation Date of Evaluation: 07/20/18 Time of Evaluation: 13:00 - Subjective Subjective: Feeling better. Objective - Vital Signs/Intake and Output Vital Signs (last 24 hours): Temp Pulse Resp BP Pulse Ox 97.9 F 77 20 105/77 100 07/20/18 15:46 07/20/18 18:30 07/20/18 15:46 07/20/18 18:30 07/20/18 15:46 Intake and Output: 07/20/18 07/21/18 18:59 06:59 Intake Total 540 Balance 540 - Medications Medications: Current Medications Albuterol (Ventolin Hfa 90 Mcg/Actuation (8 G)) 2 puff IH RQ6 PRN PRN Reason: Shortness of Breath Calcium/Vitamin D (Oscal-D 250 Mg-125 Units Tab) 1 tab PO BID [facility] Last Admin: 07/20/18 18:28 Dose: 1 tab Diphenhydramine HCl (Benadryl) 50 mg PO DAILY PRN PRN Reason: Other Guaifenesin (Robitussin) 100 mg PO Q4H PRN PRN Reason: Cough Hydrochlorothiazide (Microzide) 12.5 mg PO BID [facility] Last Admin: 07/20/18 18:28 Dose: 12.5 mg Levothyroxine Sodium (Synthroid) 50 mcg PO DAILY@0630 [facility] Last Admin: 07/20/18 05:36 Dose: 50 mcg Lisinopril (Zestril) 10 mg PO BID [facility] Last Admin: 07/20/18 18:28 Dose: 10 mg Methylprednisolone (Solu-Medrol) 30 mg IV Q12 [facility] Last Admin: 07/20/18 22:18 Dose: 30 mg Montelukast Sodium (Singulair) 10 mg PO HS [facility] Last Admin: 07/20/18 22:18 Dose: 10 mg Pantoprazole Sodium (Protonix Ec Tab) 40 mg PO DAILY [facility] Last Admin: 07/20/18 09:44 Dose: 40 mg - Labs Labs: 07/20/18 07:37 07/20/18 07:37 PT 12.0 SECONDS (9.7-12.2) 07/10/18 10:23 INR 1.1 07/10/18 10:23 APTT 29 SECONDS (21-34) 07/10/18 10:23 - Head Exam Head Exam: ATRAUMATIC - Eye Exam Eye Exam: Normal appearance - ENT Exam ENT Exam: Mucous Membranes Dry - Respiratory Exam Respiratory Exam: NORMAL BREATHING PATTERN - Cardiovascular Exam Cardiovascular Exam: +S1, +S2 - GI/Abdominal Exam GI & Abdominal Exam: Normal Bowel Sounds Assessment and Plan (1) TTP (thrombotic thrombocytopenic purpura) Assessment & Plan: [id number] noted low with positive inhibitor on steroids last day of plasma exchange today outpatient rituximab Status: Acute
[2018-07-21] MEDS: Levothyroxine 50 MCG TAB PO SCH (06:18)
[2018-07-21 08:25] VITALS: BP 130/83; PULSE 76; RESP 18; TEMP 98.1; O2SAT 100
[2018-07-21 08:51] LABS: BASO % 0.2 % (0.0-2.0); HEMOGLOBIN 9.5 g/dL (11.0-16.0); LYMPH # 1.9 K/uL (1.0-4.3); LYMPH % 14.6 % (20.0-40.0); MEAN CELL VOLUME 90.2 fL (81.0-99.0); MEAN CORPUSCULAR HEMOGLOBIN 30.4 pg (27.0-31.0); MEAN CORPUSCULAR HGB CONC 33.7 g/dL (33.0-37.0); MONO # 0.7 K/uL (0.0-0.8); MONO % 5.3 % (0.0-10.0); NEUT # 10.6 K/uL (1.8-7.0); NEUT % 79.9 % (50.0-75.0); RBC 3.12 Mil/uL (3.80-5.20); RED CELL DISTRIBUTION WIDTH 18.2 % (11.5-14.5); WHITE BLOOD COUNT 13.3 K/uL (4.8-10.8)
[2018-07-21 09:02] LABS: ALB/GLOB RATIO 1.4 (1.0-2.1); ALBUMIN 3.7 g/dL (3.5-5.0); ALT/SGPT 91 U/L (9-52); AST/SGOT 39 U/L (14-36); BLOOD UREA NITROGEN 25 mg/dL (7-17); CALCIUM 8.9 mg/dl (8.6-10.4); GFR NON-AFRICAN AMERICAN > 60
[2018-07-21] MEDS: Calcium-Vit D 250 mg-125 Units Tab UD PO SCH (10:37)
[2018-07-21] MEDS: Pantoprazole 40 mg EC Tab PO SCH (10:37)
[2018-07-21] MEDS: MethylPREDNISolone 40 mg Vial IV SCH (10:38)
--- NOTE | 2018-07-21 11:17 | CP.PCM.PN ---
Subjective - Date & Time of Evaluation Date of Evaluation: 07/21/18 Time of Evaluation: 09:50 - Subjective Subjective: Medicine progress note ( Dr. Hernandez's service, Hospitalist, Dr. Jorge Cartagena' s) Patient was seen and examined at bedside. Patient states that she is doing well and has no complaints. Patient denies any symptoms of fever, chills, nausea, vomiting, abdominal pain, chest pain, palpitations, shortness of breath, dizziness, lightheadedness, bruising or bleeding, bloody BM or hematuria. Objective - Vital Signs/Intake and Output Vital Signs (last 24 hours): Temp Pulse Resp BP Pulse Ox 98.1 F 76 18 130/83 100 07/21/18 08:00 07/21/18 08:00 07/21/18 08:00 07/21/18 08:00 07/21/18 08:00 Intake and Output: 07/21/18 07/21/18 06:59 18:59 Intake Total 780 Balance 780 - Medications Medications: Current Medications Albuterol (Ventolin Hfa 90 Mcg/Actuation (8 G)) 2 puff IH RQ6 PRN PRN Reason: Shortness of Breath Calcium/Vitamin D (Oscal-D 250 Mg-125 Units Tab) 1 tab PO BID [facility] Last Admin: 07/21/18 10:37 Dose: 1 tab Diphenhydramine HCl (Benadryl) 50 mg PO DAILY PRN PRN Reason: Other Guaifenesin (Robitussin) 100 mg PO Q4H PRN PRN Reason: Cough Hydrochlorothiazide (Microzide) 12.5 mg PO BID [facility] Last Admin: 07/21/18 10:37 Dose: 12.5 mg Levothyroxine Sodium (Synthroid) 50 mcg PO DAILY@0630 [facility] Last Admin: 07/21/18 06:18 Dose: 50 mcg Lisinopril (Zestril) 10 mg PO BID [facility] Last Admin: 07/21/18 10:37 Dose: 10 mg Methylprednisolone (Solu-Medrol) 30 mg IV Q12 [facility] [place] Last Admin: 07/21/18 10:38 Dose: 30 mg Montelukast Sodium (Singulair) 10 mg PO HS [facility] Last Admin: 07/20/18 22:18 Dose: 10 mg Pantoprazole Sodium (Protonix Ec Tab) 40 mg PO DAILY [facility] Last Admin: 07/21/18 10:37 Dose: 40 mg - Labs Labs: 07/21/18 08:38 07/21/18 08:38 PT 12.0 SECONDS (9.7-12.2) 07/10/18 10:23 INR 1.1 07/10/18 10:23 APTT 29 SECONDS (21-34) 07/10/18 10:23 - Constitutional Appears: Well, No Acute Distress - Head Exam Head Exam: ATRAUMATIC, NORMAL INSPECTION - Eye Exam Eye Exam: EOMI, Normal appearance - ENT Exam ENT Exam: Mucous Membranes Moist - Neck Exam Additional comments: Right IJ permacath in place - Respiratory Exam Respiratory Exam: Clear to Ausculation Bilateral, NORMAL BREATHING PATTERN. absent: Chest Wall Tenderness, Decreased Breath Sounds, Prolonged Expiratory Phase, Rhonchi, Wheezes - Cardiovascular Exam Cardiovascular Exam: REGULAR RHYTHM, +S1, +S2. absent: Tachycardia - GI/Abdominal Exam GI & Abdominal Exam: Soft, Normal Bowel Sounds. absent: Distended, Firm, Guarding, Rigid, Tenderness - Extremities Exam Extremities Exam: Normal Inspection. 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 Dumont covering Dr. De La Cruz-----> Help appreciated * [id number] noted low with positive inhibitor * Last plasmapheresis today, 07/19/[address] Dumont via right IJ permacath * Solu-medrol 30mg IV Q12H * Will need outpatient rituximab, this will be coordinated with Dr. Dumont Status: Acute (2) HTN (hypertension) Assessment & Plan: HCTZ 12.5mg PO daily Lisinopril 10mg PO BID Status: Chronic (3) Hypothyroid Assessment & Plan: Synthroid 50mcg PO daily Status: Acute (4) Asthma Assessment & Plan: Ventolin 2 puff INH RQ6H PRN Singulair 10mg PO HS Robitussin 100mg PO Q4H PRN for cough Status: Chronic (5) Prophylactic measure Assessment & Plan: DVT: Chemical anticoagulation contraindicated in light of TTP, SCDs GI: Protonix 40mg PO daily Oscal-D 250Mg-125 units 1 tab PO BID Disposition: Last plasmapheresis today, 07/19/18. Cleared for discharge by Dr. Dumont. As per Dr. Dumont, patient should be discharge with Right IJ permacath in place and will f/u with Dr. Dumont for outpatient treatment. Please discharge home as she has been cleared by Dr. Dumont Please continue all your home medications: - Singulair 10mg PO HS - Lisinopril- HCTZ (10-12.5mg PO daily - Synthroid 50mcg PO daily - ASA 81mg PO daily - Ventolin 2puff IH Q6H PRN for shortness of breath Please follow up with Dr. Dumont for outpatient treatment. You will be contacted by Dr. Dumont in order to set up outpatient care/treatment Please follow up with your primary care physician Dr. Sneed at [facility] upon discharge for clearance to go back to work Please return to the hospital if symptoms resume Please take care All plans and management discussed with Dr. Jorge Cartagena Status: Acute
--- NOTE | 2018-07-21 15:24 | CP.PCM.DIS ---
Provider - Provider Date of Admission: 07/10/18 12:47 Attending physician: Maynor Hernandez MD Consults: 07/10/18 11:25 Physician Consult Stat Comment: Consulting Provider: Tali Blount Consulting Physician: Tali Blount Reason for Consult: TTP, anemia 07/10/18 11:43 Physician Consult Stat Comment: Consulting Provider: Henrique Dumont Consulting Physician: Henrique Dumont Reason for Consult: TTP, anemia 07/10/18 15:30 Physician Consult Routine Comment: Consulting Provider: Raymundo Rodriguez Jr. Consulting Physician: Raymundo Rodriguez Jr. 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 (2) HTN (hypertension) Status: Chronic (3) Hypothyroid Status: Acute (4) Asthma Status: Chronic (5) Prophylactic measure Status: Acute Hospital Course - Lab Results Lab Results: Micro Results 07/18/18 06:03 Nose MRSA Culture - Final MRSA NOT DETECTED 07/11/18 05:24 Naris MRSA Culture (Admit) - Final MRSA NOT DETECTED Most Recent Lab Values WBC 13.3 K/uL (4.8-10.8) H 07/21/18 08:38 RBC 3.12 Mil/uL (3.80-5.20) L 07/21/18 08:38 Hgb 9.5 g/dL (11.0-16.0) L 07/21/18 08:38 Hct 28.2 % (34.0-47.0) L 07/21/18 08:38 MCV 90.2 fL (81.0-99.0) 07/21/18 08:38 MCH 30.4 pg (27.0-31.0) 07/21/18 08:38 MCHC 33.7 g/dL (33.0-37.0) 07/21/18 08:38 RDW 18.2 % (11.5-14.5) H 07/21/18 08:38 Plt Count 431 K/uL (130-400) H 07/21/18 08:38 MPV 8.0 fL (7.2-11.7) 07/21/18 08:38 Neut % (Auto) 79.9 % (50.0-75.0) H 07/21/18 08:38 Lymph % (Auto) 14.6 % (20.0-40.0) L 07/21/18 08:38 [place] % (Auto) 5.3 % (0.0-10.0) 07/21/18 08:38 Eos % (Auto) 0.0 % (0.0-4.0) 07/21/18 08:38 Baso % (Auto) 0.2 % (0.0-2.0) 07/21/18 08:38 Neut # (Auto) 10.6 K/uL (1.8-7.0) H 07/21/18 08:38 Lymph # (Auto) 1.9 K/uL (1.0-4.3) 07/21/18 08:38 [place] # (Auto) 0.7 K/uL (0.0-0.8) 07/21/18 08:38 Eos # (Auto) 0.0 K/uL (0.0-0.7) 07/21/18 08:38 Baso # (Auto) 0.0 K/uL (0.0-0.2) 07/21/18 08:38 Neutrophils % (Manual) 92 % (50-75) H 07/15/18 05:34 Lymphocytes % (Manual) 6 % (20-40) L 07/15/18 05:34 Monocytes % (Manual) 2 % (0-10) 07/15/18 05:34 Differential Comment 07/13/18 05:49 Toxic Granulation Present 07/15/18 05:34 Platelet Estimate Normal (NORMAL) 07/15/18 05:34 Large Platelets Present 07/15/18 05:34 Giant Platelets Present 07/15/18 05:34 Polychromasia Slight 07/15/18 05:34 Hypochromasia (manual) Slight 07/15/18 05:34 Poikilocytosis (manual Moderate 07/15/18 05:34 Anisocytosis (manual) Moderate 07/15/18 05:34 Ovalocytes Slight 07/15/18 05:34 Schistocytes Moderate 07/15/18 05:34 Smear Path Review 07/10/18 10:23 Retic Count 2.8 % (0.5-1.5) H D 07/11/18 08:10 Haptoglobin < 20.0 mg/dL (30.0-200.0) L 07/10/18 13:02 PT 12.0 SECONDS (9.7-12.2) 07/10/18 10:23 INR 1.1 07/10/18 10:23 APTT 29 SECONDS (21-34) 07/10/18 10:23 [id number] Inhibitor <3 % Activity (68-163) L* 07/11/18 08:10 [id number] Inhibit Titer 0.6 BEU (<0.4) H 07/11/18 08:10 Sodium 132 mmol/L (132-148) 07/21/18 08:38 Potassium 4.4 mmol/L (3.6-5.2) 07/21/18 08:38 Chloride 94 mmol/L (98-107) L 07/21/18 08:38 Carbon Dioxide 30 mmol/L (22-30) 07/21/18 08:38 Anion Gap 12 (10-20) 07/21/18 08:38 BUN 25 mg/dL (7-17) H 07/21/18 08:38 Creatinine 0.8 mg/dL (0.7-1.2) 07/21/18 08:38 Est GFR ( Amer) > 60 07/21/18 08:38 Est GFR (Non-Af Amer) > 60 07/21/18 08:38 Random Glucose 108 mg/dL (65-105) H 07/21/18 08:38 Calcium 8.9 mg/dl (8.6-10.4) 07/21/18 08:38 Phosphorus 3.5 mg/dL (2.5-4.5) 07/21/18 08:38 Magnesium 1.9 mg/dL (1.6-2.3) 07/21/18 08:38 Total Bilirubin 0.4 mg/dL (0.2-1.3) 07/21/18 08:38 AST 39 U/L (14-36) H D 07/21/18 08:38 ALT 91 U/L (9-52) H 07/21/18 08:38 Alkaline Phosphatase 62 U/L (38-126) 07/21/18 08:38 Lactate Dehydrogenase 978 U/L (313-618) H 07/14/18 06:37 Troponin I 0.3290 ng/mL (0.00-0.120) H* 07/12/18 15:04 NT-Pro-B Natriuret Pep 3880 pg/mL (0-900) H 07/10/18 10:23 Total Protein 6.4 g/dL (6.3-8.3) 07/21/18 08:38 Albumin 3.7 g/dL (3.5-5.0) 07/21/18 08:38 Globulin 2.7 gm/dL (2.2-3.9) 07/21/18 08:38 Albumin/Globulin Ratio 1.4 (1.0-2.1) 07/21/18 08:38 TSH 3rd Generation 1.70 mIU/L (0.46-4.68) 07/10/18 10:23 Urine Color Alyssa (YELLOW) 07/10/18 13:44 Urine Clarity Clear (Clear) 07/10/18 13:44 Urine pH 5.0 (5.0-8.0) 07/10/18 13:44 Ur Specific [place] 1.022 (1.003-1.030) 07/10/18 13:44 Urine Protein 3+ mg/dL (NEGATIVE) H 07/10/18 13:44 Urine Glucose (UA) Normal mg/dL (Normal) 07/10/18 13:44 Urine Ketones Negative mg/dL (NEGATIVE) 07/10/18 13:44 Urine Blood 3+ (NEGATIVE) H 07/10/18 13:44 Urine Nitrate Negative (NEGATIVE) 07/10/18 13:44 Urine Bilirubin Negative (NEGATIVE) 07/10/18 13:44 Urine Urobilinogen 4.0 mg/dL (0.2-1.0) H 07/10/18 13:44 Ur Leukocyte Esterase Neg [place]/uL (Negative) 07/10/18 13:44 Urine WBC (Auto) 8 /hpf (0-5) H 07/10/18 13:44 Urine RBC (Auto) 31 /hpf (0-3) H 07/10/18 13:44 Ur Squamous Epith Cells 7 /hpf (0-5) H 07/10/18 13:44 Hyaline Casts 11-20 /lpf (0-2) H 07/10/18 13:44 Influenza Typ A,B (EIA) Negative for flu a/b (NEGATIVE) 07/10/18 10:23 Blood Type B POSITIVE 07/10/18 12:53 Antibody Screen Negative 07/10/18 12:53 JOSEPH, Poly Interpret Negative (NEGATIVE) 07/10/18 12:53 - Hospital Course Hospital Course: HPI (As per admission): Pt is a 62yo F with PMH HTN, hypothyroid, asthma, thrombocytopenia presents to ED with dizziness and fatigue x2 days. Pt reports feeling tired, sleeping more than usual, and dizziness since yesterday. She feels as though she and the room are both spinning, but denies loss of consciousness or any falls. Pt reports previous history of these symptoms upon last admission for thrombocytopenia in 04/25. She reports associated shortness of breath, and one episode of vomiting in the ED. Pt also reports hot flashes. She denies fever, chills, headache, chest pain, nausea, abdominal pain, diarrhea, dysuria, sick contacts, or recent travel. Hospital Course: Patient was admitted for thrombocytopnea secondary to relapse TTP. Dr. Dumont covering for patient's outpatient hematology and oncology, Dr. De La Cruz was consulted who recommended plasma exchange treatment. Patient a right IJ permacath as per surgical team, Dr. Rodriguez, 07/14/18 for plasma exchange treatment. Please see below for more detailed inpatient care (1) TTP (thrombotic thrombocytopenic purpura) Assessment & Plan: Diagnosed 04/2018 Consultations: Heme/Onco, Dr. Dumont covering Dr. De La Cruz-----> Help appreciated * [id number] noted low with positive inhibitor * Last plasmapheresis today, 07/19/[address] Dumont via right IJ permacath * Solu-medrol 30mg IV Q12H * Will need outpatient rituximab, this will be coordinated with Dr. Dumont Status: Acute (2) HTN (hypertension) Assessment & Plan: HCTZ 12.5mg PO daily Lisinopril 10mg PO BID Status: Chronic (3) Hypothyroid Assessment & Plan: Synthroid 50mcg PO daily Status: Acute (4) Asthma Assessment & Plan: Ventolin 2 puff INH RQ6H PRN Singulair 10mg PO HS Robitussin 100mg PO Q4H PRN for cough Status: Chronic (5) Prophylactic measure Assessment & Plan: DVT: Chemical anticoagulation contraindicated in light of TTP, SCDs GI: Protonix 40mg PO daily Oscal-D 250Mg-125 units 1 tab PO BID Disposition: Last plasmapheresis today, 07/19/18. Cleared for discharge by Dr. Dumont. As per Dr. Dumont, patient should be discharge with Right IJ permacath in place and will f/u with Dr. Dumont for outpatient treatment. Please discharge home as she has been cleared by Dr. Dumont Please continue all your home medications: - Singulair 10mg PO HS - Lisinopril- HCTZ (10-12.5mg PO daily - Synthroid 50mcg PO daily - ASA 81mg PO daily - Ventolin 2puff IH Q6H PRN for shortness of breath Please follow up with Dr. Dumont for outpatient treatment. You will be contacted by Dr. Dumont in order to set up outpatient care/treatment Please follow up with your primary care physician Dr. Sneed at [facility] upon discharge for clearance to go back to work Please return to the hospital if symptoms resume Please take care All plans and management discussed with Dr. Jorge Cartagena Discharge Exam - Head Exam Head Exam: ATRAUMATIC, NORMAL INSPECTION - Eye Exam Eye Exam: EOMI, Normal appearance - ENT Exam ENT Exam: Mucous Membranes Moist Additional comments: Dentures in place - Neck Exam Additional comments: Right IJ permacath in place and in place upon discharge as per Hematology and oncology request - Respiratory Exam Respiratory Exam: NORMAL BREATHING PATTERN - Cardiovascular Exam Cardiovascular Exam: REGULAR RHYTHM, +S1, +S2 - GI/Abdominal Exam GI & Abdominal Exam: Normal Bowel Sounds, Soft. absent: Diminished Bowel Sounds, Distended, Firm, Guarding, Hernia - Extremities Exam Extremities exam: normal inspection - Neurological Exam Neurological exam: Alert, Normal Gait, Oriented x3 - Psychiatric Exam Psychiatric exam: Normal Affect - Skin Skin Exam: Normal Color Discharge Plan - Discharge Medications Prescriptions: Albuterol HFA [Ventolin HFA 90 mcg/actuation (8 g)] 2 puff IH [id number] PRN 30 Days #1 inhaler PRN Reason: Shortness Of Breath Aspirin [Ecotrin] 81 mg PO DAILY 30 Days #30 tabec Levothyroxine [Synthroid] 0.05 mg PO DAILY 30 Days #30 tab Lisinopril/Hydrochlorothiazide [Lisinopril-Hctz 10-12.5 mg Tab] 1 tab PO BID 30 Days #30 tablet Montelukast [Singulair] 10 mg PO DAILY 30 Days #30 tab - Follow Up Plan Condition: CRITICAL Disposition: HOME/ ROUTINE Instructions: Heart Healthy Diet, High Blood Pressure (DC), Chest Pain (DC), Hypothyroidism (Underactive Thyroid) (DC), Albuterol, Levothyroxine, Lisinopril and Hydrochlorothiazide, Montelukast, Normocytic Normochromic Anemia (DC), Dialysis Catheter (DC) Additional Instructions: Please discharge home as she has been cleared by Dr. Dumont Please continue all your home medications: - Singulair 10mg PO HS - Lisinopril- HCTZ (10-12.5mg PO daily - Synthroid 50mcg PO daily - ASA 81mg PO daily - Ventolin 2puff IH Q6H PRN for shortness of breath Please follow up with Dr. Dumont for outpatient treatment. You will be contacted by Dr. Dumont in order to set up outpatient care/treatment Please follow up with your primary care physician Dr. Sneed at [facility] upon discharge for clearance to go back to work Please return to the hospital if symptoms resume Please take care Referrals: Henrique Dumont MD [Staff Provider] - 1 Week (Please follow up in 1-3 days )
--- NOTE | 2018-07-22 20:42 | CP.PCM.PN ---
Subjective - Date & Time of Evaluation Date of Evaluation: 07/21/18 Time of Evaluation: 11:00 - Subjective Subjective: Feeling better Objective - Vital Signs/Intake and Output Vital Signs (last 24 hours): Temp Pulse Resp BP Pulse Ox 98.1 F 76 18 130/83 100 07/21/18 08:00 07/21/18 08:00 07/21/18 08:00 07/21/18 08:00 07/21/18 08:00 - Labs Labs: 07/21/18 08:38 07/21/18 08:38 PT 12.0 SECONDS (9.7-12.2) 07/10/18 10:23 INR 1.1 07/10/18 10:23 APTT 29 SECONDS (21-34) 07/10/18 10:23 - Head Exam Head Exam: ATRAUMATIC - Eye Exam Eye Exam: Normal appearance - ENT Exam ENT Exam: Mucous Membranes Dry - Respiratory Exam Respiratory Exam: NORMAL BREATHING PATTERN - Cardiovascular Exam Cardiovascular Exam: +S1, +S2 - GI/Abdominal Exam GI & Abdominal Exam: Normal Bowel Sounds Assessment and Plan (1) TTP (thrombotic thrombocytopenic purpura) Assessment & Plan: resolved but positive inhibitor to [id number] line to remain in steroids outpatient rituximab Status: Acute
--- NOTE | 2018-07-23 13:02 | CARDCATH ---
PROCEDURE DATE: 07/18/2018 PROCEDURES: 1. Left heart catheterization. 2. Coronary angiogram. CLINICAL INDICATIONS: 1. Chest pain. 2. Elevated troponin. 3. Hypertension. 4. Hyperlipidemia. 5. Thrombocytopenia. REFERRING PHYSICIAN: Maynor Hernandez MD. PERFORMING PHYSICIAN: Rakesh Little MD. DESCRIPTION OF PROCEDURE: After informed consent, the patient was prepped and draped in the usual sterile fashion. A 2% lidocaine was given in the right wrist for local anesthesia. Using micropuncture technique, 6-Sami sheath was introduced into right atrial artery. A JR4 6-Sami diagnostic catheter was engaged into left ventricle. The LVEDP measured. Contrast injected and LV angiogram was done. When the capsule was pulled back across the aortic valve, gradient across the aortic valve was measured. Then, the same catheter engaged in the right coronary artery. Contrast was injected and the right coronary angiogram was done. Then, the catheter was exchanged into 5-Sami [place] catheter. [place] catheter engaged into the left main coronary artery. Contrast injected and left coronary angiogram was done. The patient tolerated the procedure well. Postprocedure, Terumo radial band applied to right wrist with excellent hemostasis. Radiological supervision and radiological interpretation of the coronary imaging was done. FINDINGS: 1. Left main coronary artery is patent. 2. LAD and diagonal branches are patent. 3. Left circumflex and obtuse marginal branches are patent. 4. Right coronary artery is dominant and patent. 5. LV ejection fraction is approximately 60%. No wall motion abnormalities noted. EDP is 17. No gradient across the aortic valve. IMPRESSION: 1. Normal coronaries. 2. Normal left ventricular systolic function. Recommend medical management. Rakesh Little MD
--- NOTE | 2018-07-24 09:55 | DS ---
The patient was complaining of some cytopenia, TTP. The patient underwent plasmapheresis, seen by drawing frame tender. Platelet count improved. The patient is discharged to be followed up by oncologist. Maynor Hernandez MD
== END 2018-07-21 16:11 | disposition home or self-care (01) | DRG 561 ==
LOC: C.ER 09:21 → C.9I 12:47 → C.6T 07-18 01:37
PROVIDERS: ADMIT Internal Medicine Pulmonary Disease; ATTEND Internal Medicine Pulmonary Disease
PROC: 30233N1 Transfusion of Nonautologous Red Blood Cells into Peripheral Vein, Percutaneous Approach (ICD-10-PCS; 2018-07-10)
PROC: 6A551Z3 Pheresis of Plasma, Multiple (ICD-10-PCS; principal; 2018-07-11)
PROC: 06HM33Z Insertion of Infusion Device into Right Femoral Vein, Percutaneous Approach (ICD-10-PCS; 2018-07-11)
PROC: 0JH63XZ Insertion of Tunneled Vascular Access Device into Chest Subcutaneous Tissue and Fascia, Percutaneous Approach (ICD-10-PCS; 2018-07-14)
PROC: 02HV33Z Insertion of Infusion Device into Superior Vena Cava, Percutaneous Approach (ICD-10-PCS; 2018-07-14)
PROC: B518ZZA Fluoroscopy of Superior Vena Cava, Guidance (ICD-10-PCS; 2018-07-14)
PROC: B543ZZA Ultrasonography of Right Jugular Veins, Guidance (ICD-10-PCS; 2018-07-14)
PROC: 4A023N7 Measurement of Cardiac Sampling and Pressure, Left Heart, Percutaneous Approach (ICD-10-PCS; 2018-07-18)
PROC: B2151ZZ Fluoroscopy of Left Heart using Low Osmolar Contrast (ICD-10-PCS; 2018-07-18)
PROC: B2111ZZ Fluoroscopy of Multiple Coronary Arteries using Low Osmolar Contrast (ICD-10-PCS; 2018-07-18)
DX: M31.1 Thrombotic microangiopathy (principal); I21.4 Non-ST elevation (NSTEMI) myocardial infarction; J44.9 Chronic obstructive pulmonary disease, unspecified; I31.3 Pericardial effusion (noninflammatory); D75.9 Disease of blood and blood-forming organs, unspecified; I10 Essential (primary) hypertension; E03.9 Hypothyroidism, unspecified; E78.5 Hyperlipidemia, unspecified; H91.91 Unspecified hearing loss, right ear; N95.1 Menopausal and female climacteric states; F17.210 Nicotine dependence, cigarettes, uncomplicated; Z79.899 Other long term (current) drug therapy

== ENCOUNTER 2018-09-25 14:58 | Emergency (ER) | payer MEDICAID ==
[2018-09-25 15:06] VITALS: BP 185/99; PULSE 67; RESP 18; TEMP 97.6; O2SAT 99
--- NOTE | 2018-09-25 15:20 | C.PDOC ---
History Of Present Illness 62 y/o female,w/PMhx of HTN, brought to ER by ambulance for evaluation of elevated blood pressure levels.Patient states that she has headache which began after she arrived in the ER. Patient reports she history of similar headaches and is not concerned with this current headache. She notes that she is currently not taking any blood pressure medications.Denies having fever,chills, CP, SOB, urinary changes, abdominal pain, back pain, nausea, and vomiting. Time Seen by Provider: 09/25/18 15:07 Chief Complaint (Nursing): Headache History Per: Patient History/Exam Limitations: no limitations Onset/Duration Of Symptoms: Hrs Current Symptoms Are (Timing): Still Present Severity: Moderate Past Medical History Reviewed: Historical Data, Nursing Documentation, Vital Signs Vital Signs: Last Vital Signs Temp 97.6 F 09/25/18 15:02 Pulse 67 09/25/18 15:02 Resp 18 09/25/18 15:02 BP 185/99 H 09/25/18 15:02 Pulse Ox 99 09/25/18 15:02 - Medical History PMH: Anemia, Asthma, COPD, HTN, Hypothyroidism Other Surgeries: Hx of surgeries - [facility] Procedures FLUOROSCOPY OF LEFT HEART USING LOW OSMOLAR CONTRAST (07/10/18) FLUOROSCOPY OF MULT COR ART USING L OSM CONTRAST (07/10/18) FLUOROSCOPY OF SUPERIOR VENA CAVA, GUIDANCE (07/10/18) INSERTION OF INFUSION DEV INTO R FEMOR VEIN, PERC APPROACH (07/10/18) INSERTION OF INFUSION DEV INTO SUP VENA CAVA, PERC APPROACH (07/10/18) INSERTION OF INFUSION DEVICE INTO R ATRIUM, PERC APPROACH (04/12/18) INSERTION OF VAD INTO CHEST SUBCU/FASCIA, PERC APPROACH (07/10/18) MEASURE OF CARDIAC SAMPL & PRESSURE, L HEART, PERC APPROACH (07/10/18) OPEN BIOPSY OF BREAST (11/29/02) PHERESIS OF PLASMA, MULTIPLE (07/10/18) TRANSFUSE NONAUT FROZEN PLASMA IN PERIPH VEIN, PERC (04/12/18) TRANSFUSE NONAUT RED BLOOD CELLS IN PERIPH VEIN, PERC (07/10/18) ULTRASONOGRAPHY OF RIGHT JUGULAR VEINS, GUIDANCE (07/10/18) Family History: States: No Known Family Hx - Social History Hx Tobacco Use: No Hx Alcohol Use: No Hx Substance Use: No - Immunization History Hx Tetanus Toxoid Vaccination: No Hx Influenza Vaccination: No Hx Pneumococcal Vaccination: No Review Of Systems Except As Marked, All Systems Reviewed And Found Negative. Constitutional: Negative for: Fever, Chills Cardiovascular: Negative for: Chest Pain Respiratory: Negative for: Shortness of Breath Gastrointestinal: Negative for: Nausea, Vomiting Neurological: Positive for: Headache Physical Exam - Physical Exam Additional Physical Exam Comments: Constitutional: No acute distress. Head: Normocephalic. Atraumatic. Eyes: PERRL. ENT: Moist mucous membranes. Neck: Supple. Cardiovascular: Regular rate. Radial pulse 2+ bilaterally. Chest: No tenderness. Respiratory: Clear to auscultation bilaterally. GI: Soft. Nontender. Nondistended. Back: No CVA tenderness. Musculoskeletal: No tenderness or swelling of extremities. Skin: No rash. Neurologic: Alert, no focal deficit. Oriented x 3. Cranial nerves II-XII intact. Sensation to light touch intact bilaterally. Motor 5/5 x 4. Gait normal. ED Course And Treatment O2 Sat by Pulse Oximetry: 99 (RA) Pulse Ox Interpretation: Normal Medical Decision Making Medical Decision Making: Instructed to return to ED for worsening headache, chest pain, dyspnea, urinary changes, or any other problem. Otherwise, f/u primary care for asymptomatic HTN treatment. Disposition - Disposition Referrals: Raymundo Keller MD [Medical Doctor] - Disposition: HOME/ ROUTINE Disposition Time: 15:19 Condition: STABLE Instructions: High Blood Pressure in Adults Forms: [facility] ([place]) - Clinical Impression Clinical Impression: Asymptomatic hypertension - Scribe Statement The provider has reviewed the documentation as recorded by the Wilder Hunter Provider Attestation: All medical record entries made by the Wilder were at my direction and personally dictated by me. I have reviewed the chart and agree that the record accurately reflects my personal performance of the history, physical exam, medical decision making, and the department course for this patient. I have also personally directed, reviewed, and agree with the discharge instructions and disposition.
== END 2018-09-25 15:34 | disposition home or self-care (01) ==
LOC: C.ER 14:58
DX: I10 Essential (primary) hypertension (principal); E03.9 Hypothyroidism, unspecified; J44.9 Chronic obstructive pulmonary disease, unspecified